=== PATIENT | male | born 1945 | race Caucasian/White ===

== ENCOUNTER 2022-07-14 11:17 | Outpatient (CLI) | payer MEDICARE, SELFPAY ==
--- NOTE | ~2022-07-14 | XR_ITS ---
Right elbow Technique: AP, oblique, and lateral views were obtained. Clinical History: Pain Findings: No acute fracture or dislocation is seen. Osseous alignment is anatomic. Joint spaces are p reserved. There is prominent soft tissue swelling over the olecranon. Questionable elbow joint effusi on with superior displacement of the anterior fat pad.. Impression: Olecranon bursitis. Possible elbow joint effusion. This may be reactive given presence of bursitis. Correlate for any pos sibility of radiographically occult fracture. Reviewed, dictated and finalized at location M. Impression: Olecranon bursitis. Possible elbow joint effusion. This may be reactive given presence of bursitis. Correlate for any possibility of radiographically occult fracture.
== END 2022-07-14 11:18 | disposition home or self-care (01) ==
PROVIDERS: PCP Internal Medicine; Visit Provider Internal Medicine
DX: M25.521 Pain in right elbow (principal); M25.421 Effusion, right elbow
CPT/HCPCS: 73080

== ENCOUNTER 2023-06-01 13:23 | Outpatient (CLI) | payer MEDICARE, SELFPAY ==
--- NOTE | ~2023-06-01 | CT_ITS ---
EXAMINATION: CT abdomen pelvis wo con DATE: 06/01/2023 13:43 INDICATION: Difficulty with micturition TECHNIQUE: Computed tomography (CT) of the abdomen and pelvis was performed without intravenous contr ast. Automated exposure control and iterative reconstruction technique were employed. The dose-length product was 352.88 mGy-cm. COMPARISON: None FINDINGS: Elevation of the left hemidiaphragm. Peripheral irregular septal line thickening and honeycombing at the bilateral lung bases consistent with usual interstitial pneumonia (UIP) pattern chronic interstit ial lung disease. Associated mild cylindrical bronchiectasis in the bilateral lower lung zones. Heart size is normal. Atherosclerotic coronary artery calcification is. No pericardial or pleural effusion . Liver, gallbladder, spleen, pancreas, right kidney and bilateral adrenal glands are normal. 1.8 cm left renal cyst. No urolithiasis or hydronephrosis. Mild diffuse bladder wall thickening which may re late to chronic outlet obstruction from the enlarged prostate which measures 5.3 x 4.0 cm in maximal diameter. Bowels are unremarkable with no wall thickening or obstruction. No free intraperitoneal gas or fluid. No pathologically enlarged abdominal or pelvic lymphadenopathy. There is calcified atheros clerosis of the aorta and many of the other arteries. Moderate lower thoracic and severe lumbar spond ylosis with anterior fusion at L4-L5. IMPRESSION: 1. Mild bladder wall thickening which could be related to chronic outlet obstruction from the enlarge d prostate. Differential would include cystitis either acute or chronic and would correlate with urin alysis. 2. Bronchiectasis and UIP pattern chronic interstitial lung disease at the bilateral lower lungs. Reviewed, dictated and finalized at location L. IMPRESSION: 1. Mild bladder wall thickening which could be related to chronic outlet obstru ction from the enlarged prostate. Differential would include cystitis either ac verna or chronic and would correlate with urinalysis. 2. Bronchiectasis and UIP pattern chronic interstitial lung disease at the bila teral lower lungs.
== END 2023-06-01 13:24 | disposition home or self-care (01) ==
PROVIDERS: PCP Physician Assistant; Visit Provider Physician Assistant
DX: R39.198 Other difficulties with micturition (principal)
CPT/HCPCS: 74176

== ENCOUNTER 2023-09-13 09:20 | Day surgery (SDC) | payer MEDICARE, SELFPAY ==
[2023-07-27 08:17] VITALS: BMI 21.4
--- NOTE | 2023-09-13 07:31 | WPDANESEPPF ---
Anes - Initial Pre Proc Eval Procedure: Operation Date: 09/13/23 11:30 Proposed Procedures p Esophagogastroduodenoscopy - Jaylan Mariano MD s Diagnostic Colonoscopy - Jaylan Mariano MD Date/Time: 09/13/23 07:31 Surgeon: Jayaln Mariano MD Pre Op Diagnosis: Abnormal weight loss,unlcerative colitis, Patient Data Age: 77 Gender: M Height: 1.85 m Weight: 70.4 kg Allergies Allergy/AdvReac Type Severity Reaction Status Date / Time lidocaine Allergy Severe shuts Verified 09/13/23 10:23 lungs down Home Medications Medication Instructions Recorded Confirmed Type acetaminophen 325 mg tablet 325 mg PO Q6H PRN Pain 08/08/19 09/13/23 History (Tylenol) naproxen sodium 220 mg tablet 220 mg PO BID PRN Pain 08/08/19 09/13/23 History (Aleve) tamsulosin 0.4 mg capsule (Flomax) 0.4 mg PO DAILY #90 caps 04/17/23 09/13/23 Rx folic acid 1 mg tablet 1 mg PO DAILY #100 tabs 04/24/23 09/13/23 Rx sulfasalazine 500 mg 1.5 g PO BID #540 tabs 04/24/23 09/13/23 Rx tablet,delayed release Synogut 1 tab-cap PO DIRECTED 05/23/23 09/13/23 History azathioprine 50 mg tablet 100 mg PO DAILY 05/23/23 09/13/23 History cholecalciferol (vitamin D3) 50 50 mcg PO DAILY 05/23/23 09/13/23 History mcg (2,000 unit) capsule finasteride 5 mg tablet 5 mg PO DAILY #100 tabs 05/23/23 09/13/23 Rx glucosamine sulfate 500 mg tablet 500 mg PO BID 05/23/23 09/13/23 History (Glucosamine) mecobalamin (vitamin B12) 500 mcg 500 mcg PO DIRECTED 05/23/23 09/13/23 History chewable tablet super beta prostrate 1 tab-cap PO DIRECTED 05/23/23 09/13/23 History linaclotide 145 mcg capsule 145 mcg PO DAILY #30 caps 07/25/23 09/13/23 Rx (Linzess) Patient hx anesthesia problems: none Family hx anesthesia problems: none Results Review: All pre-operative results and documents have been reviewed as part of the pre-operative evaluation. [facility] Past Medical History Medical History (Updated 09/13/23 @ 07:31 by Ulysses Schroeder DO) Crohn's disease Gastro-esophageal reflux disease without esophagitis Hyperlipidemia Ulcerative colitis Social History Social History Smoking packs per day: 1.5 Smoking cigarettes per day: 30.0 Years smoked: 15 Smoking pack-years: 22.50 Smoking status: Former smoker Second hand tobacco smoke exposure: No Smoking end date: 03/20/73 Additional smoking assessment comments: quit in 1980 Alcohol intake: current Alcohol use details: 3 per day Substance use: never Substance use type: does not use Lack of Transportation: No Lack of Food: Never True Current Housing: I Have Housing Concerned About Future Housing: No Difficulty Paying Gas/Electric Bills: No Difficulty Paying for Meds: No Currently Unemployed: No Education: Decline to Answer Difficulty w/ Childcare or Family Care: YES Living arrangements: with family Spiritual care concerns: No Anes - Eval Final PreProcedure Day of Procedure 09/13/23 07:31 Patient weight: normal Heart: regular rate and rhythm Lungs: clear to auscultation and normal air movement Airway: Mallampati scale class II Neurological: alert and oriented Last oral intake: >/= 8 hours ASA classification: III Emergent: no Anesthetic plan: proceed Anesthesia type and monitoring: general GIVS and standard monitoring Results Review: All pre-operative results and documents have been reviewed as part of the pre-operative evaluation. Informed Consent: The patient's anesthetic plan and its attendant risks and benefits were discussed with the patient/family/POA. Questions were solicited and answers provided to the satisfaction of the patient/family/POA.
[2023-09-13 10:56] VITALS: BMI 20.6
[2023-09-13 10:57] VITALS: BP 124/81; PULSE 102; RESP 20; TEMP 36.6; O2SAT 98
[2023-09-13] MEDS: LACTATED RINGERS 1,000 ML 150 ML IV CONT (11:00)
--- NOTE | 2023-09-13 11:25 | WPDHPUPDATE1 ---
History and Physical Update Update Date/Time: 09/13/23 11:25 History and Physical has been reviewed, including an updated exam of the patient. There are NO changes in the patient's condition. Risks, benefits, and alternatives have been discussed and questions answered. Patient agrees to proceed with procedure.
[2023-09-13 12:20] VITALS: BP 117/79; PULSE 79; RESP 16; O2SAT 99
[2023-09-13 12:30] VITALS: BP 116/84; PULSE 79; RESP 20; O2SAT 99
[2023-09-13 12:40] VITALS: BP 135/84; PULSE 78; RESP 22; O2SAT 100
--- NOTE | 2023-09-13 14:14 | WPDANESPN ---
Anes - Prog Note Post-Op Date/Time: 09/13/23 14:14 Cardiovascular status: normal Respiratory status: normal Airway patency: baseline Mental status: baseline Post-Op hydration status: normal Vital Signs: Last Vital Signs Temp 36.6 C 09/13/23 10:57 Pulse 78 09/13/23 12:40 Resp 22 H 09/13/23 12:40 BP 135/84 09/13/23 12:40 Pulse Ox 100 09/13/23 12:40 O2 Del Method Room Air 09/13/23 12:40 Pain Score (VAS): 0 I/O: Intake & Output 09/12/23 09/13/23 09/13/23 23:59 07:59 15:59 Intake Total 650 Balance 650 Post-procedural complaints: none Patient Feedback: Patient satisfied with anesthetic care. Other Findings: Patient vital signs back to baseline. Patient denies nausea and vomiting. Patient's pain under control. Patient OK for discharge.
== END 2023-09-13 13:00 | disposition home or self-care (01) ==
PROVIDERS: PCP Physician Assistant; Visit Provider Internal Medicine Gastroenterology
PROC: 0DJ08ZZ Inspection of Upper Intestinal Tract, Via Natural or Artificial Opening Endoscopic (ICD-10-PCS; CPT 43235; principal; 2023-09-13 11:30)
PROC: 0DJD8ZZ Inspection of Lower Intestinal Tract, Via Natural or Artificial Opening Endoscopic (ICD-10-PCS; CPT 45378; 2023-09-13 11:30)
DX: K51.50 Left sided colitis without complications (principal); R63.4 Abnormal weight loss; K26.9 Duodenal ulcer, unspecified as acute or chronic, without hemorrhage or perforation; K29.60 Other gastritis without bleeding
CPT/HCPCS: 45380; 43239

== ENCOUNTER 2023-09-13 09:52 | Outpatient (NON) | payer MEDICARE, SELFPAY | END 2023-09-13 09:53 | disposition home or self-care (01) | LOC: ANHLAB 09-14 09:54 | PROVIDERS: PCP Physician Assistant; Visit Provider Internal Medicine Gastroenterology | DX: K51.90 Ulcerative colitis, unspecified, without complications (principal) | CPT/HCPCS: 88305 ==

== ENCOUNTER 2023-10-06 20:07 | Emergency (ER) | payer MEDICARE, SELFPAY ==
[2023-10-06] VITALS (14 sets, daily range): BP systolic 140–186; BP diastolic 86–120; PULSE 71–106; RESP 12–31; TEMP 36.6–37.3; O2SAT 91–100
--- NOTE | ~2023-10-06 | CT_ITS ---
EXAMINATION: CTA chest PE protocol DATE: 10/07/2023 07:13 CDT INDICATION: Pneumothorax. Elevated d-dimer. Recent trauma. TECHNIQUE: Computed tomographic angiography (CTA) of the chest was performed with 100 mL Omnipaque-35 0 intravenous contrast. The dose-length product was 595.96 mGy-cm. Maximum intensity projection 3D-re constructions of the aorta and other arteries were constructed by the technologist on a separate work station. Automated exposure control and iterative reconstruction technique were employed. COMPARISON: None. FINDINGS: Study is technically adequate without evidence for pulmonary embolism. There is extensive s ubcutaneous emphysema of the left chest. Small left pneumothorax. There is coarse chronic interstitia l lung disease peripherally with honeycombing, consistent with pulmonary fibrosis. No endobronchial l esions. Large bleb in the left lower lobe. There is a left-sided chest tube. There are acute left sherif th, 10th and 11th rib fractures which are displaced. IMPRESSION: 1. Acute left ninth, 10th and 11th rib fractures with small left pneumothorax and subcutaneous emphys jaqueline of the left chest wall. Left chest tube in place. 2: No evidence for pulmonary embolism. 3: Chronic interstitial fibrosis. Reviewed, dictated and finalized at location B. IMPRESSION: 1. Acute left ninth, 10th and 11th rib fractures with small left pneumothorax a nd subcutaneous emphysema of the left chest wall. Left chest tube in place. 2: No evidence for pulmonary embolism. 3: Chronic interstitial fibrosis.
--- NOTE | ~2023-10-06 | XR_ITS ---
XR chest 1V portable Ordering provider: Emile Posada MD History: 77 years Male with . chest tube insertion . Comparison: October 06, 2023 FINDINGS: MEDIASTINUM: The cardiac silhouette is not enlarged. LUNGS: The previous left pneumothorax is markedly decreased with residual portion seen in the left a pical area of about 10%. Left chest tube is seen with the tip in the left apical area. Bilateral inte rstitial changes are seen in the lungs suggestive of pneumonia. Edema is less likely. No effusion. OTHER: No free air under the diaphragm. Degenerative changes of the spine. IMPRESSION: Decreased left pneumothorax with residual about 10%. Status after placement left chest tube. Bilateral pneumonia. Reviewed, dictated and finalized at location A. IMPRESSION: Decreased left pneumothorax with residual about 10%. Status after placement lef t chest tube. Bilateral pneumonia.
--- NOTE | ~2023-10-06 | CT_ITS ---
EXAMINATION: CT brain wo con DATE: 10/07/2023 00:19 INDICATION: Status post fall. Head injury. TECHNIQUE: Computed tomography (CT) of the abdomen and pelvis was performed without intravenous contr ast. The dose-length product was 756.67 mGy-cm. Automated exposure control and iterative reconstructi on technique were employed. COMPARISON: None. FINDINGS: Generalized atrophy. There are scattered mild periventricular and subcortical white matter changes, most likely related to small vessel ischemic disease (microangiopathy). No acute intracrania l hemorrhage, infarction, mass or mass effect. There is intracranial atherosclerosis. Paranasal sinus es demonstrate mucosal thickening of the ethmoid sinuses. Mastoids are pneumatized. No depressed skul l fractures. IMPRESSION: 1. No acute intracranial abnormality. 2: Mild ethmoid sinus disease. 3: Chronic age-related findings. Reviewed, dictated and finalized at location B.
--- NOTE | ~2023-10-06 | XR_ITS ---
XR chest 2V Ordering provider: Emile Posada MD History: 77 years Male with . new onset chest pain . Comparison: July 23, 2012 FINDINGS: MEDIASTINUM: The cardiac silhouette is not enlarged. LUNGS: Tension Pneumothorax seen in the left hemithorax with atelectasis of the left lung. Shift of t he heart to the right side is noted. Opacification the right lung suggestive of atelectasis. Pneumoni tis is not excluded. OTHER: No free air under the diaphragm. Fracture of the left seventh, eighth and probably ninth ribs is noted. IMPRESSION: Left tension pneumothorax with atelectasis of the left lung and shift of the heart to the right side. Opacification in the right lung suggestive of atelectasis. Underlying fibrotic changes or pneumonia c annot be excluded. Multiple rib fractures in the left lower thorax. Luiza Forde PA-C was notified with the result of the patient at 9:43 PM on October 06, 2023 Reviewed, dictated and finalized at location A. IMPRESSION: Left tension pneumothorax with atelectasis of the left lung and shift of the he art to the right side. Opacification in the right lung suggestive of atelectasis. Underlying fibrotic changes or pneumonia cannot be excluded. Multiple rib fractures in the left lower thorax. Luiza Forde PA-C was notified with the result of the patient at 9:43 PM on October 06, 2023
--- NOTE | 2023-10-06 20:34 | ECG_ITS ---
Test Date: 2023-10-06 20:46:50 Measurements Intervals [place] Rate: 81 P: 42 NE: 208 QRS: 268 QRSD: 144 T: 50 QT: 416 QTc: 484 Interpretive Statements SINUS RHYTHM WITH FIRST DEGREE AV BLOCK RIGHT AXIS DEVIATION RIGHT BUNDLE BRANCH BLOCK INFERIOR INFARCT, AGE INDETERMINATE ABNORMAL ECG No previous ECG available for comparison Electronically Signed On 10-07-2023 08:35:08 CDT by Alexsander Sen D.O.
--- NOTE | 2023-10-06 20:51 | ED.CHESTPAIN ---
HPI - Chest Pain General Chief Complaint: Chest Pain <Luiza Forde PA-C - Last Filed: 10/07/23 02:18> Stated Complaint: CP/SOB <Luiza Forde PA-C - Last Filed: 10/07/23 02:18> Time Seen by Provider: 10/06/23 20:39 <Luiza Forde PA-C - Last Filed: 10/07/23 02:18> Source: patient <NANCY Alvarado Last Filed: 10/07/23 02:18> Mode of arrival: EMS <NANCY Alvarado Last Filed: 10/07/23 02:18> Limitations: no limitations <NANCY Alvarado Last Filed: 10/07/23 02:18> History of Present Illness HPI narrative: This is a 77-year-old male that presents to the emergency department for chest pain. Reports he woke up this morning with crushing chest pain. Reports this lasted throughout the day. It was finally relieved prior to arrival after administration of Aspirin. He also reports he has been having difficulty breathing. No previous cardiac history. Denies fever, cough, or lower extremity edema. <Luiza Forde PA-C - Last Filed: 10/07/23 02:18> Related Data Home Medications: Home Medications Medication Instructions Recorded Confirmed acetaminophen 325 mg tablet 325 mg PO Q6H PRN Pain 08/08/19 09/13/23 (Tylenol) naproxen sodium 220 mg tablet 220 mg PO BID PRN Pain 08/08/19 09/13/23 (Aleve) Synogut 1 tab-cap PO DIRECTED 05/23/23 09/13/23 azathioprine 50 mg tablet 100 mg PO DAILY 05/23/23 09/13/23 cholecalciferol (vitamin D3) 50 50 mcg PO DAILY 05/23/23 09/13/23 mcg (2,000 unit) capsule glucosamine sulfate 500 mg tablet 500 mg PO BID 05/23/23 09/13/23 (Glucosamine) mecobalamin (vitamin B12) 500 mcg 500 mcg PO DIRECTED 05/23/23 09/13/23 chewable tablet super beta prostrate 1 tab-cap PO DIRECTED 05/23/23 09/13/23 <Luiza Forde PA-C - Last Filed: 10/07/23 02:18> Allergies/Adverse Reactions: Allergies Allergy/AdvReac Type Severity Reaction Status Date / Time lidocaine Allergy Severe shuts Verified 10/06/23 20:21 lungs down <Luiza Forde PA-C - Last Filed: 10/07/23 02:18> Review of Systems Review of Systems: CONSTITUTIONAL: Denies fever CARDIOVASCULAR: Reports chest pain. Denies edema. RESPIRATORY: Reports dyspnea. Denies cough GASTROINTESTINAL: Denies nausea, vomiting <Luiza Forde PA-C - Last Filed: 10/07/23 02:18> All systems reviewed & are unremarkable except as noted in HPI and below <Luiza Forde PA-C - Last Filed: 10/07/23 02:18> PMFSH Past Medical History Medical History: Medical History (Updated 10/07/23 @ 02:07 by Luiza Forde PA-C) Crohn's disease Gastro-esophageal reflux disease without esophagitis Hyperlipidemia Ulcerative colitis <Luiza Forde PA-C - Last Filed: 10/07/23 02:18> Social History Social History: Social History Smoking packs per day: 1.5 Smoking cigarettes per day: 30.0 Years smoked: 15 Smoking pack-years: 22.50 Smoking status: Former smoker Second hand tobacco smoke exposure: No Smoking end date: 03/20/73 Additional smoking assessment comments: quit in 1980 Alcohol intake: current Alcohol use details: 3 per day Substance use: never Substance use type: does not use Lack of Transportation: No Lack of Food: Never True Current Housing: I Have Housing Concerned About Future Housing: No Difficulty Paying Gas/Electric Bills: No Difficulty Paying for Meds: No Currently Unemployed: No Education: Decline to Answer Difficulty w/ Childcare or Family Care: YES Living arrangements: with family Spiritual care concerns: No <Luiza Forde PA-C - Last Filed: 10/07/23 02:18> Exam Narrative: GENERAL: Well-appearing, well-nourished, and in no acute distress. HEAD: Normocephalic, atraumatic. EYES: PERRLA and EOMI. ENT: Nares clear, no rhinorrhea or epistaxis. Mucous membranes moist. Oropharynx without tonsillar hypertrophy exudate or ot
[2023-10-06] MEDS: PANTOPRAZOLE SODIUM IV 40 MG VIAL IV PUSH (21:11)
[2023-10-06] MEDS: ONDANSETRON INJ 4 MG/2 ML VIAL IV PUSH (21:11)
--- NOTE | 2023-10-06 21:17 | PC.NURSE ---
Pt taken to xray via stretcher while on monitor.
[2023-10-06 21:21] LABS: Basophils Percent Auto 0.2 % (0.2-1.2); Eosinophils Absolute Auto 0.1 K/mm3 (0-0.3); Eosinophils Percent Auto 1.2 % (0-4.4); Hematocrit 33.9 % (42.0-52.0); Hemoglobin 11.7 g/dL (14.0-18.0); Immature Granulocyte Absolute 0.01 K/mm3 (0.00-0.031); Immature Granulocyte Percent A 0.2 % (0-0.5); Lymphocytes Absolute Auto 0.73 K/mm3 (0.9-3.2); Mean Corpuscular HGB Conc 34.5 g/dl (32-36); Mean Corpuscular Hemoglobin 36.2 pg (26-34); Mean Platelet Volume 9.3 fl (7.4-10.4); Monocytes Absolute Auto 0.5 K/mm3 (0.1-0.6); Monocytes Percent Auto 9.2 % (2.6-8.5); Neutrophils Absolute Auto 3.9 K/mm3 (1.3-6.7); Neutrophils Percent Auto 75.2 % (45.5-73.1); Platelet Count Result 205 k/mm3 (150-375); Red Blood Count 3.23 M/mm3 (4.6-6.20); Red Cell Distribution Width 13.9 % (11.5-14.5); White Blood Count 5.2 K/mm3 (4.5-10.0)
[2023-10-06 21:31] LABS: Alanine Aminotransferase 13 U/L (6-50); Albumin Level 4.1 g/dL (3.5-5.1); Alkaline Phosphatase 58 U/L (38-126); Anion Gap 10 mmol/L (4-12); Aspartate Amino Transferase 28 U/L (17-59); Bilirubin,Total 0.6 mg/dL (0.2-1.3); Blood Urea Nitrogen 15 mg/dL (9-20); Calcium 8.6 mg/dL (8.4-10.2); Carbon Dioxide 27 mmol/L (22-30); Chloride 92 mmol/L (98-107); Estimated CRCL calculation 109 ml/min; Estimated Glomerular Filt Rate > 60; Glucose 114 mg/dL (65-110); Lipase 101 U/L (23-300); Potassium 4.1 mmol/L (3.4-5.0); Sodium 129 mmol/L (137-145)
[2023-10-06 21:43] LABS: Troponin I < 0.012 ng/mL (0.000-0.034)
[2023-10-06 21:43] LABS: Prothrombin Time 13.4 Seconds (11.1-14.7)
[2023-10-06 21:44] LABS: Partial Thromboplastin Time 32.3 Seconds (22.3-36.8)
[2023-10-06 21:49] LABS: D Dimer 1.38 ug/mL (<0.48)
--- NOTE | 2023-10-06 21:51 | PC.NURSE ---
Patient placed on 15L via NRB per [facility] . Patient also moved from room 11 to room 3 for sedation and placement of chest tube. Patient a/ox4, signed consent form in presence of this RN and NANCY Bailonkedar Forde as well as his son. Patient report given to Belen RN.
[2023-10-06] MEDS: SODIUM CHLORIDE 0.9% IV 1,000 ML 999 ML IV CONT (21:59)
--- NOTE | 2023-10-06 22:20 | PC.NURSE ---
[address] given by Dr. Swetha TAI
--- NOTE | 2023-10-06 22:26 | PC.NURSE ---
2225 additional [address] Posada
[2023-10-06 23:27] LABS: Ethanol < 10 mg/dL (<10)
[2023-10-07] MEDS: MORPHINE SULFATE (*CRX) 4 MG/ML INJ IV PUSH ×2 (00:24→02:38)
[2023-10-07 00:43] LABS: Troponin I 0.023 ng/mL (0.000-0.034)
[2023-10-07] MEDS: AZITHROMYCIN 500 MG/NS 250 ML 500 MG/250 ML BAG 250 MG IVPB (00:44)
[2023-10-07 02:00] VITALS: BP 133/85; PULSE 73; RESP 14; O2SAT 100
[2023-10-07 02:16] VITALS: BP 139/96; PULSE 91; RESP 25; O2SAT 98
--- NOTE | 2023-10-08 00:14 | ED.GENADULT ---
HPI - General Adult General Chief complaint: Chest Pain Stated complaint: CP/SOB Time Seen by Provider: 10/06/23 20:39 Source: patient Mode of arrival: EMS Limitations: no limitations Related Data Home Medications Medication Instructions Recorded Confirmed acetaminophen 325 mg tablet 325 mg PO Q6H PRN Pain 08/08/19 09/13/23 (Tylenol) naproxen sodium 220 mg tablet 220 mg PO BID PRN Pain 08/08/19 09/13/23 (Aleve) Synogut 1 tab-cap PO DIRECTED 05/23/23 09/13/23 azathioprine 50 mg tablet 100 mg PO DAILY 05/23/23 09/13/23 cholecalciferol (vitamin D3) 50 50 mcg PO DAILY 05/23/23 09/13/23 mcg (2,000 unit) capsule glucosamine sulfate 500 mg tablet 500 mg PO BID 05/23/23 09/13/23 (Glucosamine) mecobalamin (vitamin B12) 500 mcg 500 mcg PO DIRECTED 05/23/23 09/13/23 chewable tablet super beta prostrate 1 tab-cap PO DIRECTED 05/23/23 09/13/23 Allergies Allergy/AdvReac Type Severity Reaction Status Date / Time lidocaine Allergy Severe shuts Verified 10/06/23 20:21 lungs down PMFSH Past Medical History Medical History (Updated 10/08/23 @ 00:00 by Camacho Blandon) Crohn's disease Gastro-esophageal reflux disease without esophagitis Hyperlipidemia Ulcerative colitis Social History Social History Smoking packs per day: 1.5 Smoking cigarettes per day: 30.0 Years smoked: 15 Smoking pack-years: 22.50 Smoking status: Former smoker Second hand tobacco smoke exposure: No Smoking end date: 03/20/73 Additional smoking assessment comments: quit in 1980 Alcohol intake: current Alcohol use details: 3 per day Substance use: never Substance use type: does not use Lack of Transportation: No Lack of Food: Never True Current Housing: I Have Housing Concerned About Future Housing: No Difficulty Paying Gas/Electric Bills: No Difficulty Paying for Meds: No Currently Unemployed: No Education: Decline to Answer Difficulty w/ Childcare or Family Care: YES Living arrangements: with family Spiritual care concerns: No Course Vital Signs Vital signs: Vital Signs Temperature 97.8 F 10/06/23 20:16 Pulse Rate 79 10/06/23 20:16 Respiratory Rate 26 H 10/06/23 20:16 Blood Pressure 140/94 H 10/06/23 20:16 Pulse Oximetry 94 10/06/23 20:16 Oxygen Delivery Room Air 10/06/23 20:16 Temperature 98.2 F 10/06/23 23:43 Pulse Rate 91 10/07/23 02:16 Respiratory Rate 25 H 10/07/23 02:16 Blood Pressure 139/96 H 10/07/23 02:16 Pulse Oximetry 98 10/07/23 02:16 Oxygen Delivery Room Air 10/06/23 23:43 Oxygen Flow Rate 2 10/06/23 23:13 Procedures Procedural Sedation Procedural Sedation #1: Procedural Sedation Date: 10/07/23 Presedation Evaluation: Tachypnic, not hypoxic. C/O l sided chest pain. Procedure: L chest tube Provider Performed: sedation and procedure Time Out: performed Informed Consent Obtained: yes Equipment in Room: bag and mask, capnography, monitoring analyst, crash cart, oxygen, pulse oximeter and suction Plan for Sedation: moderate sedation ASA Class: III Mallampati Classification: class II NPO Status: last solid food (hours ago) Explanation to Patient/Family: Risk/Benefits/Alternatives Pt. Educated on Procedural Sedation: Yes Re-evaluated immediately prior: Yes Preparation: monitoring analyst applied, pulse oximeter, capnometry used, supplemental O2 applied, reversal agents at bedside, suction/airway equipment at bedside and IV secured Ketamine: IV Ketamine dose (mg): 150 Patient Tolerated Procedure: well and no complications Complications: hypoventilation Interventions: assist by BVM Medical Decision Making Vital Signs Vital Signs: Vital Signs Temperature 97.8 F 10/06/23 20:16 Pulse Rate 79 10/06/23 20:16 Respiratory Rate 2
== END 2023-10-07 02:56 | disposition short-term general hospital (02) ==
PROVIDERS: Emergency Medicine; Emergency Provider Physician Assistant; PCP Physician Assistant
DX: S27.0XXA Traumatic pneumothorax, initial encounter (principal); S22.42XA Multiple fractures of ribs, left side, initial encounter for closed fracture; J18.9 Pneumonia, unspecified organism; E78.5 Hyperlipidemia, unspecified; K21.9 Gastro-esophageal reflux disease without esophagitis; K51.90 Ulcerative colitis, unspecified, without complications; Z87.891 Personal history of nicotine dependence; W19.XXXA Unspecified fall, initial encounter; J84.10 Pulmonary fibrosis, unspecified; J32.2 Chronic ethmoidal sinusitis; I44.0 Atrioventricular block, first degree; I45.10 Unspecified right bundle-branch block
CPT/HCPCS: 32551; 36415; 70450; 71045; 71046; 71275; 80053; 80307; 83690; 84484; 85025; 85380; 85610; 85730; 87040; 93005; 96365; 96367; 96375; 96376; 99291; C1729; J0456; J0696; J1200; J2270; J2405; J2470; J7030; Q9967

== ENCOUNTER 2023-10-26 17:49 | Observation (INO) | payer MEDICARE, SELFPAY ==
--- NOTE | ~2023-10-26 | XR_ITS ---
XR chest 1V portable Ordering provider: Naren Carrasco MD History: 77 years Male with . dyspnea . Comparison: October 06, 2023 FINDINGS: MEDIASTINUM: The cardiac silhouette is not enlarged. Elevation of the left hemidiaphragm. LUNGS: No effusions or pneumothorax. Opacification in the left lung base laterally with opacification the right upper and lower lobe suggestive of pneumonia. Underlying fibrotic changes. OTHER: No free air under the diaphragm. Degenerative spine. IMPRESSION: Bilateral pneumonia. Underlying fibrotic changes. Reviewed, dictated and finalized at location A.
--- NOTE | ~2023-10-26 | US_ITS ---
EXAMINATION: US carotid duplex BI DATE: 10/27/2023 14:05 INDICATION: Syncope. TECHNIQUE: Grayscale, color Doppler, and pulsed Doppler images of the cervical carotid arteries were obtained. The degree of vessel stenosis is placed in one of the following categories: normal, <50%, 5 0-69%, >=70% but less than near-occlusion, near-occlusion, or total occlusion. Note that percent sten osis relative to normal distal artery lumen diameter is indirectly measured from velocity measurement s as described by Alejandro, et al. Radiology 2003; 229:340-346. COMPARISON: None. FINDINGS: RIGHT: The right common carotid artery (CCA) peak systolic velocity (PSV) is 108 cm/s. The right internal ca rotid artery (ICA) PSV is 99 cm/s. The right ICA end-diastolic velocity (EDV) is 19 cm/s. The right I CA/CCA PSV ratio is 0.9. Grayscale and color Doppler images yield an estimate of <50% diameter reduct ion from plaque in the ICA. There is antegrade flow in the right vertebral artery. LEFT: The left CCA PSV is 120 cm/s. The left ICA PSV is 106 cm/s. The left ICA EDV is 29 cm/s. The left ICA /CCA PSV ratio is 0.9. Grayscale and color Doppler images yield an estimate of <50% diameter reductio n from plaque in the ICA. There is antegrade flow in the left vertebral artery. IMPRESSION: 1. <50% stenosis in the right internal carotid artery. 2. <50% stenosis in the left internal carotid artery. Reviewed, dictated and finalized at location A.
--- NOTE | ~2023-10-26 | CT_ITS ---
EXAMINATION: CT brain wo con DATE: 10/27/2023 15:53 INDICATION: Dizziness. Generalized weakness. TECHNIQUE: Computed tomography (CT) of the head was performed without intravenous contrast. The mA wa s adjusted according to patient size. Iterative reconstruction technique was employed. The dose-lengt h product was 681.00 mGy-cm. COMPARISON: Head CT 10/06/2023 FINDINGS: There is no intracranial hemorrhage, acute infarction, or abnormal intracranial mass lesion . The ventricles are normal in size. There is mucosal thickening in the paranasal sinuses. There is a nteroposterior elongation of the ocular globes. The mastoid air cells are normal. IMPRESSION: 1. Normal brain. Reviewed, dictated and finalized at location A. IMPRESSION: 1. Normal brain.
[2023-10-26 17:48] VITALS: BP 98/72; PULSE 89; RESP 16; TEMP 36.4; O2SAT 99
[2023-10-26 18:12] LABS: Basophils Absolute Auto 0.1 K/mm3 (0.0-0.1); Basophils Percent Auto 1.2 % (0.2-1.2); Eosinophils Absolute Auto 0.1 K/mm3 (0-0.3); Eosinophils Percent Auto 1.8 % (0-4.4); Hematocrit 33.6 % (42.0-52.0); Hemoglobin 11.2 g/dL (14.0-18.0); Immature Granulocyte Absolute 0.02 K/mm3 (0.00-0.031); Immature Granulocyte Percent A 0.4 % (0-0.5); Lymphocytes Percent Auto 20.4 % (18.3-44.2); Mean Corpuscular HGB Conc 33.3 g/dl (32-36); Mean Corpuscular Hemoglobin 35.7 pg (26-34); Mean Platelet Volume 8.4 fl (7.4-10.4); Monocytes Absolute Auto 0.5 K/mm3 (0.1-0.6); Neutrophils Absolute Auto 3.2 K/mm3 (1.3-6.7); Neutrophils Percent Auto 66.2 % (45.5-73.1); Platelet Count Result 583 k/mm3 (150-375); Red Blood Count 3.14 M/mm3 (4.6-6.20); Red Cell Distribution Width 13.8 % (11.5-14.5); White Blood Count 4.9 K/mm3 (4.5-10.0)
[2023-10-26 18:23] LABS: Alanine Aminotransferase 12 U/L (6-50); Albumin Level 3.8 g/dL (3.5-5.1); Alkaline Phosphatase 58 U/L (38-126); Anion Gap 13 mmol/L (4-12); Aspartate Amino Transferase 22 U/L (17-59); Bilirubin,Total 0.5 mg/dL (0.2-1.3); Blood Urea Nitrogen 12 mg/dL (9-20); Calcium 8.7 mg/dL (8.4-10.2); Carbon Dioxide 28 mmol/L (22-30); Chloride 94 mmol/L (98-107); Estimated CRCL calculation 87 ml/min; Estimated Glomerular Filt Rate > 60; Glucose 158 mg/dL (65-110); Potassium 3.8 mmol/L (3.4-5.0); Sodium 135 mmol/L (137-145)
[2023-10-26 18:25] LABS: Prothrombin Time 13.9 Seconds (11.1-14.7)
[2023-10-26 18:26] LABS: Partial Thromboplastin Time 30.3 Seconds (22.3-36.8)
--- NOTE | 2023-10-26 18:26 | ED.SOB ---
HPI - SOB/Dyspnea General Chief Complaint: Shortness of Breath/Dyspnea Stated Complaint: sudden onset SOB Time Seen by Provider: 10/26/23 17:57 History of Present Illness HPI Narrative: This is a 77-year-old male presenting to the emergency department for evaluation of dyspnea. He was recently seen at this emergency center for a large left-sided pneumothorax in the end of September that was associated with rib fractures. At that time patient received a chest tube and was transferred to [facility] for continued treatment. Was admitted to the hospital for last several weeks and has had 2 chest tubes placed and since intervally removed. He was discharged last . Patient states that he has been feeling dyspneic at home and today was feeling short of breath, diaphoretic, concerned that he was having a heart attack prompting EMS evaluation. He states he has not had any fevers, chills at home and he was not recently on any kind of antibiotics. He was not treated for any kind of pneumonia while at [facility] according to himself. Presently he is endorsing dyspnea without any chest pain, nausea, vomiting, abdominal pain, back pain. He has had no erythema or drainage from his previous chest tube sites but they are tender at the incision site. No new traumas. Related Data Home Medications Medication Instructions Recorded Confirmed acetaminophen 325 mg tablet 325 mg PO Q6H PRN Pain 08/08/19 09/13/23 (Tylenol) naproxen sodium 220 mg tablet 220 mg PO BID PRN Pain 08/08/19 09/13/23 (Aleve) Synogut 1 tab-cap PO DIRECTED 05/23/23 09/13/23 azathioprine 50 mg tablet 100 mg PO DAILY 05/23/23 09/13/23 cholecalciferol (vitamin D3) 50 50 mcg PO DAILY 05/23/23 09/13/23 mcg (2,000 unit) capsule glucosamine sulfate 500 mg tablet 500 mg PO BID 05/23/23 09/13/23 (Glucosamine) mecobalamin (vitamin B12) 500 mcg 500 mcg PO DIRECTED 05/23/23 09/13/23 chewable tablet super beta prostrate 1 tab-cap PO DIRECTED 05/23/23 09/13/23 Allergies Allergy/AdvReac Type Severity Reaction Status Date / Time lidocaine Allergy Severe shuts Verified 10/26/23 19:45 lungs down Review of Systems Review of Systems: As reviewed above in the [facility] [place] Past Medical History Medical History Crohn's disease Gastro-esophageal reflux disease without esophagitis Hyperlipidemia Ulcerative colitis Social History Social History Smoking packs per day: 1.5 Smoking cigarettes per day: 30.0 Years smoked: 15 Smoking pack-years: 22.50 Smoking status: Former smoker Second hand tobacco smoke exposure: No Smoking end date: 03/20/73 Additional smoking assessment comments: quit in 1980 Alcohol intake: current Alcohol use details: 3 per day Substance use: never Substance use type: does not use Lack of Transportation: No Lack of Food: Never True Current Housing: I Have Housing Concerned About Future Housing: No Difficulty Paying Gas/Electric Bills: No Difficulty Paying for Meds: No Currently Unemployed: No Education: Decline to Answer Difficulty w/ Childcare or Family Care: YES Living arrangements: with family Spiritual care concerns: No Exam Narrative: GENERAL: Slightly diaphoretic in appearance but awake alert oriented answers all questions appropriately. Not in any respiratory distress. HEAD: [Normocephalic, atraumatic.] EYES: [PERRLA and EOMI.] ENT: Nares clear, no rhinorrhea or epistaxis. Mucous membranes moist. NECK: Supple. CHEST: [Clear to auscultation. No respiratory distress.] His previous chest tube incision sites x2 on the left side appeared clean, dry, intact without any signs of erythema or exudate or infection. Tenderness to palpation without any crepitus. Clear breath sounds in all lung kaur. HEART: [Regular rate and rhythm]. No murmur heard. [Normal peripheral pulse
--- NOTE | 2023-10-26 18:27 | ECG_ITS ---
Test Date: 2023-10-26 18:03:21 Measurements Intervals [place] Rate: 85 P: 0 VA: 0 QRS: 251 QRSD: 137 T: 62 QT: 377 QTc: 449 Interpretive Statements SINUS RHYTHM WITH FIRST-DEGREE AV BLOCK RIGHT BUNDLE BRANCH BLOCK EVIDENCE OF PREVIOUS INFERIOR INFARCTION ABNORMAL ECG Compared to ECG 10/06/2023 20:46:50 NO DIFFERENCE Electronically Signed On 10-27-2023 14:51:14 CDT by Jun Latham M.D.
[2023-10-26 18:28] LABS: Lactic Acid Reflex 1.8 mmol/L (0.7-2.0)
[2023-10-26] MEDS: ASPIRIN 325 MG TABLET PO (18:55)
[2023-10-26 19:08] LABS: SARS-CoV-2 RNA PCR Negative (Negative)
[2023-10-26 19:09] LABS: Troponin I < 0.012 ng/mL (0.000-0.034)
--- NOTE | 2023-10-26 19:26 | ECG_ITS ---
Test Date: 2023-10-26 20:57:23 Measurements Intervals [place] Rate: 68 P: 24 TX: 209 QRS: 270 QRSD: 148 T: -13 QT: 414 QTc: 442 Interpretive Statements SINUS RHYTHM WITH FIRST-DEGREE AV BLOCK MARKED RIGHT AXIS DEVIATION [QRS AXIS > 100] RIGHT BUNDLE BRANCH BLOCK [120+ ms QRS DURATION, UPRIGHT V1, 40+ ms S IN I/aVL/V4/V5/V6] INFERIOR MYOCARDIAL INFARCTION , OF INDETERMINATE AGE [40+ ms Q WAVE AND/OR ST/T ABNORMALITY IN II/aVF] ABNORMAL ECG Compared to ECG 10/26/2023 18:03:21 NO DIFFERENCE Electronically Signed On 10-27-2023 14:53:21 CDT by Jun Latham M.D.
[2023-10-26 19:43] VITALS: BP 121/72; PULSE 71; PULSE 78; RESP 20; O2SAT 97
[2023-10-26] MEDS: LACTATED RINGERS 1,000 ML 999 ML IV CONT (19:45)
[2023-10-26] MEDS: CEFEPIME 2 GM/NS 50 ML 2 GM/50 ML BAG IVPB (19:46)
[2023-10-26] MEDS: VANCOMYCIN 1,750 MG/NS 500 ML 1,750 MG/500 ML BAG 250 MG IVPB (20:01)
[2023-10-26 20:54] LABS: MRSA (PCR) NOT DETECTED (NOT DETECTE)
[2023-10-26] MEDS: MORPHINE SULFATE (*CRX) 4 MG/ML INJ IV PUSH (21:10)
[2023-10-26 21:21] LABS: Troponin I < 0.012 ng/mL (0.000-0.034)
--- NOTE | 2023-10-26 21:32 | PM.IMHP ---
H&P: HPI History of Present Illness Date/Time: 10/26/23 21:32 Chief Complaint: weakness Narrative: this is a 77-year-old male with past medical history significant for Crohn's disease, gastroesophageal reflux disease, dyslipidemia, recurrent falls status post chest trauma, status post rib fracture status post tension pneumothorax and chest tube placement patient discharged home a week ago comes today to the emergency room due to generalized weakness poor per orally intake, body aches and pains. Patient found to have bibasal bilateral pneumonia. XR chest 1V portable Ordering provider: Naren Carrasco MD History: 77 years Male with . dyspnea . Comparison: October 06, 2023 FINDINGS: MEDIASTINUM: The cardiac silhouette is not enlarged. Elevation of the left hemidiaphragm. LUNGS: No effusions or pneumothorax. Opacification in the left lung base laterally with opacification the right upper and lower lobe suggestive of pneumonia. Underlying fibrotic changes. OTHER: No free air under the diaphragm. Degenerative spine. IMPRESSION: Bilateral pneumonia. Underlying fibrotic changes. Review of Systems Review of Systems: generalized weakness PMFSH Past Medical History Medical History Crohn's disease Gastro-esophageal reflux disease without esophagitis Hyperlipidemia Ulcerative colitis Social History Social History Smoking packs per day: 2 Smoking cigarettes per day: 40.0 Years smoked: 15 Smoking pack-years: 30.00 Smoking status: Former smoker Tobacco type: cigarettes Second hand tobacco smoke exposure: No Smoking end date: 03/20/73 Additional smoking assessment comments: quit in 1980 Alcohol intake: current Drinks per week: 2 Alcohol use details: 3 per day Substance use: never Substance use type: does not use Do You Feel Safe in your Home?: Yes Lack of Transportation: No Lack of Food: Never True Current Housing: I Have Housing Concerned About Future Housing: No Difficulty Paying Gas/Electric Bills: No Difficulty Paying for Meds: No Currently Unemployed: No Education: Decline to Answer Difficulty w/ Childcare or Family Care: YES Living arrangements: with family Spiritual care concerns: No Meds Home Medications and Allergies Home Medications Medication Instructions Recorded Confirmed Type acetaminophen 325 mg tablet 325 mg PO Q6H PRN Pain 08/08/19 10/27/23 History (Tylenol) naproxen sodium 220 mg tablet 220 mg PO BID PRN Pain 08/08/19 10/27/23 History (Aleve) tamsulosin 0.4 mg capsule (Flomax) 0.4 mg PO DAILY #90 caps 04/17/23 10/27/23 Rx folic acid 1 mg tablet 1 mg PO DAILY #100 tabs 04/24/23 10/27/23 Rx azathioprine 50 mg tablet 100 mg PO DAILY 05/23/23 10/27/23 History cholecalciferol (vitamin D3) 50 50 mcg PO DAILY 05/23/23 10/27/23 History mcg (2,000 unit) capsule finasteride 5 mg tablet 5 mg PO DAILY #100 tabs 05/23/23 10/27/23 Rx glucosamine sulfate 500 mg tablet 500 mg PO BID 05/23/23 10/27/23 History (Glucosamine) mecobalamin (vitamin B12) 500 mcg 500 mcg PO DIRECTED 05/23/23 10/27/23 History chewable tablet linaclotide 145 mcg capsule 145 mcg PO DAILY #30 caps 07/25/23 10/27/23 Rx (Linzess) pantoprazole 40 mg tablet,delayed 40 mg PO QAM #30 tabs 09/13/23 10/27/23 Rx release sulfasalazine 500 mg 1.5 g PO BID #540 tabs 10/03/23 10/27/23 Rx tablet,delayed release amoxicillin 875 mg-potassium 1 tablet PO Q12H #10 tabs 10/28/23 Rx clavulanate 125 mg tablet azithromycin 250 mg tablet 500 mg PO DAILY #3 tabs 10/28/23 Rx (Zithromax) Allergies Allergy/AdvReac Type Severity Reaction Status Date / Time lidocaine Allergy Severe shuts Verified 10/26/23 19:45 lungs down Vital Signs Vital Signs - 24 hr 10/26/23 17:48 10/26/23 18:17 10/26/23 19:43 Temperature 9
[2023-10-26 21:35] VITALS: BP 129/76; PULSE 76; RESP 17; O2SAT 96
[2023-10-27] VITALS (11 sets, daily range): BP systolic 111–129; BP diastolic 64–80; PULSE 61–116; RESP 12–20; TEMP 36.1–36.8; O2SAT 92–100; BMI 19.3
--- NOTE | 2023-10-27 | ECHO_ITS ---
Patient Info Name: Og Noland Age: 77 years : 1945 Gender: Male Ht: 74 in Wt: 160 lbs BSA: 1.94 m2 HR: 97 bpm BP: 128 / 78 mmHg Heart Rhythm: Sinus Rhythm Technical Quality: Good Exam Date: 10/27/2023 12:39 PM Exam Location: Echo Lab Patient Status: Inpatient Admit Date: 10/27/2023 Staff Ordering Physician: Funmilayo Hutchinson APRN [employer]: Kehinde Watt RDCS Attending Provider: True Graham MD Referring Physician: Evangelina ANDERSON; Exam Type: CA echo doppler color flow Study Info Indications - syncope Complete two-dimensional, color flow and Doppler transthoracic echocardiogram is performed. Summary 1. Complete two-dimensional, color flow and Doppler transthoracic echocardiogram is performed. 2. Left ventricular chamber dimension is normal. 3. Left ventricular systolic function is normal, estimated at 55-60%. 4. The left ventricular diastolic function is normal. 5. E/e' 5 is not elevated. 6. There is mild aortic valve sclerosis. 7. There is mild to moderate mitral valve regurgitation. 8. There is mild tricuspid valve regurgitation. 9. No pulmonary hypertension, estimated pulmonary arterial systolic pressure is 26 mmHg. Left Ventricle E/e' 5 is not elevated. Left ventricular chamber dimension is normal. Left ventricular systolic function is normal, estimated at 55-60%. The left ventricular diastolic function is normal. Right Ventricle Right ventricular systolic function is normal and with normal TAPSE 2.6 cm. Right ventricular chamber dimension is normal. Left Atria Left atrial chamber dimension is normal. Right Atria Right atrial chamber dimension is normal. Aortic Valve The aortic valve is not well visualized. There is mild aortic valve sclerosis. There is no aortic valve stenosis. There is no aortic valve regurgitation. Pulmonic Valve There is no pulmonic regurgitation. Mitral Valve There is no mitral valve stenosis. There is mild to moderate mitral valve regurgitation. Tricuspid Valve There is mild tricuspid valve regurgitation. No pulmonary hypertension, estimated pulmonary arterial systolic pressure is 26 mmHg. Pericardium/Pleural There is no pericardial effusion. Inferior Vena Cava Normal inferior vena cava with >50% collapse upon inspiration consistent with normal right atrial pressure, 5 mmHg. Aorta The aortic root size at the sinus of Valsalva is normal. Left Ventricular Outflow Tract Name Value Normal LVOT 2D LVOT Diameter 1.9 cm LVOT Doppler LVOT Peak Gradient 3 mmHg LVOT Mean Gradient 1 mmHg LVOT VTI 20 cm LVOT VTI/AV VTI Ratio 0.9 LVOT Stroke Volume 54 ml LVOT CO 3.4 l/min LVOT CI 1.8 l/min/m2 Pulmonic Valve Name Value Normal PV Doppler PV Peak Gradient
--- NOTE | 2023-10-27 00:19 | ADMGEN ---
This patient, Og Noland, was admitted to [facility] Room 327-01. Patient/family oriented to hospital policies and general routines including ID bracelet, bed and alarms, visiting hours, pain management, procedures, bathroom and other care routines, personal items, smoking policy, room service/diet, and visiting hours. Information on how to activate the Rapid Response Team has been discussed. Patient/Family are encouraged to report perceived risks to care and to ask questions if they do not understand what they are told or what they should do.
[2023-10-27] MEDS: HYDROmorphone HCL INJ (*CRX) 1 MG/ML SYR IV PUSH ×5 (01:05→21:52)
[2023-10-27] MEDS: CEFEPIME 2 GM/NS 50 ML 2 GM/50 ML BAG IVPB ×3 (04:46→21:52)
[2023-10-27 06:36] LABS: Estimated CRCL calculation 100 ml/min; Estimated Glomerular Filt Rate > 60
[2023-10-27] MEDS: LINACLOTIDE 145 MCG CAPSULE PO (08:13)
[2023-10-27] MEDS: PANTOPRAZOLE 40 MG TABLET PO (08:14)
[2023-10-27] MEDS: AZITHROMYCIN 250 MG TABLET 500 MG PO (08:14)
[2023-10-27] MEDS: VANCOMYCIN 1,500 MG/NS 500 ML 1,500 MG/500 ML BAG 250 MG IVPB (08:14)
[2023-10-27] MEDS: azaTHIOprine 50 MG TABLET 100 MG PO (08:14)
[2023-10-27] MEDS: FOLIC ACID 1 MG TABLET PO (08:14)
[2023-10-27] MEDS: TAMSULOSIN HCL 0.4 MG CAPSULE PO (08:14)
[2023-10-27] MEDS: FINASTERIDE 5 MG TABLET PO (08:14)
[2023-10-27] MEDS: sulfaSALAzine 500 MG TABLET 1000 MG PO ×3 (08:15→18:37)
[2023-10-27 08:33] LABS: Basophils Percent Auto 0.9 % (0.2-1.2); Eosinophils Absolute Auto 0.1 K/mm3 (0-0.3); Eosinophils Percent Auto 2.8 % (0-4.4); Hematocrit 29.4 % (42.0-52.0); Hemoglobin 9.8 g/dL (14.0-18.0); Immature Granulocyte Absolute 0.02 K/mm3 (0.00-0.031); Immature Granulocyte Percent A 0.4 % (0-0.5); Lymphocytes Absolute Auto 1.16 K/mm3 (0.9-3.2); Lymphocytes Percent Auto 25.1 % (18.3-44.2); Mean Corpuscular HGB Conc 33.3 g/dl (32-36); Mean Corpuscular Hemoglobin 36.6 pg (26-34); Mean Corpuscular Volume 109.7 fl (80-100); Mean Platelet Volume 8.8 fl (7.4-10.4); Monocytes Absolute Auto 0.6 K/mm3 (0.1-0.6); Monocytes Percent Auto 12.3 % (2.6-8.5); Neutrophils Absolute Auto 2.7 K/mm3 (1.3-6.7); Neutrophils Percent Auto 58.5 % (45.5-73.1); Platelet Count Result 487 k/mm3 (150-375); Red Blood Count 2.68 M/mm3 (4.6-6.20); White Blood Count 4.6 K/mm3 (4.5-10.0)
[2023-10-27 08:50] LABS: Hypochromasia 1+; Platelet Estimate Increased (Adequate); Poikilocytosis 1+
[2023-10-27 08:51] LABS: Anisocytosis 1+; Macrocytosis 1+ (NORMAL); Schistocytes None Seen; Target Cells 1+
[2023-10-27 09:46] LABS: Alanine Aminotransferase 9 U/L (6-50); Alkaline Phosphatase 53 U/L (38-126); Anion Gap 10 mmol/L (4-12); Aspartate Amino Transferase 22 U/L (17-59); Bilirubin,Total 0.3 mg/dL (0.2-1.3); Blood Urea Nitrogen 12 mg/dL (9-20); Calcium 8.6 mg/dL (8.4-10.2); Carbon Dioxide 27 mmol/L (22-30); Chloride 100 mmol/L (98-107); Estimated CRCL calculation 100 ml/min; Estimated Glomerular Filt Rate > 60; Glucose 78 mg/dL (65-110); Potassium 3.7 mmol/L (3.4-5.0); Sodium 137 mmol/L (137-145)
[2023-10-27] MEDS: ACETAMINOPHEN 325 MG TABLET PO ×2 (10:35→21:59)
--- NOTE | 2023-10-27 15:07 | PM.IMPN ---
Progress Note: A&P Assessment and Plan (1) Pneumonia: Code(s): J18.9 - Pneumonia, unspecified organism Status: Acute Assessment and Plan: 10/27/23: Chest x-ray showing bilateral pneumonia with underlying fibrotic changes Recently hospitalized at [place] for pneumothorax, chest tube placement x2, and was discharged on of last week Continue azithromycin and cefepime for hospital-acquired pneumonia MRSA negative Respiratory panel negative (2) Recurrent syncope: Code(s): R55 - Syncope and collapse Status: Acute Assessment and Plan: 10/27/23: Has had 4 episodes of falls with black out Most recent fall was the end of September where he sustained rib fractures a cause to pneumothorax and required chest tube placement x2 Echo showing normal LV systolic function with an estimated EF of 55-60%, normal diastolic function, [id number] mitral valve regurgitation Carotid Doppler showing less than 50% stenosis in bilateral internal carotid artery Orthostatic blood pressures did not show significant drop in heart rate or blood pressure with position changes Will get CT of the brain today We will also get an EEG Consider Neuro consult Patient has history of alcohol abuse, ? Alcoholic seizures ? Vertigo versus vasovagal response PT and OT ordered Case coordination following for discharge needs (3) History of pneumothorax: Code(s): Z87.09 - Personal history of other diseases of the respiratory system Status: Acute Assessment and Plan: See above Time Spent With Patient Time with patient: Greater than 35 minutes Subjective Date/time seen: 10/27/23 15:07 Interval history: Interval history: A 70 year male presented to the hospital on 10/26/2023 with sudden onset of shortness of breath dyspnea. Workup in the hospital included a chest x-ray which shows bilateral pneumonia with underlying fibrotic changes. Initial labs showed a normal white blood cell count of 4.9, hemoglobin 11.2, sodium 135, chloride 94, anion gap 13, troponin negative x2. MRSA was obtained and was negative. COVID was also obtained and was negative. Blood cultures were obtained and are currently showing no growth to date on preliminary read. Patient was given 1 L LR, cefepime, vancomycin, and pain medication while in the ED. patient had echocardiogram 10/27/23 which shown normal LV systolic function with estimated EF of 55-60%, normal diastolic function, mild to moderate mitral valve regurgitation. Carotid Doppler study was showing less than 50% stenosis in bilateral internal carotid arteries. Orthostatic blood pressures were not showing a significant drop in heart rate or blood pressure with position changes. 10/27/23: Patient reports dizziness, lightheadedness, shortness of breath, weakness, weight loss. He states that he has had a few recent falls. His most recent fall was at the end of September with associated rib fractures that caused a large left-sided pneumothorax. He had chest tubes placed x2 and was at [place] for the treatment. He was discharged last . He states when he fell he blacked out and had no control over his fall. He states this has happened a few times prior to his last fall. He states whenever the spells come on he does feel little lightheaded and dizzy. 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 States over the past year he has lost 50 lb or more due to decreased appetite. States he does not feel like eating or never feels hungry. He denies any fever, chills, nausea, vomiting, diarrhea, abdominal pain, chest pain. Review of Systems Review of Systems: All systems reviewed & are unremarkable except as noted in HPI and below Constitutional: Constitutional: Reports as per HPI and Reports no additional constitutional complaints Eyes: Eyes: Reports as per HPI and Reports no additional eye complaints ENT: Reports syste
[2023-10-28] MEDS: CEFEPIME 2 GM/NS 50 ML 2 GM/50 ML BAG IVPB (03:43)
[2023-10-28 05:38] VITALS: BP 134/81; PULSE 70; RESP 13; TEMP 36.5; O2SAT 98
[2023-10-28 06:17] LABS: Basophils Percent Auto 0.8 % (0.2-1.2); Eosinophils Absolute Auto 0.1 K/mm3 (0-0.3); Eosinophils Percent Auto 2.7 % (0-4.4); Hematocrit 33.6 % (42.0-52.0); Hemoglobin 10.8 g/dL (14.0-18.0); Immature Granulocyte Absolute 0.02 K/mm3 (0.00-0.031); Immature Granulocyte Percent A 0.4 % (0-0.5); Lymphocytes Absolute Auto 1.01 K/mm3 (0.9-3.2); Mean Corpuscular HGB Conc 32.1 g/dl (32-36); Mean Corpuscular Volume 108.7 fl (80-100); Mean Platelet Volume 8.6 fl (7.4-10.4); Monocytes Absolute Auto 0.5 K/mm3 (0.1-0.6); Monocytes Percent Auto 10.6 % (2.6-8.5); Neutrophils Absolute Auto 3.1 K/mm3 (1.3-6.7); Neutrophils Percent Auto 64.5 % (45.5-73.1); Platelet Count Result 494 k/mm3 (150-375); Red Blood Count 3.09 M/mm3 (4.6-6.20); Red Cell Distribution Width 13.7 % (11.5-14.5); White Blood Count 4.8 K/mm3 (4.5-10.0)
[2023-10-28 06:27] LABS: Alanine Aminotransferase 9 U/L (6-50); Albumin Level 3.4 g/dL (3.5-5.1); Alkaline Phosphatase 57 U/L (38-126); Anion Gap 5 mmol/L (4-12); Aspartate Amino Transferase 23 U/L (17-59); Bilirubin,Total 0.4 mg/dL (0.2-1.3); Blood Urea Nitrogen 8 mg/dL (9-20); Calcium 8.9 mg/dL (8.4-10.2); Carbon Dioxide 33 mmol/L (22-30); Chloride 98 mmol/L (98-107); Estimated CRCL calculation 85 ml/min; Estimated Glomerular Filt Rate > 60; Glucose 97 mg/dL (65-110); Potassium 4.1 mmol/L (3.4-5.0); Sodium 136 mmol/L (137-145)
[2023-10-28 07:03] LABS: Platelet Estimate Increased (Adequate)
[2023-10-28 07:04] LABS: Anisocytosis 1+; Macrocytosis 1+ (NORMAL); Schistocytes None Seen
[2023-10-28 08:13] VITALS: O2SAT 97
[2023-10-28] MEDS: FINASTERIDE 5 MG TABLET PO (08:56)
[2023-10-28] MEDS: CHOLECALCIFEROL 1,000 UNITS TABLET 2000 UNITS PO (08:56)
[2023-10-28] MEDS: PANTOPRAZOLE 40 MG TABLET PO (08:57)
[2023-10-28] MEDS: sulfaSALAzine 500 MG TABLET 1000 MG PO (08:57)
[2023-10-28] MEDS: AZITHROMYCIN 250 MG TABLET 500 MG PO (08:57)
[2023-10-28] MEDS: azaTHIOprine 50 MG TABLET 100 MG PO (08:57)
[2023-10-28] MEDS: FOLIC ACID 1 MG TABLET PO (08:57)
[2023-10-28] MEDS: TAMSULOSIN HCL 0.4 MG CAPSULE PO (08:57)
[2023-10-28] MEDS: ENOXAPARIN 40 MG/0.4 ML SYRINGE SUB-Q (08:58)
[2023-10-28] MEDS: LINACLOTIDE 145 MCG CAPSULE PO (08:58)
[2023-10-28] MEDS: HYDROmorphone HCL INJ (*CRX) 1 MG/ML SYR IV PUSH (10:39)
[2023-10-28] MEDS: ACETAMINOPHEN 325 MG TABLET PO (10:40)
--- NOTE | 2023-10-28 11:54 | PM.DS ---
DS: Admitting Diagnosis Discharge Date 10/28/23 Admitting Diagnosis Pneumonia GERD Recurrent syncope History of pneumothorax Crohn's disease DS: Discharge Diagnosis Discharge Diagnosis (1) Pneumonia: Code(s): J18.9 - Pneumonia, unspecified organism Status: Acute (2) Gastro-esophageal reflux disease without esophagitis: Code(s): K21.9 - Gastro-esophageal reflux disease without esophagitis Status: Acute (3) Recurrent syncope: Code(s): R55 - Syncope and collapse Status: Acute (4) History of pneumothorax: Code(s): Z87.09 - Personal history of other diseases of the respiratory system Status: Acute (5) Crohn's disease, unspecified, without complications: Code(s): K50.90 - Crohn's disease, unspecified, without complications Status: Acute DS: Summary Hospital Course Reason for hospitalization: Pneumonia GERD Recurrent syncope History of pneumothorax Crohn's disease Hospital Course: A 70 year male presented to the hospital on 10/26/2023 with sudden onset of shortness of breath dyspnea. Workup in the hospital included a chest x-ray which shows bilateral pneumonia with underlying fibrotic changes. Initial labs showed a normal white blood cell count of 4.9, hemoglobin 11.2, sodium 135, chloride 94, anion gap 13, troponin negative x2. MRSA was obtained and was negative. COVID was also obtained and was negative. Blood cultures were obtained and are currently showing no growth to date on preliminary read. Patient was given 1 L LR, cefepime, vancomycin, and pain medication while in the ED. patient had echocardiogram 10/27/23 which shown normal LV systolic function with estimated EF of 55-60%, normal diastolic function, mild to moderate mitral valve regurgitation. Carotid Doppler study was showing less than 50% stenosis in bilateral internal carotid arteries. Orthostatic blood pressures were not showing a significant drop in heart rate or blood pressure with position changes. Head CT was negative for any acute intracranial process. Discuss all these findings with the patient. When asked about alcohol intake he states that he is a daily drinker and has to [place] today. Considering his alcohol history we will go ahead and get an outpatient EEG when he will need to follow up with Neurology in a couple of weeks. Labs for review today and were essentially unremarkable. He is stable for discharge at this time. Final diagnosis: Hospital-acquired pneumonia, Ground level fall Status at Discharge Cognitive/behavioral status at discharge: alert and oriented x3 Functional status at discharge: uses cane/walker Overall status at discharge: patient is progressing back to baseline Time Spent with Patient Time attestation: Total time spent providing and/or coordinating discharge services: Time spent: Greater than 30 minutes Exam Narrative: General: In no acute distress,malnourished Cardiac: Normal S1 and S2 Respiratory: Lung sounds diminished, no adventitious lung sounds, currently on room air Neuro: Alert and oriented x4 DS: Data Data Completed and Pending Completed studies during hospitalization: Head CT Carotid Doppler study Chest x-ray Echocardiogram Pending studies at discharge: Blood cultures Labs on day of discharge: Labs from last 24 hours 10/28/23 05:56 WBC 4.8 RBC 3.09 L Hgb 10.8 L Hct 33.6 L MCV 108.7 H MCH 35.0 H MCHC 32.1 RDW 13.7 Plt Count 494 H MPV 8.6 Immature Gran % (Auto) 0.4 Neut % (Auto) 64.5 Lymph % (Auto) 21.0 Sharp % (Auto) 10.6 H Eos % (Auto) 2.7 Baso % (Auto) 0.8 Lymph # (Auto) 1.01 Sharp # (Auto) 0.5 Eos # (Auto) 0.1 Baso # (Auto) 0.0 Abs Immat Gran (auto) 0.02 Absolute Neuts (auto) 3.1 Absolute Nucleated RBC 0.000 Nucleated RBC % 0.0 Platelet Estimate Increased Anisocytosis 1+ Macrocytosis 1+ Schistocytes None seen Sodium 136 L Potassium 4.1 Chloride 98 Carbon Dioxide 33 H Anion
== END 2023-10-28 12:55 | disposition home or self-care (01) ==
LOC: ANHED 22:09 → ANH3MEDSUR 10-27 00:03
PROVIDERS: Emergency Medicine; Nurse Practitioner Acute Care; Admitting Provider Internal Medicine; Emergency Provider Student in an Organized Health Care Education/Training Program; PCP Physician Assistant; Visit Provider Internal Medicine
DX: J18.9 Pneumonia, unspecified organism (principal); R55 Syncope and collapse; E78.5 Hyperlipidemia, unspecified; K21.9 Gastro-esophageal reflux disease without esophagitis; K50.90 Crohn's disease, unspecified, without complications; I65.23 Occlusion and stenosis of bilateral carotid arteries; Z87.891 Personal history of nicotine dependence; Z87.09 Personal history of other diseases of the respiratory system; Z20.822 Contact with and (suspected) exposure to COVID-19
CPT/HCPCS: 36415; 70450; 71045; 80053; 82565; 83605; 84484; 85025; 85610; 85730; 87040; 87077; 87181; 87635; 87641; 93005; 93306; 93880; 96361; 96365; 96366; 96372; 96375; 96376; 97161; 97165; 97535; 99285; A9270; G0378; J0692; J1170; J1650; J2270; J3370; J7120

== ENCOUNTER 2023-11-23 14:50 | Outpatient (CLI) | payer MEDICARE, SELFPAY ==
--- NOTE | ~2023-11-23 | XR_ITS ---
XR chest 2V 11/23/2023 15:11 Indication: Shortness of breath Procedure: PA and lateral views of the chest Comparison: Comparison to multiple prior studies sequentially, with oldest reviewed study dated 08/2012. Findings: Coarse mixed interstitial and airspace disease unchanged from 10/26/2023. Elevated left walker phragm with volume loss. Stable cardiomediastinal silhouette. No pneumothorax. Nonspecific bowel gas pattern in the upper abdomen. Impression: 1: Coarse mixed interstitial and airspace disease bilaterally, consistent with chronic interstitial f ibrosis. Cannot exclude superimposed pneumonia. Reviewed, dictated and finalized at location B. Impression: 1: Coarse mixed interstitial and airspace disease bilaterally, consistent with chronic interstitial fibrosis. Cannot exclude superimposed pneumonia.
== END 2023-11-23 14:51 | disposition home or self-care (01) ==
PROVIDERS: PCP Nurse Practitioner; Visit Provider Nurse Practitioner
DX: R91.8 Other nonspecific abnormal finding of lung field (principal)
CPT/HCPCS: 71046

== ENCOUNTER 2024-01-18 14:16 | Outpatient (CLI) | payer MEDICARE, SELFPAY ==
--- NOTE | ~2024-01-18 | XR_ITS ---
XR chest 2V Ordering provider: Matt Baker DO History: 78 years Male with . R07.9 - Chest pain, unspecified SOB, COLLAPSED LUNG X SEPTEMBER . Comparison: November 23, 2023 FINDINGS: MEDIASTINUM: The cardiac silhouette is not enlarged. Elevation of the left hemidiaphragm. LUNGS: No infiltrates, effusions or pneumothorax. Bilateral interstitial changes suggestive of fibrotic changes. Superimposed pneumonitis cannot be exc luded. Opacification the right lower lobe area is also noted which may be partly due to fibrotic corcoran ges. OTHER: No free air under the diaphragm. Postoperative changes in the cervical spine. IMPRESSION: Bilateral interstitial changes suggestive of fibrotic changes with possible superimposed pneumonitis. Changes are more prominent in the right lower lobe area. Clinical correlation advised. Reviewed, dictated and finalized at location A. IMPRESSION: Bilateral interstitial changes suggestive of fibrotic changes with possible sup erimposed pneumonitis. Changes are more prominent in the right lower lobe area. Clinical correlation advised.
== END 2024-01-18 14:17 | disposition home or self-care (01) ==
LOC: ANHIMG 14:21
PROVIDERS: PCP Nurse Practitioner; Visit Provider Internal Medicine
DX: R07.9 Chest pain, unspecified (principal); R91.8 Other nonspecific abnormal finding of lung field
CPT/HCPCS: 71046

== ENCOUNTER 2024-02-26 10:20 | Observation (INO) | payer MEDICARE, SELFPAY ==
[2024-02-26] VITALS (14 sets, daily range): BP systolic 133–165; BP diastolic 65–118; PULSE 70–106; RESP 13–20; TEMP 36.4–36.8; O2SAT 93–97; BMI 19.8
--- NOTE | ~2024-02-26 | XR_ITS ---
XR chest 2V 02/26/2024 10:54 Indication: Chest pain and shortness of breath Procedure: 2 view chest Comparison: 10/06/2023 Findings: There is coarse chronic interstitial fibrosis. There is elevation of the left diaphragm. No acute focal pneumonia, edema or effusion. No pneumothorax. No acute osseous abnormality. Impression: 1: Chronic interstitial lung disease unchanged. No acute cardiopulmonary disease. Reviewed, dictated and finalized at location B. ER PROBATE Impression: 1: Chronic interstitial lung disease unchanged. No acute cardiopulmonary diseas e.
--- NOTE | 2024-02-26 10:27 | ECG_ITS ---
Test Date: 2024-02-26 10:32:19 Measurements Intervals [place] Rate: 77 P: 37 AK: 211 QRS: -90 QRSD: 150 T: -12 QT: 431 QTc: 490 Interpretive Statements SINUS RHYTHM WITH FIRST DEGREE AV BLOCK RIGHT BUNDLE BRANCH BLOCK [120+ ms QRS DURATION, UPRIGHT V1, 40+ ms S IN I/aVL/V4/V5/V6] INFERIOR MYOCARDIAL INFARCTION , OF INDETERMINATE AGE [40+ ms Q WAVE AND/OR ST/T ABNORMALITY IN II/aVF] Compared to ECG 10/26/2023 20:57:23 First degree AV block now present Right-axis deviation no longer present Myocardial infarct finding still present Electronically Signed On 02-26-2024 12:56:39 PACKING CHECKER by Ayo Patel M.D.
[2024-02-26 10:37] LABS: Glucose Point of Care 84 mg/dl (65-105)
[2024-02-26 10:49] LABS: Basophils Percent Auto 0.7 % (0.2-1.2); Eosinophils Absolute Auto 0.1 K/mm3 (0-0.3); Eosinophils Percent Auto 0.8 % (0-4.4); Hematocrit 38.8 % (42.0-52.0); Immature Granulocyte Absolute 0.03 K/mm3 (0.00-0.031); Immature Granulocyte Percent A 0.5 % (0-0.5); Lymphocytes Absolute Auto 1.16 K/mm3 (0.9-3.2); Lymphocytes Percent Auto 19.2 % (18.3-44.2); Mean Corpuscular HGB Conc 33.5 g/dl (32-36); Mean Corpuscular Hemoglobin 35.6 pg (26-34); Mean Corpuscular Volume 106.3 fl (80-100); Mean Platelet Volume 9.3 fl (7.4-10.4); Monocytes Absolute Auto 0.9 K/mm3 (0.1-0.6); Monocytes Percent Auto 15.2 % (2.6-8.5); Neutrophils Absolute Auto 3.9 K/mm3 (1.3-6.7); Neutrophils Percent Auto 63.6 % (45.5-73.1); Platelet Count Result 292 k/mm3 (150-375); Red Blood Count 3.65 M/mm3 (4.6-6.20); Red Cell Distribution Width 13.8 % (11.5-14.5); White Blood Count 6.1 K/mm3 (4.5-10.0)
[2024-02-26] MEDS: MORPHINE SULFATE (*CRX) 2 MG/ML INJ IV PUSH (11:00)
[2024-02-26 11:02] LABS: Alanine Aminotransferase 13 U/L (6-50); Albumin Level 4.2 g/dL (3.5-5.1); Alkaline Phosphatase 71 U/L (38-126); Anion Gap 14 mmol/L (4-12); Aspartate Amino Transferase 31 U/L (17-59); Bilirubin,Total 1.1 mg/dL (0.2-1.3); Blood Urea Nitrogen 16 mg/dL (9-20); Calcium 9.3 mg/dL (8.4-10.2); Carbon Dioxide 23 mmol/L (22-30); Chloride 101 mmol/L (98-107); Estimated CRCL calculation 86 ml/min; Estimated Glomerular Filt Rate > 60; Glucose 75 mg/dL (65-110); Lipase 37 U/L (23-300); Potassium 4.1 mmol/L (3.4-5.0); Sodium 138 mmol/L (137-145)
[2024-02-26 11:04] LABS: Prothrombin Time 13.7 Seconds (11.1-14.7)
[2024-02-26 11:05] LABS: Partial Thromboplastin Time 29.4 Seconds (22.3-36.8)
[2024-02-26 11:14] LABS: Troponin I 0.025 ng/mL (0.000-0.034)
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
[2024-02-26] MEDS: NITROGLYCERIN SL 0.4 MG TABLET SUBLINGUAL (12:47)
--- NOTE | 2024-02-26 13:20 | ECG_ITS ---
Test Date: 2024-02-26 13:25:05 Measurements Intervals [place] Rate: 66 P: 22 CT: 217 QRS: -86 QRSD: 140 T: -40 QT: 428 QTc: 451 Interpretive Statements SINUS RHYTHM WITH FIRST DEGREE AV BLOCK RIGHT BUNDLE BRANCH BLOCK [120+ ms QRS DURATION, UPRIGHT V1, 40+ ms S IN I/aVL/V4/V5/V6] INFERIOR MYOCARDIAL INFARCTION , OF INDETERMINATE AGE [40+ ms Q WAVE AND/OR ST/T ABNORMALITY IN II/aVF] Compared to ECG 02/26/2024 10:32:19 No significant changes Electronically Signed On 02-26-2024 15:17:03 HAND EDGER by Ayo Patel M.D.
[2024-02-26 13:51] LABS: Troponin I 0.018 ng/mL (0.000-0.034)
--- NOTE | 2024-02-26 14:06 | PC.NURSE ---
Meal tray ordered for pt to be sent to room 210
--- NOTE | 2024-02-26 14:18 | ADMGEN ---
This patient, Og Noland, was admitted to IMU Room 210-01 at 1410. Patient/family oriented to hospital policies and general routines including ID bracelet, bed and alarms, visiting hours, pain management, procedures, bathroom and other care routines, personal items, smoking policy, room service/diet, and visiting hours. Information on how to activate the Rapid Response Team has been discussed. Patient/Family are encouraged to report perceived risks to care and to ask questions if they do not understand what they are told or what they should do.
[2024-02-26] MEDS: HYDROcodone/acetaminophen (*CRX) 5-325 MG TABLET 1 TAB PO ×2 (14:47→20:05)
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
[2024-02-26 17:11] LABS: Troponin I 0.019 ng/mL (0.000-0.034)
[2024-02-26] MEDS: MORPHINE SULFATE (*CRX) 4 MG/ML INJ IV PUSH ×2 (18:08→22:47)
[2024-02-26 22:29] LABS: Iron 69 ug/dL (49-181)
[2024-02-26 22:38] LABS: Percent Iron Saturation 37 % (20-50)
[2024-02-26] MEDS: MELATONIN 5 MG TABLET PO (22:48)
--- NOTE | 2024-02-26 22:54 | PC.NURSE ---
Sleeping pill ordered per pt request. Pt has been asking for Korbel every 2-3 hours. Staff explained that RAFAELA Martin changed the dose times to every 8 hours. Pt became angry with staff, stating he will take his own pain medication that is located in his truck. Staff attempted to explain that pt cannot leave IMU for telemetry reasons and that pt is a fall risk, and that pt can still take Morphine as prescribed. Pt agreed to medications.
[2024-02-26 23:01] LABS: Thyroid Stimulating Hormone Reflex 0.933 uIU/mL (0.465-4.68)
[2024-02-27] VITALS (8 sets, daily range): BP systolic 135–143; BP diastolic 78–84; PULSE 74–85; RESP 20; TEMP 36.5; O2SAT 94
[2024-02-27 07:26] LABS: Hematocrit 36.6 % (42.0-52.0); Hemoglobin 12.3 g/dL (14.0-18.0); Mean Corpuscular HGB Conc 33.6 g/dl (32-36); Mean Corpuscular Hemoglobin 35.5 pg (26-34); Mean Corpuscular Volume 105.8 fl (80-100); Mean Platelet Volume 10.2 fl (7.4-10.4); Platelet Count Result 217 k/mm3 (150-375); Red Blood Count 3.46 M/mm3 (4.6-6.20); Red Cell Distribution Width 13.6 % (11.5-14.5); White Blood Count 4.4 K/mm3 (4.5-10.0)
[2024-02-27 07:45] LABS: Anion Gap 4 mmol/L (4-12); Blood Urea Nitrogen 12 mg/dL (9-20); Calcium 8.7 mg/dL (8.4-10.2); Carbon Dioxide 30 mmol/L (22-30); Chloride 101 mmol/L (98-107); Cholesterol 134 mg/dL (0-200); Estimated CRCL calculation 101 ml/min; Estimated Glomerular Filt Rate > 60; Glucose 79 mg/dL (65-110); HDL Direct 58 mg/dL; Magnesium 1.6 mg/dL (1.6-2.3); Potassium 3.6 mmol/L (3.4-5.0); Sodium 135 mmol/L (137-145); Triglycerides 84 mg/dL (<150)
[2024-02-27 07:55] LABS: LDL Cholesterol Direct 47 mg/dL
[2024-02-27] MEDS: CHOLECALCIFEROL 1,000 UNITS TABLET 2000 UNITS PO (08:29)
[2024-02-27] MEDS: PANTOPRAZOLE 40 MG TABLET PO (08:29)
[2024-02-27] MEDS: FOLIC ACID 1 MG TABLET PO (08:29)
[2024-02-27] MEDS: FINASTERIDE 5 MG TABLET PO (08:29)
[2024-02-27] MEDS: TAMSULOSIN HCL 0.4 MG CAPSULE PO (08:29)
[2024-02-27] MEDS: CYANOCOBALAMIN 500 MCG TABLET PO (08:30)
[2024-02-27] MEDS: sulfaSALAzine 500 MG TABLET 1500 MG PO (08:30)
[2024-02-27] MEDS: HYDROcodone/acetaminophen (*CRX) 7.5-325 MG TABLET 1 TAB PO (14:10)
--- NOTE | 2024-02-27 14:23 | P.CONCA_ITS ---
Assessment and Plan Assessment and plan (1) Chest pain: Code(s): R07.9 - Chest pain, unspecified Status: Acute Assessment and Plan: He has atypical chest pain, musculoskeletal chest pain related to previous rib fractures. He has been ruled out for [place] with negative serial troponin levels. He does not have any acute ischemic changes on EKG, however, there is evidence of possible previous infarct. Given his lack of ischemic symptoms, no further inpatient evaluation is necessary at this time. Echocardiogram was performed and showed normal LV function with no RWMA. From a cardiac standpoint he can be discharged with outpatient follow up. History of Present Illness History of Present Illness Consult date/time: 02/27/24 14:23 Requesting physician: Suzie Whitley MD Consult reason: chest pain Reason For Visit: chest pain Narrative: Og Noland is a 78 year old male admitted to the hospital because of chest pain. This is a patient who had multiple rib fractures and hemopneumothorax and October of this year treated over at [facility] with VATS and chest tube placement. Since that time, he has had chronic left-sided chest pain. However, he experience more significant pain in his chest yesterday while caring for his who has significant dementia. 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 Because of this, he was concerned about his chest pain and thought that he might of been having a heart attack related to stress. He does not have any cardiac history. He denies any risk factors for coronary artery disease aside from a 20 year smoking history, but he does not have any hyperlipidemia, hypertension, family history of coronary artery disease or sudden . At this time, he is comfortable and does not have any complaints aside from his baseline left-sided chest pain related to his rib fractures. Review of Systems 2 Review of Systems: All systems reviewed & are unremarkable except as noted in HPI and below PMFSH Past Medical History Medical History Benign prostatic hyperplasia Left rib fracture Pneumothorax Crohn's disease Ulcerative colitis Hyperlipidemia Gastro-esophageal reflux disease without esophagitis Surgical History Surgical History History of spinal surgery History of arthroplasty of right knee History of chest tube placement Family History Family History Other Family history non-contributory Social History Social History Social History: Surrogate medical decision maker: eleno Bradshaw. Code status: Full code. Smoking packs per day: 2 Smoking cigarettes per day: 40.0 Years smoked: 15 Smoking pack-years: 30.00 Smoking status: Former smoker Tobacco type: cigarettes Second hand tobacco smoke exposure: No Smoking end date: 03/20/73 Additional smoking assessment comments: quit in 1980 Alcohol intake: current Drinks per week: 14 Alcohol use details: 3 per day Substance use: never Substance use type: does not use Do You Feel Safe in your Home?: Yes Lack of Transportation: YES Lack of Food: Never True Current Housing: I Have Housing Concerned About Future Housing: No Difficulty Paying Gas/Electric Bills: No Difficulty Paying for Meds: No Currently Unemployed: No Education: High School Diploma/GED Difficulty w/ Childcare or Family Care: No Living arrangements: with family Spiritual care concerns: No Meds Home Medications and Allergies Home Medications ?Medication ?Instructions ?Recorded ?Confirmed ?Type acetaminophen 325 mg tablet 325 mg PO Q6H PRN Pain 08/08/19 02/26/24 History (Tylenol) naproxen sodium 220 mg tablet 220 mg PO BID PRN Pain 08/08/19 02/26/24 History (Aleve) cholecalciferol (vitamin D3) 50 50 mcg PO DAILY 05/23/23 02/26/24 History mcg (2,000 unit) capsule glucosamine sulfate 500 mg tablet 500 mg PO BID 05/23/23 02/26/24 History (Glucosamine) mecobalamin (vitamin B12) 500 mcg 500 mcg PO DIRECTED 05/23/23 02/26/24 History chewable tablet pantoprazole 40 mg tablet,delayed 40 mg PO QAM #30 tabs 09/13/23 02/26/24 Rx release sulfasalazine 500 mg 1.5 g (3 x 500 mg) PO BID #540 tabs 10/03/23 02/26/24 Rx tablet,delayed release finasteride 5 mg tablet 5 mg PO DAILY #100 tabs 11/10/23 02/26/24 Rx tamsulosin 0.4 mg capsule (Flomax) 0.4 mg PO DAILY #90 caps 11/10/23 02/26/24 Rx albuterol sulfate 90 mcg/actuation See Rx Instructions .Route 12/14/23 02/26/24 Rx aerosol inhaler .COMPLEX #8.5 grams folic acid 1 mg tablet 1 mg PO DAILY #100 tabs 01/02/24 02/26/24 Rx linaclotide 145 mcg capsule 145 mcg PO DAILY #30 caps 01/15/24 02/26/24 Rx (Linzess) megestrol 20 mg tablet 20 mg PO TID PRN Appetite 02/09/24 02/26/24 Rx stimulant #60 tabs hydrocodone 7.5 mg-acetaminophen 1 tablet PO Q8H PRN pain #20 tabs 02/21/24 02/26/24 Rx 325 mg tablet Allergies Allergy/AdvReac Type Severity Reaction Status Date / Time lidocaine Allergy Severe shuts Verified 02/26/24 10:43 lungs down Vital Signs Vital Signs - 24 hr 02/26/24 14:27 02/26/24 14:37 02/26/24 16:00 Temperature 36.6 C Pulse Rate 85 106 H Respiratory Rate 18 Blood Pressure 155/77 H Pulse Oximetry 96 Oxygen Delivery Room Air 02/26/24 16:00 02/26/24 18:00 02/26/24 20:00 Temperature Pulse Rate 76 88 Respiratory Rate Blood Pressure Pulse Oximetry Oxygen Delivery Room Air 02/26/24 20:00 02/26/24 20:58 02/26/24 22:00 Temperature 36.5 C Pulse Rate 81 83 72 Respiratory Rate 18 Blood Pressure 133/65 Pulse Oximetry 93 Oxygen Delivery 02/26/24 23:39 02/27/24 00:00 02/27/24 00:00 Temperature 36.6 C Pulse Rate 82 83 Respiratory Rate 18 Blood Pressure 143/82 H Pulse Oximetry 96 Oxygen Delivery Room Air 02/27/24 02:00 02/27/24 08:00 02/27/24 08:00 Temperature Pulse Rate 74 77 85 Respiratory Rate 20 Blood Pressure Pulse Oximetry 94 Oxygen Delivery Room Air 02/27/24 08:04 02/27/24 10:00 02/27/24 11:53 Temperature 36.5 C 36.5 C Pulse Rate 77 81 82 Respiratory Rate 20 Blood Pressure 143/78 H 135/84 Pulse Oximetry 94 94 Oxygen Delivery 02/27/24 12:00 02/27/24 12:00 02/27/24 14:00 Temperature Pulse Rate 82 82 79 Respiratory Rate 20 Blood Pressure Pulse Oximetry 94 Oxygen Delivery Room Air Exam 2 Const: General: comfortable, no acute distress, alert and awake O rientation/consciousness: patient oriented x3 HENMT: Head: normal to inspection Eyes: General: appearance normal, both eyes and all related structures P upils: Equal, round and reactive pupils present Neck: Neck: normal visual inspection, supple and no JVD Carotids: normal carotid upstroke Chest: Other: He has reproducible chest wall pain to palpation on the left Resp: Effort & Inspection: normal respiratory effort Auscultation: clear to auscultation bilaterally and crackles (anteriorly) on the left Other: no crepitus when chest palpated Cardio: Rate: regular rate Rhythm: regular rhythm Heart sounds: S1 normal heart sound present, S2 normal heart sound present and no murmurs GI: Auscultation: normal bowel sounds Skin: General skin exam: normal color Neuro: General: patient oriented x3 Cranial nerves: Yes Equal, round and reactive pupils present Extrem: General: normal to inspection Psych: Appearance: grossly normal Mental Status: mental status grossly normal Results Labs and Meds 02/27/24 05:06 02/27/24 05:06 Lab results: Cardiac Enzymes 02/26/24 Range/Units 16:24 Troponin I 0.019 (0.000-0.034) ng/mL Lipids 02/27/24 Range/Units 05:06 Triglycerides 84 (<150) mg/dL Cholesterol 134 (0-200) mg/dL CBC 02/27/24 Range/Units 05:06 WBC 4.4 L (4.5-10.0) K/mm3 RBC 3.46 L (4.6-6.20) M/mm3 Hgb 12.3 L (14.0-18.0) g/dL Hct 36.6 L (42.0-52.0) % Plt Count 217 (150-375) k/mm3 Comprehensive Metabolic Panel 02/27/24 Range/Units 05:06 Sodium 135 L (137-145) mmol/L Potassium 3.6 (3.4-5.0) mmol/L Chloride 101 (98-107) mmol/L Carbon Dioxide 30 (22-30) mmol/L BUN 12 (9-20) mg/dL Creatinine 0.50 L (0.7-1.3) mg/dL Glucose 79 (65-110) mg/dL Calcium 8.7 (8.4-10.2) mg/dL Intake and Output 02/26/24 02/27/24 02/27/24 23:59 07:59 15:59 Intake Total 740 480 Output Total 125 Balance 740 -125 480 Intake: Oral 740 480 Output: Urine 125 Other: # Unmeasured Voids 1
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
--- NOTE | 2024-02-27 21:49 | ECHO_ITS ---
Patient Info Name: Og Noland Age: 78 years : 1945 Gender: Male Ht: 74 in Wt: 154 lbs BSA: 1.90 m2 HR: 74 bpm BP: 143 / 82 mmHg Technical Quality: Good Exam Date: 02/27/2024 10:05 AM Exam Location: Echo Lab Exam Room: [facility] Patient Status: Inpatient Admit Date: 02/26/2024 Staff Ordering Physician: Veronica Gutiérrez PA-C Pilot [employer]mersible: Melanie Lawrence RDCS Attending Provider: Ian Betts MD Referring Physician: Brock BUTT; Exam Type: CA echo doppler color flow Study Info Complete two-dimensional, color flow and Doppler transthoracic echocardiogram is performed. Summary 1. Complete two-dimensional, color flow and Doppler transthoracic echocardiogram is performed. 2. Left ventricular chamber dimension is mildly enlarged. 3. Left ventricular systolic function is preserved, estimated at 50-55%. 4. The left ventricular diastolic function is grade I diastolic dysfunction. 5. E/e' 7 is not elevated. 6. Left atrial chamber dimension is mildly enlarged. 7. There is mild aortic valve sclerosis. 8. There is mild mitral valve regurgitation. 9. There is mild tricuspid valve regurgitation. 10. No pulmonary hypertension, estimated pulmonary arterial systolic pressure is 11 mmHg. Left Ventricle E/e' 7 is not elevated. Left ventricular systolic function is preserved, estimated at 50-55%. Left ventricular chamber dimension is mildly enlarged. The left ventricular diastolic function is grade I diastolic dysfunction. Right Ventricle Right ventricular systolic function is normal and with normal TAPSE 2.1 cm. Right ventricular chamber dimension is normal. Left Atria Left atrial chamber dimension is mildly enlarged. Right Atria Right atrial chamber dimension is normal. Aortic Valve The aortic valve is trileaflet. There is mild aortic valve sclerosis. There is no aortic valve stenosis. There is no aortic valve regurgitation. Pulmonic Valve There is no pulmonic regurgitation. Mitral Valve There is no mitral valve stenosis. There is mild mitral valve regurgitation. Tricuspid Valve There is mild tricuspid valve regurgitation. No pulmonary hypertension, estimated pulmonary arterial systolic pressure is 11 mmHg. Pericardium/Pleural There is no pericardial effusion. Inferior Vena Cava Normal inferior vena cava with >50% collapse upon inspiration consistent with normal right atrial pressure, 5 mmHg. Aorta The aortic root size at the sinus of Valsalva is normal. Left Ventricular Outflow Tract Name Value Normal LVOT 2D LVOT Diameter 2.5 cm LVOT Doppler LVOT Peak Gradient 2 mmHg LVOT Mean Gradient 1 mmHg LVOT VTI 14 cm LVOT VTI/AV VTI Ratio 0.9 LVOT Stroke Volume 68 ml LVOT CO 14.3 l/min LVOT CI 7.6 l/min/m2 Pulmonic Valve Name Value Normal PV Doppler PV Peak Gradient 2 mmHg Mitral Valve Name Value Normal MV Doppler MV Decel [place] 343 cm/s2 MV PHT 27 ms MV Area (PHT) 8.0 cm2 4.0-5.0 MV Regurgitation Doppler MR Peak Gradient 35 mmHg MV Diastolic Function MV E Peak Velocity 32 cm/s MV A Peak Velocity 66 cm/s MV E/A 0.5 MV Decel Time 94 ms MV Annular TDI MV E/e' (Septal) 9.3 <=8.0 MV E/e' (Lateral) 6.7 <=8.0 MV E/e' (Average) 8.0 Tricuspid Valve Name Value Normal TV Regurgitation Doppler TR Peak Velocity 118 cm/s TR Peak Gradient 6 mmHg Estimated PAP/RSVP RA Pressure 5 mmHg <=5 PA Systolic Pressure 11 mmHg <36 RV Systolic Pressure 11 mmHg <36 Aorta Name Value Normal Ascending Aorta Ao Root Diameter (2D) 3.6 cm Ao Root Diam Index (2D) 1.9 cm/m2 Aortic Valve Name Value Normal AV Doppler AV Peak Velocity 90 cm/s AV Peak Gradient 3 mmHg AV Mean Gradient 2 mmHg AV VTI 16 cm AV Area (Cont Eq VTI) 4.2 cm2 >=3.0 AV Area (Cont Eq Jorge) 3.9 cm2 AV Regurgitation 2D LVOT Area 4.8 cm2 Ventricles Name Value Normal LV Dimensions 2D/MM IVS Diastolic Thickness (2D) 0.7 cm 0.6-1.0 LVID Diastole (2D) 5.4 cm 4.2-5.8 LVIW Diastolic Thickness (2D) 0.7 cm 0.6-1.0 LVID Systole (2D) 4.5 cm 2.5-4.0 LVOT Diameter 2.5 cm LV Mass (2D Cubed) 140.57 g 88.00-224.00 LV Mass Index (2D Cubed) 74 g/m2 49-115 Relative Wall Thickness (2D) 0.27 LV Fractional Shortening/Ejection Fraction 2D/MM LV Fractional Shortening (2D) 16 % 25-43 LV EF (2D Teicholz) 34 % 52-72 LV Diastolic Volume (4C MOD) 140 ml LV EF (4C MOD) 45 % LV Diastolic Length (4C) 8.6 cm LV Systolic Length (4C) 7.5 cm LV Stroke Volume (4C MOD) 64 ml Atria Name Value Normal LA Dimensions LA Dimension (2D) 3.7 cm 3.0-4.1 LA Dimen Index (2D) 1.9 cm/m2 LA Volume (4C A-L) 72 ml RA Dimensions RA Area (4C) 18.4 cm2 <=18.0 Report Signatures
== END 2024-02-27 16:45 | disposition home or self-care (01) ==
LOC: ANHED 10:44 → ANHIMU 20:12
PROVIDERS: Physician Assistant; Admitting Provider General Practice; Emergency Provider Emergency Medicine; PCP Nurse Practitioner; Visit Provider Internal Medicine
DX: R07.9 Chest pain, unspecified (principal); R06.02 Shortness of breath; K50.90 Crohn's disease, unspecified, without complications; D53.9 Nutritional anemia, unspecified; K21.9 Gastro-esophageal reflux disease without esophagitis; E78.5 Hyperlipidemia, unspecified; N40.0 Benign prostatic hyperplasia without lower urinary tract symptoms; Z87.891 Personal history of nicotine dependence; Z79.51 Long term (current) use of inhaled steroids; Z87.81 Personal history of (healed) traumatic fracture; Z79.891 Long term (current) use of opiate analgesic
CPT/HCPCS: 36415; 71046; 80048; 80053; 80061; 82607; 82728; 82746; 82948; 83540; 83550; 83690; 83735; 84443; 84484; 85025; 85027; 85610; 85730; 93005; 93306; 96372; 96374; 96375; 96376; 99285; A9270; G0378; J2270

== ENCOUNTER 2024-04-19 09:27 | Inpatient (IN) | payer MEDICARE, SELFPAY ==
[2024-04-19] VITALS (7 sets, daily range): BP systolic 101–132; BP diastolic 66–90; PULSE 83–107; RESP 16–24; TEMP 36.2–36.9; O2SAT 90–100; BMI 17.8
--- NOTE | ~2024-04-19 | XR_ITS ---
MODIFIED ESOPHAGRAM HISTORY: Choking episode TECHNIQUE: Modified barium esophagram was performed on 04/25/1952. I administered fluoroscopy and perfo rmed the exam with speech pathologist. Patient was seated for lateral fluoroscopic imaging for inges tion of thin liquids, pudding, solids and quantified amounts, followed by thin liquids in uncontrolle d amounts. This was recorded on tape. A single fluoroscopic spot image was also recorded. The DAP for this procedure was 1.37 Gycm2. The amount of fluoroscopy time used during this procedure was 2.8 min utes. FINDINGS: Oral stage: Adequate function. Pharyngeal stage: There is reduced laryngeal elevation and adduction. Reduced tongue base retraction. There is vallecular and piriform sinus residue. There is laryngeal penetration with aspiration with thin liquids. Cervical/esophageal stage: Adequate function. IMPRESSION: Pharyngeal dysphagia with laryngeal penetration and aspiration with thin liquids. Please correlate with speech pathologist findings and specific feeding recommendations. Reviewed, dictated and finalized at location [facility]. [facility]
--- NOTE | ~2024-04-19 | CT_ITS ---
EXAMINATION: 1. CT facial & cervical spine wo DATE: 04/19/2024 10:29 INDICATION: Head injury TECHNIQUE: 1. Computed tomography (CT) of the maxillofacial region and of the cervical spine were performed with out intravenous contrast. Sagittal and coronal reconstructions of both regions were obtained. Automat ed exposure control and iterative reconstruction technique were employed. The dose-length product was 420.09 mGy-cm. COMPARISON: Head CT dated 10/27/2023 FINDINGS: Maxillofacial CT: There is a fracture of the right maxillary second bicuspid. There is also increased periapical lucenc y in both this tooth as well as associate with contralateral first and second left maxillary bicuspid s. There are no maxillofacial fractures. Specifically the nasal bones, zygomatic arches, mandible and charles of the orbits and paranasal sinuses are all intact. The orbits are normal. There is mild mucos al thickening in the bilateral ethmoid and left maxillary sinuses and at the left frontoethmoidal rec ess. Cervical spine CT: There is a likely acute mildly comminuted, minimally displaced fracture of the anterior ring of C1 wh ich is new since 11/06/2023. There is instrumented anterior spinal fusion extending from C2 C7 span by an anterior plate and screw fixation from C2-C5 and from C5-C7. There are also postoperative change of prior C5-C7 laminectomies and C5-C7 instrumented posterior spinal fusion with bilateral vertical r ods and lateral mass screw fixation. There is additional fusion without fixation at the bilateral C7- T1 facet joints and at the left C2-C5 facet joints. Mild to moderate osteoarthritis at the right C2-C 3 through C4-C5 facet joints and multilevel severe bilateral facet osteoarthritis in the visualized u pper thoracic spine. Chronic mild anterior wedging at T1. No other acute fractures identified. Mild d isc height loss with fusion across portions of the endplate margins at C7-T1. Moderate disc height vi sualized upper thoracic spine. Posterior endplate osteophytes at C4-C5 contributes to mild central ca nal stenosis. There is also bilateral multilevel mild to moderate cervical and upper thoracic neural foraminal stenosis. Peripheral irregular septal line thickening and honeycombing in the visualized up per lungs consistent with usual interstitial pneumonia (UIP) pattern chronic interstitial lung diseas e. IMPRESSION: 1. Minimally displaced mildly comminuted fracture at the anterior ring of C1. 2. Fracture of the right maxillary second bicuspid and dental disease with periapical lucencies at 1999 at the contralateral left first and second maxillary bicuspid. 3. No maxillofacial fractures. 4. Instrumented C2-C7 anterior spinal fusion and C5-C7 laminectomies and instrumented posterior spina l fusion. 5. Moderate upper thoracic spondylosis. 6. UIP pattern chronic interstitial lung disease in the visualized upper lungs. Reviewed, dictated and finalized at location B. [facility] [employer] IMPRESSION: 1. Minimally displaced mildly comminuted fracture at the anterior ring of C1. 2. Fracture of the right maxillary second bicuspid and dental disease with shefali apical lucencies at October 1999 at the contralateral left first and second maxi llary bicuspid. 3. No maxillofacial fractures. 4. Instrumented C2-C7 anterior spinal fusion and C5-C7 laminectomies and instru mented posterior spinal fusion. 5. Moderate upper thoracic spondylosis. 6. UIP pattern chronic interstitial lung disease in the visualized upper lungs.
--- NOTE | ~2024-04-19 | XR_ITS ---
XR chest 1V 04/19/2024 10:40 Indication: Status post fall. Procedure: AP view of the chest Comparison: 02/26/2024 Findings: Bilateral mixed interstitial and airspace disease with progression on the right. Cardiomega ly. No pneumothorax. No significant effusion. Elevated left diaphragm. Impression: 1: Bilateral infiltrates, 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 Reviewed, dictated and finalized at location A. [employer] Impression: 1: Bilateral infiltrates, suspicious for acute pneumonia superimposed on chroni c fibrosis.
--- NOTE | ~2024-04-19 | XR_ITS ---
XR pelvis 1-2V 04/19/2024 10:40 Indication: Status post fall. Pelvic pain. Procedure: AP view of the pelvis Comparison: No prior studies for comparison. Findings: Pelvic rings are intact. Mild osteoarthritis of the hips. No fracture or traumatic malalign ment. There is diffuse idiopathic skeletal hyperostosis (DISH) of the lumbar spine. Impression: 1: No acute fracture. Reviewed, dictated and finalized at location A. TENDER Impression: 1: No acute fracture.
--- NOTE | ~2024-04-19 | CT_ITS ---
EXAMINATION: CT lumbar spine wo con DATE: 04/19/2024 10:34 INDICATION: Low back pain post fall TECHNIQUE: Computed tomography (CT) of the lumbar spine was performed without intravenous contrast. A utomated exposure control and iterative reconstruction technique were employed. The dose-length produ ct was 840.59 mGy-cm. COMPARISON: CT abdomen and pelvis dated 06/01/2023 FINDINGS: 10 degrees lumbar levoscoliosis. 2 mm retrolisthesis L3 on L4. C4-C5 anterior fusion. Chronic minimal likely physiologic anterior wedging at T11-L1. No acute fracture. Severe disc height loss at L2-L3 a nd L3-L4. Moderate disc height loss at T11-T12 and L1-L2. Mild disc height loss at T12-L1 and L5-S1. UIP pattern chronic interstitial lung disease at the visualized posterior sulcus of the right lower l obe. There are few tiny calcified pulmonary nodules consistent with old granulomatous disease. 1.7 cm left renal cyst. 1 mm nonobstructing stone versus arthroscopic calcific location at the right renal hilum. Paravertebral soft tissues are unremarkable. Moderate bilateral sacroiliac osteoarthritis. The following disc levels are specifically discussed: T11-T12: There is mild left and severe right facet joint osteoarthritis. There is mild right neural foraminal stenosis. There is no central canal stenosis. T12-L1: There is moderate right and moderate left facet joint osteoarthritis. There is mild left neur al foraminal stenosis. There is no central canal stenosis. L1-L2: Prominent left foraminal zone disc protrusion. There is severe bilateral facet joint osteoarth ritis. There is moderate bilateral neural foraminal stenosis. There is mild central canal stenosis. L2-L3: Posterior disc osteophyte complex. There is severe bilateral facet joint osteoarthritis. There is moderate bilateral neural foraminal stenosis. There is mild central canal stenosis. L3-L4: The disc does not extend beyond the more posterior L3 endplate margin. There is moderate left and severe right facet joint osteoarthritis. There is moderate bilateral neural foraminal stenosis. T here is mild central canal stenosis. L4-L5: Disc space is fused with mild posterior hypertrophic changes. There is severe bilateral facet joint osteoarthritis with likely early fusion. There is moderate bilateral neural foraminal stenosis. There is mild central canal stenosis. L5-S1: Disc is bulging. There is severe bilateral facet joint osteoarthritis. There is moderate bilat eral neural foraminal stenosis. There is mild central canal stenosis. IMPRESSION: 1. 10 degrees lumbar levoscoliosis with severe spondylosis. No acute osseous abnormality. Reviewed, dictated and finalized at location B. AL RECEPTIONIST IMPRESSION: 1. 10 degrees lumbar levoscoliosis with severe spondylosis. No acute osseous ab normality.
--- NOTE | ~2024-04-19 | XR_ITS ---
MODIFIED ESOPHAGRAM HISTORY: Dysphagia. TECHNIQUE: Modified barium esophagram was performed on 04/25/2024. I administered fluoroscopy and perfo rmed the exam with speech pathologist. Patient was seated for lateral fluoroscopic imaging for inges tion of thin liquids, pudding, solids and quantified amounts, followed by thin liquids in uncontrolle d amounts. This was recorded on tape. A single fluoroscopic spot image was also recorded. The DAP for this procedure was 2.004 Gycm2. The amount of fluoroscopy time used during this procedure was 4.0 mi nutes. FINDINGS: Oral stage: Adequate function. Pharyngeal stage: Reduced laryngeal elevation. Reduced lingual pressure. There is residue in the vall ecula and piriform sinuses. There is laryngeal penetration which cleared without aspiration. Cervical/esophageal stage: Adequate function. IMPRESSION: Pharyngeal dysphagia with laryngeal penetration without aspiration. Please correlate wit h speech pathologist findings and specific feeding recommendations. Reviewed, dictated and finalized at location A. PAINTER IMPRESSION: Pharyngeal dysphagia with laryngeal penetration without aspiration. Please correlate with speech pathologist findings and specific feeding recomm endations.
--- NOTE | ~2024-04-19 | CT_ITS ---
EXAMINATION: CT brain wo con DATE: 04/19/2024 10:26 INDICATION: Head injury TECHNIQUE: Computed tomography (CT) of the head was performed without intravenous contrast. Sagittal and coronal reconstructions were performed. The mA was adjusted according to patient size. Iterative reconstruction technique was employed. The dose-length product was 681.00 mGy-cm. COMPARISON: head CT dated 10/27/2023 FINDINGS: No fracture. No acute intracranial hemorrhage, acute infarction or abnormal extra axial fluid collect ion. Symmetric prominence of the sulci and ventricles consistent with moderate age-appropriate diffus e cerebral volume loss. No mass/mass effect. Intracranial calcified cerebral atherosclerosis is noted at the bilateral carotid siphons. The orbits, paranasal sinuses and mastoid air cells are normal. IMPRESSION: 1. Normal aging brain. No fracture or acute intracranial process. Reviewed, dictated and finalized at location A. RVOIR CARETAKER
--- OUTSIDE RECORDS SUMMARY | 2024-04-19 10:14 | XMS_ITS | Patient Health Summary ---
Author Organization [facility] Address [address] [place] [address] Care Team Providers Care Driver Courier Name Role Phone EleazarSlade DO Primary Care Provider [phone] Note from [facility],non-owned Affiliates and Associated Physician Practices is amultiple site organization consisting of ambulatory clinics and hospital sitesin [place] and [place]. This disclosure is being madepursuant to the Care Everywhere program and may not contain all information available regarding this patient. Last updated 17.[facility] Allergies * Lidocaine(Anaphylaxis,Shortness of Breath) -High Criticality Medications * Be aware that medications may not be up to date on this document. Alwaysverify current medications with the patient. * Acetaminophen (TYLENOL ARTHRITIS PAIN PO) Take 1 Tab by mouth as needed * hydrocodone-acetaminophen (NORCO) 5-325 MG tablet(Started 12/25/2014) Take 1 Tab by mouth every 4 hours as needed for Pain * baclofen (LIORESAL) 10 MG tablet(Started 12/25/2014) Take 1 Tab by mouth 2 times daily as needed for Muscle Spasms May cause drowsiness. 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 Social History Tobacco Use Types Packs/Day Years Used Date Smoking Tobacco: Former Cigarettes Q uit: 1980 Smokeless Tobacco: Never Alcohol Use Standard Drinks/Week Comments Yes 0 (1 standard drink = 0.6 oz pur e alcohol) social Sex and Gender Information Value Date Recorded Sex Assigned at Not on file Gender Identity Not on file Sexual Orientation Not on file Last Filed Vital Signs Vital Sign Reading Time Taken Comments Blood Pressure 128/73 03/23/2015 9:30 AM YOGA TEACHER Pulse 74 03/23/2015 9:10 AM YOGA TEACHER Temperature 36.7 ??C (98 ??F) 03/23/2015 9:30 AM YOGA TEACHER Respiratory Rate 18 03/23/2015 9:30 AM YOGA TEACHER Oxygen Saturation 97% 03/23/2015 9:30 AM YOGA TEACHER Inhaled Oxygen Concentration - - Weight 88.5 kg (195 lb) 03/23/2015 6:38 AM YOGA TEACHER Height 188 cm (6' 2 ) 03/23/2015 6:38 AM YOGA TEACHER Body Mass Index 25.04 03/23/2015 6:38 AM YOGA TEACHER Medical Devices Implanted Type Area Employment Trainer Device Identifier Shelf Expiration Date Model / Serial / Lot Putty Bone Sunshine [facility] Jar 2.0cc - [id number] Implanted:Qty: 1 on 12/25/2014 by Anthony Recinos MD at [facility] [employer] 01/07/2017 [id number] / [id number] / Space Peek 8 X 16 X 14mm - [id number] Implanted:Qty: 1 on 12/25/2014 by Anthony Recinos MD at [facility] [employer] 01/20/2022 [id number] / [id number] / Space Peek 7 X 16 X 14mm - [id number] Implanted:Qty: 1 on 12/25/2014 by Anthony Recinos MD at [facility] [employer] 07/17/2022 [id number] / [id number] / Space Peek 7 X 16 X 14mm - [id number] Implanted:Qty: 1 on 12/25/2014 by Anthony Recinos MD at [facility] [employer] 07/17/2022 [id number] / [id number] / Plate Ant Cerv Assem 70mm Implanted:Qty: 1 on 12/25/2014 by Anthony Recinos MD at [facility] [employer] [id number] / / Scrw Self Drill Jeronimo 4.0 X 15 Implanted:Qty: 8 on 12/25/2014 by Anthony Recinos MD at [facility] [employer] [id number] / / Procedures * CORNEAL TOPOGRAPHY UNI/BI(Performed 04/12/2023) Performed for Keratoconus of both eyes * FL ESOPHAGRAM(Performed 06/24/2015) Performed for Dysphagia, unspecified type * CARDIAC RHYTHM STRIP ORDER(Performed 12/26/2014) * XR SPINE 1 VIEW(Performed 12/25/2014) Performed for Pain * FUSION ANTERIOR INTERBODY CERVICAL INCLUDING DISCECTOMY, OSTEOPHYTECTOMY, AND DECOMPRESSION, EACH ADDITIONAL INTERSPACE(Performed 12/25/2014) Performed for Cervical spondylosis without myelopathy * LAB RESULTS ORDER(Performed 04/11/2014) * DERMATOPATHOLOGY(Performed 11/28/2013) * DERMATOPATHOLOGY(Performed 11/28/2013) Results * CORNEAL TOPOGRAPHY UNI/BI (04/12/2023 11:20 AM YOGA TEACHER) Anatomical Region Laterality Modality Head External-Camera Photography Narrative 04/12/2023 11:55 AM YOGA TEACHER Images from the original result were not included. Right eye kmax 57.7 Left eye steep K of 49.1 KCN, inf temp steep OD>OS Sylvia Ly OD OPHTHALMOLOGY SCHED ORD W PACS * FL ESOPHAGUS BARIUM SWALLOW (06/24/2015 10:10 AM CDT) Anatomical Region Laterality Modality Chest Radio Fluoroscop y 06/24/2015 10:4 0 AM CDT Impressions 06/24/2015 10:45 AM CDT 1. Normal esophagram. 2. Instrumented cervical spinal fusion. Narrative 06/24/2015 10:45 AM CDT Exam: FL ESOPHAGRAM Date: 06/24/2015 9:12 AM History: 69-year-old male with dysphasia. The patient's symptoms worsen following recent cervical spine surgery several months ago. Comparison: Cervical spine radiographs dated December 25, 2014 Comments: The patient was given oral barium radiographic contrast, and fluoroscopic images were obtained in the frontal, lateral, and oblique projections. The patient swallowed contrast without difficulty. On the initial images, the pharynx and upper esophagus were imaged. No aspiration was observed. Esophageal swallowing function appears normal. There is no persistent dilation or narrowing of the esophagus. The esophageal mucosa appears normal. No mass or ulcer is seen. 6 no esophageal reflux was observed during the examination, including following provocative maneuvers. Instrumented cervical spinal fusion is noted, including posterior rods and screws at C5-C7, and 2 anterior plates and screws, one extending from C2-C5 and a second extending from C5-C7. Intervertebral disc space devices are present at multiple levels. The prevertebral soft tissues are within normal limits in thickness. Procedure Note Ulysses Navarrete MD - 06/24/2015 Exam: FL ESOPHAGRAM Date: 06/24/2015 9:12 AM History: 69-year-old male with dysphasia. The patient's symptoms worsen following recent cervical spine surgery several months ago. Comparison: Cervical spine radiographs dated December 25, 2014 Comments: The patient was given oral barium radiographic contrast, and fluoroscopic images were obtained in the frontal, lateral, and oblique projections. The patient swallowed contrast without difficulty. On the initial images, the pharynx and upper esophagus were imaged. No aspiration was observed. Esophageal swallowing function appears normal. There is no persistent dilation or narrowing of the esophagus. The esophageal mucosa appears normal. No mass or ulcer is seen. 6 no esophageal reflux was observed during the examination, including following provocative maneuvers. Instrumented cervical spinal fusion is noted, including posterior rods and screws at C5-C7, and 2 anterior plates and screws, one extending from C2-C5 and a second extending from C5-C7. Intervertebral disc space devices are present at multiple levels. The prevertebral soft tissues are within normal limits in thickness. IMPRESSION 1. Normal esophagram. 2. Instrumented cervical spinal fusion. Aaliyah Nazario SURVEILLANCE OBSERVER-ASSURANCE ANALYST FLUOROSCOPY ORDER [place] * CARDIAC RHYTHM STRIP ORDER (12/26/2014 9:20 PM CDT) Narrative 12/26/2014 9:20 PM CDT Ordered by an unspecified provider. Scanned Document CARDIAC SERVICES ORD ERABLES * XR SPINE 1 VIEW (12/25/2014 2:46 PM CDT) Narrative [facility] - 12/26/2014 11:07 AM CDT No Dictation. Anthony Recinos MD DIAGNOSTIC IMAGING O RDERABLES [facility] [address] [place] [address] * LAB RESULTS ORDER (04/11/2014) Anthony Recinos MD LAB - THERAPEUTIC DR SIMS MONITORING ORDERABLES * PATHOLOGY TISSUE FOR DERMATOLOGY (11/28/2013 12:00 AM CDT) Only the most recent of2 resultswithin the time period is included. Result CASE: [id number] PATIENT: OG KAPLAN PATHOLOGIC DIAGNOSIS: Right post lateral leg: COLLOID BODIES (see microscopic description) (see fixed tissue results) ([id number]) ? IgA ??IgM ??IgG ??C3 ?? ColIV Fibrinogen Epidermis - ?- ?- ?- ?- ?- Basement Membrane ?? - ?1+Colloids ? - ?- ?2+ ?? - Vessels ?? - ?- ?- ?- ?2+ ?? - Interstitium ?? - ?- ?- ?- ?- ?- CLINICAL DATA: R/O eczema vs other disease. ??Check margins. GROSS DESCRIPTION: Received is one [place]'s media filled container labeled with the patient's name and designated right post lateral leg. The specimen consists of a punch biopsy measuring [id number]. The specimen is submitted in whole for direct immunofluorescence testing. MICROSCOPIC DESCRIPTION: Controls were run in parallel. ??There is IgM in the papillary dermis consistent with colloid bodies. ??Staining is negative with C3, IgG and IgA. ??Colloid bodies represent dyskeratotic keratinocytes usually seen in lichenoid / interface dermatitis. See fixed tissue results. Electronically signed out by Zari Piper M.D. 12/03/2013 8:44:11AM [facility] Comment: Performed at: Dermatopathology Laboratory [facility] - Department of Dermatology [address] [place] [address], 5th [place] [address] Phone number: [phone] FAX: [phone] 11/28/2013 11/29/2013 Karan Pascal MD LAB - PATHOLOGY/CYTO LOGY ORDERABLES [facility] [address] [place] [address]. 5th [place] [address], [facility] [phone] Care Teams Driver Courier Relationship Specialty Start Date End Date Slade Bush DO [address] [facility] [address] [place] [address] PCP - General Internal Medicine 07/08/14
--- OUTSIDE RECORDS SUMMARY | 2024-04-19 10:14 | XMS_ITS | Clinical Summary ---
Author Organization [facility] Address [address] [place] [address] Care Team Providers Care Supervisor Calibration Name Role Phone Slade Bush MD Primary Care Provider [phone] Allergies Active Allergy Reactions Criticality Noted Date Comments Lidocaine Anaphylaxis High 10/13/2023 Medications azaTHIOprine (IMURAN) 50 mg tablet Take 2 tablets (100 mg total) by mouth daily Active glucosamine sulfate 500 mg capsule Take 500 mg by mouth 2 (two) times a day Active cholecalciferol (VITAMIN D-3) 2000 unit tablet Take 1 tablet (2,000 Units total) by mouth daily Active finasteride (PROSCAR) 5 mg tablet Take 1 tablet (5 mg total) by mouth daily Active tamsulosin (FLOMAX) 0.4 mg extended release capsule Take 1 capsule (0.4 mg total) by mouth daily Active folic acid (FOLVITE) 1 mg tablet Take 1 tablet (1 mg total) by mouth daily Active sulfaSALAzine EN (AZULFIDINE EN) 500 mg EC tablet Take 3 tablets (1,500 mg total) by mouth 2 (two) times a day Active acetaminophen 500 mg capsuleIndicati ons:Pain Take 2 capsules (1,000 mg total) by mouth every 6 (six) hours as needed for pain 60 tablet 10/18/2023 Active lidocaine (ASPERCREME) 4 % adhesive patch,medicated Place 2 patches on the skin daily 30 patch 10/19/2023 Active methocarbamoL (ROBAXIN) 750 mg tablet Take 1 tablet (750 mg total) by mouth 3 (three) times a day as needed for muscle spasms 45 tablet 10/18/2023 Active senna-docusate (PERICOLACE) 8.6-50 mg Take 2 tablets by mouth nightly 40 tablet 10/18/2023 Active oxyCODONE (ROXICODONE) 15 mg immediate release tabletIndicatio ns:Pain Take 0.5 tablets (7.5 mg total) by mouth every 4 (four) hours as needed for pain 20 tablet 10/18/2023 Active Active Problems Problem Noted Date Diagnosed Date Urinary retention 10/18/2023 Assessment & Plan (10/18/2023 2:41 PM CDT): - Patient's aguilar catheter was removed on 10/13 - Patient was unable to void and aguilar was replace - Pt has past medical history of retention and is on flomax, continued in the hospital. - Aguilar was removed prior to discharge - He was instructed to follow up with his Urologist at his earliest convenience and to go to an ER or urgent care if he has any difficulty urinating. Diaphragm, eventration 10/14/2023 Assessment & Plan (10/18/2023 12:18 PM CDT): - 10/10 Bowel loops seen on CXRs, - 10/13 KUB obtained to r/o obstruction, neg - Patient tolerated diet and demonstrated bowel movements Fall 10/13/2023 Hyponatremia 10/12/2023 Assessment & Plan (10/16/2023 3:34 PM CDT): - Na (10/10): 133mmol/L - Na (10/11): 131mmol/L -- 134mmol/L - 10/11: free water restriction 1.5L/24h - Na (10/13): 134mmol/L - Na (10/15): 131mmol/L, +gatorade - continue to trend Na level Discharge planning issues 10/10/2023 Assessment & Plan (10/18/2023 2:35 PM CDT): - 10/08: L CT to suction, continue IS - 10/09: continue L CT to suction - 10/10: L CT to water seal, post water seal xr, po pain medication - 10/11: L CT returned to suction, continue IS - 10/15: chest tube B removed, chest tube C remains in place - 10/17: patient discharged home Patient is medically stable for discharge, SW/CM updated. Discharged home Severe malnutrition 10/09/2023 Acute traumatic pain 10/09/2023 Assessment & Plan (10/18/2023 12:17 PM CDT): - Tylenol 1g q6h - Lidocaine patch x1 - Robaxin 750mg TID - Oxycodone 5mg q4h PRN - dilaudid 0.2 mg q4h PRN (d/c'd) Hypomagnesemia 10/09/2023 Assessment & Plan (10/16/2023 3:34 PM CDT): - Magnesium (10/08): 1.6mg/dL - 10/08: replete Magnesium 2g IV - Magnesium (10/09): 1.8mg/dL - 10/09: replete Magnesium 2g IV - Magnesium (10/10): 1.9mg/dL - Magnesium (10/11): 1.9mg/dL - Magnesium (10/12): 1.8mg/dl - Magnesium (10/15): 1.6mg/dL, repleted IV - continue to trend Magnesium Syncope and collapse 10/08/2023 Assessment & Plan (10/12/2023 1:06 PM CDT): - Unwitnessed fall; patient does not remember falling or any events around the time of fall - Syncopal work up - TTE (10/08): Normal LV size and function. No LVH. EF 55-60%, normal RV size and function, normal LA and RA size. Inadequate TR for RVSP. No significant valvular abnormalities - Carotid doppler (10/08): Normal right internal carotid artery, no evidence of significant plaque, left internal carotid artery disease is consistent with a less than 50% stenosis, normal, antegrade flow is noted in bilateral vertebral arteries, no evidence of hemodynamically significant stenosis in the common carotid artery bilaterally, patent bilateral external carotid arteries with evidence of atherosclerotic plaque. - UA negative Alcohol use 10/08/2023 Assessment & Plan (10/18/2023 12:17 PM CDT): - daily use, 3 [place] nightly - monitor for withdrawal sx - thiamine, folate - CIWA Ulcerative (chronic) enterocolitis (CMS/HCC) Assessment & Plan (10/08/2023 5:09 PM CDT): Continue home azathioprine 100 and sulfasalazine 1500 BID Pneumothorax, left 10/07/2023 Assessment & Plan (10/18/2023 12:20 PM CDT): History of falls presenting with L rib fx and L ptx - CT placed at OSH, lung re-expanded on CXR - CT Chest at OSH with several blebs - Continue CT to -20 cm H2O until no air leak for 24h - Rib score 2 - Pulm toilet - 10/08: CT suction decreased to -10cm. Repeat chest xr demonstrated Interval slight size in lateral component of left pneumothorax, which remains small --> increase to - 20cm - chest xr (10/09): Unchanged size of small left pneumothorax with apical and lateral component. No right pneumothorax - 10/09: continue CT to -20cm suction. VATs possible Monday/ - 10/10: removed CT from suction and placed to water seal. - Post water seal xr (10/10): Unchanged overall volume of left fluid collection, the air component no longer definitely identified. No right pneumothorax - chest xr (10/11): Left hydropneumothorax has slightly increased in size from prior. No right pneumothorax. Similar appearance of elevation of left hemidiaphragm with associated left lower lung volume loss - 10/11: L CT to suction, repeat chest xr --> pneumothorax improved - 10/12: CXR was not improved this AM, will take patient to OR for VATS - 10/13 s/p VATS, peurodesis, cryoablation. - 10/15 CT to water seal, CXR stable, B removed, C remains to water seal. Post pull chest xray at 1630 pending. - 10/16 Chest tube C removed, no more CT remain. Post pull CXR at 1700 pending. - AM chest xray without pneumothorax - Prior to discharge, the patient maintained adequate oxygenation on room air without the use of accessory muscles. Pneumothorax, traumatic 10/07/2023 Encounters Date Type Department Care Team Description 03/11/2024 Orders Only [facility] Cardiology [address] [place] [address] Nova Yoo NP from Last 3 Months Social History Tobacco Use Types Packs/Day Years Used Date Smoking Tobacco: Former Cigarettes Smokeless Tobacco: Never [facility] Utilities Answer Date Recorded In the past 12 months has e electric, gas, oil, or water [email or web address] threatened to shut off services in your home? No 10/07/2023 Humiliation, Afraid, Rape, and Kick questionnair e Answer Date Recorded Within the last year, have y ou been afraid of your partner or ex-partner? Patient declined 10/07/2023 Within the last year, have y ou been humiliated or emotionally abused in other ways by your partner or ex-partner? Patient declined 10/07/2023 Within the last year, have y ou been kicked, hit, slapped, or otherwise physically hurt by your partner or ex-partner? Patient declined 10/07/2023 Within the last year, have y ou been raped or forced to have any kind of sexual activity by your partner or ex-partner? Patient declined 10/07/2023 Social Connection and Isolation Panel [NHANES] A nswer Date Recorded In a typical week, how many times do you talk on the phone with family, friends, or neighbors? Patient declined 10/07/2023 How often do you get togethe r with friends or relatives? Patient declined 10/07/2023 How often do you attend advent or oriental orthodox serv ices? Patient declined 10/07/2023 Do you belong to any clubs o r organizations such as advent groups, unions, fraternal or athletic groups, or school groups? Patient declined 10/07/2023 How often do you attend meet ings of the clubs or organizations you belong to? Patient declined 10/07/2023 Are you , , di vorced, , never , or living with a partner? Patient declined 10/07/2023 AUDIT-C Answer Date Recorded Q1: How often do you have a drink containing alcohol? 4 or more times a week 10/13/2023 Q2: How many drinks containi ng alcohol do you have on a typical day when you are drinking? 3 or 4 Q3: How often do you have si x or more drinks on one occasion? Less than monthly 10/13/2023 Overall Financial Resource Strain (CARDIA) Answe r Date Recorded How hard is it for you to pa y for the very basics like food, housing, medical care, and heating? Not hard at all 10/07/2023 [facility] - Occupational Stress Questionnaire Answer Date Recorded Do you feel stress - tense, restless, nervous, or anxious, or unable to sleep at night because your mind is troubled all the time - these days? Very much 10/07/2023 Exercise Vital Sign Answer Date Recorde d On average, how many days pe r week do you engage in moderate to strenuous exercise (like a brisk walk)? Patient declined On average, how many minutes do you engage in exercise at this level? Patient declined 10/07/2023 Hunger Vital Sign Answer Date Recorded Within the past 12 months, y ou worried that your food would run out before you got the money to buy more. Never true 10/07/19 24 Within the past 12 months, t he food you bought just didn't last and you didn't have money to get more. Never true 10/07/2023 PRAPARE - Transportation Answer Date Re corded In the past 12 months, has l ack of transportation kept you from medical appointments or from getting medications? No 09/18 In the past 12 months, has l ack of transportation kept you from meetings, work, or from getting things needed for daily living? No 10/07/2023 Housing Stability Vital Sign Answer Luis e Recorded In the last 12 months, was t here a time when you were not able to pay the mortgage or rent on time? No 10/07/2023 Number of Times Moved in the Last Year Not on fi le 10/07/2023 At any time in the past 12 m [facility], were you homeless or living in a group home (including now)? No 10/07/2023 Personal Safety Answer Date Recorded Have you ever been in or are you currently in a harmful physical or emotional relationship or is someone making you feel afraid or unsafe? Denies 10/13/2023 Sex and Gender Information Value Date Recorded Sex Assigned at Not on file Legal Sex Male 2:53 AM DIRECTOR NICU Gender Identity Not on file Sexual Orientation Not on file Obstetrics History Last Filed Vital Signs Vital Sign Reading Time Taken Comments Blood Pressure 132/79 10/18/2023 3:10 PM CDT Pulse 79 10/18/2023 3:10 PM CDT Temperature 36.5 ??C (97.7 ??F) 10/18/2023 3:10 PM CD T Respiratory Rate 18 10/18/2023 3:10 PM CDT Oxygen Saturation 93% 10/18/2023 3:10 PM CDT Inhaled Oxygen Concentration - - Weight 112.7 kg (248 lb 8 oz) 10/18/2023 11:15 A M CDT Height 188 cm (6' 2 ) 10/09/2023 7:00 AM CDT Body Mass Index 31.91 10/09/2023 7:00 AM CDT Plan of Treatment Health Maintenance Due Date Last Done Comments Depression Screening 1945 Hepatitis C Screening 1945 Pneumococcal vaccine 65+ (1 of 2 - PCV) 12/02/1951 DTaP/Tdap/Td Vaccine (1 - Tdap) 1956 Hepatitis B Screening 12/02/1963 Zoster Vaccine (1 of 2) 1964 Well Visit 65+ 2010 Influenza Vaccine (#1) 2023 Fall Risk Assessment 10/17/2024 10/18/2023 Procedures Procedure Name Priority Date/Time Associated Diagnosis Comments CARDIOLOGY DOCUMENT SCAN Routine 02/27/2024 3:11 PM DIRECTOR NICU from Last 3 Months Results * Cardiology Document Scan (02/27/2024 3:11 PM DIRECTOR NICU) Anatomical Region Laterality Modality Other Nova Yoo NP CV CARDIAC SERVICES PROCEDUR ES Final Result from Last 3 Months Insurance [facility]IC[facility] MEDIC[facility] Address: [place] [id number] [facility] MEDICARE Address: [place] [id number] Advance Directives For more information, please contact: [phone] * Full Code (Latest Code Status on File) Date Activated Date Inactivated Comments 10/07/2023 9:43 AM 10/18/2023 8:35 PM Care Teams Supervisor Calibration Relationship Specialty Start Date End Date Slade Bush MD [address] [place] [address] PCP - General 07/27/12
--- OUTSIDE RECORDS SUMMARY | 2024-04-19 10:14 | XMS_ITS | Clinical Summary ---
Author Organization [facility] Address [address] [place] [address] Care Team Providers Care Compensation Supervisor Name Role Phone Slade Bush DO Primary Care Provider [phone] Source Comments [facility],non-owned Affiliates and Associated Physician Practices is amultiple site organization consisting of ambulatory clinics and hospital sitesin [place], [place], [place] and [place]. This disclosure is being madepursuant to the Care Everywhere program and may not contain all information available regarding this patient. Last updated 17.[facility] Mindie Allergies Active Allergy Reactions Criticality Noted Date Comments Lidocaine Anaphylaxis,Shortnes s of Breath High 11/03/2011 Other reaction(s): Other (See Comments) Reports that it shut down his breathing 20 years ago Medications * Be aware that medications may not be up to date on this document. Alwaysverify current medications with the patient. Medication Sig Dispensed Refills Start Date End Date Status Acetaminophen (TYLENOL ARTHRITIS PAIN PO) Take 1 Tab by mouth as needed Active hydrocodone-acetaminop hen (NORCO) 5-325 MG tablet Take 1 Tab by mouth every 4 hours as needed for Pain 50 Tab 0 12/25/2014 Active baclofen (LIORESAL) 10 MG tablet Take 1 Tab by mouth 2 times daily as needed for Muscle Spasms May cause drowsiness. 30 Tab 1 12/25/2014 Active halobetasol (ULTRAVATE) 0.05 % ointment 11/18/2015 Active balsalazide (COLAZAL) 750 MG capsule TK 4 CS PO BID 11/21/2015 Active Active Problems Problem Noted Date Diagnosed [...] Comments Blood Pressure 128/73 03/23/2015 9:30 AM ELECTRIC METER TESTER HELPER Pulse 74 03/23/2015 9:10 AM ELECTRIC METER TESTER HELPER Temperature 36.7 ??C (98 ??F) 03/23/2015 9:30 AM ELECTRIC METER TESTER HELPER Respiratory Rate 18 03/23/2015 9:30 AM ELECTRIC METER TESTER HELPER Oxygen Saturation 97% 03/23/2015 9:30 AM ELECTRIC METER TESTER HELPER Inhaled Oxygen Concentration - - Weight 88.5 kg (195 lb) 03/23/2015 6:38 AM ELECTRIC METER TESTER HELPER Height 188 cm (6' 2 ) 03/23/2015 6:38 AM ELECTRIC METER TESTER HELPER Body Mass Index 25.04 03/23/2015 6:38 AM ELECTRIC METER TESTER HELPER Plan of Treatment Health Maintenance Due Date Last Done Comments HEPATITIS C SCREENING 11/27/1963 DTAP/TDAP/TD VACCINES (1 - Tdap) 1964 PNEUMOCOCCAL VACCINE 50+ (1 of 1 - PCV) 12/02/1995 ZOSTER VACCINE (1 of 2) 12/02/1995 Respiratory Syncytial Virus (RSV) Vaccine Pt: or over 60 yrs (1 - 1-dose 75+ series) 2020 COVID-19 VACCINE ( - 2023-2 5 season) 2023 INFLUENZA VACCINE (#1) 2023 DEPRESSION SCREENING 03/20/2024 MEDICARE AWV ? CALENDAR YEAR 2024 HEPATITIS B VACCINE Aged Out No longe r eligible based on patient's age to complete this topic HIB VACCINE Aged Out No longer eligi ble based on patient's age to complete this topic HPV VACCINE Aged Out No longer eligi ble based on patient's age to complete this topic MENINGOCOCCAL (Group B) VACCINE Aged Out No longer eligible based on patient's age to complete this topic MENINGOCOCCAL VACCINE Aged Out No shalom sha eligible based on patient's age to complete this topic Medical Devices Implanted Type Area Residential Interior Designer Device Identifier Shelf Expiration Date Model / Serial / Lot Raudel Gonsalez [facility] Jar 2.0cc - [id number] Implanted:Qty: 1 on 12/25/2014 by Anthony Recinos MD at [facility] [employer] 01/07/2017 [id number] / [id number] / Space Peek 8 X 16 X 14mm - [id number] Implanted:Qty: 1 on 12/25/2014 by Anthony Recinos MD at [facility] [employer] 01/20/2022 [id number] / [id number] / Space Peek 7 X 16 X 14mm - [id number] Implanted:Qty: 1 on 12/25/2014 by Anthony Recinos MD at [facility] [employer] 07/17/2022 [id number] / [id number] / Space Peek 7 X 16 X 14mm - [id number] Implanted:Qty: 1 on 12/25/2014 by Anthony Recinos MD at [facility] [employer] 07/17/2022 [id number] / [id number] / Plate Ant Cerv Assem 70mm Implanted:Qty: 1 on 12/25/2014 by Anthony Recinos MD at [facility] [employer] [id number] / / Scrw Self Drill Jeronimo 4.0 X 15 Implanted:Qty: 8 on 12/25/2014 by Anthony Recinos MD at [facility] [employer] [id number] / / Advance Directives * Full Code (Latest Code Status on File) Date Activated Date Inactivated Comments 12/25/2014 5:23 PM 12/25/2014 7:56 PM Care Teams Compensation Supervisor Relationship Specialty Start Date End Date Slade Bush, [address] [place], [place] [id number] PCP - General Internal Medicine 07/08/14
--- OUTSIDE RECORDS SUMMARY | 2024-04-19 10:14 | XMS_ITS | Referral Summary ---
Author Organization [facility] Address [address] [address] Care Team Providers Care Ekg Technician Name Role Phone Slade Bush DO Primary Care Provider [phone] [facility],non-owned Affiliates and Associated Physician Practices is amultiple site organization consisting of ambulatory clinics and hospital sitesin [place], [place], [place] and [place]. This disclosure is being madepursuant to the Care Everywhere program and may not contain all information available regarding this patient. Last updated 17.[facility] Allergies Active Allergy Reactions Criticality Noted Date [...] Comments Blood Pressure 128/73 03/23/2015 9:30 AM SCREW DOWN Pulse 74 03/23/2015 9:10 AM SCREW DOWN Temperature 36.7 ??C (98 ??F) 03/23/2015 9:30 AM SCREW DOWN Respiratory Rate 18 03/23/2015 9:30 AM SCREW DOWN Oxygen Saturation 97% 03/23/2015 9:30 AM SCREW DOWN Inhaled Oxygen Concentration - - Weight 88.5 kg (195 lb) 03/23/2015 6:38 AM SCREW DOWN Height 188 cm (6' 2 ) 03/23/2015 6:38 AM SCREW DOWN Body Mass Index 25.04 03/23/2015 6:38 AM SCREW DOWN Functional Status Functional Status Response Date of Assess ment Is person deaf or have serious hearing difficult y? No 12/25/2014 Is person blind or have serious difficulty seein g? No 12/25/2014 Does person have serious dif ficulty walking/climbing stairs? No 12/25/2014 Does person have difficulty dressing/bathing? No 12/25/2014 Does person have difficulty doing errands alone? No 12/25/2014 Cognitive Status Response Date of Assessm ent Does person have difficulty concentrating/remembering/making decisions? No 12/25/2014 Plan of Treatment Not on file Medical Devices Implanted Type Area Police Captain Device Identifier Shelf Expiration Date Model / Serial / Lot Raudel Gonsalez [facility] Jar 2.0cc - [id number] Implanted:Qty: 1 on 12/25/2014 by Anthony Recinos MD at [facility] [employer] 01/07/2017 [id number] / [id number] / Space Peek 8 X 16 X 14mm - [id number] Implanted:Qty: 1 on 12/25/2014 by Anthony Recinos MD at [facility] [employer] 01/20/2022 [id number] / [id number] / Space Peek 7 X 16 X 14mm - [id number] Implanted:Qty: 1 on 12/25/2014 by Anthony Recinos MD at [facility] [employer] 07/17/2022 [id number] / [id number] / Space Peek 7 X 16 X 14mm - [id number] Implanted:Qty: 1 on 12/25/2014 by Anthony Recinos MD at [facility] [employer] 07/17/2022 [id number] / [id number] / Plate Ant Cerv Assem 70mm Implanted:Qty: 1 on 12/25/2014 by Anthony Recinos MD at [facility] [employer] [id number] / / Scrw Self Drill Jeronimo 4.0 X 15 Implanted:Qty: 8 on 12/25/2014 by Anthony Recinos MD at [facility] [employer] [id number] / / Advance Directives * Full Code (Latest Code Status on File) Date Activated Date Inactivated Comments 12/25/2014 5:23 PM 12/25/2014 7:56 PM Care Teams Ekg Technician Relationship Specialty Start Date End Date Slade Bush DO [address] [facility] [address] [place], [place] [phone] PCP - General Internal Medicine 07/08/14
--- OUTSIDE RECORDS SUMMARY | 2024-04-19 10:14 | XMS_ITS | Referral Summary ---
Author Organization [facility] Address [address] [place] [address] Care Team Providers Care Wheel Of Fortune Dealer Name Role Phone Slade Bush MD Primary Care Provider [phone] Encounters Date Type Department Care Team Description 03/11/2024 Orders Only [facility] Cardiology [address] [place] [address] Nova Yoo NP from Last 3 Months Allergies Active Allergy Reactions Criticality Noted Date [...] use of accessory muscles. Pneumothorax, traumatic 10/07/2023 Social History Tobacco Use Types Packs/Day Years Used Date Smoking Tobacco: Former Cigarettes Smokeless Tobacco: Never [facility] Video[employer]atars Answer Date Recorded In the past 12 months has PlatformQ, gas, oil, or water SRE [place] - 2 threatened to shut off services in your [...] declined 10/07/2023 How often do you attend mormonism or yazdanism serv ices? Patient declined 10/07/2023 Do you belong to any clubs o r organizations such as mormonism groups, unions, fraternal or athletic groups, or [...] and heating? Not hard at all 10/07/2023 [facility] Aristes of Occupat ional Health - Occupational Stress [...] any time in the past 12 m [facility], were you homeless or living in a intermediate (including now)? No 10/07/2023 Personal Safety Answer Date Recorded Have you ever been in or are you currently in a harmful physical or emotional relationship or is someone making you feel afraid or unsafe? 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 Gender Identity Not on file Sexual Orientation [...] 10/09/2023 7:00 AM CDT Plan of Treatment Not on file Procedures Procedure Name Priority Date/Time Associated Diagnosis Comments CARDIOLOGY DOCUMENT SCAN Routine 02/27/2024 3:11 PM MILK HOUSE WORKER from Last 3 Months Results * Cardiology Document Scan (02/27/2024 3:11 PM MILK HOUSE WORKER) Anatomical Region Laterality Modality Other Nova Yoo NP CV CARDIAC SERVICES PROCEDUR ES Final Result from Last 3 Months Insurance MEDICARE SOLUTIONS MEDICARE SOLUTIONS Advance Directives For more information, please contact: [phone] * Full Code (Latest Code Status on File) Date Activated Date Inactivated Comments 10/07/2023 9:43 AM 10/18/2023 8:35 PM Care Teams Wheel Of Fortune Dealer Relationship Specialty Start Date End Date Slade Bush MD [address] [facility] [address] [place], [place] [id number] PCP - General 07/27/12
--- OUTSIDE RECORDS SUMMARY | 2024-04-19 10:14 | XMS_ITS | Clinical Summary ---
Author Organization [facility] Address [address] [place] [address]. [place], [place] [id number] [place] [id number] Care Team Providers Care Boiler Fitter Name Role Phone Unavailable Primary Care Provider Unavailabl e Social History Tobacco Use Types Packs/Day Years Used Date Smoking Tobacco: Never Assessed Sex and Gender Information Value Date Recorded Sex Assigned at Not on file Legal Sex Male 6:56 PM CDT Gender Identity Not on file Sexual Orientation Not on file Plan of Treatment Health Maintenance Due Date Last Done Comments Hepatitis C 12[birth year]02/1963 DTaP, Tdap and Td Vaccines ( 1 - Tdap) 1964 Zoster Vaccines (1 of 2) 12/02/1995 Pneumococcal Vaccine: 65+ Ye ars (1 of 1 - PCV) 2010 RSV Immunization or 60+ Years (1 - 1-dose 75+ series) 2020 COVID-19 Vaccine ( - 2023-2 5 season) 2023 Influenza Adult (#1) 2023 Meningococcal B Vaccine Aged Out No l onger eligible based on patient's age to complete this topic Meningococcal Vaccine Aged Out No shalom sha eligible based on patient's age to complete this topic RSV Immunizations Under 20 Months Aged Out No longer eligible based on patient's age to complete this topic
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
--- NOTE | 2024-04-19 10:15 | ECG_ITS ---
Test Date: 2024-04-19 10:54:38 Measurements Intervals [place] Rate: 77 P: 22 CT: 211 QRS: 252 QRSD: 142 T: 26 QT: 397 QTc: 451 Interpretive Statements SINUS RHYTHM PVC RIGHT BUNDLE BRANCH BLOCK [120+ ms QRS DURATION, UPRIGHT V1, 40+ ms S IN I/aVL/V4/V5/V6] INFERIOR MYOCARDIAL INFARCTION , PROBABLY OLD [40+ ms Q WAVE AND/OR ST/T ABNORMALITY IN II/aVF] Compared to ECG 02/26/2024 13:25:05 NO SIGNIFICANT CHANGES Electronically Signed On 04-19-2024 14:39:22 ENTERPRISE RESOURCE PLANNER by Emir Apple M.D.
[2024-04-19] MEDS: ACETAMINOPHEN 500 MG TABLET 1000 MG PO (10:49)
[2024-04-19] MEDS: TETANUS,DIPHTHERIA,AC PERTUSSIS ADULT (0.5 ML) BOOSTRIX IM (10:50)
[2024-04-19 11:21] LABS: Basophils Percent Auto 0.2 % (0.2-1.2); Eosinophils Percent Auto 0.2 % (0-4.4); Hematocrit 38.1 % (42.0-52.0); Hemoglobin 12.9 g/dL (14.0-18.0); Immature Granulocyte Absolute 0.08 K/mm3 (0.00-0.031); Immature Granulocyte Percent A 0.9 % (0-0.5); Lymphocytes Absolute Auto 0.87 K/mm3 (0.9-3.2); Lymphocytes Percent Auto 9.3 % (18.3-44.2); Mean Corpuscular HGB Conc 33.9 g/dl (32-36); Mean Corpuscular Hemoglobin 35.1 pg (26-34); Mean Corpuscular Volume 103.5 fl (80-100); Mean Platelet Volume 9.1 fl (7.4-10.4); Monocytes Absolute Auto 0.8 K/mm3 (0.1-0.6); Monocytes Percent Auto 8.2 % (2.6-8.5); Neutrophils Absolute Auto 7.6 K/mm3 (1.3-6.7); Neutrophils Percent Auto 81.2 % (45.5-73.1); Platelet Count Result 346 k/mm3 (150-375); Red Blood Count 3.68 M/mm3 (4.6-6.20); Red Cell Distribution Width 12.3 % (11.5-14.5); White Blood Count 9.4 K/mm3 (4.5-10.0)
[2024-04-19 11:24] LABS: Alanine Aminotransferase 17 U/L (6-50); Albumin Level 3.5 g/dL (3.5-5.1); Alkaline Phosphatase 93 U/L (38-126); Anion Gap 9 mmol/L (4-12); Aspartate Amino Transferase 33 U/L (17-59); Bilirubin,Total 0.7 mg/dL (0.2-1.3); Blood Urea Nitrogen 8 mg/dL (9-20); Carbon Dioxide 29 mmol/L (22-30); Chloride 94 mmol/L (98-107); Estimated CRCL calculation 96 ml/min; Estimated Glomerular Filt Rate > 60; Glucose 100 mg/dL (65-110); Potassium 3.7 mmol/L (3.4-5.0); Sodium 132 mmol/L (137-145)
[2024-04-19 12:01] LABS: Influenza A QL RT-PCR Negative (Negative); Influenza B QL RT-PCR Negative (Negative); RSV RNA, RT-PCR Negative (Negative); SARS-CoV-2 RNA PCR Negative (Negative)
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
[2024-04-19] MEDS: AZITHROMYCIN 500 MG/NS 250 ML 500 MG/250 ML BAG 250 MG IVPB (12:42)
[2024-04-19] MEDS: oxyCODONE HCL (*CRX) 5 MG TAB IR PO (12:54)
--- NOTE | 2024-04-19 15:07 | ADMGEN ---
This patient, Og Noland, was admitted to Medical Room 257-01. Patient/family oriented to hospital policies and general routines including ID bracelet, bed and alarms, visiting hours, pain management, procedures, bathroom and other care routines, personal items, smoking policy, room service/diet, and visiting hours. Information on how to activate the Rapid Response Team has been discussed. Patient/Family are encouraged to report perceived risks to care and to ask questions if they do not understand what they are told or what they should do.
[2024-04-19] MEDS: MORPHINE SULFATE (*CRX) 2 MG/ML INJ IV PUSH ×2 (18:50→22:52)
[2024-04-19] MEDS: HYDROcodone/acetaminophen (*CRX) 5-325 MG TABLET 1 TAB PO (19:30)
[2024-04-20] VITALS (7 sets, daily range): BP systolic 102–130; BP diastolic 56–82; PULSE 73–109; RESP 14–20; TEMP 36.6–37.3; O2SAT 93–99
[2024-04-20] MEDS: HYDROcodone/acetaminophen (*CRX) 5-325 MG TABLET 1 TAB PO ×4 (01:45→20:26)
--- NOTE | 2024-04-20 01:58 | PC.NURSE ---
Found pt around 2029 with hard collar removed, pt stated he could no longer wear it because it was irritating his skin. offered pillow case to put in-between collar and pt. Found pt at 014 with hard collar removed. pt stated i cannot wear this anymore, it is irritating me pt educated on importance of wearing the hard collar per doctors orders. pt refusing at this time.
[2024-04-20] MEDS: MORPHINE SULFATE (*CRX) 2 MG/ML INJ IV PUSH ×2 (04:20→06:29)
[2024-04-20 05:23] LABS: Hematocrit 35.9 % (42.0-52.0); Hemoglobin 12.2 g/dL (14.0-18.0); Mean Corpuscular Hemoglobin 34.6 pg (26-34); Mean Corpuscular Volume 101.7 fl (80-100); Mean Platelet Volume 8.6 fl (7.4-10.4); Platelet Count Result 341 k/mm3 (150-375); Red Blood Count 3.53 M/mm3 (4.6-6.20); Red Cell Distribution Width 12.3 % (11.5-14.5); White Blood Count 7.6 K/mm3 (4.5-10.0)
[2024-04-20 05:51] LABS: Anion Gap 10 mmol/L (4-12); Blood Urea Nitrogen 9 mg/dL (9-20); Calcium 8.5 mg/dL (8.4-10.2); Carbon Dioxide 27 mmol/L (22-30); Chloride 98 mmol/L (98-107); Estimated CRCL calculation 102 ml/min; Estimated Glomerular Filt Rate > 60; Glucose 96 mg/dL (65-110); Magnesium 1.8 mg/dL (1.6-2.3); Potassium 3.3 mmol/L (3.4-5.0); Sodium 135 mmol/L (137-145)
[2024-04-20] MEDS: LINACLOTIDE 145 MCG CAPSULE 290 MCG PO (06:29)
[2024-04-20] MEDS: UMECLIDINIUM/VILANTEROL 62.5-25 MCG ELLIPTA 1 PUFF INHALATION (07:22)
[2024-04-20] MEDS: POTASSIUM CHLORIDE 20 MEQ ER TABLET 40 MEQ PO (07:58)
[2024-04-20] MEDS: CEFDINIR 300 MG CAPSULE PO ×2 (07:58→20:27)
[2024-04-20] MEDS: VENLAFAXINE HCL XR 75 MG CAP.ER.24H PO (07:59)
[2024-04-20] MEDS: FINASTERIDE 5 MG TABLET PO (07:59)
[2024-04-20] MEDS: VENLAFAXINE HCL XR 37.5 MG CAP PO (07:59)
[2024-04-20] MEDS: CHOLECALCIFEROL 1,000 UNITS TABLET 2000 UNITS PO (07:59)
[2024-04-20] MEDS: TAMSULOSIN HCL 0.4 MG CAPSULE PO (07:59)
[2024-04-20] MEDS: AZITHROMYCIN 250 MG TABLET PO (08:00)
[2024-04-20] MEDS: PANTOPRAZOLE 40 MG TABLET PO (08:00)
[2024-04-20] MEDS: FOLIC ACID 1 MG TABLET PO (08:00)
[2024-04-20 10:51] LABS: Folic Acid 7.1 ng/mL (2.76->20); Vitamin B12 > 1000.0 pg/mL (239-931)
[2024-04-20] MEDS: ACETAMINOPHEN 325 MG TABLET 650 MG PO ×2 (11:54→21:29)
--- NOTE | 2024-04-20 12:59 | PM.IMPN ---
Progress Note: A&P Assessment and Plan (1) C1 cervical fracture: Code(s): S12.000A - Unspecified displaced fracture of first cervical vertebra, initial encounter for closed fracture Status: Acute (2) Pulmonary infiltrates: Code(s): R91.8 - Other nonspecific abnormal finding of lung field Status: Acute (3) Inflammatory bowel disease: Code(s): K52.9 - Noninfective gastroenteritis and colitis, unspecified Status: Acute (4) Macrocytic anemia: Code(s): D53.9 - Nutritional anemia, unspecified Status: Acute Plan The patient presented to the emergency department for evaluation of neck and back pain following a fall and found to have a fracture of the anterior ring of C1. Neurosurgery consulted and recommended hard collar with follow-up in 1 month. Analgesics are available as needed. Fall precautions. PT/OT consulted. He was started on antibiotics for pulmonary infiltrates in addition to chronic interstitial lung disease noted on chest x-ray. No change in his chrnic SOB. Change abx to oral route. No recent issues with his inflammatory bowel disease. Follow Macrocytic anemia stable on review of previous labs; anemia studies from last month have been reviewed. Probably home tomorrow if he does well with therapy. DVT Prophylaxis - SCDs Code status - full Subjective Date/time seen: 04/20/24 12:59 Interval history: 78yo male with hx of left anterior rib fractures and PTX and resultant chronic intermittent left chest pain, BPH, HLD, GERD and IBD who presented to the emergency department via EMS for evaluation after a fall today. Still having neck pain. No numbness or tingling in hands/feet. he has chronic SOB. Chronic diffuse weakness. Exam Narrative: AF 98.8 118/56 73 17 97% ra Gen - NARD Chest - lungs clear anteriorly CV - RRR S1/S2 with occasional extra beat Abd - Soft, scaphoid. Ext - No pedal edema Neuro - Alert and oriented. Nonfocal exam. Normal strength Psych - Nml mood and affect Skin - Warm and dry. Mild left dry facial abrasions noted Objective Data Vital Signs Vital Signs: Vital Signs - 24 hr 04/19/24 13:15 04/19/24 13:45 04/19/24 14:15 Temperature Pulse Rate 103 H 107 H 93 Respiratory Rate 24 H 20 16 Blood Pressure 113/84 114/85 105/79 Pulse Oximetry 100 99 98 Oxygen Delivery 04/19/24 16:00 04/19/24 18:19 04/19/24 20:00 Temperature 97.1 F L 98.4 F Pulse Rate 88 85 Respiratory Rate 18 20 Blood Pressure 102/67 101/66 Pulse Oximetry 98 97 Oxygen Delivery Room Air 04/19/24 20:00 04/20/24 00:00 04/20/24 04:00 Temperature 99.1 F 99.0 F Pulse Rate 80 104 H Respiratory Rate 20 20 Blood Pressure 102/69 130/82 Pulse Oximetry 99 96 Oxygen Delivery Room Air 04/20/24 07:22 04/20/24 07:22 04/20/24 08:00 Temperature 98.8 F Pulse Rate 94 94 109 H Respiratory Rate 18 18 15 Blood Pressure 103/80 Pulse Oximetry 93 97 Oxygen Delivery Room Air 04/20/24 12:00 Temperature 98.8 F Pulse Rate 73 Respiratory Rate 17 Blood Pressure 118/56 L Pulse Oximetry 97 Oxygen Delivery Intake/Output Intake/Output: Intake & Output 04/17/24 04/18/24 04/19/24 04/20/24 23:59 23:59 23:59 23:59 Intake Total 300 486 Balance 300 486 Meds/Results Medications: Active Medications Generic Name Dose Route Start Last Admin Trade Name Freq PRN Reason Stop Dose Admin Acetaminophen 650 mg 04/19/24 18:39 04/20/24 11:54 Acetaminophen 325 Mg Tablet PO 650 mg Q6H PRN Administration Mild Pain (1-3) or Fever Hydrocodone Bitart/Acetaminophen 1 tab 04/19/24 18:39 04/20/24 07:59 Hydrocodone/Acetaminophen (*Crx) 5-325 Mg Tablet PO 1 tab Q6H PRN Administration Pain Rated 4-6 Albuterol 2 puff 04/19/24 20:25 Albuterol Sulfate (*Sp) Aerosol 1 Puff INHALATION Q4HRT PRN SOB OR WHEEZING Azithromycin 250 mg 04/20/24 09:00 04/20/24 08:00 Azithromycin 250 Mg Tablet PO 04/23/24 09:01 250 mg DAILY LUCA Administration Cefdinir 300 mg 04/20/24 09:00 04/20/24 07:58 Cefdinir 300 Mg Capsule PO 04/25/24 21:01 300 mg Q12HR LUCA Administration Finasteride 5 mg 04/20/24 09:00 04/20/24 07:59 Finasteride 5 Mg Tablet PO 5 mg DAILY LUCA Administration Folic Acid 1 mg 04/20/24 09:00 04/20/24 08:00 Folic Acid 1 Mg Tablet PO 1 mg DAILY LUCA Administration Linaclotide 290 mcg 04/20/24 06:30 04/20/24 06:29 Linaclotide 145 Mcg Capsule PO 290 mcg DAILY@0630 LUCA Administration Miscellaneous Information 1 each 04/19/24 00:01 Nonformulary Drug (Sulfasalazine 500 Mg Tablet,Delayed Release (Dr/Ec)) We Stock Regular N XX 05/19/24 00:00 CLARIFY LUCA Morphine Sulfate 2 mg 04/20/24 05:06 04/20/24 06:29 Morphine Sulfate (*Crx) 2 Mg/Ml Inj IV PUSH 2 mg Q2H PRN Administration Pain Rated 7-10 Non-Formulary Medication 1.5 gm 04/20/24 09:00 Sulfasalazine PO 05/20/24 08:59 BID LUCA Non-Formulary Medication 1 each 04/19/24 21:37 Nonformulary Nutritional Supplement XX 04/20/24 21:36 PRN PRN PROTOCOL Pantoprazole Sodium 40 mg 04/20/24 09:00 04/20/24 08:00 Pantoprazole 40 Mg Tablet PO 40 mg QAM LUCA Administration Tamsulosin HCl 0.4 mg 04/20/24 09:00 04/20/24 07:59 Tamsulosin Hcl 0.4 Mg Capsule PO 0.4 mg DAILY LUCA Administration Umeclidinium/Vilanterol 1 puff 04/20/24 09:00 04/20/24 07:22 Umeclidinium/Vilanterol 62.5-25 Mcg Ellipta INHALATION 1 puff DAILY LUCA Administration Venlafaxine HCl 37.5 mg 04/20/24 09:00 04/20/24 07:59 Venlafaxine Hcl Xr 37.5 Mg Cap PO 37.5 mg DAILY LUCA Administration Venlafaxine HCl 75 mg 04/20/24 09:00 04/20/24 07:59 Venlafaxine Hcl Xr 75 Mg Cap.Er.24h PO 75 mg DAILY LUCA Administration Vitamin D 2,000 units 04/20/24 09:00 04/20/24 07:59 Cholecalciferol 1,000 Units Tablet PO 2,000 units DAILY LUCA Administration Radiology Results: ITS Impressions Chest X-Ray 04/19/24 10:41 Impression: 1: Bilateral infiltrates, 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 Head CT 04/19/24 10:41 IMPRESSION: 1. Normal aging brain. No fracture or acute intracranial process. Pelvis X-Ray 04/19/24 10:49 Impression: 1: No acute fracture. Head/Cervical Spine/Facial Bones CT 04/19/24 11:08 IMPRESSION: 1. Minimally displaced mildly comminuted fracture at the anterior ring of C1. 2. Fracture of the right maxillary second bicuspid and dental disease with periapical lucencies at October 1999 at the contralateral left first and second maxillary bicuspid. 3. No maxillofacial fractures. 4. Instrumented C2-C7 anterior spinal fusion and C5-C7 laminectomies and instrumented posterior spinal fusion. 5. Moderate upper thoracic spondylosis. 6. UIP pattern chronic interstitial lung disease in the visualized upper lungs. Lumbar Spine CT 04/19/24 11:24 IMPRESSION: 1. 10 degrees lumbar levoscoliosis with severe spondylosis. No acute osseous abnormality. Labs Labs: Laboratory Results - last 24 hr 04/20/24 05:18 WBC 7.6 RBC 3.53 L Hgb 12.2 L Hct 35.9 L MCV 101.7 H MCH 34.6 H MCHC 34.0 RDW 12.3 Plt Count 341 MPV 8.6 Sodium 135 L Potassium 3.3 L Chloride 98 Carbon Dioxide 27 Anion Gap 10 BUN 9 Creatinine 0.43 L Estim Creat Clear Calc 102 Estimated GFR > 60 Glucose 96 Calcium 8.5 Magnesium 1.8 Vitamin B12 > 1000.0 H Folate 7.1
[2024-04-20] MEDS: guaiFENesin 12 HR 600 MG TABCR PO ×2 (15:30→20:27)
[2024-04-21] VITALS (8 sets, daily range): BP systolic 106–131; BP diastolic 63–85; PULSE 79–93; RESP 14–20; TEMP 36.3–36.8; O2SAT 93–98
[2024-04-21] MEDS: LINACLOTIDE 145 MCG CAPSULE 290 MCG PO (05:52)
[2024-04-21] MEDS: HYDROcodone/acetaminophen (*CRX) 5-325 MG TABLET 1 TAB PO ×3 (05:52→20:01)
[2024-04-21 06:34] LABS: Anion Gap 8 mmol/L (4-12); Blood Urea Nitrogen 14 mg/dL (9-20); Calcium 8.4 mg/dL (8.4-10.2); Carbon Dioxide 28 mmol/L (22-30); Chloride 97 mmol/L (98-107); Estimated CRCL calculation 118 ml/min; Estimated Glomerular Filt Rate > 60; Glucose 99 mg/dL (65-110); Magnesium 1.7 mg/dL (1.6-2.3); Sodium 133 mmol/L (137-145)
[2024-04-21] MEDS: UMECLIDINIUM/VILANTEROL 62.5-25 MCG ELLIPTA 1 PUFF INHALATION (07:10)
[2024-04-21] MEDS: ACETAMINOPHEN 325 MG TABLET 650 MG PO (08:58)
[2024-04-21] MEDS: FINASTERIDE 5 MG TABLET PO (08:59)
[2024-04-21] MEDS: TAMSULOSIN HCL 0.4 MG CAPSULE PO (08:59)
[2024-04-21] MEDS: CEFDINIR 300 MG CAPSULE PO ×2 (08:59→20:01)
[2024-04-21] MEDS: FOLIC ACID 1 MG TABLET PO (08:59)
[2024-04-21] MEDS: guaiFENesin 12 HR 600 MG TABCR PO ×2 (08:59→20:01)
[2024-04-21] MEDS: CHOLECALCIFEROL 1,000 UNITS TABLET 2000 UNITS PO (08:59)
[2024-04-21] MEDS: VENLAFAXINE HCL XR 37.5 MG CAP PO (08:59)
[2024-04-21] MEDS: VENLAFAXINE HCL XR 75 MG CAP.ER.24H PO (08:59)
[2024-04-21] MEDS: AZITHROMYCIN 250 MG TABLET PO (08:59)
[2024-04-21] MEDS: PANTOPRAZOLE 40 MG TABLET PO (08:59)
--- NOTE | 2024-04-21 10:02 | PCOTNOTE ---
Attempted to see pt 2x for OT treatment. At 1st attempt, pt was eating breakfast and wanting to finish it first. At 2nd attempt, pt declined to complete any self care tasks and/or therapeutic tasks stating I'm leaving today...I rather shower at home. Pt was offered to complete other self care tasks, however, pt continued to declined stating I just need to rest. Pt reports no other questions or concerns at this time.
--- NOTE | 2024-04-21 12:33 | PM.IMPN ---
Progress Note: A&P Assessment and Plan (1) C1 cervical fracture: Code(s): S12.000A - Unspecified displaced fracture of first cervical vertebra, initial encounter for closed fracture Status: Acute (2) Pulmonary infiltrates: Code(s): R91.8 - Other nonspecific abnormal finding of lung field Status: Acute (3) Inflammatory bowel disease: Code(s): K52.9 - Noninfective gastroenteritis and colitis, unspecified Status: Acute (4) Macrocytic anemia: Code(s): D53.9 - Nutritional anemia, unspecified Status: Acute Plan The patient presented to the emergency department for evaluation of neck and back pain following a fall and found to have a fracture of the anterior ring of C1. Neurosurgery consulted and recommended hard collar with follow-up in 1 month. Analgesics are available as needed. Fall precautions. PT/OT consulted. PT recommends SNF placement. Care coordination to make arrangements. He was started on antibiotics for pulmonary infiltrates in addition to chronic interstitial lung disease noted on chest x-ray. No change in his chronic SOB. Continue abx to complete a course No recent issues with his inflammatory bowel disease. Follow Macrocytic anemia stable on review of previous labs; anemia studies from last month have been reviewed. Okay for discharge when placement arranged. DVT Prophylaxis - SCDs Code status - full Subjective Date/time seen: 04/21/24 12:33 Interval history: 78yo male with hx of left anterior rib fractures and PTX and resultant chronic intermittent left chest pain, BPH, HLD, GERD and IBD who presented to the emergency department via EMS for evaluation after a fall today. neck pain better. Slept okay. He is wearing the collar with out of bed. He can put the collar on by himself. Exam Narrative: AF 97.4 113/79 87 20 98% ra Gen - NARD Chest - clear anteriorly and in flanks CV - RRR S1/S2 with +murmur LSB Abd - Soft, scaphoid. Ext - No pedal edema Psych - Nml mood and affect Skin - Warm and dry. Mild left dry facial abrasions noted Objective Data Vital Signs Vital Signs: Vital Signs - 24 hr 04/20/24 14:55 04/20/24 16:00 04/20/24 20:00 Temperature 97.9 F Pulse Rate 76 Respiratory Rate 14 Blood Pressure 105/76 Pulse Oximetry 97 Oxygen Delivery Room Air Room Air 04/20/24 20:00 04/21/24 00:00 04/21/24 04:00 Temperature 98.1 F 97.6 F 97.6 F Pulse Rate 77 83 82 Respiratory Rate 20 16 20 Blood Pressure 126/76 123/80 131/85 Pulse Oximetry 97 94 97 Oxygen Delivery 04/21/24 07:10 04/21/24 07:10 04/21/24 08:00 Temperature 97.4 F L Pulse Rate 82 82 87 Respiratory Rate 18 18 20 Blood Pressure 113/79 Pulse Oximetry 95 98 Oxygen Delivery Room Air 04/21/24 11:14 Temperature Pulse Rate Respiratory Rate Blood Pressure Pulse Oximetry Oxygen Delivery Room Air Intake/Output Intake/Output: Intake & Output 04/18/24 04/19/24 04/20/24 04/21/24 23:59 23:59 23:59 23:59 Intake Total 300 823 260 Balance 300 823 260 Meds/Results Medications: Active Medications Generic Name Dose Route Start Last Admin Trade Name Freq PRN Reason Stop Dose Admin Acetaminophen 650 mg 04/19/24 18:39 04/21/24 08:58 Acetaminophen 325 Mg Tablet PO 650 mg Q6H PRN Administration Mild Pain (1-3) or Fever Hydrocodone Bitart/Acetaminophen 1 tab 04/19/24 18:39 04/21/24 05:52 Hydrocodone/Acetaminophen (*Crx) 5-325 Mg Tablet PO 1 tab Q6H PRN Administration Pain Rated 4-6 Albuterol 2 puff 04/19/24 20:25 Albuterol Sulfate (*Sp) Aerosol 1 Puff INHALATION Q4HRT PRN SOB OR WHEEZING Azithromycin 250 mg 04/20/24 09:00 04/21/24 08:59 Azithromycin 250 Mg Tablet PO 04/23/24 09:01 250 mg DAILY LUCA Administration Cefdinir 300 mg 04/20/24 09:00 04/21/24 08:59 Cefdinir 300 Mg Capsule PO 04/25/24 21:01 300 mg Q12HR LUCA Administration Finasteride 5 mg 04/20/24 09:00 04/21/24 08:59 Finasteride 5 Mg Tablet PO 5 mg DAILY LUCA Administration Folic Acid 1 mg 04/20/24 09:00 04/21/24 08:59 Folic Acid 1 Mg Tablet PO 1 mg DAILY LUCA Administration Guaifenesin 600 mg 04/20/24 13:00 04/21/24 08:59 Guaifenesin 12 Hr 600 Mg Tabcr PO 600 mg Q12HR LUCA Administration Linaclotide 290 mcg 04/20/24 06:30 04/21/24 05:52 Linaclotide 145 Mcg Capsule PO 290 mcg DAILY@0630 LUCA Administration Miscellaneous Information 1 each 04/19/24 00:01 Nonformulary Drug (Sulfasalazine 500 Mg Tablet,Delayed Release (Dr/Ec)) We Stock Regular N XX 05/19/24 00:00 CLARIFY LUCA Morphine Sulfate 2 mg 04/20/24 05:06 04/20/24 06:29 Morphine Sulfate (*Crx) 2 Mg/Ml Inj IV PUSH 2 mg Q2H PRN Administration Pain Rated 7-10 Non-Formulary Medication 1.5 gm 04/20/24 09:00 Sulfasalazine PO 05/20/24 08:59 BID LUCA Pantoprazole Sodium 40 mg 04/20/24 09:00 04/21/24 08:59 Pantoprazole 40 Mg Tablet PO 40 mg QAM LUCA Administration Tamsulosin HCl 0.4 mg 04/20/24 09:00 04/21/24 08:59 Tamsulosin Hcl 0.4 Mg Capsule PO 0.4 mg DAILY LUCA Administration Umeclidinium/Vilanterol 1 puff 04/20/24 09:00 04/21/24 07:10 Umeclidinium/Vilanterol 62.5-25 Mcg Ellipta INHALATION 1 puff DAILY LUCA Administration Venlafaxine HCl 37.5 mg 04/20/24 09:00 04/21/24 08:59 Venlafaxine Hcl Xr 37.5 Mg Cap PO 37.5 mg DAILY LUCA Administration Venlafaxine HCl 75 mg 04/20/24 09:00 04/21/24 08:59 Venlafaxine Hcl Xr 75 Mg Cap.Er.24h PO 75 mg DAILY LUCA Administration Vitamin D 2,000 units 04/20/24 09:00 04/21/24 08:59 Cholecalciferol 1,000 Units Tablet PO 2,000 units DAILY LUCA Administration Radiology Results: ITS Impressions Chest X-Ray 04/19/24 10:41 Impression: 1: Bilateral infiltrates, 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 Head CT 04/19/24 10:41 IMPRESSION: 1. Normal aging brain. No fracture or acute intracranial process. Pelvis X-Ray 04/19/24 10:49 Impression: 1: No acute fracture. Head/Cervical Spine/Facial Bones CT 04/19/24 11:08 IMPRESSION: 1. Minimally displaced mildly comminuted fracture at the anterior ring of C1. 2. Fracture of the right maxillary second bicuspid and dental disease with periapical lucencies at October 1999 at the contralateral left first and second maxillary bicuspid. 3. No maxillofacial fractures. 4. Instrumented C2-C7 anterior spinal fusion and C5-C7 laminectomies and instrumented posterior spinal fusion. 5. Moderate upper thoracic spondylosis. 6. UIP pattern chronic interstitial lung disease in the visualized upper lungs. Lumbar Spine CT 04/19/24 11:24 IMPRESSION: 1. 10 degrees lumbar levoscoliosis with severe spondylosis. No acute osseous abnormality. Labs Labs: Laboratory Results - last 24 hr 04/21/24 05:34 Sodium 133 L Potassium 4.0 Chloride 97 L Carbon Dioxide 28 Anion Gap 8 BUN 14 D Creatinine 0.37 L Estim Creat Clear Calc 118 Estimated GFR > 60 Glucose 99 Calcium 8.4 Magnesium 1.7
[2024-04-21 17:24] LABS: Glucose Point of Care 131 mg/dl (65-105)
--- NOTE | 2024-04-21 19:21 | PC.NURSE ---
Bladder scanned pt, showed over 600 mLs in bladder. Called provider Dr. Brody, to inform him how much was in pt's bladder. Provider gave orders to straight cath pt. Went in pt's room to try and straight cath, pt refused and said tell the . I will talk to him in the morning.
[2024-04-22] VITALS (7 sets, daily range): BP systolic 105–145; BP diastolic 73–85; PULSE 65–79; RESP 15–20; TEMP 36.3–37.1; O2SAT 91–98
[2024-04-22] MEDS: LINACLOTIDE 145 MCG CAPSULE 290 MCG PO (06:34)
[2024-04-22] MEDS: HYDROcodone/acetaminophen (*CRX) 5-325 MG TABLET 1 TAB PO ×3 (06:41→19:41)
--- NOTE | 2024-04-22 07:34 | P.CDI_ITS ---
CDI Query Clarification Request : [id number] Nutritional Diagnostic Statement: Please refer to the comprehensive nutrition assessment for further information. If you agree with diagnosis of Severe protein calorie malnutrition related to chronic loss of appetite as evidenced by weight loss 10%/2 months; intakes <75% needs >1 month; severe muscle wasting and fat loss. Please specify severity if known: * Mild * Moderate * Severe * Other/Unknown
[2024-04-22] MEDS: TAMSULOSIN HCL 0.4 MG CAPSULE PO (08:35)
[2024-04-22] MEDS: PANTOPRAZOLE 40 MG TABLET PO (08:36)
[2024-04-22] MEDS: FINASTERIDE 5 MG TABLET PO (08:36)
[2024-04-22] MEDS: VENLAFAXINE HCL XR 75 MG CAP.ER.24H PO (08:36)
[2024-04-22] MEDS: AZITHROMYCIN 250 MG TABLET PO (08:36)
[2024-04-22] MEDS: VENLAFAXINE HCL XR 37.5 MG CAP PO (08:36)
[2024-04-22] MEDS: guaiFENesin 12 HR 600 MG TABCR PO ×2 (08:36→20:55)
[2024-04-22] MEDS: CHOLECALCIFEROL 1,000 UNITS TABLET 2000 UNITS PO (08:36)
[2024-04-22] MEDS: CEFDINIR 300 MG CAPSULE PO ×2 (08:37→20:55)
[2024-04-22] MEDS: FOLIC ACID 1 MG TABLET PO (08:37)
[2024-04-22] MEDS: UMECLIDINIUM/VILANTEROL 62.5-25 MCG ELLIPTA 1 PUFF INHALATION (08:55)
--- NOTE | 2024-04-22 10:44 | PM.IMPN ---
Progress Note: A&P Assessment and Plan (1) C1 cervical fracture: Code(s): S12.000A - Unspecified displaced fracture of first cervical vertebra, initial encounter for closed fracture Status: Acute (2) Pulmonary infiltrates: Code(s): R91.8 - Other nonspecific abnormal finding of lung field Status: Acute (3) Inflammatory bowel disease: Code(s): K52.9 - Noninfective gastroenteritis and colitis, unspecified Status: Acute (4) Macrocytic anemia: Code(s): D53.9 - Nutritional anemia, unspecified Status: Acute (5) Severe protein-calorie malnutrition: Code(s): E43 - Unspecified severe protein-calorie malnutrition Status: Acute Plan The patient presented to the emergency department for evaluation of neck and back pain following a fall and found to have a fracture of the anterior ring of C1. Neurosurgery consulted and recommended hard collar with follow-up in 1 month. Analgesics are available as needed. Fall precautions. PT/OT consulted. PT recommends SNF placement. Care coordination to make arrangements. Patient needs to participate in therapy to qualift for SNF. He was started on antibiotics for pulmonary infiltrates in addition to chronic interstitial lung disease noted on chest x-ray. No change in his chronic SOB. Continue abx to complete a course No recent issues with his inflammatory bowel disease. Follow Macrocytic anemia stable on review of previous labs; anemia studies from last month have been reviewed. Okay for discharge when placement arranged. DVT Prophylaxis - SCDs Code status - full Subjective Date/time seen: 04/22/24 10:44 Interval history: 78yo male with hx of left anterior rib fractures and PTX and resultant chronic intermittent left chest pain, BPH, HLD, GERD and IBD who presented to the emergency department via EMS for evaluation after a fall He has SOB but chronic. No cough. Slept well. Neck pain better. Feels weak. Chronic left chest pain related to past PTX Exam Narrative: AF 97.7 134/82 79 16 97% ra Gen - NARD Chest - R>L bibasilar crackles. nml RR CV - RRR S1/S2 with +murmur LSB Abd - Soft, scaphoid. Ext - No pedal edema Psych - Nml mood and affect Skin - Warm and dry. Mild left dry facial abrasions noted Objective Data Vital Signs Vital Signs: Vital Signs - 24 hr 04/21/24 11:14 04/21/24 12:30 04/21/24 16:00 Temperature 98.1 F 97.3 F L Pulse Rate 85 79 Respiratory Rate 16 14 Blood Pressure 106/63 107/77 Pulse Oximetry 95 97 Oxygen Delivery Room Air 04/21/24 20:00 04/21/24 20:00 04/21/24 23:25 Temperature 98.2 F 97.8 F Pulse Rate 93 91 Respiratory Rate 20 16 Blood Pressure 115/66 109/65 Pulse Oximetry 93 95 Oxygen Delivery Room Air 04/22/24 04:00 04/22/24 08:00 04/22/24 08:37 Temperature 97.7 F 97.7 F Pulse Rate 65 79 Respiratory Rate 20 15 16 Blood Pressure 134/85 134/82 Pulse Oximetry 91 97 97 Oxygen Delivery Room Air Intake/Output Intake/Output: Intake & Output 04/19/24 04/20/24 04/21/24 04/22/24 23:59 23:59 23:59 23:59 Intake Total 300 823 630 397 Output Total 600 Balance 300 823 630 -203 Meds/Results Medications: Active Medications Generic Name Dose Route Start Last Admin Trade Name Freq PRN Reason Stop Dose Admin Acetaminophen 650 mg 04/19/24 18:39 04/21/24 08:58 Acetaminophen 325 Mg Tablet PO 650 mg Q6H PRN Administration Mild Pain (1-3) or Fever Hydrocodone Bitart/Acetaminophen 1 tab 04/19/24 18:39 04/22/24 06:41 Hydrocodone/Acetaminophen (*Crx) 5-325 Mg Tablet PO 1 tab Q6H PRN Administration Pain Rated 4-6 Albuterol 2 puff 04/19/24 20:25 Albuterol Sulfate (*Sp) Aerosol 1 Puff INHALATION Q4HRT PRN SOB OR WHEEZING Azithromycin 250 mg 04/20/24 09:00 04/22/24 08:36 Azithromycin 250 Mg Tablet PO 04/23/24 09:01 250 mg DAILY [facility] Administration Cefdinir 300 mg 04/20/24 09:00 04/22/24 08:37 Cefdinir 300 Mg Capsule PO 04/25/24 21:01 300 mg Q12HR [facility] Administration Finasteride 5 mg 04/20/24 09:00 04/22/24 08:36 Finasteride 5 Mg Tablet PO 5 mg DAILY [facility] Administration Folic Acid 1 mg 04/20/24 09:00 04/22/24 08:37 Folic Acid 1 Mg Tablet PO 1 mg DAILY [facility] Administration Guaifenesin 600 mg 04/20/24 13:00 04/22/24 08:36 Guaifenesin 12 Hr 600 Mg Tabcr PO 600 mg Q12HR [facility] Administration Linaclotide 290 mcg 04/20/24 06:30 04/22/24 06:34 Linaclotide 145 Mcg Capsule PO 290 mcg DAILY@0630 [facility] Administration Miscellaneous Information 1 each 04/19/24 00:01 Nonformulary Drug (Sulfasalazine 500 Mg Tablet,Delayed Release (Dr/Ec)) We Stock Regular N XX 05/19/24 00:00 CLARIFY [facility] Morphine Sulfate 2 mg 04/20/24 05:06 04/20/24 06:29 Morphine Sulfate (*Crx) 2 Mg/Ml Inj IV PUSH 2 mg Q2H PRN Administration Pain Rated 7-10 Non-Formulary Medication 1.5 gm 04/20/24 09:00 Sulfasalazine PO 05/20/24 08:59 BID [facility] Pantoprazole Sodium 40 mg 04/20/24 09:00 04/22/24 08:36 Pantoprazole 40 Mg Tablet PO 40 mg QAM [facility] Administration Tamsulosin HCl 0.4 mg 04/20/24 09:00 04/22/24 08:35 Tamsulosin Hcl 0.4 Mg Capsule PO 0.4 mg DAILY [facility] Administration Umeclidinium/Vilanterol 1 puff 04/20/24 09:00 04/22/24 08:55 Umeclidinium/Vilanterol 62.5-25 Mcg Ellipta INHALATION 1 puff DAILY [facility] Administration Venlafaxine HCl 37.5 mg 04/20/24 09:00 04/22/24 08:36 Venlafaxine Hcl Xr 37.5 Mg Cap PO 37.5 mg DAILY [facility] Administration Venlafaxine HCl 75 mg 04/20/24 09:00 04/22/24 08:36 Venlafaxine Hcl Xr 75 Mg Cap.Er.24h PO 75 mg DAILY [facility] Administration Vitamin D 2,000 units 04/20/24 09:00 04/22/24 08:36 Cholecalciferol 1,000 Units Tablet PO 2,000 units DAILY [facility] Administration Radiology Results: ITS Impressions Chest X-Ray 04/19/24 10:41 Impression: 1: Bilateral infiltrates, 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 Head CT 04/19/24 10:41 IMPRESSION: 1. Normal aging brain. No fracture or acute intracranial process. Pelvis X-Ray 04/19/24 10:49 Impression: 1: No acute fracture. Head/Cervical Spine/Facial Bones CT 04/19/24 11:08 IMPRESSION: 1. Minimally displaced mildly comminuted fracture at the anterior ring of C1. 2. Fracture of the right maxillary second bicuspid and dental disease with periapical lucencies at October 1999 at the contralateral left first and second maxillary bicuspid. 3. No maxillofacial fractures. 4. Instrumented C2-C7 anterior spinal fusion and C5-C7 laminectomies and instrumented posterior spinal fusion. 5. Moderate upper thoracic spondylosis. 6. UIP pattern chronic interstitial lung disease in the visualized upper lungs. Lumbar Spine CT 04/19/24 11:24 IMPRESSION: 1. 10 degrees lumbar levoscoliosis with severe spondylosis. No acute osseous abnormality. Labs Labs: Laboratory Results - last 24 hr 04/21/24 17:15 POC Capillary Glucose 131 H
--- NOTE | 2024-04-22 14:57 | PCOTNOTE ---
Patient refused to participate with OT at this time. Patient stated he already did therapy earlier, I'm not getting back up otr putting that awful neck collar back on today. Patient verbalized he can try tomorrow.
[2024-04-23] VITALS (8 sets, daily range): BP systolic 100–132; BP diastolic 50–85; PULSE 73–94; RESP 16–18; TEMP 36.2–37.1; O2SAT 90–99
[2024-04-23] MEDS: LINACLOTIDE 145 MCG CAPSULE 290 MCG PO (06:10)
[2024-04-23] MEDS: UMECLIDINIUM/VILANTEROL 62.5-25 MCG ELLIPTA 1 PUFF INHALATION (07:10)
[2024-04-23] MEDS: VENLAFAXINE HCL XR 37.5 MG CAP PO (08:26)
[2024-04-23] MEDS: VENLAFAXINE HCL XR 75 MG CAP.ER.24H PO (08:26)
[2024-04-23] MEDS: CEFDINIR 300 MG CAPSULE PO ×2 (08:26→20:28)
[2024-04-23] MEDS: HYDROcodone/acetaminophen (*CRX) 5-325 MG TABLET 1 TAB PO ×2 (08:27→20:27)
[2024-04-23] MEDS: guaiFENesin 12 HR 600 MG TABCR PO ×2 (08:27→20:28)
[2024-04-23] MEDS: FOLIC ACID 1 MG TABLET PO (08:27)
[2024-04-23] MEDS: TAMSULOSIN HCL 0.4 MG CAPSULE PO (08:27)
[2024-04-23] MEDS: AZITHROMYCIN 250 MG TABLET PO (08:27)
[2024-04-23] MEDS: FINASTERIDE 5 MG TABLET PO (08:27)
[2024-04-23] MEDS: CHOLECALCIFEROL 1,000 UNITS TABLET 2000 UNITS PO (08:27)
[2024-04-23] MEDS: PANTOPRAZOLE 40 MG TABLET PO (08:27)
--- NOTE | 2024-04-23 13:46 | PM.IMPN ---
Progress Note: A&P Assessment and Plan (1) C1 cervical fracture: Code(s): S12.000A - Unspecified displaced fracture of first cervical vertebra, initial encounter for closed fracture Status: Acute (2) Pulmonary infiltrates: Code(s): R91.8 - Other nonspecific abnormal finding of lung field Status: Acute (3) Inflammatory bowel disease: Code(s): K52.9 - Noninfective gastroenteritis and colitis, unspecified Status: Acute (4) Macrocytic anemia: Code(s): D53.9 - Nutritional anemia, unspecified Status: Acute (5) Severe protein-calorie malnutrition: Code(s): E43 - Unspecified severe protein-calorie malnutrition Status: Acute Plan The patient presented to the emergency department for evaluation of neck and back pain following a fall and found to have a fracture of the anterior ring of C1. Neurosurgery consulted and recommended hard collar with follow-up in 1 month. Analgesics are available as needed. Fall precautions. PT/OT consulted. PT recommended SNF placement. Care coordination to make arrangements. Patient needs to participate in therapy to qualify for SNF. He was started on antibiotics for pulmonary infiltrates in addition to chronic interstitial lung disease noted on chest x-ray. No change in his chronic SOB. Continue abx to complete a course No recent issues with his inflammatory bowel disease. Follow Macrocytic anemia stable on review of previous labs; anemia studies from last month have been reviewed. Okay for discharge when placement arranged. DVT Prophylaxis - SCDs Code status - full Subjective Date/time seen: 04/23/24 13:46 Interval history: 78yo male with hx of left anterior rib fractures and PTX and resultant chronic intermittent left chest pain, BPH, HLD, GERD and IBD who presented to the emergency department via EMS for evaluation after a fall Slept okay. Walking in halls. Complains of increased neck pain. Exam Narrative: AF 98.8 100/60 90 18 90% ra Gen - NARD Chest -few basilar crackles. nml RR CV - RRR S1/S2 with +murmur LSB Abd - Soft, scaphoid. Ext - No pedal edema Psych - Nml mood and affect Skin - Warm and dry. Mild left dry facial abrasions noted Objective Data Vital Signs Vital Signs: Vital Signs - 24 hr 04/22/24 16:00 04/22/24 19:37 04/22/24 20:00 Temperature 97.6 F 97.4 F L Pulse Rate 78 74 Respiratory Rate 18 18 Blood Pressure 105/73 145/76 H Pulse Oximetry 95 98 Oxygen Delivery Room Air 04/22/24 23:32 04/23/24 03:43 04/23/24 07:10 Temperature 97.5 F L 97.9 F Pulse Rate 75 74 73 Respiratory Rate 17 18 18 Blood Pressure 130/82 108/68 Pulse Oximetry 97 92 95 Oxygen Delivery Room Air 04/23/24 07:10 04/23/24 08:00 04/23/24 08:29 Temperature 97.2 F L Pulse Rate 73 85 Respiratory Rate 18 18 18 Blood Pressure 118/85 Pulse Oximetry 98 95 Oxygen Delivery Room Air 04/23/24 12:00 Temperature 98.8 F Pulse Rate 90 Respiratory Rate 18 Blood Pressure 100/60 Pulse Oximetry 90 Oxygen Delivery Intake/Output Intake/Output: Intake & Output 04/20/24 04/21/24 04/22/24 04/23/24 23:59 23:59 23:59 23:59 Intake Total 251 543 9636 240 Output Total 600 Balance 823 630 787 240 Meds/Results Medications: Active Medications Generic Name Dose Route Start Last Admin Trade Name Freq PRN Reason Stop Dose Admin Acetaminophen 650 mg 04/19/24 18:39 04/21/24 08:58 Acetaminophen 325 Mg Tablet PO 650 mg Q6H PRN Administration Mild Pain (1-3) or Fever Hydrocodone Bitart/Acetaminophen 1 tab 04/19/24 18:39 04/23/24 08:27 Hydrocodone/Acetaminophen (*Crx) 5-325 Mg Tablet PO 1 tab Q6H PRN Administration Pain Rated 4-6 Albuterol 2 puff 04/19/24 20:25 Albuterol Sulfate (*Sp) Aerosol 1 Puff INHALATION Q4HRT PRN SOB OR WHEEZING Cefdinir 300 mg 04/20/24 09:00 04/23/24 08:26 Cefdinir 300 Mg Capsule PO 04/25/24 21:01 300 mg Q12HR [facility] Administration Finasteride 5 mg 04/20/24 09:00 04/23/24 08:27 Finasteride 5 Mg Tablet PO 5 mg DAILY [facility] Administration Folic Acid 1 mg 04/20/24 09:00 04/23/24 08:27 Folic Acid 1 Mg Tablet PO 1 mg DAILY [facility] Administration Guaifenesin 600 mg 04/20/24 13:00 04/23/24 08:27 Guaifenesin 12 Hr 600 Mg Tabcr PO 600 mg Q12HR [facility] Administration Linaclotide 290 mcg 04/20/24 06:30 04/23/24 06:10 Linaclotide 145 Mcg Capsule PO 290 mcg DAILY@0630 [facility] Administration Miscellaneous Information 1 each 04/19/24 00:01 Nonformulary Drug (Sulfasalazine 500 Mg Tablet,Delayed Release (Dr/Ec)) We Stock Regular N XX 05/19/24 00:00 CLARIFY [facility] Morphine Sulfate 2 mg 04/20/24 05:06 04/20/24 06:29 Morphine Sulfate (*Crx) 2 Mg/Ml Inj IV PUSH 2 mg Q2H PRN Administration Pain Rated 7-10 Non-Formulary Medication 1.5 gm 04/20/24 09:00 Sulfasalazine PO 05/20/24 08:59 BID [facility] Pantoprazole Sodium 40 mg 04/20/24 09:00 04/23/24 08:27 Pantoprazole 40 Mg Tablet PO 40 mg QAM [facility] Administration Tamsulosin HCl 0.4 mg 04/20/24 09:00 04/23/24 08:27 Tamsulosin Hcl 0.4 Mg Capsule PO 0.4 mg DAILY [facility] Administration Umeclidinium/Vilanterol 1 puff 04/20/24 09:00 04/23/24 07:10 Umeclidinium/Vilanterol 62.5-25 Mcg Ellipta INHALATION 1 puff DAILY [facility] Administration Venlafaxine HCl 37.5 mg 04/20/24 09:00 04/23/24 08:26 Venlafaxine Hcl Xr 37.5 Mg Cap PO 37.5 mg DAILY [facility] Administration Venlafaxine HCl 75 mg 04/20/24 09:00 04/23/24 08:26 Venlafaxine Hcl Xr 75 Mg Cap.Er.24h PO 75 mg DAILY [facility] Administration Vitamin D 2,000 units 04/20/24 09:00 04/23/24 08:27 Cholecalciferol 1,000 Units Tablet PO 2,000 units DAILY [facility] Administration Radiology Results: ITS Impressions Chest X-Ray 04/19/24 10:41 Impression: 1: Bilateral infiltrates, 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 Head CT 04/19/24 10:41 IMPRESSION: 1. Normal aging brain. No fracture or acute intracranial process. Pelvis X-Ray 04/19/24 10:49 Impression: 1: No acute fracture. Head/Cervical Spine/Facial Bones CT 04/19/24 11:08 IMPRESSION: 1. Minimally displaced mildly comminuted fracture at the anterior ring of C1. 2. Fracture of the right maxillary second bicuspid and dental disease with periapical lucencies at October 1999 at the contralateral left first and second maxillary bicuspid. 3. No maxillofacial fractures. 4. Instrumented C2-C7 anterior spinal fusion and C5-C7 laminectomies and instrumented posterior spinal fusion. 5. Moderate upper thoracic spondylosis. 6. UIP pattern chronic interstitial lung disease in the visualized upper lungs. Lumbar Spine CT 04/19/24 11:24 IMPRESSION: 1. 10 degrees lumbar levoscoliosis with severe spondylosis. No acute osseous abnormality.
--- NOTE | 2024-04-23 15:53 | PCPTNOTE ---
Attempted to see patient for PT, however patient refused due to 7/10 neck pain. Nursing aware.
[2024-04-24 03:14] VITALS: BP 138/79; PULSE 80; RESP 17; TEMP 36.6; O2SAT 98
[2024-04-24] MEDS: LINACLOTIDE 145 MCG CAPSULE 290 MCG PO (05:58)
[2024-04-24 08:00] VITALS: BP 129/81; PULSE 68; RESP 18; TEMP 36.4; O2SAT 95
[2024-04-24 08:13] VITALS: O2SAT 97
--- NOTE | 2024-04-24 08:32 | PM.IMPN ---
Progress Note: A&P Assessment and Plan (1) C1 cervical fracture: Code(s): S12.000A - Unspecified displaced fracture of first cervical vertebra, initial encounter for closed fracture Status: Acute (2) Pulmonary infiltrates: Code(s): R91.8 - Other nonspecific abnormal finding of lung field Status: Acute (3) Inflammatory bowel disease: Code(s): K52.9 - Noninfective gastroenteritis and colitis, unspecified Status: Acute (4) Macrocytic anemia: Code(s): D53.9 - Nutritional anemia, unspecified Status: Acute (5) Severe protein-calorie malnutrition: Code(s): E43 - Unspecified severe protein-calorie malnutrition Status: Acute Plan Fracture of the anterior ring of C1 The patient presented to the emergency department for evaluation of neck and back pain following a fall and found to have a fracture of the anterior ring of C1. Neurosurgery consulted and recommended hard collar with follow-up in 1 month. Analgesics are available as needed. Fall precautions. PT/OT consulted. PT recommended SNF placement. Care coordination to make arrangements. Patient needs to participate in therapy to qualify for SNF. Community-acquired pneumonia X-ray showed pulmonary infiltrates in addition to chronic interstitial lung disease noted on chest x-ray. Continue abx to complete a course No recent issues with his inflammatory bowel disease. Follow Macrocytic anemia stable on review of previous labs anemia studies from last month have been reviewed. discharge when placement arranged. DVT Prophylaxis - SCDs Code status - full Subjective Date/time seen: 04/24/24 08:32 Interval history: I saw and examined patient, patient denies headache, neck pain, focal weakness or abnormal sensation urinary fecal incontinence. Patient afebrile, blood pressure stable Exam Narrative: GENERAL: Pleasant, in no acute distress. Well-nourished. - EYES: EOMI. Anicteric. - HENT: Moist mucous membranes. The neck is fixed in hard collar - LUNGS: Clear to auscultation bilaterally, no wheezing, rhonchi, or rales. - CARDIOVASCULAR: Regular rate and rhythm. No murmur. No JVD. - ABDOMEN: Soft, non-tender and non-distended. No palpable masses. - EXTREMITIES: No edema. Peripheral pulses 2+. Non-tender. - NEUROLOGIC: No focal neurological deficits. CN II-XII grossly intact. - PSYCHIATRIC: Awake, Alert and oriented x 3. Appropriate mood and affect. - SKIN: No rashes or lesions. Warm. - LYMPH: No cervical lymphadenopathy. Objective Data Vital Signs Vital Signs: Vital Signs - 24 hr 04/23/24 12:00 04/23/24 16:00 04/23/24 19:40 Temperature 98.8 F 97.7 F 98.8 F Pulse Rate 90 79 94 Respiratory Rate 18 18 18 Blood Pressure 100/60 123/79 132/82 Pulse Oximetry 90 97 99 Oxygen Delivery 04/23/24 20:00 04/23/24 23:26 04/24/24 03:14 Temperature 98.3 F 97.8 F Pulse Rate 87 80 Respiratory Rate 16 17 Blood Pressure 103/50 L 138/79 Pulse Oximetry 94 98 Oxygen Delivery Room Air 04/24/24 08:13 Temperature Pulse Rate Respiratory Rate Blood Pressure Pulse Oximetry 97 Oxygen Delivery Room Air Intake/Output Intake/Output: Intake & Output 04/21/24 04/22/24 04/23/24 04/24/24 23:59 23:59 23:59 23:59 Intake Total 630 1387 1610 120 Output Total 600 300 400 Balance 319 231 3395 -280 Meds/Results Medications: Active Medications Generic Name Dose Route Start Last Admin Trade Name Freq PRN Reason Stop Dose Admin Acetaminophen 650 mg 04/19/24 18:39 04/21/24 08:58 Acetaminophen 325 Mg Tablet PO 650 mg Q6H PRN Administration Mild Pain (1-3) or Fever Hydrocodone Bitart/Acetaminophen 1 tab 04/19/24 18:39 04/23/24 20:27 Hydrocodone/Acetaminophen (*Crx) 5-325 Mg Tablet PO 1 tab Q6H PRN Administration Pain Rated 4-6 Albuterol 2 puff 04/19/24 20:25 Albuterol Sulfate (*Sp) Aerosol 1 Puff INHALATION Q4HRT PRN SOB OR WHEEZING Cefdinir 300 mg 04/20/24 09:00 04/23/24 20:28 Cefdinir 300 Mg Capsule PO 04/25/24 21:01 300 mg Q12HR [facility] Administration Finasteride 5 mg 04/20/24 09:00 04/23/24 08:27 Finasteride 5 Mg Tablet PO 5 mg DAILY [facility] Administration Folic Acid 1 mg 04/20/24 09:00 04/23/24 08:27 Folic Acid 1 Mg Tablet PO 1 mg DAILY [facility] Administration Guaifenesin 600 mg 04/20/24 13:00 04/23/24 20:28 Guaifenesin 12 Hr 600 Mg Tabcr PO 600 mg Q12HR [facility] Administration Linaclotide 290 mcg 04/20/24 06:30 04/24/24 05:58 Linaclotide 145 Mcg Capsule PO 290 mcg DAILY@0630 [facility] Administration Miscellaneous Information 1 each 04/19/24 00:01 Nonformulary Drug (Sulfasalazine 500 Mg Tablet,Delayed Release (Dr/Ec)) We Stock Regular N XX 05/19/24 00:00 CLARIFY [facility] Morphine Sulfate 2 mg 04/20/24 05:06 04/20/24 06:29 Morphine Sulfate (*Crx) 2 Mg/Ml Inj IV PUSH 2 mg Q2H PRN Administration Pain Rated 7-10 Non-Formulary Medication 1.5 gm 04/20/24 09:00 Sulfasalazine PO 05/20/24 08:59 BID [facility] Pantoprazole Sodium 40 mg 04/20/24 09:00 04/23/24 08:27 Pantoprazole 40 Mg Tablet PO 40 mg QAM [facility] Administration Tamsulosin HCl 0.4 mg 04/20/24 09:00 04/23/24 08:27 Tamsulosin Hcl 0.4 Mg Capsule PO 0.4 mg DAILY [facility] Administration Umeclidinium/Vilanterol 1 puff 04/20/24 09:00 04/24/24 08:11 Umeclidinium/Vilanterol 62.5-25 Mcg Ellipta INHALATION Not Given DAILY [facility] Venlafaxine HCl 37.5 mg 04/20/24 09:00 04/23/24 08:26 Venlafaxine Hcl Xr 37.5 Mg Cap PO 37.5 mg DAILY [facility] Administration Venlafaxine HCl 75 mg 04/20/24 09:00 04/23/24 08:26 Venlafaxine Hcl Xr 75 Mg Cap.Er.24h PO 75 mg DAILY [facility] Administration Vitamin D 2,000 units 04/20/24 09:00 04/23/24 08:27 Cholecalciferol 1,000 Units Tablet PO 2,000 units DAILY [facility] Administration Radiology Results: ITS Impressions Chest X-Ray 04/19/24 10:41 Impression: 1: Bilateral infiltrates, 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 Head CT 04/19/24 10:41 IMPRESSION: 1. Normal aging brain. No fracture or acute intracranial process. Pelvis X-Ray 04/19/24 10:49 Impression: 1: No acute fracture. Head/Cervical Spine/Facial Bones CT 04/19/24 11:08 IMPRESSION: 1. Minimally displaced mildly comminuted fracture at the anterior ring of C1. 2. Fracture of the right maxillary second bicuspid and dental disease with periapical lucencies at October 1999 at the contralateral left first and second maxillary bicuspid. 3. No maxillofacial fractures. 4. Instrumented C2-C7 anterior spinal fusion and C5-C7 laminectomies and instrumented posterior spinal fusion. 5. Moderate upper thoracic spondylosis. 6. UIP pattern chronic interstitial lung disease in the visualized upper lungs. Lumbar Spine CT 04/19/24 11:24 IMPRESSION: 1. 10 degrees lumbar levoscoliosis with severe spondylosis. No acute osseous abnormality.
[2024-04-24] MEDS: CEFDINIR 300 MG CAPSULE PO ×2 (09:04→20:17)
[2024-04-24] MEDS: VENLAFAXINE HCL XR 37.5 MG CAP PO (09:04)
[2024-04-24] MEDS: FINASTERIDE 5 MG TABLET PO (09:04)
[2024-04-24] MEDS: PANTOPRAZOLE 40 MG TABLET PO (09:04)
[2024-04-24] MEDS: FOLIC ACID 1 MG TABLET PO (09:04)
[2024-04-24] MEDS: VENLAFAXINE HCL XR 75 MG CAP.ER.24H PO (09:04)
[2024-04-24] MEDS: guaiFENesin 12 HR 600 MG TABCR PO ×2 (09:04→20:17)
[2024-04-24] MEDS: CHOLECALCIFEROL 1,000 UNITS TABLET 2000 UNITS PO (09:04)
[2024-04-24] MEDS: TAMSULOSIN HCL 0.4 MG CAPSULE PO (09:04)
--- NOTE | 2024-04-24 09:32 | PCNFU ---
Nutrition Follow-Up Complete: Severe protein calorie malnutrition related to chronic loss of appetite as evidenced by weight loss 10%/2 months; intakes <75% needs >1 month; severe muscle wasting and fat loss Adequate PO intake at least 75% meals and supplements - Not progressing. Intakes are poor. 0-10% last 48 h Goal: Pt current nutrition is Heart healthy diet, Ensure Enlive TID (350 kcal, 20 g protein). Nutrition recommendation: No new nutrition recommendations. Continue current nutrition care plan and orders. Agree with orders Last recorded weight is 65 kg. Bowel Motility: +2 BMs 04/24/24 Labs Reviewed: No new labs since 04/21/24 Meds Noted: Linzess, protonix Skin: No issues Additional Notes: Poor appetite continues. Severe malnutrition. Appetite is usually poor. Complained about the food. Awaiting placement. Continue current orders. Monitoring intakes, weights, labs, supplement tolerance, plan of care Follow up in 5 days
[2024-04-24] MEDS: HYDROcodone/acetaminophen (*CRX) 5-325 MG TABLET 1 TAB PO ×2 (10:31→18:00)
[2024-04-24] MEDS: ONDANSETRON INJ 4 MG/2 ML VIAL IV PUSH (11:25)
[2024-04-24 12:00] VITALS: BP 107/71; PULSE 84; RESP 18; TEMP 36.9; O2SAT 96
[2024-04-24 16:00] VITALS: BP 102/67; PULSE 81; RESP 16; TEMP 36.5; O2SAT 97
[2024-04-24 20:00] VITALS: BP 109/71; PULSE 87; RESP 16; TEMP 36.8; O2SAT 97
[2024-04-24] MEDS: MORPHINE SULFATE (*CRX) 2 MG/ML INJ IV PUSH (20:17)
--- NOTE | 2024-04-24 21:49 | PC.NURSE ---
2016 PTS SON CALLED. STATES PT HAVING INCREASED PAIN AND NEEDS TO HAVE ANOTHER CT SCAN TO MAKE SURE EVERYTHING IS STABLE. CALL OUT TO YOSELYN RAJPUT MANAGER IN HOME
[2024-04-25] VITALS (8 sets, daily range): BP systolic 105–125; BP diastolic 66–80; PULSE 65–97; RESP 12–20; TEMP 36.3–36.8; O2SAT 92–100
--- NOTE | 2024-04-25 04:16 | PC.NURSE ---
PT AWAKE, REPOSITIONED PT, PT STATES HE FEELS LIKE HES GETTING BETTER. VOICES NO C/O PAIN AT PRESENT
[2024-04-25] MEDS: LINACLOTIDE 145 MCG CAPSULE 290 MCG PO (06:48)
[2024-04-25] MEDS: HYDROcodone/acetaminophen (*CRX) 5-325 MG TABLET 1 TAB PO (07:10)
[2024-04-25] MEDS: UMECLIDINIUM/VILANTEROL 62.5-25 MCG ELLIPTA 1 PUFF INHALATION (08:24)
[2024-04-25] MEDS: TAMSULOSIN HCL 0.4 MG CAPSULE PO (09:12)
[2024-04-25] MEDS: sulfaSALAzine 500 MG TABLET 1500 MG PO (09:12)
[2024-04-25] MEDS: CEFDINIR 300 MG CAPSULE PO (09:12)
[2024-04-25] MEDS: FOLIC ACID 1 MG TABLET PO (09:12)
[2024-04-25] MEDS: VENLAFAXINE HCL XR 37.5 MG CAP PO (09:12)
[2024-04-25] MEDS: VENLAFAXINE HCL XR 75 MG CAP.ER.24H PO (09:12)
[2024-04-25] MEDS: FINASTERIDE 5 MG TABLET PO (09:13)
[2024-04-25] MEDS: guaiFENesin 12 HR 600 MG TABCR PO (09:13)
[2024-04-25] MEDS: PANTOPRAZOLE 40 MG TABLET PO (09:13)
[2024-04-25] MEDS: CHOLECALCIFEROL 1,000 UNITS TABLET 2000 UNITS PO (09:13)
--- NOTE | 2024-04-25 09:35 | P.PNIM_ITS ---
Progress Note: A&P Assessment and Plan (1) C1 cervical fracture: Code(s): S12.000A - Unspecified displaced fracture of first cervical vertebra, initial encounter for closed fracture Status: Acute (2) Pulmonary infiltrates: Code(s): R91.8 - Other nonspecific abnormal finding of lung field Status: Acute (3) Inflammatory bowel disease: Code(s): K52.9 - Noninfective gastroenteritis and colitis, unspecified Status: Acute (4) Macrocytic anemia: Code(s): D53.9 - Nutritional anemia, unspecified Status: Acute (5) Severe protein-calorie malnutrition: Code(s): E43 - Unspecified severe protein-calorie malnutrition Status: Acute Plan Fracture of the anterior ring of C1 The patient presented to the emergency department for evaluation of neck and back pain following a fall and found to have a fracture of the anterior ring of C1. Neurosurgery consulted and recommended hard collar with follow-up in 1 month. Analgesics are available as needed. Fall precautions. PT/OT consulted. PT recommended SNF placement. Care coordination to make arrangements. Patient needs to participate in therapy to qualify for SNF. Community-acquired pneumonia X-ray showed pulmonary infiltrates in addition to chronic interstitial lung disease noted on chest x-ray. Continue abx to complete a course Dysphagia Patient failed barium swallowing test Keep patient p.o. Start D5 lactated Ringer IV Speech therapist will evaluate patient 2 days Hold oral medication during p.o. Macrocytic anemia stable on review of previous labs anemia studies from last month have been reviewed. discharge when placement arranged. DVT Prophylaxis - SCDs Code status - full Subjective Date/time seen: 04/25/24 09:35 Interval history: I saw and examined patient. Patient was found choking when patient was eating drinking the morning patient denies headache, neck pain, focal weakness or abnormal sensation urinary fecal incontinence. Patient afebrile, blood pressure stable. Patient underwent barium swallowing test, patient failed the test Exam Narrative: GENERAL: Pleasant, in no acute distress. Well-nourished. - EYES: EOMI. Anicteric. - HENT: Moist mucous membranes. The nec k is fixed in hard collar - LUNGS: Clear to auscultation bilateral ly, no wheezing, rhonchi, or rales. - CARDIOVASCULAR: Regular rate and rhyth m. No murmur. No JVD. - ABDOMEN: Soft, non-tender and non-dist ended. No palpable masses. - EXTREMITIES: No edema. Peripheral puls es 2+. Non-tender. - NEUROLOGIC: No focal neurological defi cits. CN II-XII grossly intact. - PSYCHIATRIC: Awake, Alert and oriented x 3. Appropriate mood and affect. - SKIN: No rashes or lesions. Warm. - LYMPH: No cervical lymphadenopathy. Objective Data Vital Signs Vital Signs: Vital Signs - 24 hr 04/24/24 12:00 04/24/24 16:00 04/24/24 20:00 Temperature 98.4 F 97.7 F 98.3 F Pulse Rate 84 81 87 Respiratory Rate 18 16 16 Blood Pressure 107/71 102/67 109/71 Pulse Oximetry 96 97 97 Oxygen Delivery 04/25/24 00:00 04/25/24 04:00 04/25/24 08:24 Temperature 98.1 F 97.7 F Pulse Rate 75 97 79 Respiratory Rate 18 18 20 Blood Pressure 108/68 123/69 Pulse Oximetry 96 100 92 Oxygen Delivery Room Air 04/25/24 08:24 Temperature Pulse Rate 79 Respiratory Rate 20 Blood Pressure Pulse Oximetry Oxygen Delivery Intake/Output Intake/Output: Intake & Output 04/22/24 04/23/24 04/24/24 04/25/24 23:59 23:59 23:59 23:59 Intake Total 1387 1610 560 300 Output Total 600 160 964 0645 Balance 787 1310 160 -750 Meds/Results Medications: Active Medications Generic Name Dose Route Start Last Admin Trade Name Freq PRN Reason Stop Dose Admin Acetaminophen 650 mg 04/19/24 18:39 04/21/24 08:58 Acetaminophen 325 Mg Tablet PO 650 mg Q6H PRN Administration Mild Pain (1-3) or Fever Hydrocodone Bitart/Acetaminophen 1 tab 04/19/24 18:39 04/25/24 07:10 Hydrocodone/Acetaminophen (*Crx) 5-325 Mg Tablet PO 1 tab Q6H PRN Administration Pain Rated 4-6 Albuterol 2 puff 04/19/24 20:25 Albuterol Sulfate (*Sp) Aerosol 1 Puff INHALATION Q4HRT PRN SOB OR WHEEZING Cefdinir 300 mg 04/20/24 09:00 04/25/24 09:12 Cefdinir 300 Mg Capsule PO 04/25/24 21:01 300 mg Q12HR LUCA Administration Finasteride 5 mg 04/20/24 09:00 04/25/24 09:13 Finasteride 5 Mg Tablet PO 5 mg DAILY LUCA Administration Folic Acid 1 mg 04/20/24 09:00 04/25/24 09:12 Folic Acid 1 Mg Tablet PO 1 mg DAILY LUCA Administration Guaifenesin 600 mg 04/20/24 13:00 04/25/24 09:13 Guaifenesin 12 Hr 600 Mg Tabcr PO 600 mg Q12HR LUCA Administration Linaclotide 290 mcg 04/20/24 06:30 04/25/24 06:48 Linaclotide 145 Mcg Capsule PO 290 mcg DAILY@0630 LUCA Administration Morphine Sulfate 2 mg 04/20/24 05:06 04/24/24 20:17 Morphine Sulfate (*Crx) 2 Mg/Ml Inj IV PUSH 2 mg Q2H PRN Administration Pain Rated 7-10 Ondansetron HCl 4 mg 04/24/24 11:15 04/24/24 11:25 Ondansetron Inj 4 Mg/2 Ml Vial IV PUSH 4 mg Q6H PRN Administration Nausea And Vomiting Pantoprazole Sodium 40 mg 04/20/24 09:00 04/25/24 09:13 Pantoprazole 40 Mg Tablet PO 40 mg QAM LUCA Administration Sulfasalazine 1,500 mg 04/25/24 09:00 04/25/24 09:12 Sulfasalazine 500 Mg Tablet PO 1,500 mg BIDPC LUCA Administration Tamsulosin HCl 0.4 mg 04/20/24 09:00 04/25/24 09:12 Tamsulosin Hcl 0.4 Mg Capsule PO 0.4 mg DAILY LUCA Administration Umeclidinium/Vilanterol 1 puff 04/20/24 09:00 04/25/24 08:24 Umeclidinium/Vilanterol 62.5-25 Mcg Ellipta INHALATION 1 puff DAILY LUCA Administration Venlafaxine HCl 37.5 mg 04/20/24 09:00 04/25/24 09:12 Venlafaxine Hcl Xr 37.5 Mg Cap PO 37.5 mg DAILY LUCA Administration Venlafaxine HCl 75 mg 04/20/24 09:00 04/25/24 09:12 Venlafaxine Hcl Xr 75 Mg Cap.Er.24h PO 75 mg DAILY LUCA Administration Vitamin D 2,000 units 04/20/24 09:00 04/25/24 09:13 Cholecalciferol 1,000 Units Tablet PO 2,000 units DAILY LUCA Administration Radiology Results: ITS Impressions Chest X-Ray 04/19/24 10:41 Impression: 1: Bilateral infiltrates, 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 Head CT 04/19/24 10:41 IMPRESSION: 1. Normal aging brain. No fracture or acute intracranial process. Pelvis X-Ray 04/19/24 10:49 Impression: 1: No acute fracture. Head/Cervical Spine/Facial Bones CT 04/19/24 11:08 IMPRESSION: 1. Minimally displaced mildly comminuted fracture at the anterior ring of C1. 2. Fracture of the right maxillary second bicuspid and dental disease with periapical lucencies at October 1999 at the contralateral left first and second maxillary bicuspid. 3. No maxillofacial fractures. 4. Instrumented C2-C7 anterior spinal fusion and C5-C7 laminectomies and instrumented posterior spinal fusion. 5. Moderate upper thoracic spondylosis. 6. UIP pattern chronic interstitial lung disease in the visualized upper lungs. Lumbar Spine CT 04/19/24 11:24 IMPRESSION: 1. 10 degrees lumbar levoscoliosis with severe spondylosis. No acute osseous abnormality.
--- NOTE | 2024-04-25 14:38 | PCPTNOTE ---
Patient refused treatment this session. Patient reported he was too worn out from walking back from restroom and needed to rest at this time.
--- NOTE | 2024-04-25 14:59 | PCSTNOTE ---
Please refer to the Bedside Swallow Evaluation in the EMR. Please note, silent aspiration cannot be ruled out at bedside. The above pt was seen for a modified barium swallow after a bedside swallow evaluation revealed overt s/s of aspiration with liquids and solids. He stated its a long story when asked why he was in the hospital. He stated that he can't cough it up when asked about any swallow difficulty. RN also witnessed choking and coughing spells during meals. Pt was seated for a lateral view and was presented with 5 ml thin liquids, tsp pudding consistency barium, and a small piece of cracker coated with barium pudding via a spoon; he was also tested with small cup sips of thin liquid and mildly thick liquid. The oral stages were within functional limits; during the pharyngeal stage reduced tongue base retraction was exhibited as evidenced by vallecular residue (ranged from min to a severe amount across all trials); reduced laryngeal elevation as evidenced by pyriform sinus residue (ranged from min to max across all trials) and laryngeal penetration (trace) during the swallow of all trials. Pt exhibited no laryngeal sensation and required verbal cues to cough/throat clear to clear penetration and dry swallow to clear pharyngeal residual. Cough/throat clearing did clear contents from the laryngeal vestibule but pt did not independently cough/throat clear. Chin tuck was attempted but minimal neck ROM was achieved due to extensive cervical hardware present; he was also coached to perform a modified version of the supraglottic swallow but it was not consistently successful. Effortful swallow was only slightly effective in assisting in the clearance of residuals. Overall, without constant verbal cues to dry swallow and/or cough and outside of the controlled videofluoroscopy test environment, pt is at significant risk for aspiration. Impression: severe dysphagia Recommendation: Non oral feeding; begin dysphagia therapy and reassess with MBS.
[2024-04-25] MEDS: MORPHINE SULFATE (*CRX) 2 MG/ML INJ IV PUSH (15:18)
[2024-04-25] MEDS: DEXTROSE 5%/LACTATED RINGERS 1,000 ML 75 ML IV CONT (15:19)
[2024-04-26] VITALS (7 sets, daily range): BP systolic 114–128; BP diastolic 61–84; PULSE 65–85; RESP 16–18; TEMP 36.5–36.8; O2SAT 95–99
[2024-04-26] MEDS: MORPHINE SULFATE (*CRX) 2 MG/ML INJ IV PUSH ×4 (04:46→23:25)
[2024-04-26] MEDS: DEXTROSE 5%/LACTATED RINGERS 1,000 ML 75 ML IV CONT ×2 (04:50→18:44)
[2024-04-26] MEDS: UMECLIDINIUM/VILANTEROL 62.5-25 MCG ELLIPTA 1 PUFF INHALATION (07:53)
--- NOTE | 2024-04-26 09:21 | P.PNIM_ITS ---
Progress Note: A&P Assessment and Plan (1) C1 cervical fracture: Code(s): S12.000A - Unspecified displaced fracture of first cervical vertebra, initial encounter for closed fracture Status: Acute (2) Pulmonary infiltrates: Code(s): R91.8 - Other nonspecific abnormal finding of lung field Status: Acute (3) Inflammatory bowel disease: Code(s): K52.9 - Noninfective gastroenteritis and colitis, unspecified Status: Acute (4) Macrocytic anemia: Code(s): D53.9 - Nutritional anemia, unspecified Status: Acute (5) Severe protein-calorie malnutrition: Code(s): E43 - Unspecified severe protein-calorie malnutrition Status: Acute Plan Fracture of the anterior ring of C1 The patient presented to the emergency department for evaluation of neck and back pain following a fall and found to have a fracture of the anterior ring of C1. Neurosurgery consulted and recommended hard collar with follow-up in 1 month. Analgesics are available as needed. Fall precautions. PT/OT consulted. PT recommended SNF placement. Care coordination to make arrangements. Patient needs to participate in therapy to qualify for SNF. Community-acquired pneumonia X-ray showed pulmonary infiltrates in addition to chronic interstitial lung disease noted on chest x-ray. Continue abx to complete a course Dysphagia with episode of choking Modified barium swallow performed 04/25/2024 Keep patient p.o. Start D5 lactated Ringer IV Speech therapist will evaluate patient 2 days with repeat MBS after dysphagia therapy Hold oral medication during n.p.o. Macrocytic anemia stable on review of previous labs anemia studies from last month have been reviewed. discharge when placement arranged. However limited with newly noted severe dysphagia DVT Prophylaxis - SCDs Code status - full Subjective Date/time seen: 04/26/24 09:21 Interval history: Chart reviewed. No overnight events. MBS with pharyngeal dysphagia with laryngeal penetration without aspiration. Review of Systems Review of Systems: All systems reviewed & are unremarkable except as noted in HPI and below Exam Narrative: GENERAL: Pleasant, in no acute distress. Well-nourished. - EYES: EOMI. Anicteric. - HENT: Moist mucous membranes. The nec k is fixed in hard collar - LUNGS: Clear to auscultation bilateral ly, no wheezing, rhonchi, or rales. - CARDIOVASCULAR: Regular rate and rhyth m. No murmur. No JVD. - ABDOMEN: Soft, non-tender and non-dist ended. No palpable masses. - EXTREMITIES: No edema. Peripheral puls es 2+. Non-tender. - NEUROLOGIC: No focal neurological defi cits. CN II-XII grossly intact. - PSYCHIATRIC: Awake, Alert and oriented x 3. Appropriate mood and affect. - SKIN: No rashes or lesions. Warm. - LYMPH: No cervical lymphadenopathy. Objective Data Vital Signs Vital Signs: Vital Signs - 24 hr 04/25/24 12:00 04/25/24 16:00 04/25/24 20:00 Temperature 97.4 F L 98.1 F 98.0 F Pulse Rate 78 65 75 Respiratory Rate 12 18 12 Blood Pressure 109/66 125/77 116/71 Pulse Oximetry 96 98 98 Oxygen Delivery 04/25/24 23:59 04/26/24 04:00 04/26/24 07:56 Temperature 98.2 F 97.9 F Pulse Rate 77 65 Respiratory Rate 20 16 Blood Pressure 119/78 126/79 Pulse Oximetry 98 99 95 Oxygen Delivery Room Air Intake/Output Intake/Output: Intake & Output 04/23/24 04/24/24 04/25/24 04/26/24 23:59 23:59 23:59 23:59 Intake Total 1610 756 131 9244 Output Total 697 923 6175 575 Balance 1310 160 -1280 425 Meds/Results Medications: Active Medications Generic Name Dose Route Start Last Admin Trade Name Freq PRN Reason Stop Dose Admin Acetaminophen 650 mg 04/19/24 18:39 04/21/24 08:58 Acetaminophen 325 Mg Tablet PO 650 mg Q6H PRN Administration Mild Pain (1-3) or Fever Hydrocodone Bitart/Acetaminophen 1 tab 04/19/24 18:39 04/25/24 07:10 Hydrocodone/Acetaminophen (*Crx) 5-325 Mg Tablet PO 1 tab Q6H PRN Administration Pain Rated 4-6 Albuterol 2 puff 04/19/24 20:25 Albuterol Sulfate (*Sp) Aerosol 1 Puff INHALATION Q4HRT PRN SOB OR WHEEZING Finasteride 5 mg 04/20/24 09:00 04/25/24 09:13 Finasteride 5 Mg Tablet PO 5 mg DAILY LUCA Administration Folic Acid 1 mg 04/20/24 09:00 04/25/24 09:12 Folic Acid 1 Mg Tablet PO 1 mg DAILY LUCA Administration Guaifenesin 600 mg 04/20/24 13:00 04/25/24 20:30 Guaifenesin 12 Hr 600 Mg Tabcr PO Not Given Q12HR REPLACED BY [facility] Dextrose/Lactated Ringer's 1,000 mls @ 75 mls/hr 04/25/24 15:10 04/26/24 04:50 Dextrose 5%/Lactated Ringers IV CONT 75 mls/hr .[id number] LUCA Administration Linaclotide 290 mcg 04/20/24 06:30 04/26/24 06:51 Linaclotide 145 Mcg Capsule PO Not Given DAILY@0630 REPLACED BY [facility] Morphine Sulfate 2 mg 04/20/24 05:06 04/26/24 04:46 Morphine Sulfate (*Crx) 2 Mg/Ml Inj IV PUSH 2 mg Q2H PRN Administration Pain Rated 7-10 Ondansetron HCl 4 mg 04/24/24 11:15 04/24/24 11:25 Ondansetron Inj 4 Mg/2 Ml Vial IV PUSH 4 mg Q6H PRN Administration Nausea And Vomiting Pantoprazole Sodium 40 mg 04/20/24 09:00 04/25/24 09:13 Pantoprazole 40 Mg Tablet PO 40 mg QAM REPLACED BY [facility] Administration Sulfasalazine 1,500 mg 04/25/24 09:00 04/25/24 17:24 Sulfasalazine 500 Mg Tablet PO Not Given BIDPC REPLACED BY [facility] Tamsulosin HCl 0.4 mg 04/20/24 09:00 04/25/24 09:12 Tamsulosin Hcl 0.4 Mg Capsule PO 0.4 mg DAILY LUCA Administration Umeclidinium/Vilanterol 1 puff 04/20/24 09:00 04/26/24 07:53 Umeclidinium/Vilanterol 62.5-25 Mcg Ellipta INHALATION 1 puff DAILY LUCA Administration Venlafaxine HCl 37.5 mg 04/20/24 09:00 04/25/24 09:12 Venlafaxine Hcl Xr 37.5 Mg Cap PO 37.5 mg DAILY LUCA Administration Venlafaxine HCl 75 mg 04/20/24 09:00 04/25/24 09:12 Venlafaxine Hcl Xr 75 Mg Cap.Er.24h PO 75 mg DAILY LUCA Administration Vitamin D 2,000 units 04/20/24 09:00 04/25/24 09:13 Cholecalciferol 1,000 Units Tablet PO 2,000 units DAILY LUCA Administration Radiology Results: ITS Impressions Chest X-Ray 04/19/24 10:41 Impression: 1: Bilateral infiltrates, 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 Head CT 04/19/24 10:41 IMPRESSION: 1. Normal aging brain. No fracture or acute intracranial process. Pelvis X-Ray 04/19/24 10:49 Impression: 1: No acute fracture. Head/Cervical Spine/Facial Bones CT 04/19/24 11:08 IMPRESSION: 1. Minimally displaced mildly comminuted fracture at the anterior ring of C1. 2. Fracture of the right maxillary second bicuspid and dental disease with periapical lucencies at October 1999 at the contralateral left first and second maxillary bicuspid. 3. No maxillofacial fractures. 4. Instrumented C2-C7 anterior spinal fusion and C5-C7 laminectomies and instrumented posterior spinal fusion. 5. Moderate upper thoracic spondylosis. 6. UIP pattern chronic interstitial lung disease in the visualized upper lungs. Lumbar Spine CT 04/19/24 11:24 IMPRESSION: 1. 10 degrees lumbar levoscoliosis with severe spondylosis. No acute osseous abnormality. Modified Barium Swallow 04/25/24 15:08 IMPRESSION: Pharyngeal dysphagia with laryngeal penetration without aspiration. Please correlate with speech pathologist findings and specific feeding recommendations.
--- NOTE | 2024-04-26 12:00 | PC.NURSE ---
called speech therapy to ensure patient would be worked with today per Dr. Miller. speech to come see patient later this afternoon
--- NOTE | 2024-04-26 13:39 | PCNFU ---
Nutrition Follow-Up Complete: Severe protein calorie malnutrition related to chronic loss of appetite as evidenced by weight loss 10%/2 months; intakes <75% needs >1 month; severe muscle wasting and fat loss Goal: Adequate PO intake at least 75% meals and supplements Patient has limited progress towards goal. We will continue current goal. Pt current nutrition is NPO. Nutrition recommendation: Jevity 1.5 at 20 ml/hr advance by 10 ml q 4 hours to goal rate of 70 ml/hr Last recorded weight is 62.1 kg Bowel Motility: +BM reported 04/25 Labs Reviewed:No new labs to report. Meds Noted: LR Skin: WNL Additional Notes: Patient is currently NPO. Failed MBS-04/25. Spoke with hospitalist today regarding nutrition. Tube feeding recommendations if patient and family decide to feed, Jevity 1.5 at 20 ml/hr advance by 10 ml q 4 hours to goal rate of 70 ml/hr. Tube feedings at goal rate providing 1848 kcal/98 gm protein/1170 ml water. Flush 30 ml q 4 hours. Speech therapy will continue dysphagia treatment. Monitoring intakes, weights, labs, supplement tolerance, plan of care every 3 days.
[2024-04-27 04:00] VITALS: BP 115/72; PULSE 83; RESP 18; TEMP 36.6; O2SAT 98
[2024-04-27 05:35] LABS: Basophils Percent Auto 0.2 % (0.2-1.2); Eosinophils Percent Auto 0.6 % (0-4.4); Hematocrit 36.8 % (42.0-52.0); Hemoglobin 12.5 g/dL (14.0-18.0); Immature Granulocyte Absolute 0.01 K/mm3 (0.00-0.031); Immature Granulocyte Percent A 0.2 % (0-0.5); Lymphocytes Absolute Auto 1.18 K/mm3 (0.9-3.2); Lymphocytes Percent Auto 23.5 % (18.3-44.2); Mean Corpuscular Hemoglobin 34.5 pg (26-34); Mean Corpuscular Volume 101.7 fl (80-100); Mean Platelet Volume 9.8 fl (7.4-10.4); Monocytes Absolute Auto 0.8 K/mm3 (0.1-0.6); Monocytes Percent Auto 15.9 % (2.6-8.5); Neutrophils Percent Auto 59.6 % (45.5-73.1); Platelet Count Result 341 k/mm3 (150-375); Red Blood Count 3.62 M/mm3 (4.6-6.20); Red Cell Distribution Width 11.8 % (11.5-14.5)
[2024-04-27 06:00] LABS: Alanine Aminotransferase 49 U/L (6-50); Albumin Level 3.8 g/dL (3.5-5.1); Alkaline Phosphatase 76 U/L (38-126); Anion Gap 9 mmol/L (4-12); Aspartate Amino Transferase 29 U/L (17-59); Bilirubin,Total 0.6 mg/dL (0.2-1.3); Blood Urea Nitrogen 5 mg/dL (9-20); Calcium 9.1 mg/dL (8.4-10.2); Carbon Dioxide 26 mmol/L (22-30); Chloride 92 mmol/L (98-107); Estimated CRCL calculation 125 ml/min; Estimated Glomerular Filt Rate > 60; Glucose 120 mg/dL (65-110); Magnesium 1.8 mg/dL (1.6-2.3); Potassium 3.7 mmol/L (3.4-5.0); Sodium 127 mmol/L (137-145)
[2024-04-27] MEDS: UMECLIDINIUM/VILANTEROL 62.5-25 MCG ELLIPTA 1 PUFF INHALATION (07:47)
[2024-04-27 07:48] VITALS: O2SAT 93
[2024-04-27 08:00] VITALS: BP 123/79; PULSE 84; RESP 16; TEMP 36.6; O2SAT 96
[2024-04-27] MEDS: DEXTROSE 5%/LACTATED RINGERS 1,000 ML 75 ML IV CONT ×2 (09:08→22:34)
[2024-04-27] MEDS: MORPHINE SULFATE (*CRX) 2 MG/ML INJ IV PUSH ×3 (11:41→20:58)
[2024-04-27 12:00] VITALS: BP 121/73; PULSE 87; RESP 16; TEMP 36.4; O2SAT 97
--- NOTE | 2024-04-27 13:14 | P.PNIM_ITS ---
Progress Note: A&P Assessment and Plan (1) C1 cervical fracture: Code(s): S12.000A - Unspecified displaced fracture of first cervical vertebra, initial encounter for closed fracture Status: Acute (2) Pulmonary infiltrates: Code(s): R91.8 - Other nonspecific abnormal finding of lung field Status: Acute (3) Inflammatory bowel disease: Code(s): K52.9 - Noninfective gastroenteritis and colitis, unspecified Status: Acute (4) Macrocytic anemia: Code(s): D53.9 - Nutritional anemia, unspecified Status: Acute (5) Severe protein-calorie malnutrition: Code(s): E43 - Unspecified severe protein-calorie malnutrition Status: Acute Plan Fracture of the anterior ring of C1 The patient presented to the emergency department for evaluation of neck and back pain following a fall and found to have a fracture of the anterior ring of C1. Neurosurgery consulted and recommended hard collar with follow-up in 1 month. Analgesics are available as needed. Fall precautions. PT/OT consulted. PT recommended SNF placement. Care coordination to make arrangements. Patient needs to participate in therapy to qualify for SNF. Community-acquired pneumonia X-ray showed pulmonary infiltrates in addition to chronic interstitial lung disease noted on chest x-ray. Continue abx to complete a course Dysphagia with episode of choking Modified barium swallow performed 04/25/2024 Keep patient p.o. Start D5 lactated Ringer IV Speech therapist will evaluate patient 2 days with repeat MBS after dysphagia therapy Placement of NGT for nutrition might be risky due to cervical fracture. Hold oral medication during n.p.o. Macrocytic anemia stable on review of previous labs anemia studies from last month have been reviewed. discharge when placement arranged. However limited with newly noted severe dysphagia DVT Prophylaxis - SCDs Code status - full Subjective Date/time seen: 04/27/24 13:14 Interval history: No overnight events. Patient did swallowing exercises with speech therapy yesterday. Remains NPO. Denies any abdominal pain nausea vomiting. Review of Systems Review of Systems: All systems reviewed & are unremarkable except as noted in HPI and below Exam Narrative: GENERAL: Pleasant, in no acute distress. Well-nourished. - EYES: EOMI. Anicteric. - HENT: Moist mucous membranes. - LUNGS: Clear to auscultation bilateral ly, no wheezing, rhonchi, or rales. - CARDIOVASCULAR: Regular rate and rhyth m. No murmur. No JVD. - ABDOMEN: Soft, non-tender and non-dist ended. No palpable masses. - EXTREMITIES: No edema. Peripheral puls es 2+. Non-tender. - NEUROLOGIC: No focal neurological defi cits. CN II-XII grossly intact. - PSYCHIATRIC: Awake, Alert and oriented x 3. Appropriate mood and affect. - SKIN: No rashes or lesions. Warm. - LYMPH: No cervical lymphadenopathy. Objective Data Vital Signs Vital Signs: Vital Signs - 24 hr 04/26/24 16:00 04/26/24 20:00 04/26/24 23:59 Temperature 98.1 F 97.9 F 97.7 F Pulse Rate 79 85 77 Respiratory Rate 16 18 18 Blood Pressure 114/61 126/79 121/84 Pulse Oximetry 97 95 99 Oxygen Delivery 04/27/24 04:00 04/27/24 07:48 04/27/24 08:00 Temperature 97.8 F 97.8 F Pulse Rate 83 84 Respiratory Rate 18 16 Blood Pressure 115/72 123/79 Pulse Oximetry 98 93 96 Oxygen Delivery Room Air 04/27/24 09:15 Temperature Pulse Rate Respiratory Rate Blood Pressure Pulse Oximetry Oxygen Delivery Room Air Intake/Output Intake/Output: Intake & Output 04/24/24 04/25/24 04/26/24 04/27/24 23:59 23:59 23:59 23:59 Intake Total 612 238 4017 1000 Output Total 400 1700 1225 250 Balance 160 -1280 775 750 Meds/Results Medications: Active Medications Generic Name Dose Route Start Last Admin Trade Name Freq PRN Reason Stop Dose Admin Acetaminophen 650 mg 04/19/24 18:39 04/21/24 08:58 Acetaminophen 325 Mg Tablet PO 650 mg Q6H PRN Administration Mild Pain (1-3) or Fever Hydrocodone Bitart/Acetaminophen 1 tab 04/19/24 18:39 04/25/24 07:10 Hydrocodone/Acetaminophen (*Crx) 5-325 Mg Tablet PO 1 tab Q6H PRN Administration Pain Rated 4-6 Albuterol 2 puff 04/19/24 20:25 Albuterol Sulfate (*Sp) Aerosol 1 Puff INHALATION Q4HRT PRN SOB OR WHEEZING Finasteride 5 mg 04/20/24 09:00 04/27/24 11:34 Finasteride 5 Mg Tablet PO Not Given DAILY [facility] Folic Acid 1 mg 04/20/24 09:00 04/27/24 11:34 Folic Acid 1 Mg Tablet PO Not Given DAILY [facility] Guaifenesin 600 mg 04/20/24 13:00 04/27/24 11:34 Guaifenesin 12 Hr 600 Mg Tabcr PO Not Given Q12HR [facility] Dextrose/Lactated Ringer's 1,000 mls @ 75 mls/hr 04/25/24 15:10 04/27/24 09:08 Dextrose 5%/Lactated Ringers IV CONT 75 mls/hr .[id number] [facility] Administration Linaclotide 290 mcg 04/20/24 06:30 04/27/24 04:06 Linaclotide 145 Mcg Capsule PO Not Given DAILY@0630 [facility] Morphine Sulfate 2 mg 04/20/24 05:06 04/27/24 11:41 Morphine Sulfate (*Crx) 2 Mg/Ml Inj IV PUSH 2 mg Q2H PRN Administration Pain Rated 7-10 Ondansetron HCl 4 mg 04/24/24 11:15 04/24/24 11:25 Ondansetron Inj 4 Mg/2 Ml Vial IV PUSH 4 mg Q6H PRN Administration Nausea And Vomiting Pantoprazole Sodium 40 mg 04/20/24 09:00 04/27/24 11:34 Pantoprazole 40 Mg Tablet PO Not Given QAM [facility] Sulfasalazine 1,500 mg 04/25/24 09:00 04/27/24 11:34 Sulfasalazine 500 Mg Tablet PO Not Given BIDPC [facility] Tamsulosin HCl 0.4 mg 04/20/24 09:00 04/27/24 11:34 Tamsulosin Hcl 0.4 Mg Capsule PO Not Given DAILY [facility] Umeclidinium/Vilanterol 1 puff 04/20/24 09:00 04/27/24 07:47 Umeclidinium/Vilanterol 62.5-25 Mcg Ellipta INHALATION 1 puff DAILY [facility] Administration Venlafaxine HCl 37.5 mg 04/20/24 09:00 04/27/24 11:34 Venlafaxine Hcl Xr 37.5 Mg Cap PO Not Given DAILY [facility] Venlafaxine HCl 75 mg 04/20/24 09:00 04/27/24 11:34 Venlafaxine Hcl Xr 75 Mg Cap.Er.24h PO Not Given DAILY [facility] Vitamin D 2,000 units 04/20/24 09:00 04/27/24 11:34 Cholecalciferol 1,000 Units Tablet PO Not Given DAILY [facility] Radiology Results: ITS Impressions Chest X-Ray 04/19/24 10:41 Impression: 1: Bilateral infiltrates, 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 Head CT 04/19/24 10:41 IMPRESSION: 1. Normal aging brain. No fracture or acute intracranial process. Pelvis X-Ray 04/19/24 10:49 Impression: 1: No acute fracture. Head/Cervical Spine/Facial Bones CT 04/19/24 11:08 IMPRESSION: 1. Minimally displaced mildly comminuted fracture at the anterior ring of C1. 2. Fracture of the right maxillary second bicuspid and dental disease with periapical lucencies at October 1999 at the contralateral left first and second maxillary bicuspid. 3. No maxillofacial fractures. 4. Instrumented C2-C7 anterior spinal fusion and C5-C7 laminectomies and instrumented posterior spinal fusion. 5. Moderate upper thoracic spondylosis. 6. UIP pattern chronic interstitial lung disease in the visualized upper lungs. Lumbar Spine CT 04/19/24 11:24 IMPRESSION: 1. 10 degrees lumbar levoscoliosis with severe spondylosis. No acute osseous abnormality. Modified Barium Swallow 04/25/24 15:08 IMPRESSION: Pharyngeal dysphagia with laryngeal penetration without aspiration. Please correlate with speech pathologist findings and specific feeding recommendations. Labs Labs: Laboratory Results - last 24 hr 04/27/24 05:06 WBC 5.0 RBC 3.62 L Hgb 12.5 L Hct 36.8 L MCV 101.7 H MCH 34.5 H MCHC 34.0 RDW 11.8 Plt Count 341 MPV 9.8 Immature Gran % (Auto) 0.2 Neut % (Auto) 59.6 Lymph % (Auto) 23.5 [place] % (Auto) 15.9 H Eos % (Auto) 0.6 Baso % (Auto) 0.2 Lymph # (Auto) 1.18 [place] # (Auto) 0.8 H Eos # (Auto) 0.0 Baso # (Auto) 0.0 Abs Immat Gran (auto) 0.01 Absolute Neuts (auto) 3.0 Absolute Nucleated RBC 0.000 Nucleated RBC % 0.0 Sodium 127 L Potassium 3.7 Chloride 92 L Carbon Dioxide 26 Anion Gap 9 BUN 5 L D Creatinine 0.33 L Estim Creat Clear Calc 125 Estimated GFR > 60 Glucose 120 H Calcium 9.1 Magnesium 1.8 Total Bilirubin 0.6 AST 29 ALT 49 Alkaline Phosphatase 76 Total Protein 7.0 Albumin 3.8
[2024-04-27 16:00] VITALS: BP 130/69; PULSE 77; RESP 16; TEMP 36.5; O2SAT 94
[2024-04-27 20:00] VITALS: BP 112/76; PULSE 85; RESP 20; TEMP 36.8; O2SAT 97
[2024-04-28] VITALS: BP 116/81; PULSE 83; RESP 20; TEMP 36.7; O2SAT 96
[2024-04-28 04:00] VITALS: BP 130/82; PULSE 83; RESP 16; TEMP 36.7; O2SAT 96
[2024-04-28] MEDS: DEXTROSE 5%/LACTATED RINGERS 1,000 ML 75 ML IV CONT (11:45)
[2024-04-28 12:00] VITALS: BP 125/77; PULSE 81; RESP 14; TEMP 36.4; O2SAT 98
[2024-04-28] MEDS: MORPHINE SULFATE (*CRX) 2 MG/ML INJ IV PUSH ×4 (13:34→22:13)
--- NOTE | 2024-04-28 14:39 | P.PNIM_ITS ---
Progress Note: A&P Assessment and Plan (1) C1 cervical fracture: Code(s): S12.000A - Unspecified displaced fracture of first cervical vertebra, initial encounter for closed fracture Status: Acute (2) Pulmonary infiltrates: Code(s): R91.8 - Other nonspecific abnormal finding of lung field Status: Acute (3) Inflammatory bowel disease: Code(s): K52.9 - Noninfective gastroenteritis and colitis, unspecified Status: Acute (4) Macrocytic anemia: Code(s): D53.9 - Nutritional anemia, unspecified Status: Acute (5) Severe protein-calorie malnutrition: Code(s): E43 - Unspecified severe protein-calorie malnutrition Status: Acute Plan Fracture of the anterior ring of C1 The patient presented to the emergency department for evaluation of neck and back pain following a fall and found to have a fracture of the anterior ring of C1. Neurosurgery consulted and recommended hard collar with follow-up in 1 month. Analgesics are available as needed. Fall precautions. PT/OT consulted. PT recommended SNF placement. Care coordination to make arrangements. Patient needs to participate in therapy to qualify for SNF. Community-acquired pneumonia X-ray showed pulmonary infiltrates in addition to chronic interstitial lung disease noted on chest x-ray. Continue abx to complete a course Dysphagia with episode of choking Modified barium swallow performed 04/25/2024 Keep patient p.o. Start D5 lactated Ringer IV Speech therapist will evaluate patient 2 days with repeat MBS after dysphagia therapy Placement of NGT for nutrition might be risky due to cervical fracture. Hold oral medication during n.p.o. Likely will require a G-tube placement if fails repeat MBS which will planned tomorrow. Macrocytic anemia stable on review of previous labs anemia studies from last month have been reviewed. discharge when placement arranged. However limited with newly noted severe dysphagia DVT Prophylaxis - SCDs Code status - full Subjective Date/time seen: 04/28/24 14:39 Interval history: No Overnight events. Discussed with family over the phone. Denies any new complaints. Review of Systems Review of Systems: All systems reviewed & are unremarkable except as noted in HPI and below Exam Narrative: GENERAL: Pleasant, in no acute distress. emaciated - EYES: EOMI. Anicteric. - HENT: Moist mucous membranes. - LUNGS: Clear to auscultation bilateral ly, no wheezing, rhonchi, or rales. - CARDIOVASCULAR: Regular rate and rhyth m. No murmur. No JVD. - ABDOMEN: Soft, non-tender and non-dist ended. No palpable masses. - EXTREMITIES: No edema. Peripheral puls es 2+. Non-tender. - NEUROLOGIC: No focal neurological defi cits. CN II-XII grossly intact. - PSYCHIATRIC: Awake, Alert and oriented x 3. Appropriate mood and affect. - SKIN: No rashes or lesions. Warm. - LYMPH: No cervical lymphadenopathy. Objective Data Vital Signs Vital Signs: Vital Signs - 24 hr 04/27/24 16:00 04/27/24 20:00 04/27/24 20:58 Temperature 97.7 F 98.3 F Pulse Rate 77 85 Respiratory Rate 16 20 Blood Pressure 130/69 112/76 Pulse Oximetry 94 97 Oxygen Delivery Room Air 04/28/24 00:00 04/28/24 04:00 04/28/24 10:00 Temperature 98.1 F 98.0 F Pulse Rate 83 83 Respiratory Rate 20 16 Blood Pressure 116/81 130/82 Pulse Oximetry 96 96 Oxygen Delivery Room Air 04/28/24 12:00 Temperature 97.5 F L Pulse Rate 81 Respiratory Rate 14 Blood Pressure 125/77 Pulse Oximetry 98 Oxygen Delivery Intake/Output Intake/Output: Intake & Output 04/25/24 04/26/24 04/27/24 04/28/24 23:59 23:59 23:59 23:59 Intake Total 420 2000 2000 988.7 Output Total 1700 1225 900 200 Balance -4269 069 5444 788.7 Meds/Results Medications: Active Medications Generic Name Dose Route Start Last Admin Trade Name Freq PRN Reason Stop Dose Admin Acetaminophen 650 mg 04/19/24 18:39 04/21/24 08:58 Acetaminophen 325 Mg Tablet PO 650 mg Q6H PRN Administration Mild Pain (1-3) or Fever Hydrocodone Bitart/Acetaminophen 1 tab 04/19/24 18:39 04/25/24 07:10 Hydrocodone/Acetaminophen (*Crx) 5-325 Mg Tablet PO 1 tab Q6H PRN Administration Pain Rated 4-6 Albuterol 2 puff 04/19/24 20:25 Albuterol Sulfate (*Sp) Aerosol 1 Puff INHALATION Q4HRT PRN SOB OR WHEEZING Finasteride 5 mg 04/20/24 09:00 04/28/24 11:09 Finasteride 5 Mg Tablet PO Not Given DAILY [facility] Folic Acid 1 mg 04/20/24 09:00 04/28/24 11:09 Folic Acid 1 Mg Tablet PO Not Given DAILY [facility] Guaifenesin 600 mg 04/20/24 13:00 04/28/24 11:09 Guaifenesin 12 Hr 600 Mg Tabcr PO Not Given Q12HR [facility] Dextrose/Lactated Ringer's 1,000 mls @ 75 mls/hr 04/25/24 15:10 04/28/24 11:45 Dextrose 5%/Lactated Ringers IV CONT 75 mls/hr .[id number] [facility] Administration Linaclotide 290 mcg 04/20/24 06:30 04/28/24 05:53 Linaclotide 145 Mcg Capsule PO Not Given DAILY@0630 [facility] Morphine Sulfate 2 mg 04/20/24 05:06 04/28/24 13:34 Morphine Sulfate (*Crx) 2 Mg/Ml Inj IV PUSH 2 mg Q2H PRN Administration Pain Rated 7-10 Ondansetron HCl 4 mg 04/24/24 11:15 04/24/24 11:25 Ondansetron Inj 4 Mg/2 Ml Vial IV PUSH 4 mg Q6H PRN Administration Nausea And Vomiting Pantoprazole Sodium 40 mg 04/20/24 09:00 04/28/24 11:09 Pantoprazole 40 Mg Tablet PO Not Given QAM [facility] Sulfasalazine 1,500 mg 04/25/24 09:00 04/28/24 11:09 Sulfasalazine 500 Mg Tablet PO Not Given BIDPC [facility] Tamsulosin HCl 0.4 mg 04/20/24 09:00 04/28/24 11:09 Tamsulosin Hcl 0.4 Mg Capsule PO Not Given DAILY [facility] Umeclidinium/Vilanterol 1 puff 04/20/24 09:00 04/27/24 07:47 Umeclidinium/Vilanterol 62.5-25 Mcg Ellipta INHALATION 1 puff DAILY [facility] Administration Venlafaxine HCl 37.5 mg 04/20/24 09:00 04/28/24 11:09 Venlafaxine Hcl Xr 37.5 Mg Cap PO Not Given DAILY [facility] Venlafaxine HCl 75 mg 04/20/24 09:00 04/28/24 11:09 Venlafaxine Hcl Xr 75 Mg Cap.Er.24h PO Not Given DAILY [facility] Vitamin D 2,000 units 04/20/24 09:00 04/28/24 11:09 Cholecalciferol 1,000 Units Tablet PO Not Given DAILY [facility] Radiology Results: ITS Impressions Chest X-Ray 04/19/24 10:41 Impression: 1: Bilateral infiltrates, 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 Head CT 04/19/24 10:41 IMPRESSION: 1. Normal aging brain. No fracture or acute intracranial process. Pelvis X-Ray 04/19/24 10:49 Impression: 1: No acute fracture. Head/Cervical Spine/Facial Bones CT 04/19/24 11:08 IMPRESSION: 1. Minimally displaced mildly comminuted fracture at the anterior ring of C1. 2. Fracture of the right maxillary second bicuspid and dental disease with periapical lucencies at October 1999 at the contralateral left first and second maxillary bicuspid. 3. No maxillofacial fractures. 4. Instrumented C2-C7 anterior spinal fusion and C5-C7 laminectomies and instrumented posterior spinal fusion. 5. Moderate upper thoracic spondylosis. 6. UIP pattern chronic interstitial lung disease in the visualized upper lungs. Lumbar Spine CT 04/19/24 11:24 IMPRESSION: 1. 10 degrees lumbar levoscoliosis with severe spondylosis. No acute osseous abnormality. Modified Barium Swallow 04/25/24 15:08 IMPRESSION: Pharyngeal dysphagia with laryngeal penetration without aspiration. Please correlate with speech pathologist findings and specific feeding recommendations.
[2024-04-28 16:00] VITALS: BP 122/81; PULSE 91; RESP 18; TEMP 36.7; O2SAT 92
[2024-04-28 20:00] VITALS: BP 121/71; PULSE 73; RESP 20; TEMP 36.8; O2SAT 96
[2024-04-29] VITALS (7 sets, daily range): BP systolic 101–115; BP diastolic 63–74; PULSE 73–98; RESP 12–20; TEMP 36.7–36.9; O2SAT 95–98; BMI 17.9
[2024-04-29] MEDS: DEXTROSE 5%/LACTATED RINGERS 1,000 ML 75 ML IV CONT ×2 (01:06→19:00)
[2024-04-29] MEDS: MORPHINE SULFATE (*CRX) 2 MG/ML INJ IV PUSH ×5 (04:19→23:57)
[2024-04-29 05:57] LABS: Basophils Percent Auto 0.1 % (0.2-1.2); Eosinophils Percent Auto 0.4 % (0-4.4); Hematocrit 36.8 % (42.0-52.0); Hemoglobin 12.6 g/dL (14.0-18.0); Immature Granulocyte Absolute 0.04 K/mm3 (0.00-0.031); Immature Granulocyte Percent A 0.4 % (0-0.5); Lymphocytes Absolute Auto 0.78 K/mm3 (0.9-3.2); Lymphocytes Percent Auto 8.3 % (18.3-44.2); Mean Corpuscular HGB Conc 34.2 g/dl (32-36); Mean Corpuscular Hemoglobin 34.2 pg (26-34); Mean Platelet Volume 9.2 fl (7.4-10.4); Monocytes Absolute Auto 0.9 K/mm3 (0.1-0.6); Monocytes Percent Auto 9.5 % (2.6-8.5); Neutrophils Absolute Auto 7.7 K/mm3 (1.3-6.7); Neutrophils Percent Auto 81.3 % (45.5-73.1); Platelet Count Result 374 k/mm3 (150-375); Red Blood Count 3.68 M/mm3 (4.6-6.20); Red Cell Distribution Width 11.6 % (11.5-14.5); White Blood Count 9.4 K/mm3 (4.5-10.0)
[2024-04-29 06:07] LABS: Alanine Aminotransferase 33 U/L (6-50); Albumin Level 3.7 g/dL (3.5-5.1); Alkaline Phosphatase 79 U/L (38-126); Anion Gap 11 mmol/L (4-12); Aspartate Amino Transferase 19 U/L (17-59); Bilirubin,Total 0.7 mg/dL (0.2-1.3); Blood Urea Nitrogen 6 mg/dL (9-20); Calcium 9.3 mg/dL (8.4-10.2); Carbon Dioxide 28 mmol/L (22-30); Chloride 95 mmol/L (98-107); Estimated CRCL calculation 124 ml/min; Estimated Glomerular Filt Rate > 60; Glucose 128 mg/dL (65-110); Magnesium 1.6 mg/dL (1.6-2.3); Potassium 3.6 mmol/L (3.4-5.0); Sodium 134 mmol/L (137-145)
--- NOTE | 2024-04-29 12:26 | P.PNIM_ITS ---
Progress Note: A&P Assessment and Plan (1) C1 cervical fracture: Code(s): S12.000A - Unspecified displaced fracture of first cervical vertebra, initial encounter for closed fracture Status: Acute (2) Pulmonary infiltrates: Code(s): R91.8 - Other nonspecific abnormal finding of lung field Status: Acute (3) Inflammatory bowel disease: Code(s): K52.9 - Noninfective gastroenteritis and colitis, unspecified Status: Acute (4) Macrocytic anemia: Code(s): D53.9 - Nutritional anemia, unspecified Status: Acute (5) Severe protein-calorie malnutrition: Code(s): E43 - Unspecified severe protein-calorie malnutrition Status: Acute Plan Fracture of the anterior ring of C1 The patient presented to the emergency department for evaluation of neck and back pain following a fall and found to have a fracture of the anterior ring of C1. Neurosurgery consulted and recommended hard collar with follow-up in 1 month. Analgesics are available as needed. Fall precautions. PT/OT consulted. PT recommended SNF placement. Care coordination to make arrangements. Patient needs to participate in therapy to qualify for SNF. Community-acquired pneumonia X-ray showed pulmonary infiltrates in addition to chronic interstitial lung disease noted on chest x-ray. Continue abx to complete a course Dysphagia with episode of choking Modified barium swallow performed 04/25/2024 Keep patient p.o. Start D5 lactated Ringer IV Speech therapist will evaluate patient 2 days with repeat MBS after dysphagia therapy Placement of NGT for nutrition might be risky due to cervical fracture. Hold oral medication during n.p.o. Likely will require a G-tube placement if fails repeat MBS which will be scheduled today Macrocytic anemia stable on review of previous labs anemia studies from last month have been reviewed. discharge when placement arranged. However limited with newly noted severe dysphagia DVT Prophylaxis - SCDs Code status - full Subjective Date/time seen: 04/29/24 12:26 Interval history: No overnight events. No new complaints. Discussed with speech therapy. Review of Systems Review of Systems: All systems reviewed & are unremarkable except as noted in HPI and below Exam Narrative: GENERAL: Pleasant, in no acute distress. emaciated - EYES: EOMI. Anicteric. - HENT: Moist mucous membranes. - LUNGS: Clear to auscultation bilateral ly, no wheezing, rhonchi, or rales. - CARDIOVASCULAR: Regular rate and rhyth m. No murmur. No JVD. - ABDOMEN: Soft, non-tender and non-dist ended. No palpable masses. - EXTREMITIES: No edema. Peripheral puls es 2+. Non-tender. - NEUROLOGIC: No focal neurological defi cits. CN II-XII grossly intact. - PSYCHIATRIC: Awake, Alert and oriented x 3. Appropriate mood and affect. - SKIN: No rashes or lesions. Warm. - LYMPH: No cervical lymphadenopathy. Objective Data Vital Signs Vital Signs: Vital Signs - 24 hr 04/28/24 16:00 04/28/24 20:00 04/28/24 20:29 Temperature 98.1 F 98.2 F Pulse Rate 91 73 Respiratory Rate 18 20 Blood Pressure 122/81 121/71 Pulse Oximetry 92 96 Oxygen Delivery Room Air 04/29/24 00:00 04/29/24 04:00 04/29/24 08:44 Temperature 98.5 F 98.1 F 98.3 F Pulse Rate 81 98 86 Respiratory Rate 20 16 16 Blood Pressure 103/63 105/73 115/68 Pulse Oximetry 98 96 98 Oxygen Delivery 04/29/24 09:10 04/29/24 12:07 Temperature 98.1 F Pulse Rate 86 Respiratory Rate 16 Blood Pressure 101/74 Pulse Oximetry 95 Oxygen Delivery Room Air Intake/Output Intake/Output: Intake & Output 04/26/24 04/27/24 04/28/24 04/29/24 23:59 23:59 23:59 23:59 Intake Total 1999 1999 988.7 1000 Output Total 1225 900 700 250 Balance 775 1100 288.7 750 Meds/Results Medications: Active Medications Generic Name Dose Route Start Last Admin Trade Name Freq PRN Reason Stop Dose Admin Acetaminophen 650 mg 04/19/24 18:39 04/21/24 08:58 Acetaminophen 325 Mg Tablet PO 650 mg Q6H PRN Administration Mild Pain (1-3) or Fever Hydrocodone Bitart/Acetaminophen 1 tab 04/19/24 18:39 04/25/24 07:10 Hydrocodone/Acetaminophen (*Crx) 5-325 Mg Tablet PO 1 tab Q6H PRN Administration Pain Rated 4-6 Albuterol 2 puff 04/19/24 20:25 Albuterol Sulfate (*Sp) Aerosol 1 Puff INHALATION Q4HRT PRN SOB OR WHEEZING Finasteride 5 mg 04/20/24 09:00 04/29/24 08:41 Finasteride 5 Mg Tablet PO Not Given DAILY [facility] Folic Acid 1 mg 04/20/24 09:00 04/29/24 08:41 Folic Acid 1 Mg Tablet PO Not Given DAILY [facility] Guaifenesin 600 mg 04/20/24 13:00 04/29/24 08:41 Guaifenesin 12 Hr 600 Mg Tabcr PO Not Given Q12HR [facility] Dextrose/Lactated Ringer's 1,000 mls @ 75 mls/hr 04/25/24 15:10 04/29/24 01:06 Dextrose 5%/Lactated Ringers IV CONT 75 mls/hr .[id number] [facility] Administration Linaclotide 290 mcg 04/20/24 06:30 04/29/24 05:51 Linaclotide 145 Mcg Capsule PO Not Given DAILY@0630 [facility] Miscellaneous Information 1 each 04/29/24 00:01 [place] Needs To Be Renewed Or It Will Automatically Discontinue. XX 05/29/24 00:00 CLARIFY [facility] Miscellaneous Information 1 each 04/29/24 05:25 Morphine Needs To Be Renewed Or It Will Automatically Discontinue. XX 05/29/24 05:24 [facility] Morphine Sulfate 2 mg 04/20/24 05:06 04/29/24 11:10 Morphine Sulfate (*Crx) 2 Mg/Ml Inj IV PUSH 2 mg Q2H PRN Administration Pain Rated 7-10 Ondansetron HCl 4 mg 04/24/24 11:15 04/24/24 11:25 Ondansetron Inj 4 Mg/2 Ml Vial IV PUSH 4 mg Q6H PRN Administration Nausea And Vomiting Pantoprazole Sodium 40 mg 04/20/24 09:00 04/29/24 08:41 Pantoprazole 40 Mg Tablet PO Not Given QAM [facility] Sulfasalazine 1,500 mg 04/25/24 09:00 04/29/24 08:41 Sulfasalazine 500 Mg Tablet PO Not Given BIDPC [facility] Tamsulosin HCl 0.4 mg 04/20/24 09:00 04/29/24 08:41 Tamsulosin Hcl 0.4 Mg Capsule PO Not Given DAILY [facility] Umeclidinium/Vilanterol 1 puff 04/20/24 09:00 04/29/24 08:00 Umeclidinium/Vilanterol 62.5-25 Mcg Ellipta INHALATION Not Given DAILY [facility] Venlafaxine HCl 37.5 mg 04/20/24 09:00 04/29/24 08:41 Venlafaxine Hcl Xr 37.5 Mg Cap PO Not Given DAILY [facility] Venlafaxine HCl 75 mg 04/20/24 09:00 04/29/24 08:41 Venlafaxine Hcl Xr 75 Mg Cap.Er.24h PO Not Given DAILY [facility] Vitamin D 2,000 units 04/20/24 09:00 04/29/24 08:41 Cholecalciferol 1,000 Units Tablet PO Not Given DAILY [facility] Radiology Results: ITS Impressions Chest X-Ray 04/19/24 10:41 Impression: 1: Bilateral infiltrates, 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 Head CT 04/19/24 10:41 IMPRESSION: 1. Normal aging brain. No fracture or acute intracranial process. Pelvis X-Ray 04/19/24 10:49 Impression: 1: No acute fracture. Head/Cervical Spine/Facial Bones CT 04/19/24 11:08 IMPRESSION: 1. Minimally displaced mildly comminuted fracture at the anterior ring of C1. 2. Fracture of the right maxillary second bicuspid and dental disease with periapical lucencies at October 1999 at the contralateral left first and second maxillary bicuspid. 3. No maxillofacial fractures. 4. Instrumented C2-C7 anterior spinal fusion and C5-C7 laminectomies and instrumented posterior spinal fusion. 5. Moderate upper thoracic spondylosis. 6. UIP pattern chronic interstitial lung disease in the visualized upper lungs. Lumbar Spine CT 04/19/24 11:24 IMPRESSION: 1. 10 degrees lumbar levoscoliosis with severe spondylosis. No acute osseous abnormality. Modified Barium Swallow 04/25/24 15:08 IMPRESSION: Pharyngeal dysphagia with laryngeal penetration without aspiration. Please correlate with speech pathologist findings and specific feeding recommendations. Labs Labs: Laboratory Results - last 24 hr 04/29/24 05:28 WBC 9.4 RBC 3.68 L Hgb 12.6 L Hct 36.8 L MCV 100.0 MCH 34.2 H MCHC 34.2 RDW 11.6 Plt Count 374 MPV 9.2 Immature Gran % (Auto) 0.4 Neut % (Auto) 81.3 H Lymph % (Auto) 8.3 L [place] % (Auto) 9.5 H Eos % (Auto) 0.4 Baso % (Auto) 0.1 L Lymph # (Auto) 0.78 L [place] # (Auto) 0.9 H Eos # (Auto) 0.0 Baso # (Auto) 0.0 Abs Immat Gran (auto) 0.04 H Absolute Neuts (auto) 7.7 H Absolute Nucleated RBC 0.000 Nucleated RBC % 0.0 Sodium 134 L Potassium 3.6 Chloride 95 L Carbon Dioxide 28 Anion Gap 11 BUN 6 L Creatinine 0.34 L Estim Creat Clear Calc 124 Estimated GFR > 60 Glucose 128 H Calcium 9.3 Magnesium 1.6 Total Bilirubin 0.7 AST 19 ALT 33 Alkaline Phosphatase 79 Total Protein 7.0 Albumin 3.7
--- NOTE | 2024-04-29 13:41 | PCOTNOTE ---
Patient out of the room at this time. Patient down having a MBS test.
--- NOTE | 2024-04-29 13:51 | PCPTNOTE ---
Attempted to see patient for PT, however patient was out of the room for testing.
--- NOTE | 2024-04-29 15:29 | PCSTNOTE ---
Please refer to the Modified Barium Swallow Evaluation in the EMR. Pt was seen for repeat MBS; pt entered x-ray suite stating you better pass me . Prior to test trials, pt was instructed to perform strong/effortful swallows as during the previous MBS significant pharyngeal residual and subsequent aspiration occurred. Pt was seated for a lateral view. He was presented with two 5ml trials of thin liquid and then another 5ml as a liquid wash, pudding, small pieces of cracker, 5ml of mildly thick liquid, and a very small cup sip of mildly thick liquid. The oral stages were WFL; no leakage or pocketing was exhibited. During the pharyngeal stage, reduced epiglottic inversion and reduced tongue base retraction was exhibited as evidenced by severe/max amounts vallecular residue (mod to severe across all consistencies). 5 ml of thin liquid was used as a liquid wash to clear the vallecular residue of pudding but that resulted in silent aspiration of the thin liquid trial during the swallow indicative of reduced laryngeal closure. Reduced laryngeal elevation was also exhibited as evidenced by intermittent laryngeal penetration during the swallow of pudding, cracker and pyriform sinus residue (ranging mild to moderate) across all trials. Pt was given verbal cues to dry swallow which did clear a portion of the residual, but not all contents were cleared. Impression: Overall, it is felt that this pt presents with severe dysphagia -- due to the severity of pharyngeal residual, instances of laryngeal penetration & the max verbal cueing and coaching that was required to clear it as well as to prevent instances of aspiration. Recommendation: Non oral feeding. dysphagia therapy, SNF
[2024-04-30 04:00] VITALS: BP 116/69; PULSE 80; RESP 16; TEMP 36.7; O2SAT 97
[2024-04-30 08:00] VITALS: BP 115/67; PULSE 78; RESP 16; TEMP 36.8; O2SAT 96
[2024-04-30] MEDS: MORPHINE SULFATE (*CRX) 2 MG/ML INJ IV PUSH ×4 (08:15→21:01)
[2024-04-30] MEDS: DEXTROSE 5%/LACTATED RINGERS 1,000 ML 75 ML IV CONT ×2 (08:16→21:36)
[2024-04-30] MEDS: UMECLIDINIUM/VILANTEROL 62.5-25 MCG ELLIPTA 1 PUFF INHALATION (08:37)
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
--- NOTE | 2024-04-30 09:54 | PCOTNOTE ---
The patient treatment was not able to be completed. Patient was in and out of sleep during conversation. Unable to tolerate at this time. Will plan to continue treatment per plan of care.
[2024-04-30 11:29] VITALS: BP 117/75; PULSE 84; RESP 14; TEMP 36.4; O2SAT 97
--- NOTE | 2024-04-30 11:56 | PCNFU ---
Nutrition Follow-Up Complete: Inability to meet nutrition needs PO related to dysphagia/aspiration as evidenced by MBS Goal: Meet estimated nutrition needs Patient has limited progress towards goal. We will continue current goal. Pt current nutrition is NPO x 5 days. Nutrition recommendation: Jevity 1.5 at 20 ml/hr advance by 10 ml q 4 hours to goal rate of 70 ml/hr. Flush 100 ml q 4 hours. Last recorded weight is 63.7 kg. Bowel Motility: Last reported BM 04/25 Labs Reviewed: No new labs to report. Meds Noted: Dextrose/LR Skin: WNL Additional Notes: Patient remains NPO. GI consult. After failed MBS, plans to get PEG placement 04/30 or 05/01. Tube feedings recommendations made. Monitoring plan of care, weights, labs, diet orders Follow up Monday/Monday
--- NOTE | 2024-04-30 12:26 | P.PNIM_ITS ---
Progress Note: A&P Assessment and Plan (1) C1 cervical fracture: Qualifiers: Encounter type: initial encounter Fracture type: closed Fracture morphology: unspecified fracture morphology Fracture alignment: displaced Qualified Code(s): S12.000A - Unspecified displaced fracture of first cervical vertebra, initial encounter for closed fracture Code(s): S12.000A - Unspecified displaced fracture of first cervical vertebra, initial encounter for closed fracture Status: Acute (2) Pulmonary infiltrates: Code(s): R91.8 - Other nonspecific abnormal finding of lung field Status: Acute (3) Inflammatory bowel disease: Code(s): K52.9 - Noninfective gastroenteritis and colitis, unspecified Status: Acute (4) Macrocytic anemia: Code(s): D53.9 - Nutritional anemia, unspecified Status: Acute (5) Severe protein-calorie malnutrition: Code(s): E43 - Unspecified severe protein-calorie malnutrition Status: Acute Plan Fracture of the anterior ring of C1 The patient presented to the emergency department for evaluation of neck and back pain following a fall and found to have a fracture of the anterior ring of C1. Neurosurgery consulted and recommended hard collar with follow-up in 1 month. Analgesics are available as needed. Fall precautions. PT/OT consulted. PT recommended SNF placement. Care coordination to make arrangements. Patient needs to participate in therapy to qualify for SNF. Community-acquired pneumonia X-ray showed pulmonary infiltrates in addition to chronic interstitial lung disease noted on chest x-ray. Continue abx to complete a course Dysphagia with episode of choking Modified barium swallow performed 04/25/2024 Keep patient p.o. Start D5 lactated Ringer IV Speech therapist will evaluate patient 2 days with repeat MBS after dysphagia therapy Placement of NGT for nutrition might be risky due to cervical fracture. Hold oral medication during n.p.o. Recommended G-tube placement since failed MBS x2 Patient and family agreeable GI consulted Plan for G-tube placement tomorrow Macrocytic anemia stable on review of previous labs anemia studies from last month have been reviewed. discharge when placement arranged. However limited with newly noted severe dysphagia DVT Prophylaxis - SCDs Code status - full Subjective Date/time seen: 04/30/24 12:26 Interval history: No overnight events. No new complaints. GI saw the patient and is planned for PEG tube placement tomorrow. Review of Systems Review of Systems: All systems reviewed & are unremarkable except as noted in HPI and below Exam Narrative: GENERAL: Pleasant, in no acute distress. emaciated - EYES: EOMI. Anicteric. - HENT: Moist mucous membranes. - LUNGS: Clear to auscultation bilateral ly, no wheezing, rhonchi, or rales. - CARDIOVASCULAR: Regular rate and rhyth m. No murmur. No JVD. - ABDOMEN: Soft, non-tender and non-dist ended. No palpable masses. - EXTREMITIES: No edema. Peripheral puls es 2+. Non-tender. - NEUROLOGIC: No focal neurological defi cits. CN II-XII grossly intact. - PSYCHIATRIC: Awake, Alert and oriented x 3. Appropriate mood and affect. - SKIN: No rashes or lesions. Warm. - LYMPH: No cervical lymphadenopathy. Objective Data Vital Signs Vital Signs: Vital Signs - 24 hr 04/29/24 17:23 04/29/24 20:00 04/29/24 20:05 Temperature 98.4 F 98.1 F Pulse Rate 96 73 Respiratory Rate 16 20 Blood Pressure 110/63 105/69 Pulse Oximetry 95 95 Oxygen Delivery Room Air 04/29/24 23:38 04/30/24 04:00 04/30/24 08:00 Temperature 98.0 F 98.0 F 98.3 F Pulse Rate 75 80 78 Respiratory Rate 12 16 16 Blood Pressure 107/67 116/69 115/67 Pulse Oximetry 98 97 96 Oxygen Delivery 04/30/24 08:15 04/30/24 11:29 Temperature 97.5 F L Pulse Rate 84 Respiratory Rate 14 Blood Pressure 117/75 Pulse Oximetry 97 Oxygen Delivery Room Air Intake/Output Intake/Output: Intake & Output 04/27/24 04/28/24 04/29/24 04/30/24 23:59 23:59 23:59 23:59 Intake Total 1999 988.7 1999 1000 Output Total 900 700 250 300 Balance 1100 288.7 1750 700 Meds/Results Medications: Active Medications Generic Name Dose Route Start Last Admin Trade Name Freq PRN Reason Stop Dose Admin Acetaminophen 650 mg 04/19/24 18:39 04/21/24 08:58 Acetaminophen 325 Mg Tablet PO 650 mg Q6H PRN Administration Mild Pain (1-3) or Fever Hydrocodone Bitart/Acetaminophen 1 tab 04/19/24 18:39 04/25/24 07:10 Hydrocodone/Acetaminophen (*Crx) 5-325 Mg Tablet PO 1 tab Q6H PRN Administration Pain Rated 4-6 Albuterol 2 puff 04/19/24 20:25 Albuterol Sulfate (*Sp) Aerosol 1 Puff INHALATION Q4HRT PRN SOB OR WHEEZING Finasteride 5 mg 04/20/24 09:00 04/30/24 08:12 Finasteride 5 Mg Tablet PO Not Given DAILY REPLACED BY [facility] Folic Acid 1 mg 04/20/24 09:00 04/30/24 08:12 Folic Acid 1 Mg Tablet PO Not Given DAILY [facility] Guaifenesin 600 mg 04/20/24 13:00 04/30/24 08:12 Guaifenesin 12 Hr 600 Mg Tabcr PO Not Given Q12HR [facility] Dextrose/Lactated Ringer's 1,000 mls @ 75 mls/hr 04/25/24 15:10 04/30/24 08:16 Dextrose 5%/Lactated Ringers IV CONT 75 mls/hr .[id number] [facility] Administration Linaclotide 290 mcg 04/20/24 06:30 04/30/24 05:30 Linaclotide 145 Mcg Capsule PO Not Given DAILY@0630 REPLACED BY [facility] Morphine Sulfate 2 mg 04/20/24 05:06 04/30/24 08:15 Morphine Sulfate (*Crx) 2 Mg/Ml Inj IV PUSH 2 mg Q2H PRN Administration Pain Rated 7-10 Ondansetron HCl 4 mg 04/24/24 11:15 04/24/24 11:25 Ondansetron Inj 4 Mg/2 Ml Vial IV PUSH 4 mg Q6H PRN Administration Nausea And Vomiting Pantoprazole Sodium 40 mg 04/20/24 09:00 04/30/24 08:12 Pantoprazole 40 Mg Tablet PO Not Given QAM REPLACED BY [facility] Sulfasalazine 1,500 mg 04/25/24 09:00 04/30/24 08:13 Sulfasalazine 500 Mg Tablet PO Not Given BIDPC REPLACED BY [facility] Tamsulosin HCl 0.4 mg 04/20/24 09:00 04/30/24 08:13 Tamsulosin Hcl 0.4 Mg Capsule PO Not Given DAILY REPLACED BY [facility] Umeclidinium/Vilanterol 1 puff 04/20/24 09:00 04/30/24 08:37 Umeclidinium/Vilanterol 62.5-25 Mcg Ellipta INHALATION 1 puff DAILY [facility] Administration Venlafaxine HCl 37.5 mg 04/20/24 09:00 04/30/24 08:13 Venlafaxine Hcl Xr 37.5 Mg Cap PO Not Given DAILY [facility] Venlafaxine HCl 75 mg 04/20/24 09:00 04/30/24 08:13 Venlafaxine Hcl Xr 75 Mg Cap.Er.24h PO Not Given DAILY [facility] Vitamin D 2,000 units 04/20/24 09:00 04/30/24 08:12 Cholecalciferol 1,000 Units Tablet PO Not Given DAILY [facility] Radiology Results: ITS Impressions Chest X-Ray 04/19/24 10:41 Impression: 1: Bilateral infiltrates, 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 Head CT 04/19/24 10:41 IMPRESSION: 1. Normal aging brain. No fracture or acute intracranial process. Pelvis X-Ray 04/19/24 10:49 Impression: 1: No acute fracture. Head/Cervical Spine/Facial Bones CT 04/19/24 11:08 IMPRESSION: 1. Minimally displaced mildly comminuted fracture at the anterior ring of C1. 2. Fracture of the right maxillary second bicuspid and dental disease with periapical lucencies at October 1999 at the contralateral left first and second maxillary bicuspid. 3. No maxillofacial fractures. 4. Instrumented C2-C7 anterior spinal fusion and C5-C7 laminectomies and instrumented posterior spinal fusion. 5. Moderate upper thoracic spondylosis. 6. UIP pattern chronic interstitial lung disease in the visualized upper lungs. Lumbar Spine CT 04/19/24 11:24 IMPRESSION: 1. 10 degrees lumbar levoscoliosis with severe spondylosis. No acute osseous abnormality. Modified Barium Swallow 04/29/24 14:38 IMPRESSION: Pharyngeal dysphagia with laryngeal penetration and aspiration with thin liquids. Please correlate with speech pathologist findings and specific feeding recommendations.
[2024-04-30 16:00] VITALS: BP 124/81; PULSE 85; RESP 16; TEMP 36.9; O2SAT 97
[2024-04-30 20:00] VITALS: BP 116/81; PULSE 77; RESP 20; TEMP 36.9; O2SAT 97
[2024-04-30 23:56] VITALS: BP 135/69; PULSE 85; RESP 20; TEMP 36.8; O2SAT 93
[2024-05-01] VITALS (11 sets, daily range): BP systolic 101–132; BP diastolic 71–80; PULSE 61–102; RESP 14–24; TEMP 36.3–37.1; O2SAT 95–100
[2024-05-01] MEDS: MORPHINE SULFATE (*CRX) 2 MG/ML INJ IV PUSH ×3 (02:50→13:28)
[2024-05-01] MEDS: UMECLIDINIUM/VILANTEROL 62.5-25 MCG ELLIPTA 1 PUFF INHALATION (07:45)
--- NOTE | 2024-05-01 09:30 | PCNFU ---
Nutrition Follow-Up Complete: Inability to meet nutrition needs PO related to dysphagia/aspiration as evidenced by MBSS Meet estimated nutrition needs - Not progressing yet. PEG placement today Goal: Pt current nutrition is NPO. Nutrition recommendation: When PEG is cleared for use, recommend Jevity 1.5 @ goal rate 60 ml/h (22 hours). Start at 30 ml/h and advance 10 ml q 4 hours. Flush 150 ml q 4 hours. Last recorded weight is 61.8 kg. Bowel Motility: Last BM 04/25/24. Pt has chronic ulcerative colitis. Will need bowel regimen when TF is started Labs Reviewed: No labs since 04/29/24 Meds Noted: Protonix Skin: No skin issues Additional Notes: PEG placement today s/t dysphagia. TUBE FEEDING RECOMMENDATIONS: Jevity 1.5 @ goal rate 60 ml/h (22 hours). Start at 30 ml/h and advance 10 ml q 4 hours. Flush 150 ml q 4 hours. Provides 1980 kcal (32 kcal/kg), 84 g protein (1.35 g/kg), 1018 ml free water. Flush 150 ml q 4 hours for total water 1928 ml/day. Bolus recommendations if needed: Jevity 1.5 bolus 330 ml QID with water flushes 225 ml QID. Discussed with RN Monitoring plan of care, weights, labs, diet orders Follow up Monday/Monday
[2024-05-01 09:43] LABS: Hematocrit 34.9 % (42.0-52.0); Hemoglobin 11.7 g/dL (14.0-18.0); Mean Corpuscular HGB Conc 33.5 g/dl (32-36); Mean Corpuscular Hemoglobin 34.9 pg (26-34); Mean Corpuscular Volume 104.2 fl (80-100); Mean Platelet Volume 9.7 fl (7.4-10.4); Platelet Count Result 340 k/mm3 (150-375); Red Blood Count 3.35 M/mm3 (4.6-6.20); Red Cell Distribution Width 11.9 % (11.5-14.5); White Blood Count 6.5 K/mm3 (4.5-10.0)
[2024-05-01 10:01] LABS: Alanine Aminotransferase 26 U/L (6-50); Albumin Level 3.4 g/dL (3.5-5.1); Alkaline Phosphatase 75 U/L (38-126); Anion Gap 8 mmol/L (4-12); Aspartate Amino Transferase 21 U/L (17-59); Bilirubin,Total 0.9 mg/dL (0.2-1.3); Blood Urea Nitrogen 8 mg/dL (9-20); Calcium 8.9 mg/dL (8.4-10.2); Carbon Dioxide 31 mmol/L (22-30); Chloride 96 mmol/L (98-107); Estimated CRCL calculation 121 ml/min; Estimated Glomerular Filt Rate > 60; Glucose 122 mg/dL (65-110); Magnesium 1.5 mg/dL (1.6-2.3); Potassium 3.9 mmol/L (3.4-5.0); Sodium 135 mmol/L (137-145)
[2024-05-01] MEDS: DEXTROSE 5%/LACTATED RINGERS 1,000 ML 75 ML IV CONT (12:06)
--- NOTE | 2024-05-01 13:05 | PC.NURSE ---
To GI Lab via wheelchair. Report given to Angela THACKER.
[2024-05-01] MEDS: ceFAZolin 1 GM/NS 50 ML 1 GM/50 ML BAG IVPB (13:28)
[2024-05-01] MEDS: LACTATED RINGERS 1,000 ML 150 ML IV CONT (13:31)
--- NOTE | 2024-05-01 13:38 | PCOTNOTE ---
Patient out of the room at this time. Patient down having a PEG tube placed.
--- NOTE | 2024-05-01 13:55 | P.PNAN_ITS ---
Anes - Initial Pre Proc Eval Procedure: Operation Date: 05/01/24 15:00 Proposed Procedures p Percutaneous Endoscopic Gastrostomy - Sukumar Nixon MD Date/Time: 05/01/24 13:55 Surgeon: Angela Lieberman APRN Pre Op Diagnosis: Acute Resp Failure w Hypoxia/Pneumonia/Cervical Sp Patient Data Age: 78 Gender: M Height: 1.88 m Weight: 61.8 kg Last Vital Signs Temp 97.3 F L 05/01/24 13:38 Pulse 61 05/01/24 13:38 Resp 20 05/01/24 13:38 BP 125/71 05/01/24 13:38 Pulse Ox 98 05/01/24 13:38 O2 Del Method Room Air 05/01/24 13:38 O2 Flow Rate 2 04/19/24 11:16 Allergies Allergy/AdvReac Type Severity Reaction Status Date / Time lidocaine Allergy Severe shuts Verified 05/01/24 13:20 lungs down Home Medications ?Medication ?Instructions ?Recorded ?Confirmed ?Type acetaminophen 325 mg tablet 325 mg PO Q6H PRN Pain 08/08/19 04/19/24 History (Tylenol) naproxen sodium 220 mg tablet 220 mg PO BID PRN Pain 08/08/19 04/19/24 History (Aleve) cholecalciferol (vitamin D3) 50 50 mcg PO DAILY 05/23/23 04/19/24 History mcg (2,000 unit) capsule glucosamine sulfate 500 mg tablet 500 mg PO BID 05/23/23 04/19/24 History (Glucosamine) pantoprazole 40 mg tablet,delayed 40 mg PO QAM #30 tabs 09/13/23 04/19/24 Rx release finasteride 5 mg tablet 5 mg PO DAILY #100 tabs 11/10/23 04/19/24 Rx tamsulosin 0.4 mg capsule (Flomax) 0.4 mg PO DAILY #90 caps 11/10/23 04/19/24 Rx albuterol sulfate 90 mcg/actuation See Rx Instructions .Route 12/14/23 04/19/24 Rx aerosol inhaler .COMPLEX #8.5 grams folic acid 1 mg tablet 1 mg PO DAILY #100 tabs 01/02/24 04/19/24 Rx megestrol 20 mg tablet 20 mg PO TID PRN Appetite 02/29/24 04/19/24 Rx stimulant #60 tabs venlafaxine 37.5 mg 37.5 mg PO DAILY #14 caps 02/29/24 04/19/24 Rx capsule,extended release 24 hr (Effexor XR) venlafaxine 75 mg capsule,extended 75 mg PO DAILY #30 caps 02/29/24 04/19/24 Rx release 24 hr (Effexor XR) mecobalamin (vitamin B12) 500 mcg 500 mcg PO DIRECTED #90 tabs 03/01/24 04/19/24 Rx chewable tablet sulfasalazine 500 mg 1.5 g (3 x 500 mg) PO BID #540 tabs 03/12/24 04/19/24 Rx tablet,delayed release tiotropium 2.5 mcg-olodaterol 2.5 2 puff inhalation DAILY #4 grams 03/14/24 04/19/24 Rx mcg/actuation mist for inhalation hydrocodone 5 mg-acetaminophen 325 1 tablet PO Q8H PRN pain #15 tabs 04/15/24 04/19/24 Rx mg tablet linaclotide 290 mcg capsule 290 mcg PO DAILY 04/19/24 04/19/24 History (Linzess) Laboratory Tests 05/01/24 08:54 WBC 6.5 K/mm3 (4.5-10.0) RBC 3.35 L M/mm3 (4.6-6.20) Hgb 11.7 L g/dL (14.0-18.0) Hct 34.9 L % (42.0-52.0) MCV 104.2 H fl (80-100) MCH 34.9 H pg (26-34) MCHC 33.5 g/dl (32-36) RDW 11.9 % (11.5-14.5) Plt Count 340 k/mm3 (150-375) MPV 9.7 fl (7.4-10.4) Sodium 135 L mmol/L (137-145) Potassium 3.9 mmol/L (3.4-5.0) Chloride 96 L mmol/L (98-107) Carbon Dioxide 31 H mmol/L (22-30) Anion Gap 8 mmol/L (4-12) BUN 8 L mg/dL (9-20) Creatinine 0.35 L mg/dL (0.7-1.3) Estim Creat Clear Calc 121 ml/min Estimated GFR > 60 (59 - ) Glucose 122 H mg/dL (65-110) Calcium 8.9 mg/dL (8.4-10.2) Magnesium 1.5 L mg/dL (1.6-2.3) Total Bilirubin 0.9 mg/dL (0.2-1.3) AST 21 U/L (17-59) ALT 26 U/L (6-50) Alkaline Phosphatase 75 U/L (38-126) Total Protein 6.0 L g/dL (6.3-8.2) Albumin 3.4 L g/dL (3.5-5.1) Patient hx anesthesia problems: none Family hx anesthesia problems: none Results Review: All pre-operative results and documents have been reviewed as part of the pre- operative evaluation. [facility] Past Medical History Medical History Pure hypercholesterolemia Depression Peripheral neuropathy Ataxia Benign prostatic hyperplasia Left rib fracture Pneumothorax Crohn's disease Ulcerative colitis Hyperlipidemia Gastro-esophageal reflux disease without esophagitis Surgical History Surgical History History of spinal surgery History of arthroplasty of right knee History of chest tube placement Family History Family History Father No problems noted. Mother No problems noted. Sibling No problems noted. Other Family history non-contributory Social History Social History Social History: Surrogate medical decision maker: eleno Chambers. Code status: Full code. Smoking packs per day: 2 Smoking cigarettes per day: 40.0 Years smoked: 15 Smoking pack-years: 30.00 Smoking status: Former smoker Second hand tobacco smoke exposure: No Additional smoking assessment comments: quit in 1980 Alcohol intake: current Drinks per week: 14 Alcohol use details: 3 per day Substance use: never Substance use type: does not use Do You Feel Safe in your Home?: Yes Lack of Transportation: YES Lack of Food: Never True Current Housing: I Have Housing Concerned About Future Housing: No Difficulty Paying Gas/Electric Bills: No Difficulty Paying for Meds: No Currently Unemployed: No Education: High School Diploma/GED Difficulty w/ Childcare or Family Care: No Living arrangements: with family Occupation/Education: retired 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 Spiritual care concerns: No Anes - Eval Final PreProcedure Day of Procedure 05/01/24 13:55 Patient weight: normal and cachectic Lungs: normal air movement Airway: Mallampati scale class II Neurological: alert and oriented Last oral intake: >/= 8 hours ASA classification: IV Emergent: no Anesthetic plan: proceed Anesthesia type and monitoring: general GIVS and standard monitoring Results Review: All pre-operative results and documents have been reviewed as part of the pre- operative evaluation. Complicated case of pt w C1 fx after injury, now for PEG. Pt refuses to wear C collar and has been cleared by neurosurgery for no surgical intervention. Hx of UC/crohns. Informed Consent: The patient's anesthetic plan and its attendant risks and benefits were discussed with the patient/family/POA. Questions were solicited and answers provided to the satisfaction of the patient/family/POA.
--- NOTE | 2024-05-01 15:35 | PC.NURSE ---
Returned from GI Lab. Report received from Ned THACKER.
--- NOTE | 2024-05-01 16:04 | P.PNIM_ITS ---
Progress Note: A&P Assessment and Plan (1) Dysphagia: Qualifiers: Dysphagia type: pharyngeal phase Qualified Code(s): R13.13 - Dysphagia, pharyngeal phase Code(s): R13.10 - Dysphagia, unspecified Status: Acute Assessment and Plan: Dysphagia with episode of choking * Modified barium swallow performed 04/25/2024 * Keep patient p.o. * Start D5 lactated Ringer IV * Speech therapist will evaluate patient 2 days with repeat MBS after dysphagia therapy * Placement of NGT for nutrition might be risky due to cervical fracture. * Hold oral medication during n.p.o. * Recommended G-tube placement since failed MBS x2 * Patient and family agreeable * GI consulted * Plan for G-tube placement tomorrow 05/01: * G-tube placed * start tube feeds at 20 increase as tolerated * monitor electrolytes * transitioned all PO medication to tube feed * General Warehouse Worker consulted * Jevity (2) C1 cervical fracture: Qualifiers: Encounter type: initial encounter Fracture type: closed Fracture morphology: unspecified fracture morphology Fracture alignment: displaced Qualified Code(s): S12.000A - Unspecified displaced fracture of first cervical vertebra, initial encounter for closed fracture Code(s): S12.000A - Unspecified displaced fracture of first cervical vertebra, initial encounter for closed fracture Status: Acute Assessment and Plan: Fracture of the anterior ring of C1 The patient presented to the emergency department for evaluation of neck and back pain following a fall and found to have a fracture of the anterior ring of C1. * Neurosurgery consulted and recommended hard collar with follow-up in 1 month. * Analgesics are available as needed. * Fall precautions. * PT/OT consulted. (3) Macrocytic anemia: Code(s): D53.9 - Nutritional anemia, unspecified Status: Acute Assessment and Plan: * Stable at base line * Daily CBC * No active bleeding (4) Severe protein-calorie malnutrition: Code(s): E43 - Unspecified severe protein-calorie malnutrition Status: Acute Assessment and Plan: * General Warehouse Worker consulted * Peg tube placed for aspiration (5) Pneumonia: Code(s): J18.9 - Pneumonia, unspecified organism Status: Resolved Assessment and Plan: * X-ray showed pulmonary infiltrates in addition to chronic interstitial lung disease noted on chest x-ray. * Continue abx to complete a course * secondary to aspiration Plan Code status: Full code per patient DVT prophylaxis: SCD's Stress ulcer prophylaxis: Protonix 40 daily PT/OT notes: SNF Disposition: patient continues admission due to aspiration pneumonia and C1 fracture patient had PEG tube placed today 05/01 and plan is for placement to care home facility will discharge when tolerating tube feedings an SNF acceptance Time Spent With Patient Time with patient: 15 - 25 minutes Subjective Date/time seen: 05/01/24 16:04 Interval history: Patient is a 78-year-old male who was admitted for further evaluation and treatment of C1 fracture after a fall as well as aspiration underwent PEG tube placement today after failing to MBS. 05/01: patient lying in bed no complaints other than moderate to severe back pain patient currently waiting for PEG tube placement due to aspiration will knee she ate tube feedings postop in transition oral medications to to feed. Patient denied any chest pain, shortness a breath, nausea, vomiting. Review of Systems Review of Systems: All systems reviewed & are unremarkable except as noted in HPI and below Exam Narrative: GENERAL: Pleasant, in no acute distress. emaciated - EYES: EOMI. Anicteric. - HENT: Moist mucous membranes. - LUNGS: Clear to auscultation bilateral ly, no wheezing, rhonchi, or rales. - CARDIOVASCULAR: Regular rate and rhyth m. No murmur. No JVD. - ABDOMEN: Soft, non-tender and non-dist ended. No palpable masses. - EXTREMITIES: No edema. Peripheral puls es 2+. Non-tender. - NEUROLOGIC: No focal neurological defi cits. CN II-XII grossly intact. - PSYCHIATRIC: Awake, Alert and oriented x 3. Appropriate mood and affect. - SKIN: No rashes or lesions. Warm. Objective Data Vital Signs Vital Signs: Vital Signs - 24 hr 04/30/24 20:00 04/30/24 23:56 05/01/24 04:00 Temperature 98.4 F 98.2 F 98.2 F Pulse Rate 77 85 85 Respiratory Rate 20 20 16 Blood Pressure 116/81 135/69 131/80 Pulse Oximetry 97 93 99 Oxygen Delivery 05/01/24 07:47 05/01/24 07:47 05/01/24 08:00 Temperature 98.7 F Pulse Rate 82 89 Respiratory Rate 20 14 Blood Pressure 118/75 Pulse Oximetry 96 95 Oxygen Delivery Room Air 05/01/24 08:10 05/01/24 12:00 05/01/24 13:38 Temperature 97.9 F 97.3 F L Pulse Rate 72 61 Respiratory Rate 19 20 Blood Pressure 125/72 125/71 Pulse Oximetry 97 98 Oxygen Delivery Room Air Room Air 05/01/24 15:00 05/01/24 15:10 05/01/24 15:20 Temperature Pulse Rate 102 H 90 88 Respiratory Rate 24 H 20 20 Blood Pressure 112/80 101/78 132/76 Pulse Oximetry 97 97 96 Oxygen Delivery Room Air Room Air Room Air Intake/Output Intake/Output: Intake & Output 04/28/24 04/29/24 04/30/24 05/01/24 23:59 23:59 23:59 23:59 Intake Total 988.7 1999 1999 113 Output Total 700 250 300 Balance 288.7 1750 1700 1130 Meds/Results Medications: Active Medications Generic Name Dose Route Start Last Admin Trade Name Freq PRN Reason Stop Dose Admin Acetaminophen 650 mg 04/19/24 18:39 04/21/24 08:58 Acetaminophen 325 Mg Tablet PO 650 mg Q6H PRN Administration Mild Pain (1-3) or Fever Hydrocodone Bitart/Acetaminophen 1 tab 05/01/24 16:04 Hydrocodone/Acetaminophen (*Crx) 5-325 Mg Tablet FEED TUBE Q6H PRN Pain Rated 4-6 Albuterol 2 puff 04/19/24 20:25 Albuterol Sulfate (*Sp) Aerosol 1 Puff INHALATION Q4HRT PRN SOB OR WHEEZING Famotidine 20 mg 05/01/24 21:00 Famotidine 20 Mg Tablet FEED TUBE Q12HR [facility] Finasteride 5 mg 05/02/24 09:00 Finasteride 5 Mg Tablet FEED TUBE DAILY [facility] Folic Acid 1 mg 05/02/24 09:00 Folic Acid 1 Mg Tablet FEED TUBE DAILY [facility] Guaifenesin 200 mg 05/01/24 16:02 Guaifenesin 200 Mg/10 Ml Udc PO Q4H PRN Cough Linaclotide 290 mcg 05/02/24 06:30 Linaclotide 145 Mcg Capsule FEED TUBE DAILY@0630 [facility] Morphine Sulfate 2 mg 04/20/24 05:06 05/01/24 13:28 Morphine Sulfate (*Crx) 2 Mg/Ml Inj IV PUSH 2 mg Q2H PRN Administration Pain Rated 7-10 Ondansetron HCl 4 mg 04/24/24 11:15 04/24/24 11:25 Ondansetron Inj 4 Mg/2 Ml Vial IV PUSH 4 mg Q6H PRN Administration Nausea And Vomiting Sulfasalazine 1,500 mg 05/01/24 18:00 Sulfasalazine 500 Mg Tablet FEED TUBE BIDPC [facility] Umeclidinium/Vilanterol 1 puff 04/20/24 09:00 05/01/24 07:45 Umeclidinium/Vilanterol 62.5-25 Mcg Ellipta INHALATION 1 puff DAILY [facility] Administration Venlafaxine HCl 37.5 mg 05/02/24 09:00 Venlafaxine Hcl Xr 37.5 Mg Cap FEED TUBE DAILY [facility] Venlafaxine HCl 75 mg 05/02/24 09:00 Venlafaxine Hcl Xr 75 Mg Cap.Er.24h FEED TUBE DAILY [facility] Vitamin D 2,000 units 05/02/24 09:00 Cholecalciferol 1,000 Units Tablet FEED TUBE DAILY [facility] Radiology Results: ITS Impressions Chest X-Ray 04/19/24 10:41 Impression: 1: Bilateral infiltrates, 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 Head CT 04/19/24 10:41 IMPRESSION: 1. Normal aging brain. No fracture or acute intracranial process. Pelvis X-Ray 04/19/24 10:49 Impression: 1: No acute fracture. Head/Cervical Spine/Facial Bones CT 04/19/24 11:08 IMPRESSION: 1. Minimally displaced mildly comminuted fracture at the anterior ring of C1. 2. Fracture of the right maxillary second bicuspid and dental disease with periapical lucencies at October 1999 at the contralateral left first and second maxillary bicuspid. 3. No maxillofacial fractures. 4. Instrumented C2-C7 anterior spinal fusion and C5-C7 laminectomies and instrumented posterior spinal fusion. 5. Moderate upper thoracic spondylosis. 6. UIP pattern chronic interstitial lung disease in the visualized upper lungs. Lumbar Spine CT 04/19/24 11:24 IMPRESSION: 1. 10 degrees lumbar levoscoliosis with severe spondylosis. No acute osseous abnormality. Modified Barium Swallow 04/29/24 14:38 IMPRESSION: Pharyngeal dysphagia with laryngeal penetration and aspiration with thin liquids. Please correlate with speech pathologist findings and specific feeding recommendations. Labs Labs: Laboratory Results - last 24 hr 05/01/24 08:54 WBC 6.5 RBC 3.35 L Hgb 11.7 L Hct 34.9 L MCV 104.2 H MCH 34.9 H MCHC 33.5 RDW 11.9 Plt Count 340 MPV 9.7 Sodium 135 L Potassium 3.9 Chloride 96 L Carbon Dioxide 31 H Anion Gap 8 BUN 8 L Creatinine 0.35 L Estim Creat Clear Calc 121 Estimated GFR > 60 Glucose 122 H Calcium 8.9 Magnesium 1.5 L Total Bilirubin 0.9 AST 21 ALT 26 Alkaline Phosphatase 75 Total Protein 6.0 L Albumin 3.4 L Quality VTE Prophylaxis VTE prophylaxis: mechanical ordered -Patient's previous records reviewed on admission -ER notes reviewed in detail on admission -discussed all findings and current treatment plan with patient/Family/POA -Consultations reviewed for recommendations -Patient's disposition for safe discharge discussed with pillowcase cutter Dictation performed by [email or web address] direct speech recognition software, therefore lubrication servicer variants and typographical errors may occur. Hospitalist MIPS Advance Care Plan I have confirmed that the patient's Advanced Care Plan is present, code status is documented, or surrogate decision maker is listed in patient medical record.: Yes Medication Reconciliation I have utilized all available resources to obtain, update and review the patient s current medications (includes all prescriptions, OTC, herbals, cannabis, and nutritional supplements).: Yes The patient is not eligible for med reconciliation; the patient is in a emergent medical situation where delaying treatment would jeopardize the patients health.: No
[2024-05-01] MEDS: sulfaSALAzine 500 MG TABLET 1500 MG FEED TUBE (17:32)
[2024-05-01] MEDS: HYDROcodone/acetaminophen (*CRX) 5-325 MG TABLET 1 TAB FEED TUBE ×2 (17:32→23:36)
[2024-05-01] MEDS: MAGNESIUM SULF 2 GM/WATER 50ML 2 GM/50 ML BAG IVPB (18:23)
[2024-05-01 18:29] LABS: Glucose Point of Care 116 mg/dl (65-105)
[2024-05-01] MEDS: VENLAFAXINE HCL 37.5 MG TABLET PO (23:36)
[2024-05-01] MEDS: FAMOTIDINE 20 MG TABLET FEED TUBE (23:36)
[2024-05-02 00:08] LABS: Glucose Point of Care 113 mg/dl (65-105)
[2024-05-02 04:00] VITALS: BP 107/60; PULSE 84; RESP 18; TEMP 36.5; O2SAT 93
[2024-05-02 05:02] LABS: Hematocrit 33.7 % (42.0-52.0); Hemoglobin 11.3 g/dL (14.0-18.0); Mean Corpuscular HGB Conc 33.5 g/dl (32-36); Mean Corpuscular Hemoglobin 34.2 pg (26-34); Mean Corpuscular Volume 102.1 fl (80-100); Mean Platelet Volume 9.2 fl (7.4-10.4); Platelet Count Result 311 k/mm3 (150-375); Red Cell Distribution Width 11.8 % (11.5-14.5); White Blood Count 6.2 K/mm3 (4.5-10.0)
[2024-05-02 05:16] LABS: Alanine Aminotransferase 41 U/L (6-50); Albumin Level 3.4 g/dL (3.5-5.1); Alkaline Phosphatase 74 U/L (38-126); Anion Gap 9 mmol/L (4-12); Aspartate Amino Transferase 46 U/L (17-59); Bilirubin,Total 0.7 mg/dL (0.2-1.3); Blood Urea Nitrogen 10 mg/dL (9-20); Calcium 8.6 mg/dL (8.4-10.2); Carbon Dioxide 29 mmol/L (22-30); Chloride 96 mmol/L (98-107); Estimated CRCL calculation 110 ml/min; Estimated Glomerular Filt Rate > 60; Glucose 127 mg/dL (65-110); Potassium 3.4 mmol/L (3.4-5.0); Sodium 134 mmol/L (137-145)
[2024-05-02] MEDS: VENLAFAXINE HCL 37.5 MG TABLET PO ×3 (06:26→20:41)
[2024-05-02 06:33] LABS: Glucose Point of Care 136 mg/dl (65-105)
[2024-05-02 08:00] VITALS: BP 108/68; PULSE 80; RESP 17; TEMP 36.6; O2SAT 100
--- NOTE | 2024-05-02 08:23 | PCOTNOTE ---
Patient refused treatment this session due to weakness patient reports they are getting food in me today and i will work with therapy tomorrow. RN aware of refusal and attempted to encourage as well.
[2024-05-02 09:49] VITALS: PULSE 85; RESP 20
[2024-05-02] MEDS: UMECLIDINIUM/VILANTEROL 62.5-25 MCG ELLIPTA 1 PUFF INHALATION (09:49)
--- NOTE | 2024-05-02 10:11 | WPDANESPN ---
Anes - Prog Note Post-Op Date/Time: 05/02/24 10:11 Cardiovascular status: normal Respiratory status: normal Airway patency: baseline Mental status: baseline Post-Op hydration status: normal Vital Signs: Last Vital Signs Temp 97.9 F 05/02/24 08:00 Pulse 85 05/02/24 09:49 Resp 20 05/02/24 09:49 BP 108/68 05/02/24 08:00 Pulse Ox 100 05/02/24 08:00 O2 Del Method Room Air 05/02/24 09:45 O2 Flow Rate 2 04/19/24 11:16 Pain Score (VAS): 0/10 I/O: Intake & Output 05/01/24 05/02/24 05/02/24 23:59 07:59 15:59 Intake Total 50 549 Output Total 300 450 Balance -250 99 Laboratory Tests 05/02/24 04:38 05/02/24 04:38 05/01/24 05/01/24 05/02/24 18:23 23:55 04:38 WBC 6.2 RBC 3.30 L Hgb 11.3 L Hct 33.7 L MCV 102.1 H MCH 34.2 H MCHC 33.5 RDW 11.8 Plt Count 311 MPV 9.2 Sodium 134 L Potassium 3.4 Chloride 96 L Carbon Dioxide 29 Anion Gap 9 BUN 10 Creatinine 0.39 L Estim Creat Clear Calc 110 Estimated GFR > 60 Glucose 127 H POC Capillary Glucose 116 H 113 H Calcium 8.6 Magnesium 2.0 Total Bilirubin 0.7 AST 46 ALT 41 Alkaline Phosphatase 74 Total Protein 6.0 L Albumin 3.4 L 05/02/24 05:25 WBC RBC Hgb Hct MCV MCH MCHC RDW Plt Count MPV Sodium Potassium Chloride Carbon Dioxide Anion Gap BUN Creatinine Estim Creat Clear Calc Estimated GFR Glucose POC Capillary Glucose 136 H Calcium Magnesium Total Bilirubin AST ALT Alkaline Phosphatase Total Protein Albumin Post-procedural complaints: none Patient Feedback: Patient satisfied with anesthetic care.
[2024-05-02] MEDS: sulfaSALAzine 500 MG TABLET 1500 MG FEED TUBE ×2 (10:18→17:00)
[2024-05-02] MEDS: HYDROcodone/acetaminophen (*CRX) 5-325 MG TABLET 1 TAB FEED TUBE ×2 (10:18→20:41)
[2024-05-02] MEDS: CHOLECALCIFEROL 1,000 UNITS TABLET 2000 UNITS FEED TUBE (10:18)
[2024-05-02] MEDS: FAMOTIDINE 20 MG TABLET FEED TUBE ×2 (10:18→20:41)
[2024-05-02] MEDS: FOLIC ACID 1 MG TABLET FEED TUBE (10:18)
[2024-05-02] MEDS: FINASTERIDE 5 MG TABLET FEED TUBE (10:18)
--- NOTE | 2024-05-02 11:32 | P.PNIM_ITS ---
Progress Note: A&P Assessment and Plan (1) Dysphagia: Qualifiers: Dysphagia type: pharyngeal phase Qualified Code(s): R13.13 - Dysphagia, pharyngeal phase Code(s): R13.10 - Dysphagia, unspecified Status: Acute Assessment and Plan: Dysphagia with episode of choking * Modified barium swallow performed 04/25/2024 * Keep patient p.o. * Start D5 lactated Ringer IV * Speech therapist will evaluate patient 2 days with repeat MBS after dysphagia therapy * Placement of NGT for nutrition might be risky due to cervical fracture. * Hold oral medication during n.p.o. * Recommended G-tube placement since failed MBS x2 * Patient and family agreeable * GI consulted * Plan for G-tube placement tomorrow 05/01: * G-tube placed * start tube feeds at 20 increase as tolerated * monitor electrolytes * transitioned all PO medication to tube feed * Presales Engineer consulted * Jevity 05/02: * Tolerating tube feeds * labs reviewed * At target feeds 60ML/HR (2) C1 cervical fracture: Qualifiers: Encounter type: initial encounter Fracture alignment: displaced Fracture morphology: unspecified fracture morphology Fracture type: closed Qualified Code(s): S12.000A - Unspecified displaced fracture of first cervical vertebra, initial encounter for closed fracture Code(s): S12.000A - Unspecified displaced fracture of first cervical vertebra, initial encounter for closed fracture Status: Acute Assessment and Plan: Fracture of the anterior ring of C1 The patient presented to the emergency department for evaluation of neck and yennifer k pain following a fall and found to have a fracture of the anterior ring of C1. * Neurosurgery consulted and recommended hard collar with follow-up in 1 month. * Analgesics are available as needed. * Fall precautions. * PT/OT consulted. (3) Macrocytic anemia: Code(s): D53.9 - Nutritional anemia, unspecified Status: Acute Assessment and Plan: * Stable at base line * Daily CBC * No active bleeding (4) Severe protein-calorie malnutrition: Code(s): E43 - Unspecified severe protein-calorie malnutrition Status: Acute Assessment and Plan: * Presales Engineer consulted * Peg tube placed for aspiration (5) Pneumonia: Code(s): J18.9 - Pneumonia, unspecified organism Status: Resolved Assessment and Plan: * X-ray showed pulmonary infiltrates in addition to chronic interstitial lung disease noted on chest x-ray. * Continue abx to complete a course * secondary to aspiration Plan Code status: Full code per patient DVT prophylaxis: SCD's Stress ulcer prophylaxis: Protonix 40 daily PT/OT notes: SNF Disposition: patient continues admission due to aspiration pneumonia and C1 fracture patient had PEG tube placed today 05/01 and plan is for placement to group home facility will discharge when tolerating tube feedings an SNF acceptance Time Spent With Patient Time with patient: 15 - 25 minutes Subjective Date/time seen: 05/02/24 11:32 Interval history: Patient is a 78-year-old male who was admitted for further evaluation and treatment of C1 fracture after a fall as well as aspiration underwent PEG tube placement today after failing to MBS. 05/02: Patient with no complaints tolerating tube feeds, denies CP, SOB, N/V, abd pain and is at trageted tube feed goal currently waiting on placement. Review of Systems Review of Systems: 12 systems were reviewed and are negativ e except for as per HPI. All systems reviewed & are unremarkable except as noted in HPI and below Exam Narrative: GENERAL: Pleasant, in no acute distress. emaciated - EYES: EOMI. Anicteric. - HENT: Moist mucous membranes. - LUNGS: Clear to auscultation bilateral ly, no wheezing, rhonchi, or rales. - CARDIOVASCULAR: Regular rate and rhyth m. No murmur. No JVD. - ABDOMEN: Soft, non-tender and non-dist ended. No palpable masses. - EXTREMITIES: No edema. Peripheral puls es 2+. Non-tender. - NEUROLOGIC: No focal neurological defi cits. CN II-XII grossly intact. - PSYCHIATRIC: Awake, Alert and oriented x 3. Appropriate mood and affect. - SKIN: No rashes or lesions. Warm. Objective Data Vital Signs Vital Signs: Vital Signs - 24 hr 05/01/24 12:00 05/01/24 13:38 05/01/24 15:00 Temperature 97.9 F 97.3 F L Pulse Rate 72 61 102 H Respiratory Rate 19 20 24 H Blood Pressure 125/72 125/71 112/80 Pulse Oximetry 97 98 97 Oxygen Delivery Room Air Room Air 05/01/24 15:10 05/01/24 15:20 05/01/24 15:30 Temperature 97.7 F Pulse Rate 90 88 85 Respiratory Rate 20 20 14 Blood Pressure 101/78 132/76 110/74 Pulse Oximetry 97 96 100 Oxygen Delivery Room Air Room Air 05/01/24 20:00 05/01/24 20:00 05/01/24 23:56 Temperature 97.9 F 98.3 F Pulse Rate 93 88 Respiratory Rate 18 20 Blood Pressure 110/79 120/76 Pulse Oximetry 96 96 Oxygen Delivery Room Air 05/02/24 04:00 05/02/24 08:00 05/02/24 09:45 Temperature 97.7 F 97.9 F Pulse Rate 84 80 Respiratory Rate 18 17 Blood Pressure 107/60 108/68 Pulse Oximetry 93 100 Oxygen Delivery Room Air 05/02/24 09:49 Temperature Pulse Rate 85 Respiratory Rate 20 Blood Pressure Pulse Oximetry Oxygen Delivery Intake/Output Intake/Output: Intake & Output 04/29/24 04/30/24 05/01/24 05/02/24 23:59 23:59 23:59 23:59 Intake Total 1999 1999 1180 549 Output Total 250 300 300 450 Balance 1750 1700 880 99 Meds/Results Medications: Active Medications Generic Name Dose Route Start Last Admin Trade Name Freq PRN Reason Stop Dose Admin Acetaminophen 650 mg 04/19/24 18:39 04/21/24 08:58 Acetaminophen 325 Mg Tablet PO 650 mg Q6H PRN Administration Mild Pain (1-3) or Fever Hydrocodone Bitart/Acetaminophen 1 tab 05/01/24 16:04 05/02/24 10:18 Hydrocodone/Acetaminophen (*Crx) 5-325 Mg Tablet FEED TUBE 1 tab Q6H PRN Administration Pain Rated 4-6 Albuterol 2 puff 04/19/24 20:25 Albuterol Sulfate (*Sp) Aerosol 1 Puff INHALATION Q4HRT PRN SOB OR WHEEZING Dextrose 12.5 gm 05/01/24 16:03 Dextrose 50% 25 Gm/50 Ml Syringe IV PUSH PRN PRN Hypoglycemia Protocol Famotidine 20 mg 05/01/24 21:00 05/02/24 10:18 Famotidine 20 Mg Tablet FEED TUBE 20 mg Q12HR [facility] Administration Finasteride 5 mg 05/02/24 09:00 05/02/24 10:18 Finasteride 5 Mg Tablet FEED TUBE 5 mg DAILY [facility] Administration Folic Acid 1 mg 05/02/24 09:00 05/02/24 10:18 Folic Acid 1 Mg Tablet FEED TUBE 1 mg DAILY [facility] Administration Glucagon 1 mg 05/01/24 16:03 Glucagon For Inj 1 Mg Vial IM PRN PRN Hypoglycemia Protocol Glucose 15 gm 05/01/24 16:03 Glucose Oral Gel 15 Gm Of Glucse In 37.5 Gm Tube PO PRN PRN Hypoglycemia Protocol Guaifenesin 200 mg 05/01/24 16:02 Guaifenesin 200 Mg/10 Ml Udc FEED TUBE Q4H PRN Cough Dextrose 1,000 mls @ 100 mls/hr 05/01/24 16:03 Dextrose 5% 1,000 Ml IVPB PRN PRN Hypoglycemia Protocol Insulin Aspart 2 - 5 units 05/01/24 18:00 05/02/24 05:40 Insulin Aspart (*Bkc) 100 Units/Ml SUB-Q Not Given Q6HR [facility] Protocol Morphine Sulfate 2 mg 04/20/24 05:06 05/01/24 13:28 Morphine Sulfate (*Crx) 2 Mg/Ml Inj IV PUSH 2 mg Q2H PRN Administration Pain Rated 7-10 Ondansetron HCl 4 mg 04/24/24 11:15 04/24/24 11:25 Ondansetron Inj 4 Mg/2 Ml Vial IV PUSH 4 mg Q6H PRN Administration Nausea And Vomiting Sulfasalazine 1,500 mg 05/01/24 18:00 05/02/24 10:18 Sulfasalazine 500 Mg Tablet FEED TUBE 1,500 mg BIDPC [facility] Administration Umeclidinium/Vilanterol 1 puff 04/20/24 09:00 05/02/24 09:49 Umeclidinium/Vilanterol 62.5-25 Mcg Ellipta INHALATION 1 puff DAILY [facility] Administration Venlafaxine HCl 37.5 mg 05/01/24 22:00 05/02/24 06:26 Venlafaxine Hcl 37.5 Mg Tablet PO 37.5 mg Q8HR [facility] Administration Vitamin D 2,000 units 05/02/24 09:00 05/02/24 10:18 Cholecalciferol 1,000 Units Tablet FEED TUBE 2,000 units DAILY [facility] Administration Radiology Results: ITS Impressions Chest X-Ray 04/19/24 10:41 Impression: 1: Bilateral infiltrates, 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 Head CT 04/19/24 10:41 IMPRESSION: 1. Normal aging brain. No fracture or acute intracranial process. Pelvis X-Ray 04/19/24 10:49 Impression: 1: No acute fracture. Head/Cervical Spine/Facial Bones CT 04/19/24 11:08 IMPRESSION: 1. Minimally displaced mildly comminuted fracture at the anterior ring of C1. 2. Fracture of the right maxillary second bicuspid and dental disease with periapical lucencies at October 1999 at the contralateral left first and second maxillary bicuspid. 3. No maxillofacial fractures. 4. Instrumented C2-C7 anterior spinal fusion and C5-C7 laminectomies and instrumented posterior spinal fusion. 5. Moderate upper thoracic spondylosis. 6. UIP pattern chronic interstitial lung disease in the visualized upper lungs. Lumbar Spine CT 04/19/24 11:24 IMPRESSION: 1. 10 degrees lumbar levoscoliosis with severe spondylosis. No acute osseous abnormality. Modified Barium Swallow 04/29/24 14:38 IMPRESSION: Pharyngeal dysphagia with laryngeal penetration and aspiration with thin liquids. Please correlate with speech pathologist findings and specific feeding recommendations. Labs Labs: Laboratory Results - last 24 hr 05/01/24 05/01/24 05/02/24 18:23 23:55 04:38 WBC 6.2 RBC 3.30 L Hgb 11.3 L Hct 33.7 L MCV 102.1 H MCH 34.2 H MCHC 33.5 RDW 11.8 Plt Count 311 MPV 9.2 Sodium 134 L Potassium 3.4 Chloride 96 L Carbon Dioxide 29 Anion Gap 9 BUN 10 Creatinine 0.39 L Estim Creat Clear Calc 110 Estimated GFR > 60 Glucose 127 H POC Capillary Glucose 116 H 113 H Calcium 8.6 Magnesium 2.0 Total Bilirubin 0.7 AST 46 ALT 41 Alkaline Phosphatase 74 Total Protein 6.0 L Albumin 3.4 L 05/02/24 05:25 WBC RBC Hgb Hct MCV MCH MCHC RDW Plt Count MPV Sodium Potassium Chloride Carbon Dioxide Anion Gap BUN Creatinine Estim Creat Clear Calc Estimated GFR Glucose POC Capillary Glucose 136 H Calcium Magnesium Total Bilirubin AST ALT Alkaline Phosphatase Total Protein Albumin Quality VTE Prophylaxis VTE prophylaxis: mechanical ordered -Patient's previous records reviewed on admission -ER notes reviewed in detail on admission -discussed all findings and current treatment plan with patient/Family/POA -Consultations reviewed for recommendations -Patient's disposition for safe discharge discussed with heel caser Dictation performed by [employer] direct speech recognition software, therefore quill worker variants and typographical errors may occur. Hospitalist MIPS Advance Care Plan I have confirmed that the patient's Advanced Care Plan is present, code status is documented, or surrogate decision maker is listed in patient medical record.: Yes Medication Reconciliation I have utilized all available resources to obtain, update and review the patients current medications (includes all prescriptions, OTC, herbals, cannabis, and nutritional supplements).: Yes The patient is not eligible for med reconciliation; the patient is in a emergent medical situation where delaying treatment would jeopardize the patients health.: No
[2024-05-02 12:00] VITALS: BP 115/73; PULSE 82; RESP 18; TEMP 36.4; O2SAT 96
[2024-05-02 12:15] LABS: Glucose Point of Care 142 mg/dl (65-105)
--- NOTE | 2024-05-02 15:41 | WPDGIPROGNO ---
Progress Note: A&P Assessment and Plan (1) Dysphagia: Qualifiers: Dysphagia type: pharyngeal phase Qualified Code(s): R13.13 - Dysphagia, pharyngeal phase Code(s): R13.10 - Dysphagia, unspecified Status: Acute Assessment and Plan: s/p g tube placement and he is tolerating feeding without issues will follow as needed (2) Severe protein-calorie malnutrition: Code(s): E43 - Unspecified severe protein-calorie malnutrition Status: Acute Assessment and Plan: now he is on tube feeding at goal per electrical equipment tester recommendation (3) C1 cervical fracture: Qualifiers: Encounter type: initial encounter Fracture type: closed Fracture morphology: unspecified fracture morphology Fracture alignment: displaced Qualified Code(s): S12.000A - Unspecified displaced fracture of first cervical vertebra, initial encounter for closed fracture Code(s): S12.000A - Unspecified displaced fracture of first cervical vertebra, initial encounter for closed fracture Status: Acute (4) Macrocytic anemia: Code(s): D53.9 - Nutritional anemia, unspecified Status: Acute Assessment and Plan: stable (5) Aspiration into airway: Code(s): T17.908A - Unspecified foreign body in respiratory tract, part unspecified causing other injury, initial encounter Status: Acute Subjective Date/time seen: 05/02/24 15:41 Interval history: tolerating tube feeding at 60 ml/h Review of Systems Review of Systems: All systems reviewed & are unremarkable except as noted in HPI and below Exam Const: General: comfortable and no acute distress Other: thin HENMT: Face/Nose/Sinus: Normal nares present Eyes: General: appearance normal, both eyes and all related structures Neck: Neck: supple Resp: Auscultation: clear to auscultation bilaterally Cardio: Rate: regular rate Rhythm: regular rhythm GI: Inspection: non-distended GI Palp: Yes Soft to palpation and No Tenderness to palpation present (GI) Other: G-tube in place Skin: General skin exam: normal color Neuro: Speech: normal speech Extrem: General: normal to inspection Psych: Mental Status: mental status grossly normal Objective Data Vital Signs Vital Signs: Vital Signs - 24 hr 05/01/24 20:00 05/01/24 20:00 05/01/24 23:56 Temperature 97.9 F 98.3 F Pulse Rate 93 88 Respiratory Rate 18 20 Blood Pressure 110/79 120/76 Pulse Oximetry 96 96 Oxygen Delivery Room Air 05/02/24 04:00 05/02/24 08:00 05/02/24 09:45 Temperature 97.7 F 97.9 F Pulse Rate 84 80 Respiratory Rate 18 17 Blood Pressure 107/60 108/68 Pulse Oximetry 93 100 Oxygen Delivery Room Air 05/02/24 09:49 05/02/24 12:00 Temperature 97.6 F Pulse Rate 85 82 Respiratory Rate 20 18 Blood Pressure 115/73 Pulse Oximetry 96 Oxygen Delivery Intake/Output Intake/Output: Intake & Output 04/29/24 04/30/24 05/01/24 05/02/24 23:59 23:59 23:59 23:59 Intake Total 1999 1999 1180 549 Output Total 250 300 300 450 Balance 1750 1700 880 99 Meds/Results Medications: Active Medications Generic Name Dose Route Start Last Admin Trade Name Freq PRN Reason Stop Dose Admin Acetaminophen 650 mg 04/19/24 18:39 04/21/24 08:58 Acetaminophen 325 Mg Tablet PO 650 mg Q6H PRN Administration Mild Pain (1-3) or Fever Hydrocodone Bitart/Acetaminophen 1 tab 05/01/24 16:04 05/02/24 10:18 Hydrocodone/Acetaminophen (*Crx) 5-325 Mg Tablet FEED TUBE 1 tab Q6H PRN Administration Pain Rated 4-6 Albuterol 2 puff 04/19/24 20:25 Albuterol Sulfate (*Sp) Aerosol 1 Puff INHALATION Q4HRT PRN SOB OR WHEEZING Dextrose 12.5 gm 05/01/24 16:03 Dextrose 50% 25 Gm/50 Ml Syringe IV PUSH PRN PRN Hypoglycemia Protocol Famotidine 20 mg 05/01/24 21:00 05/02/24 10:18 Famotidine 20 Mg Tablet FEED TUBE 20 mg Q12HR LUCA Administration Finasteride 5 mg 05/02/24 09:00 05/02/24 10:18 Finasteride 5 Mg Tablet FEED TUBE 5 mg DAILY LUCA Administration Folic Acid 1 mg 05/02/24 09:00 05/02/24 10:18 Folic Acid 1 Mg Tablet FEED TUBE 1 mg DAILY LUCA Administration Glucagon 1 mg 05/01/24 16:03 Glucagon For Inj 1 Mg Vial IM PRN PRN Hypoglycemia Protocol Glucose 15 gm 05/01/24 16:03 Glucose Oral Gel 15 Gm Of Glucse In 37.5 Gm Tube PO PRN PRN Hypoglycemia Protocol Guaifenesin 200 mg 05/01/24 16:02 Guaifenesin 200 Mg/10 Ml Udc FEED TUBE Q4H PRN Cough Dextrose 1,000 mls @ 100 mls/hr 05/01/24 16:03 Dextrose 5% 1,000 Ml IVPB PRN PRN Hypoglycemia Protocol Insulin Aspart 2 - 5 units 05/01/24 18:00 05/02/24 12:13 Insulin Aspart (*Bkc) 100 Units/Ml SUB-Q Not Given Q6HR LUCA Protocol Morphine Sulfate 2 mg 04/20/24 05:06 05/01/24 13:28 Morphine Sulfate (*Crx) 2 Mg/Ml Inj IV PUSH 2 mg Q2H PRN Administration Pain Rated 7-10 Ondansetron HCl 4 mg 04/24/24 11:15 04/24/24 11:25 Ondansetron Inj 4 Mg/2 Ml Vial IV PUSH 4 mg Q6H PRN Administration Nausea And Vomiting Sulfasalazine 1,500 mg 05/01/24 18:00 05/02/24 10:18 Sulfasalazine 500 Mg Tablet FEED TUBE 1,500 mg BIDPC LUCA Administration Umeclidinium/Vilanterol 1 puff 04/20/24 09:00 05/02/24 09:49 Umeclidinium/Vilanterol 62.5-25 Mcg Ellipta INHALATION 1 puff DAILY LUCA Administration Venlafaxine HCl 37.5 mg 05/01/24 22:00 05/02/24 13:38 Venlafaxine Hcl 37.5 Mg Tablet PO 37.5 mg Q8HR LUCA Administration Vitamin D 2,000 units 05/02/24 09:00 05/02/24 10:18 Cholecalciferol 1,000 Units Tablet FEED TUBE 2,000 units DAILY LUCA Administration Radiology Results: ITS Impressions Chest X-Ray 04/19/24 10:41 Impression: 1: Bilateral infiltrates, 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 Head CT 04/19/24 10:41 IMPRESSION: 1. Normal aging brain. No fracture or acute intracranial process. Pelvis X-Ray 04/19/24 10:49 Impression: 1: No acute fracture. Head/Cervical Spine/Facial Bones CT 04/19/24 11:08 IMPRESSION: 1. Minimally displaced mildly comminuted fracture at the anterior ring of C1. 2. Fracture of the right maxillary second bicuspid and dental disease with periapical lucencies at October 1999 at the contralateral left first and second maxillary bicuspid. 3. No maxillofacial fractures. 4. Instrumented C2-C7 anterior spinal fusion and C5-C7 laminectomies and instrumented posterior spinal fusion. 5. Moderate upper thoracic spondylosis. 6. UIP pattern chronic interstitial lung disease in the visualized upper lungs. Lumbar Spine CT 04/19/24 11:24 IMPRESSION: 1. 10 degrees lumbar levoscoliosis with severe spondylosis. No acute osseous abnormality. Modified Barium Swallow 04/29/24 14:38 IMPRESSION: Pharyngeal dysphagia with laryngeal penetration and aspiration with thin liquids. Please correlate with speech pathologist findings and specific feeding recommendations. Labs Labs: Laboratory Results - last 24 hr 05/01/24 05/01/24 05/02/24 18:23 23:55 04:38 WBC 6.2 RBC 3.30 L Hgb 11.3 L Hct 33.7 L MCV 102.1 H MCH 34.2 H MCHC 33.5 RDW 11.8 Plt Count 311 MPV 9.2 Sodium 134 L Potassium 3.4 Chloride 96 L Carbon Dioxide 29 Anion Gap 9 BUN 10 Creatinine 0.39 L Estim Creat Clear Calc 110 Estimated GFR > 60 Glucose 127 H POC Capillary Glucose 116 H 113 H Calcium 8.6 Magnesium 2.0 Total Bilirubin 0.7 AST 46 ALT 41 Alkaline Phosphatase 74 Total Protein 6.0 L Albumin 3.4 L 05/02/24 05/02/24 05:25 11:50 WBC RBC Hgb Hct MCV MCH MCHC RDW Plt Count MPV Sodium Potassium Chloride Carbon Dioxide Anion Gap BUN Creatinine Estim Creat Clear Calc Estimated GFR Glucose POC Capillary Glucose 136 H 142 H Calcium Magnesium Total Bilirubin AST ALT Alkaline Phosphatase Total Protein Albumin
[2024-05-02 16:00] VITALS: BP 98/69; PULSE 73; RESP 18; TEMP 36.6; O2SAT 95
[2024-05-02 17:15] LABS: Glucose Point of Care 130 mg/dl (65-105)
[2024-05-02 20:00] VITALS: BP 116/72; PULSE 83; RESP 18; TEMP 36.7; O2SAT 97
[2024-05-03] VITALS: BP 112/68; PULSE 81; RESP 18; TEMP 36.9; O2SAT 96
[2024-05-03 00:38] LABS: Glucose Point of Care 136 mg/dl (65-105)
[2024-05-03 04:00] VITALS: BP 112/68; PULSE 89; RESP 18; TEMP 36.5; O2SAT 97
[2024-05-03 05:05] LABS: Hemoglobin 11.9 g/dL (14.0-18.0); Mean Corpuscular HGB Conc 33.1 g/dl (32-36); Mean Corpuscular Hemoglobin 34.3 pg (26-34); Mean Corpuscular Volume 103.7 fl (80-100); Mean Platelet Volume 9.4 fl (7.4-10.4); Platelet Count Result 298 k/mm3 (150-375); Red Blood Count 3.47 M/mm3 (4.6-6.20); Red Cell Distribution Width 11.9 % (11.5-14.5); White Blood Count 7.9 K/mm3 (4.5-10.0)
[2024-05-03 05:17] LABS: Alanine Aminotransferase 35 U/L (6-50); Albumin Level 3.6 g/dL (3.5-5.1); Alkaline Phosphatase 76 U/L (38-126); Anion Gap 8 mmol/L (4-12); Aspartate Amino Transferase 32 U/L (17-59); Bilirubin,Total 0.5 mg/dL (0.2-1.3); Blood Urea Nitrogen 18 mg/dL (9-20); Calcium 8.7 mg/dL (8.4-10.2); Carbon Dioxide 35 mmol/L (22-30); Chloride 94 mmol/L (98-107); Estimated CRCL calculation 114 ml/min; Estimated Glomerular Filt Rate > 60; Glucose 133 mg/dL (65-110); Magnesium 1.9 mg/dL (1.6-2.3); Potassium 3.9 mmol/L (3.4-5.0); Sodium 137 mmol/L (137-145)
[2024-05-03] MEDS: HYDROcodone/acetaminophen (*CRX) 5-325 MG TABLET 1 TAB FEED TUBE ×3 (05:26→17:38)
[2024-05-03] MEDS: VENLAFAXINE HCL 37.5 MG TABLET PO ×2 (05:27→14:00)
[2024-05-03 06:07] LABS: Glucose Point of Care 133 mg/dl (65-105)
[2024-05-03 08:00] VITALS: BP 117/68; PULSE 85; RESP 16; TEMP 37.1; O2SAT 95
[2024-05-03] MEDS: UMECLIDINIUM/VILANTEROL 62.5-25 MCG ELLIPTA 1 PUFF INHALATION (08:03)
[2024-05-03] MEDS: FINASTERIDE 5 MG TABLET FEED TUBE (10:47)
[2024-05-03] MEDS: CHOLECALCIFEROL 1,000 UNITS TABLET 2000 UNITS FEED TUBE (10:47)
[2024-05-03] MEDS: FAMOTIDINE 20 MG TABLET FEED TUBE (10:47)
[2024-05-03] MEDS: sulfaSALAzine 500 MG TABLET 1500 MG FEED TUBE ×2 (10:48→17:37)
[2024-05-03] MEDS: FOLIC ACID 1 MG TABLET FEED TUBE (10:48)
--- NOTE | 2024-05-03 10:59 | PCNFU ---
Nutrition Follow-Up Complete: Inability to meet nutrition needs PO related to dysphagia/aspiration as evidenced by MBS Goal: Meet estimated nutrition needs Patient is meeting current goal. No new goal. Pt current nutrition is Jevity 1.5 at 60 ml/hr. Last recorded weight is 62.6 kg, up down from 63 kg on admit. Bowel Motility:+BM reported 04/29 Labs Reviewed: Glu 133, Cr 0.38, Hct 36.0, Hgb 11.9 Meds Noted: Vit D, Protonix, Folic Acid Skin: WNL Additional Notes: Patient is currently with PEG. Tube feedings are being tolerated of Jevity 1.5 at 60 ml/hr (22 hours). Total Nutrition: 1980 kcal/84 gm protein/1003 ml water. Flush 100 ml q 4 hours. Agree with diet orders. Monitoring plan of care, weights, labs, diet orders Follow up Monday/Monday
[2024-05-03 12:00] VITALS: BP 121/72; PULSE 87; RESP 16; TEMP 37.2; O2SAT 96
[2024-05-03 12:30] LABS: Glucose Point of Care 120 mg/dl (65-105)
[2024-05-03 16:00] VITALS: BP 124/65; PULSE 92; RESP 16; TEMP 36.8; O2SAT 96
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
[2024-05-03 17:12] LABS: SARS-CoV-2 RNA PCR Negative (Negative)
[2024-05-03 17:14] LABS: Glucose Point of Care 113 mg/dl (65-105)
[2024-05-03 19:26] VITALS: BP 120/72; PULSE 83; RESP 20; TEMP 37; O2SAT 95
== END 2024-05-03 19:55 | DRG 551 ==
LOC: ANHED 09:55 → ANH2MED 14:32
PROVIDERS: General Practice; Internal Medicine; Internal Medicine Gastroenterology; Physician Assistant; Admitting Provider Internal Medicine; Emergency Provider Physician Assistant; PCP Nurse Practitioner; Visit Provider Nurse Practitioner Family
PROC: 0DH63UZ Insertion of Feeding Device into Stomach, Percutaneous Approach (ICD-10-PCS; CPT 43246; principal; 2024-05-01 15:00)
DX: S12.090A Other displaced fracture of first cervical vertebra, initial encounter for closed fracture (principal); E43 Unspecified severe protein-calorie malnutrition; J18.9 Pneumonia, unspecified organism; J96.01 Acute respiratory failure with hypoxia; K50.90 Crohn's disease, unspecified, without complications; K51.90 Ulcerative colitis, unspecified, without complications; Z68.1 Body mass index [BMI] 19.9 or less, adult; Y04.2XXA Assault by strike against or bumped into by another person, initial encounter; S01.81XA Laceration without foreign body of other part of head, initial encounter; T17.908A Unspecified foreign body in respiratory tract, part unspecified causing other injury, initial encounter; E78.5 Hyperlipidemia, unspecified; D53.9 Nutritional anemia, unspecified; K52.9 Noninfective gastroenteritis and colitis, unspecified; R91.8 Other nonspecific abnormal finding of lung field; K21.9 Gastro-esophageal reflux disease without esophagitis; G62.9 Polyneuropathy, unspecified; N40.0 Benign prostatic hyperplasia without lower urinary tract symptoms; R13.10 Dysphagia, unspecified; W19.XXXA Unspecified fall, initial encounter; Z96.651 Presence of right artificial knee joint; Z98.1 Arthrodesis status; Z87.891 Personal history of nicotine dependence
CPT/HCPCS: 12011; 36415; 43246; 70450; 70486; 71045; 72125; 72131; 72170; 80048; 80053; 82607; 82746; 82948; 83735; 85025; 85027; 87635; 87637; 90471; 90715; 92526; 92610; 92611; 93005; 94640; 96365; 96368; 97110; 97161; 97165; 97530; 97535; 99285; A9270; G0378; J0456; J0690; J0696; J2270; J2405; J2704; J3475; J7120; J7121

== ENCOUNTER 2024-05-04 02:30 | Observation (INO) | payer MEDICARE, SELFPAY ==
[2024-05-04] VITALS (17 sets, daily range): BP systolic 98–131; BP diastolic 68–87; PULSE 82–101; RESP 12–20; TEMP 36.1–37.1; O2SAT 94–100; BMI 19.8
--- NOTE | ~2024-05-04 | CT_ITS ---
History: C1 fracture on CT examination performed more than 2 weeks earlier PROCEDURE: CT cervical spine without intravenous contrast. COMPARISON: 04/19/2024 TECHNIQUE: Multiple contiguous axial images of the cervical spine were performed without the administration of i ntravenous contrast. DLP: 299 mGy-cm FINDINGS: Redemonstration of the mildly comminuted minimally displaced fracture of the anterior ring of C1, now well-corticated and with trace callus formation. Anterior fixation at the levels of C2-C7. Laminectomy change from C5 through C7. Posterior fixation at the levels of C5-C7 Fusion without fixation within the bilateral C7-T1 facet joints and at the left C2-C5 on the right C2 /C3 through C4/C5 facet joints. Diffuse bony demineralization is also detected. No acute fractures are present. Peripheral honeycombing within the bilateral apices with bleb formation consistent with patient's kno wn interstitial lung disease. The airway is patent. Impression: Stable CT examination of the cervical spine, unchanged from study performed more than 2 weeks earlier with redemonstration of the mildly comminuted minimally displaced fracture of the anterior ring of C 1, now well corticated and with trace callus formation. Extensive fixation of the remainder of the ce rvical spine is also redemonstrated. Reviewed, dictated and finalized at location A. [facility] Impression: Stable CT examination of the cervical spine, unchanged from study performed mor e than 2 weeks earlier with redemonstration of the mildly comminuted minimally displaced fracture of the anterior ring of C1, now well corticated and with tra ce callus formation. Extensive fixation of the remainder of the cervical spine is also redemonstrated.
--- NOTE | 2024-05-04 02:40 | ED_ITS ---
HPI - General Adult General Chief complaint: Unspecified Stated complaint: G tube dislodged Time Seen by Provider: 05/04/24 02:35 History of Present Illness HPI narrative: Patient was admitted here recently and had a fresh G-tube placed 3 days ago presents here after the G-tube came out. Patient does not know how this happened. Related Data Allergies Allergy/AdvReac Type Severity Reaction Status Date / Time lidocaine Allergy Severe shuts Verified 05/01/24 13:20 lungs down Review of Systems 2 Review of Systems: All systems reviewed & are unremarkable except as noted in HPI and below PMFSH Past Medical History Medical History (Updated 05/04/24 @ 05:42 by Maame Harris MD) Aspiration into airway Pure hypercholesterolemia Depression Peripheral neuropathy Ataxia Benign prostatic hyperplasia Left rib fracture Pneumothorax Crohn's disease Ulcerative colitis Hyperlipidemia Gastro-esophageal reflux disease without esophagitis Surgical History Surgical History History of spinal surgery History of arthroplasty of right knee History of chest tube placement Family History Family History Father No problems noted. Mother No problems noted. Sibling No problems noted. Other Family history non-contributory Social History Social History Social History: Surrogate medical decision maker: Ofelia Noland, eleno. Code status: Full code. Smoking packs per day: 2 Smoking cigarettes per day: 40.0 Years smoked: 15 Smoking pack-years: 30.00 Smoking status: Former smoker Second hand tobacco smoke exposure: No Additional smoking assessment comments: quit in 1980 Alcohol intake: current Drinks per week: 14 Alcohol use details: 3 per day Substance use: never Substance use type: does not use Do You Feel Safe in your Home?: Yes Lack of Transportation: YES Lack of Food: Never True Current Housing: I Have Housing Concerned About Future Housing: No Difficulty Paying Gas/Electric Bills: No Difficulty Paying for Meds: No Currently Unemployed: No Education: High School Diploma/GED Difficulty w/ Childcare or Family Care: No Living arrangements: with family Occupation/Education: retired 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 Spiritual care concerns: No Exam 2 Narrative: EXAMINATION OF ORGAN SYSTEMS/BODY AREAS: Constitutional: Vital signs per nursing GENERAL:[No acute distress, non-toxic appearing.] HEAD: Normal with no signs of head trauma. Temporal wasting EYES: EOMI, conjunctiva normal ENT: Hearing grossly intact LUNGS: Nonlabored breathing. HEART: [Regular rate and rhythm] ABD: [Soft], [nontender to palpation], incision site where G-tube was appears clean, dry, intact EXT: Normal range of motion SKIN: [No rashes or lesions.] NEURO: [Alert. No gross focal sensory or strength deficits.] PSYCH: Normal affect Course Vital Signs Vital signs: Vital Signs Temperature 97.9 F 05/04/24 02:29 Pulse Rate 95 05/04/24 02:29 Respiratory Rate 20 05/04/24 02:29 Blood Pressure 105/74 05/04/24 02:29 Pulse Oximetry 94 05/04/24 02:29 Oxygen Delivery Room Air 05/04/24 02:29 Temperature 97.9 F 05/04/24 02:29 Pulse Rate 95 05/04/24 02:29 Respiratory Rate 20 05/04/24 02:29 Blood Pressure 105/74 05/04/24 02:29 Pulse Oximetry 94 05/04/24 02:29 Oxygen Delivery Room Air 05/04/24 02:29 Medical Decision Making MDM Narrative Medical decision making narrative: Patient was admitted here recently and had a fresh G-tube placed 3 days ago presents here after the G-tube came out. Patient does not know how this happened. I cannot replace it he since he does not have a developed tract; will have to be admitted for replacement of G-tube. Discussed with hospitalist and with GI who will arrange for replacement tmr. Vital Signs Vital Signs: Vital Signs Temperature 97.9 F 05/04/24 02:29 Pulse Rate 95 05/04/24 02:29 Respiratory Rate 20 05/04/24 02:29 Blood Pressure 105/74 05/04/24 02:29 Pulse Oximetry 94 05/04/24 02:29 Oxygen Delivery Room Air 05/04/24 02:29 Temperature 97.9 F 05/04/24 02:29 Pulse Rate 95 05/04/24 02:29 Respiratory Rate 20 05/04/24 02:29 Blood Pressure 105/74 05/04/24 02:29 Pulse Oximetry 94 05/04/24 02:29 Oxygen Delivery Room Air 05/04/24 02:29 Lab Data 05/04/24 03:00 05/04/24 03:00 Labs: Lab Results 05/04/24 Range/Units 03:00 WBC 13.4 H (4.5-10.0) K/mm3 RBC 3.85 L (4.6-6.20) M/mm3 Hgb 13.2 L (14.0-18.0) g/dL Hct 39.8 L (42.0-52.0) % MCV 103.4 H (80-100) fl MCH 34.3 H (26-34) pg MCHC 33.2 (32-36) g/dl RDW 12.1 (11.5-14.5) % Plt Count 314 (150-375) k/mm3 MPV 9.7 (7.4-10.4) fl Immature Gran % (Auto) 0.5 (0-0.5) % Neut % (Auto) 88.6 H (45.5-73.1) % Lymph % (Auto) 5.3 L (18.3-44.2) % Gillespie % (Auto) 5.4 (2.6-8.5) % Eos % (Auto) 0.1 (0-4.4) % Baso % (Auto) 0.1 L (0.2-1.2) % Lymph # (Auto) 0.71 L (0.9-3.2) K/mm3 Gillespie # (Auto) 0.7 H (0.1-0.6) K/mm3 Eos # (Auto) 0.0 (0-0.3) K/mm3 Baso # (Auto) 0.0 (0.0-0.1) K/mm3 Abs Immat Gran (auto) 0.07 H (0.00-0.031) K/mm3 Absolute Neuts (auto) 11.9 H (1.3-6.7) K/mm3 Absolute Nucleated RBC 0.000 (0.0-0.012) K/mm3 Nucleated RBC % 0.0 (0.0-0.2) % Sodium 137 (137-145) mmol/L Potassium 3.9 (3.4-5.0) mmol/L Chloride 94 L (98-107) mmol/L Carbon Dioxide 32 H (22-30) mmol/L Anion Gap 11 (4-12) mmol/L BUN 22 H (9-20) mg/dL Creatinine 0.35 L (0.7-1.3) mg/dL Estim Creat Clear Calc 127 ml/min Estimated GFR > 60 (59 - ) Glucose 161 H (65-110) mg/dL Calcium 9.1 (8.4-10.2) mg/dL Discharge Plan Discharge Clinical Impression: Dislodged gastrostomy tube Patient Disposition: Still a Patient Condition: Stable Patient Language: Filipino Prescriptions: No Action tiotropium-olodaterol 2.5-2.5 mcg/actuation mist 2 puff inhalation DAILY Qty: 4 3RF sulfasalazine 500 mg Tablet 1,500 mg feeding tube BIDPC Qty: 1 0RF hydrocodone-acetaminophen 5-325 mg Tablet 1 tablet feeding tube Q6H PRN (Reason: Pain Rated 4-6) Qty: 20 0RF guaifenesin 100 mg/5 mL Liquid 200 mg feeding tube Q4H PRN (Reason: Cough) Qty: 1 0RF famotidine 20 mg Tablet 20 mg feeding tube Q12HR Qty: 2 0RF venlafaxine 37.5 mg Tablet 37.5 mg PO Q8HR Qty: 1 0RF folic acid 1 mg Tablet 1 mg feeding tube DAILY Qty: 1 0RF finasteride [Proscar] 5 mg Tablet 5 mg feeding tube DAILY Qty: 1 0RF cholecalciferol (vitamin D3) [Vitamin D3] 25 mcg (1,000 unit) Tablet 50 mcg feeding tube DAILY Qty: 1 0RF albuterol sulfate 90 mcg/actuation HFA aerosol inhaler See Rx Instructions .ROUTE .COMPLEX Qty: 8.5 3RF Dose Instruction: INHALE 2 PUFFS BY MOUTH EVERY 4 HOURS NEEDED FOR SHORTNESS OF BREATH OR WHEEZING Rx Instructions: INHALE 2 PUFFS BY MOUTH EVERY 4 HOURS NEEDED FOR SHORTNESS OF BREATH OR WHEEZING Follow-up/Referrals: Krystian Taveras APRN [Primary Care Provider] -
--- OUTSIDE RECORDS SUMMARY | 2024-05-04 02:42 | XMS_ITS | Referral Summary ---
Author Organization [facility] Address [address] [place] [address] Care Team Providers Care Resident Care Manager Rn Name Role Phone Slade Bush MD Primary Care Provider [phone]- [phone] Encounters Date Type Department Care Team Description 03/11/2024 Orders Only [facility] Cardiology [address] [place] [address] Nova Yoo NP from Last [...] Smoking Tobacco: Former Cigarettes Smokeless Tobacco: Never [facility] [employer] Answer Date Recorded In the past 12 months has [employer], gas, oil, or water [employer] threatened to shut off services in your [...] declined 10/07/2023 How often do you attend evangelical or jew serv ices? Patient declined 10/07/2023 Do you belong to any clubs o r organizations such as evangelical groups, unions, fraternal or athletic groups, or [...] and heating? Not hard at all 10/07/2023 [facility] [place] of Occupat ional Health - Occupational Stress [...] any time in the past 12 m [facility], were you homeless or living in a correction (including now)? No 10/07/2023 Personal Safety Answer Date Recorded Have you ever been in or are you currently in a harmful physical or emotional relationship or is someone making you feel afraid or unsafe? Denies 10/13/2023 Sex and Gender Information Value Date Recorded Sex Assigned at Not on file Legal Sex Male 2:53 AM ORGAN INSTALLER Gender Identity Not on file Sexual Orientation Not on file Last Filed Vital Signs Vital Sign Reading Time Taken Comments Blood Pressure 132/79 10/18/2023 3:10 PM CDT Pulse 79 10/18/2023 3:10 PM CDT Temperature 36.5 C (97.7 F) 10/18/2023 3:10 PM CDT Respiratory Rate 18 10/18/2023 3:10 PM CDT [...] CARDIOLOGY DOCUMENT SCAN Routine 02/27/2024 3:11 PM ORGAN INSTALLER from Last 3 Months Results * Cardiology Document Scan (02/27/2024 3:11 PM ORGAN INSTALLER) Anatomical Region Laterality Modality Other Nova Yoo NP CV CARDIAC SERVICES PROCEDUR ES Final Result from Last 3 Months Insurance MEDICARE SOLUTIONS [place] [id number] MEDICARE SOLUTIONS Advance Directives For more information, please contact: [phone] * Full Code (Latest Code Status on File) Date Activated Date Inactivated Comments 10/07/2023 9:43 AM 10/18/2023 8:35 PM Care Teams Resident Care Manager Rn Relationship Specialty Start Date End Date Slade Bush MD [address] [place], [place] [id number] PCP - General 07/27/12
--- OUTSIDE RECORDS SUMMARY | 2024-05-04 02:42 | XMS_ITS | Clinical Summary ---
Author Organization [facility] Address [address] [facility] [place] [address] Care Team Providers Care Box Packer Name Role Phone Slade Bush DO Primary Care Provider +1 [phone] Source Comments [facility],non-owned Affiliates and Associated Physician Practices is amultiple site organization consisting of ambulatory clinics and hospital sitesin [place], [place], [place] and [place]. This disclosure is being madepursuant to the Care Everywhere program and may not contain all information available regarding this patient. Last updated 17.[facility] Allergies Active Allergy Reactions Criticality Noted Date [...] Comments Blood Pressure 128/73 03/23/2015 9:30 AM CORPORATE STRATEGY ANALYST Pulse 74 03/23/2015 9:10 AM CORPORATE STRATEGY ANALYST Temperature 36.7 C (98 F) 03/23/2015 9:30 AM CORPORATE STRATEGY ANALYST Respiratory Rate 18 03/23/2015 9:30 AM CORPORATE STRATEGY ANALYST Oxygen Saturation 97% 03/23/2015 9:30 AM CORPORATE STRATEGY ANALYST Inhaled Oxygen Concentration - - Weight 88.5 kg (195 lb) 03/23/2015 6:38 AM CORPORATE STRATEGY ANALYST Height 188 cm (6' 2 ) 03/23/2015 6:38 AM CORPORATE STRATEGY ANALYST Body Mass Index 25.04 03/23/2015 6:38 AM CORPORATE STRATEGY ANALYST Plan of Treatment Health Maintenance Due Date [...] (#1) 2023 DEPRESSION SCREENING 03/20/2024 MEDICARE AWV CALENDAR YEAR 2024 HEPATITIS B VACCINE Aged [...] this topic Medical Devices Implanted Type Area Wet Washer Machine Device Identifier Shelf Expiration Date Model / Serial / Lot Raudel Gonsalez Dbm Jar 2.0cc - [id number] Implanted:Qty: 1 on 12/25/2014 by Anthony Recinos MD at [facility] [employer] 01/07/2017 [id number] / [id number] / Space Peek 8 X 16 X 14mm - [id number] Implanted:Qty: 1 on 12/25/2014 by Anthony Recinos MD at [facility] [employer] 01/20/2022 [id number] / [id number] / Space Peek 7 X 16 X 14mm - [id number] Implanted:Qty: 1 on 12/25/2014 by Anthony Recinos MD at [facility] [employer] 07/17/2022 [id number] / [id number] / Space Peek 7 X 16 X 14mm - [id number] Implanted:Qty: 1 on 12/25/2014 by Anthony Recinos MD at [facility] [employer] 07/17/2022 [id number] / [id number] / Plate Ant Cerv Assem 70mm Implanted:Qty: 1 on 12/25/2014 by Anthony Recinos MD at [facility] [employer] [id number] / / Scrw Self Drill Jeronimo 4.0 X 15 Implanted:Qty: 8 on 12/25/2014 by Anthony Recinos MD at [facility] [employer] [id number] / / Advance Directives * Full Code (Latest Code Status on File) Date Activated Date Inactivated Comments 12/25/2014 5:23 PM 12/25/2014 7:56 PM Care Teams Box Packer Relationship Specialty Start Date End Date Slade Bush DO [address] [facility] [address] [address] [place] [address] PCP - General Internal Medicine 07/08/14
--- OUTSIDE RECORDS SUMMARY | 2024-05-04 02:42 | XMS_ITS | Referral Summary ---
Author Organization [facility] Address [address] [facility] [place] [address] Care Team Providers Care Electronics Warfare Technician Name Role Phone Slade Bush DO Primary Care Provider [phone] [phone] Source Comments [facility],non-owned Affiliates and Associated Physician Practices is amultiple site organization consisting of ambulatory clinics and hospital sitesin [place], [place], [place] and [place]. This disclosure is being madepursuant to the Care Everywhere program and may not contain all information available regarding this patient. Last updated 17.[facility] Allergies Active Allergy Reactions Criticality Noted [...] Comments Blood Pressure 128/73 03/23/2015 9:30 AM WET PLANT OPERATOR Pulse 74 03/23/2015 9:10 AM WET PLANT OPERATOR Temperature 36.7 C (98 F) 03/23/2015 9:30 AM WET PLANT OPERATOR Respiratory Rate 18 03/23/2015 9:30 AM WET PLANT OPERATOR Oxygen Saturation 97% 03/23/2015 9:30 AM WET PLANT OPERATOR Inhaled Oxygen Concentration - - Weight 88.5 kg (195 lb) 03/23/2015 6:38 AM WET PLANT OPERATOR Height 188 cm (6' 2 ) 03/23/2015 6:38 AM WET PLANT OPERATOR Body Mass Index 25.04 03/23/2015 6:38 AM WET PLANT OPERATOR Functional Status Functional Status Response Date of [...] on file Medical Devices Implanted Type Area Music Professor Device Identifier Shelf Expiration Date Model / Serial / Lot Putty Bone Sunshine [facility] Jar 2.0cc - [id number] Implanted:Qty: 1 on 12/25/2014 by Anthony Recinos MD at [facility] [employer] 01/07/2017 [id number] / [id number] / Space Peek 8 X 16 X 14mm - [id number] Implanted:Qty: 1 on 12/25/2014 by Anthony Recinos MD at [facility] [employer] 01/20/2022 [id number] / [id number] / Space Peek 7 X 16 X 14mm - [id number] Implanted:Qty: 1 on 12/25/2014 by Anthony Recinos MD at [facility] [employer] 07/17/2022 [id number] / [id number] / Space Peek 7 X 16 X 14mm - [id number] Implanted:Qty: 1 on 12/25/2014 by Anthony Recinos MD at [facility] [employer] 07/17/2022 [id number] / [id number] / Plate Ant Cerv Assem 70mm Implanted:Qty: 1 on 12/25/2014 by Anthony Recinos MD at [facility] [employer] [id number] / / Scrw Self Drill Jeronimo 4.0 X 15 Implanted:Qty: 8 on 12/25/2014 by Anthony Recinos MD at [facility] [employer] [id number] / / Advance Directives * Full Code (Latest Code Status on File) Date Activated Date Inactivated Comments 12/25/2014 5:23 PM 12/25/2014 7:56 PM Care Teams Electronics Warfare Technician Relationship Specialty Start Date End Date Slade Bush DO [address] [facility] [address] [facility] [address] [place], [place] [id number] PCP - General Internal Medicine 07/08/14
--- OUTSIDE RECORDS SUMMARY | 2024-05-04 02:42 | XMS_ITS | Clinical Summary ---
Author Organization [facility] Address [address] [place] [address] Care Team Providers Care Hotel Maid Name Role Phone Slade Bush MD Primary Care Provider +1- [phone] Allergies Active Allergy Reactions Criticality Noted Date [...] Department Care Team Description 03/11/2024 Orders Only [facility] Cardiology [address] [place] [address] Nova Yoo NP from Last 3 Months Social History Tobacco Use Types Packs/Day Years Used Date Smoking Tobacco: Former Cigarettes Smokeless Tobacco: Never [facility] Utilities Answer Date Recorded In the past 12 months has e electric, gas, oil, or water [employer] threatened to shut off services in your [...] declined 10/07/2023 How often do you attend latter day or yazidism serv ices? Patient declined 10/07/2023 Do you belong to any clubs o r organizations such as latter day groups, unions, fraternal or athletic groups, or [...] and heating? Not hard at all 10/07/2023 [facility] [place] of Occupat ional Health - Occupational Stress [...] time in the past 12 m [facility], were you homeless or living in a fci (including now)? No 10/07/2023 Personal Safety Answer Date Recorded Have you ever been in or are you currently in a harmful physical or emotional relationship or is someone making you feel afraid or unsafe? Denies 10/13/2023 Sex and Gender Information Value Date Recorded Sex Assigned at Not on file Legal Sex Male 2:53 AM HOT PLATE PLYWOOD PRESS FEEDER Gender Identity Not on file Sexual Orientation [...] CARDIOLOGY DOCUMENT SCAN Routine 02/27/2024 3:11 PM HOT PLATE PLYWOOD PRESS FEEDER from Last 3 Months Results * Cardiology Document Scan (02/27/2024 3:11 PM HOT PLATE PLYWOOD PRESS FEEDER) Anatomical Region Laterality Modality Other Nova Yoo NP CV CARDIAC SERVICES PROCEDUR ES Final Result from Last 3 Months Insurance MEDICARE SOLUTIONS MEDICARE [employer] Advance Directives For more information, please contact: [phone] * Full Code (Latest Code Status on File) Date Activated Date Inactivated Comments 10/07/2023 9:43 AM 10/18/2023 8:35 PM Care Teams Hotel Maid Relationship Specialty Start Date End Date Slade Bush MD [address] [facility] [address] [place] [address] PCP - General 07/27/12
--- OUTSIDE RECORDS SUMMARY | 2024-05-04 02:42 | XMS_ITS | Clinical Summary ---
Author Organization [facility] Address [address] [place] [address] Care Team Providers Care Cleaner Housekeeping Name Role Phone Unavailable Primary Care Provider [...]
--- OUTSIDE RECORDS SUMMARY | 2024-05-04 02:42 | XMS_ITS | Patient Health Summary ---
Author Organization [facility] Address [address] [place] [address] Care Team Providers Care Math Specialist Name Role Phone EleazarSlade DO Primary Care Provider [phone] [phone] Note from [facility],non-owned Affiliates and Associated Physician Practices is amultiple site organization consisting of ambulatory clinics and hospital sitesin [place], [place], [place] and [place]. This disclosure is being madepursuant to the Care Everywhere program and may not contain all information available regarding this patient. Last updated 17.[facility] Allergies * Lidocaine(Anaphylaxis,Shortness of Breath) -High Criticality [...] Comments Blood Pressure 128/73 03/23/2015 9:30 AM CURRICULUM CONSULTANT Pulse 74 03/23/2015 9:10 AM CURRICULUM CONSULTANT Temperature 36.7 C (98 F) 03/23/2015 9:30 AM CURRICULUM CONSULTANT Respiratory Rate 18 03/23/2015 9:30 AM CURRICULUM CONSULTANT Oxygen Saturation 97% 03/23/2015 9:30 AM CURRICULUM CONSULTANT Inhaled Oxygen Concentration - - Weight 88.5 kg (195 lb) 03/23/2015 6:38 AM CURRICULUM CONSULTANT Height 188 cm (6' 2 ) 03/23/2015 6:38 AM CURRICULUM CONSULTANT Body Mass Index 25.04 03/23/2015 6:38 AM CURRICULUM CONSULTANT Medical Devices Implanted Type Area Care Consultant Device Identifier Shelf Expiration Date Model / Serial / Lot Putty Bone Gutierrezfton Dbm Jar 2.0cc - [id number] Implanted:Qty: 1 on 12/25/2014 by Anthony Recinos MD at [facility] [employer] 01/07/2017 [id number] / [id number] / Space Peek 8 X 16 X 14mm - [id number] Implanted:Qty: 1 on 12/25/2014 by Anthony Recinos MD at [facility] [employer] 01/20/2022 [id number] / [id number] / Space Peek 7 X 16 X 14mm - [id number] Implanted:Qty: 1 on 12/25/2014 by Anthony Recinos MD at [facility] [employer] 07/17/2022 [id number] / [id number] / Space Peek 7 X 16 X 14mm - [id number] Implanted:Qty: 1 on 12/25/2014 by Anthony Recinos MD at [facility] [employer] 07/17/2022 [id number] / [id number] / Plate Ant Cerv Assem 70mm Implanted:Qty: 1 on 12/25/2014 by Anthony Recinos MD at [facility] [employer] [id number] / / Scrw Self Drill Jeronimo 4.0 X 15 Implanted:Qty: 8 on 12/25/2014 by Anthony Recinos MD at [facility] [employer] [id number] / / Procedures * CORNEAL TOPOGRAPHY UNI/BI(Performed [...] * CORNEAL TOPOGRAPHY UNI/BI (04/12/2023 11:20 AM CURRICULUM CONSULTANT) Anatomical Region Laterality Modality Head External-Camera Photography Narrative 04/12/2023 11:55 AM CURRICULUM CONSULTANT Images from the original result were not [...] 2. Instrumented cervical spinal fusion. Aaliyah Nazario CUFF KNITTER-SEARCH ENGINEER FLUOROSCOPY ORDER [place] * CARDIAC RHYTHM STRIP ORDER (12/26/2014 9:20 PM CDT) Narrative 12/26/2014 9:20 PM CDT Ordered by an unspecified provider. Scanned Document CARDIAC SERVICES ORD ERABLES * XR SPINE 1 VIEW (12/25/2014 2:46 PM CDT) Narrative [facility] RAD[facility]OLOG[facility] - 12/26/2014 11:07 AM CDT No Dictation. Anthony Recinos MD DIAGNOSTIC IMAGING O RDERABLES [facility] RAD[facility] [address] [place] [address] * LAB RESULTS ORDER (04/11/2014) Anthony Recinos MD LAB - THERAPEUTIC DR SIMS MONITORING ORDERABLES * PATHOLOGY TISSUE FOR DERMATOLOGY (11/28/2013 12:00 AM CDT) Only the most recent of2 resultswithin the time period is included. Result CASE: PATIENT: OG KAPLAN PATHOLOGIC DIAGNOSIS: Right post lateral leg: COLLOID BODIES (see microscopic description) (see fixed tissue results) () IgA IgM IgG C3 ColIV Fibrinogen Epidermis - - - - - - Basement Membrane - 1+Colloids - - 2+ - Vessels - - - - 2+ - Interstitium - - - - - - CLINICAL DATA: R/O eczema vs other disease. Check margins. GROSS DESCRIPTION: Received is one [place]'s media filled container labeled with the patient's name and designated right post lateral leg. The specimen consists of a punch biopsy measuring [id number]. The specimen is submitted in whole for direct immunofluorescence testing. MICROSCOPIC DESCRIPTION: Controls were run in parallel. There is IgM in the papillary dermis consistent with colloid bodies. Staining is negative with C3, IgG and IgA. Colloid bodies represent dyskeratotic keratinocytes usually seen in lichenoid / interface dermatitis. See fixed tissue results. Electronically signed out by Zari Piper M.D. 12/03/2013 8:44:11AM [facility] DERMATOLOGY LAB Comment: Performed at: Dermatopathology Laboratory [facility] - Department of Dermatology [address] [place] [address], 5th [place] [address] Phone number: [phone] FAX: [phone] 11/28/2013 11/29/2013 Karan Pascal MD LAB - PATHOLOGY/CYTO LOGY ORDERABLES [facility] DERMATOLOGY LAB [address] [facility]. 5th [place] [address], [facility] [phone] Care Teams Math Specialist Relationship Specialty Start Date End Date Slade Bush DO [address] [facility] [address] [place] [address] PCP - General Internal Medicine 07/08/14
[2024-05-04 03:08] LABS: Basophils Percent Auto 0.1 % (0.2-1.2); Eosinophils Percent Auto 0.1 % (0-4.4); Hematocrit 39.8 % (42.0-52.0); Hemoglobin 13.2 g/dL (14.0-18.0); Immature Granulocyte Absolute 0.07 K/mm3 (0.00-0.031); Immature Granulocyte Percent A 0.5 % (0-0.5); Lymphocytes Absolute Auto 0.71 K/mm3 (0.9-3.2); Lymphocytes Percent Auto 5.3 % (18.3-44.2); Mean Corpuscular HGB Conc 33.2 g/dl (32-36); Mean Corpuscular Hemoglobin 34.3 pg (26-34); Mean Corpuscular Volume 103.4 fl (80-100); Mean Platelet Volume 9.7 fl (7.4-10.4); Monocytes Absolute Auto 0.7 K/mm3 (0.1-0.6); Monocytes Percent Auto 5.4 % (2.6-8.5); Neutrophils Absolute Auto 11.9 K/mm3 (1.3-6.7); Neutrophils Percent Auto 88.6 % (45.5-73.1); Platelet Count Result 314 k/mm3 (150-375); Red Blood Count 3.85 M/mm3 (4.6-6.20); Red Cell Distribution Width 12.1 % (11.5-14.5); White Blood Count 13.4 K/mm3 (4.5-10.0)
[2024-05-04 03:21] LABS: Anion Gap 11 mmol/L (4-12); Blood Urea Nitrogen 22 mg/dL (9-20); Calcium 9.1 mg/dL (8.4-10.2); Carbon Dioxide 32 mmol/L (22-30); Chloride 94 mmol/L (98-107); Estimated CRCL calculation 127 ml/min; Estimated Glomerular Filt Rate > 60; Glucose 161 mg/dL (65-110); Potassium 3.9 mmol/L (3.4-5.0); Sodium 137 mmol/L (137-145)
--- NOTE | 2024-05-04 04:58 | PC.NURSE ---
This Rn spoke with Jeremy Ludin, patient son to provide update on patient and patient status.
--- NOTE | 2024-05-04 08:17 | PM.IMHP ---
H&P: HPI History of Present Illness Date/Time: 05/04/24 08:17 Chief Complaint: PEG tube malfunction Narrative: 78-year-old male with history of left anterior rib fractures and pneumothorax and resultant chronic intermittent left chest pain, benign prostatic hyperplasia, hyperlipidemia, gastroesophageal reflux disease, ulcerative colitis, and Crohn's disease who presented to the emergency department via EMS for evaluation after PEG tube was removed accidentally. Patient PEG tube was placed on 0 05/01 and was discharged to custodial. Patient was initially evaluated by Gastroenterology, underwent EGD but unfortunately is safe site for PEG tube placement in the upper abdomen could not be determined. Gastroenterologists discussed with the surgeon who agreed to perform surgical gastrostomy to avoid peritoneal leak from gastric wall orifice. Eventually patient underwent Exploratory laparotomy with placement of gastrostomy tube. Of note patient has Minimally displaced mildly comminuted fracture at the anterior ring of C1 which was identified on his previous admission and neurology was consulted who recommended C-collar. Review of Systems Review of Systems: All systems reviewed & are unremarkable except as noted in HPI and below ROS unobtainable: Yes unobtainable due to medical condition and unobtainable due to mental status [facility] Past Medical History Medical History Aspiration into airway Pure hypercholesterolemia Depression Peripheral neuropathy Ataxia Benign prostatic hyperplasia Left rib fracture Pneumothorax Crohn's disease Ulcerative colitis Hyperlipidemia Gastro-esophageal reflux disease without esophagitis Surgical History Surgical History History of spinal surgery History of arthroplasty of right knee History of chest tube placement Family History Family History Father No problems noted. Mother No problems noted. Sibling No problems noted. Other Family history non-contributory Social History Social History Social History: Surrogate medical decision maker: eleno Chambers. Code status: Full code. Smoking packs per day: 2 Smoking cigarettes per day: 40.0 Years smoked: 15 Smoking pack-years: 30.00 Smoking status: Former smoker Second hand tobacco smoke exposure: No Additional smoking assessment comments: quit in 1980 Alcohol intake: current Drinks per week: 14 Alcohol use details: 3 per day Substance use: never Substance use type: does not use Do You Feel Safe in your Home?: Yes Lack of Transportation: YES Lack of Food: Never True Current Housing: I Have Housing Concerned About Future Housing: No Difficulty Paying Gas/Electric Bills: No Difficulty Paying for Meds: No Currently Unemployed: No Education: High School Diploma/GED Difficulty w/ Childcare or Family Care: No Living arrangements: with family Occupation/Education: retired 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 Spiritual care concerns: No Meds Home Medications and Allergies Home Medications ?Medication ?Instructions ?Recorded ?Confirmed ?Type albuterol sulfate 90 mcg/actuation See Rx Instructions .Route 12/14/23 04/19/24 Rx aerosol inhaler .COMPLEX #8.5 grams tiotropium 2.5 mcg-olodaterol 2.5 2 puff inhalation DAILY #4 grams 03/14/24 04/19/24 Rx mcg/actuation mist for inhalation cholecalciferol (vitamin D3) 25 50 mcg (2 x 25 mcg (1,000 unit)) 05/03/24 Rx mcg (1,000 unit) tablet (Vitamin feeding tube DAILY #1 tablet D3) famotidine 20 mg tablet 20 mg feeding tube Q12HR #2 tabs 05/03/24 Rx finasteride 5 mg tablet (Proscar) 5 mg feeding tube DAILY #1 tablet 05/03/24 Rx folic acid 1 mg tablet 1 mg feeding tube DAILY #1 tablet 05/03/24 Rx guaifenesin 100 mg/5 mL oral liquid 200 mg (10 mL) feeding tube Q4H 05/03/24 Rx PRN Cough #1 mL hydrocodone 5 mg-acetaminophen 325 1 tablet feeding tube Q6H PRN Pain 05/03/24 Rx mg tablet Rated 4-6 #20 tabs sulfasalazine 500 mg tablet 1,500 mg (3 x 500 mg) feeding tube 05/03/24 Rx BIDPC #1 tablet venlafaxine 37.5 mg tablet 37.5 mg PO Q8HR #1 tablet 05/03/24 Rx Allergies Allergy/AdvReac Type Severity Reaction Status Date / Time lidocaine Allergy Severe shuts Verified 05/04/24 09:29 lungs down Vital Signs Vital Signs - 24 hr 05/04/24 02:29 05/04/24 07:12 Temperature 97.9 F Pulse Rate 95 94 Respiratory Rate 20 14 Blood Pressure 105/74 101/68 Pulse Oximetry 94 95 Oxygen Delivery Room Air Exam Narrative: EXAMINATION OF ORGAN SYSTEMS/BODY AREAS: Constitutional: Vital signs per nursing GENERAL:[No acute distress, non-toxic appearing.] HEAD: Normal with no signs of head trauma. Temporal wasting EYES: EOMI, conjunctiva normal ENT: Hearing grossly intact LUNGS: Nonlabored breathing. HEART: [Regular rate and rhythm] ABD: [Soft], [nontender to palpation], incision site where G-tube was appears clean, dry, intact EXT: Normal range of motion SKIN: [No rashes or lesions.] NEURO: [Alert. No gross focal sensory or strength deficits.] PSYCH: Normal affect Const: General: average body habitus Nutritional Appearance: average body habitus Limitations: altered mental status HENMT: Head: normal to inspection, normocephalic and atraumatic Ears: external ears normal Face/Nose/Sinus: Normal external nose present and Normal nares present Mouth: Yes Normal oral and palatal mucosa present Eyes: Periorbital: periorbital findings normal Eyelids: eyelids normal Conjunctivae: conjunctivae normal Sclera: sclerae normal Neck: Neck: normal visual inspection, no lymphadenopathy, trachea midline, supple and no JVD Resp: Effort & Inspection: symmetric chest movement Auscultation: clear to auscultation bilaterally Percussion: percussion normal Cardio: Rate: regular rate Rhythm: regular rhythm Heart sounds: S1 normal heart sound present and S2 normal heart sound present Peripheral pulses: Peripheral pulses 2+ throughout GI: Inspection: other (PEG tube site on left upper quadrant abdominal with small subq hematoma) Neuro: General: Unable to assess gait Gait exam (Neuro): Unable to assess gait Extrem: General: no pedal edema Right upper extremity: normal to inspection Left upper extremity: normal to inspection H&P: Results Labs Labs: Short CBC 05/04/24 Range/Units 03:00 WBC 13.4 H (4.5-10.0) K/mm3 Hgb 13.2 L (14.0-18.0) g/dL Hct 39.8 L (42.0-52.0) % Plt Count 314 (150-375) k/mm3 BMP 05/04/24 03:00 Sodium 137 Potassium 3.9 Chloride 94 L Carbon Dioxide 32 H BUN 22 H Creatinine 0.35 L Glucose 161 H Calcium 9.1 Assessment and Plan Assessment and plan (1) Dislodged gastrostomy tube: Code(s): T85.528A - Displacement of other gastrointestinal prosthetic devices, implants and grafts, initial encounter Status: Acute Assessment and Plan: -initial PEG tube was placed on 05/01 -return to ED on returned to ED on 05/04 for displacement -Underwent EGD but unfortunately is safe site for PEG tube placement in the upper abdomen could not be determined. -Gastroenterologists discussed with the surgeon who agreed to perform surgical gastrostomy to avoid peritoneal leak from gastric wall orifice. -underwent Exploratory laparotomy with placement of gastrostomy tube by surgery (2) C1 cervical fracture: Qualifiers: Encounter type: initial encounter Fracture alignment: displaced Fracture morphology: unspecified fracture morphology Fracture type: closed Qualified Code(s): S12.000A - Unspecified displaced fracture of first cervical vertebra, initial encounter for closed fracture Code(s): S12.000A - Unspecified displaced fracture of first cervical vertebra, initial encounter for closed fracture Status: Acute Assessment and Plan: Dr. Hightower, neurosurgery, saw the patient and recommends that the patient wear a hard collar in follow-up with him in 1 month. I do not see C- collar on him and ordered this admission (3) Severe protein-calorie malnutrition: Code(s): E43 - Unspecified severe protein-calorie malnutrition Status: Acute Assessment and Plan: Consult nutrition Hospitalist MIPS Advance Care Plan I have confirmed that the patient's Advanced Care Plan is present, code status is documented, or surrogate decision maker is listed in patient medical record.: Yes Medication Reconciliation I have utilized all available resources to obtain, update and review the patients current medications (includes all prescriptions, OTC, herbals, cannabis, and nutritional supplements).: Yes
[2024-05-04] MEDS: LACTATED RINGERS 1,000 ML 150 ML IV CONT (09:33)
--- NOTE | 2024-05-04 09:33 | WPDANESEPPF ---
Anes - Initial Pre Proc Eval Procedure: Operation Date: 05/04/24 08:45 Proposed Procedures p Percutaneous Endoscopic Gastrostomy - Sukumar Nixon MD Date/Time: 05/04/24 09:33 Surgeon: Juana Moreno DO Pre Op Diagnosis: Pulled out G Tube Patient Data Age: 78 Gender: M Height: 1.8 m Weight: 64.6 kg Last Vital Signs Temp 37.1 C 05/04/24 09:25 Pulse 101 H 05/04/24 09:25 Resp 20 05/04/24 09:25 BP 98/78 L 05/04/24 09:25 Pulse Ox 98 05/04/24 09:25 O2 Del Method Room Air 05/04/24 09:25 Allergies Allergy/AdvReac Type Severity Reaction Status Date / Time lidocaine Allergy Severe shuts Verified 05/04/24 09:29 lungs down Home Medications ?Medication ?Instructions ?Recorded ?Confirmed ?Type albuterol sulfate 90 mcg/actuation See Rx Instructions .Route 12/14/23 04/19/24 Rx aerosol inhaler .COMPLEX #8.5 grams tiotropium 2.5 mcg-olodaterol 2.5 2 puff inhalation DAILY #4 grams 03/14/24 04/19/24 Rx mcg/actuation mist for inhalation cholecalciferol (vitamin D3) 25 50 mcg (2 x 25 mcg (1,000 unit)) 05/03/24 Rx mcg (1,000 unit) tablet (Vitamin feeding tube DAILY #1 tablet D3) famotidine 20 mg tablet 20 mg feeding tube Q12HR #2 tabs 05/03/24 Rx finasteride 5 mg tablet (Proscar) 5 mg feeding tube DAILY #1 tablet 05/03/24 Rx folic acid 1 mg tablet 1 mg feeding tube DAILY #1 tablet 05/03/24 Rx guaifenesin 100 mg/5 mL oral liquid 200 mg (10 mL) feeding tube Q4H 05/03/24 Rx PRN Cough #1 mL hydrocodone 5 mg-acetaminophen 325 1 tablet feeding tube Q6H PRN Pain 05/03/24 Rx mg tablet Rated 4-6 #20 tabs sulfasalazine 500 mg tablet 1,500 mg (3 x 500 mg) feeding tube 05/03/24 Rx BIDPC #1 tablet venlafaxine 37.5 mg tablet 37.5 mg PO Q8HR #1 tablet 05/03/24 Rx Laboratory Tests 05/04/24 03:00 WBC 13.4 H K/mm3 (4.5-10.0) RBC 3.85 L M/mm3 (4.6-6.20) Hgb 13.2 L g/dL (14.0-18.0) Hct 39.8 L % (42.0-52.0) MCV 103.4 H fl (80-100) MCH 34.3 H pg (26-34) MCHC 33.2 g/dl (32-36) RDW 12.1 % (11.5-14.5) Plt Count 314 k/mm3 (150-375) MPV 9.7 fl (7.4-10.4) Immature Gran % (Auto) 0.5 % (0-0.5) Neut % (Auto) 88.6 H % (45.5-73.1) Lymph % (Auto) 5.3 L % (18.3-44.2) [place] % (Auto) 5.4 % (2.6-8.5) Eos % (Auto) 0.1 % (0-4.4) Baso % (Auto) 0.1 L % (0.2-1.2) Lymph # (Auto) 0.71 L K/mm3 (0.9-3.2) [place] # (Auto) 0.7 H K/mm3 (0.1-0.6) Eos # (Auto) 0.0 K/mm3 (0-0.3) Baso # (Auto) 0.0 K/mm3 (0.0-0.1) Abs Immat Gran (auto) 0.07 H K/mm3 (0.00-0.031) Absolute Neuts (auto) 11.9 H K/mm3 (1.3-6.7) Absolute Nucleated RBC 0.000 K/mm3 (0.0-0.012) Nucleated RBC % 0.0 % (0.0-0.2) Sodium 137 mmol/L (137-145) Potassium 3.9 mmol/L (3.4-5.0) Chloride 94 L mmol/L (98-107) Carbon Dioxide 32 H mmol/L (22-30) Anion Gap 11 mmol/L (4-12) BUN 22 H mg/dL (9-20) Creatinine 0.35 L mg/dL (0.7-1.3) Estim Creat Clear Calc 127 ml/min Estimated GFR > 60 (59 - ) Glucose 161 H mg/dL (65-110) Calcium 9.1 mg/dL (8.4-10.2) Patient hx anesthesia problems: none Family hx anesthesia problems: none Results Review: All pre-operative results and documents have been reviewed as part of the pre-operative evaluation. [facility] Past Medical History Medical History Aspiration into airway Pure hypercholesterolemia Depression Peripheral neuropathy Ataxia Benign prostatic hyperplasia Left rib fracture Pneumothorax Crohn's disease Ulcerative colitis Hyperlipidemia Gastro-esophageal reflux disease without esophagitis Surgical History Surgical History History of spinal surgery History of arthroplasty of right knee History of chest tube placement Family History Family History Father No problems noted. Mother No problems noted. Sibling No problems noted. Other Family history non-contributory Social History Social History Social History: Surrogate medical decision maker: eleno Chambers. Code status: Full code. Smoking packs per day: 2 Smoking cigarettes per day: 40.0 Years smoked: 15 Smoking pack-years: 30.00 Smoking status: Former smoker Second hand tobacco smoke exposure: No Additional smoking assessment comments: quit in 1980 Alcohol intake: current Drinks per week: 14 Alcohol use details: 3 per day Substance use: never Substance use type: does not use Do You Feel Safe in your Home?: Yes Lack of Transportation: YES Lack of Food: Never True Current Housing: I Have Housing Concerned About Future Housing: No Difficulty Paying Gas/Electric Bills: No Difficulty Paying for Meds: No Currently Unemployed: No Education: High School Diploma/GED Difficulty w/ Childcare or Family Care: No Living arrangements: with family Occupation/Education: retired 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 Spiritual care concerns: No Anes - Eval Final PreProcedure Day of Procedure 05/04/24 09:33 Patient weight: thin Heart: regular rate and rhythm Lungs: clear to auscultation Airway: Mallampati scale class II and special considerations poor extension Neurological: alert and oriented Last oral intake: >/= 8 hours ASA classification: IV Emergent: yes Anesthetic plan: proceed Anesthesia type and monitoring: general GIVS and standard monitoring Results Review: All pre-operative results and documents have been reviewed as part of the pre-operative evaluation. Informed Consent: The patient's anesthetic plan and its attendant risks and benefits were discussed with the patient/family/POA. Questions were solicited and answers provided to the satisfaction of the patient/family/POA.
--- NOTE | 2024-05-04 09:36 | SUR.PREOP ---
Patient is only alert to person and place at this time. Unable to sign consent with patient. Attempted to reach Beny (son) via phone for consent. Beny did not answer and I was unable to leave a message due to mailbox being full. Per Dr. Oreilly, deem procedure emergent. Signed consent for PEG tube with Dr. Oreilly at bedside.
--- NOTE | 2024-05-04 10:08 | P.CONGI_ITS ---
Assessment and Plan Assessment and plan (1) PEG tube malfunction: Code(s): K94.23 - Gastrostomy malfunction Status: Acute Assessment and Plan: Will attempt placing a new PEG tube this morning. GI Consult Note Consult date/time: 05/04/24 10:08 HPI: Og Noland is a 78 year old male who had a PEG placement 48 hours ago. The PEG tube was removed accidentally and he was brought to the ER this morning. Review of Systems 2 Review of Systems: All systems reviewed & are unremarkable except as noted in HPI and below PMFSH Past Medical History Medical History Aspiration into airway Pure hypercholesterolemia Depression Peripheral neuropathy Ataxia Benign prostatic hyperplasia Left rib fracture Pneumothorax Crohn's disease Ulcerative colitis Hyperlipidemia Gastro-esophageal reflux disease without esophagitis Surgical History Surgical History History of spinal surgery History of arthroplasty of right knee History of chest tube placement Family History Family History Father No problems noted. Mother No problems noted. Sibling No problems noted. Other Family history non-contributory Social History Social History Social History: Surrogate medical decision maker: eleno Chambers. Code status: Full code. Smoking packs per day: 2 Smoking cigarettes per day: 40.0 Years smoked: 15 Smoking pack-years: 30.00 Smoking status: Former smoker Second hand tobacco smoke exposure: No Additional smoking assessment comments: quit in 1980 Alcohol intake: current Drinks per week: 14 Alcohol use details: 3 per day Substance use: never Substance use type: does not use Do You Feel Safe in your Home?: Yes Lack of Transportation: YES Lack of Food: Never True Current Housing: I Have Housing Concerned About Future Housing: No Difficulty Paying Gas/Electric Bills: No Difficulty Paying for Meds: No Currently Unemployed: No Education: High School Diploma/GED Difficulty w/ Childcare or Family Care: No Living arrangements: with family Occupation/Education: retired 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: No Meds Home Medications and Allergies Home Medications ?Medication ?Instructions ?Recorded ?Confirmed ?Type albuterol sulfate 90 mcg/actuation See Rx Instructions .Route 12/14/23 04/19/24 Rx aerosol inhaler .COMPLEX #8.5 grams tiotropium 2.5 mcg-olodaterol 2.5 2 puff inhalation DAILY #4 grams 03/14/24 04/19/24 Rx mcg/actuation mist for inhalation cholecalciferol (vitamin D3) 25 50 mcg (2 x 25 mcg (1,000 unit)) 05/03/24 Rx mcg (1,000 unit) tablet (Vitamin feeding tube DAILY #1 tablet D3) famotidine 20 mg tablet 20 mg feeding tube Q12HR #2 tabs 05/03/24 Rx finasteride 5 mg tablet (Proscar) 5 mg feeding tube DAILY #1 tablet 05/03/24 Rx folic acid 1 mg tablet 1 mg feeding tube DAILY #1 tablet 05/03/24 Rx guaifenesin 100 mg/5 mL oral liquid 200 mg (10 mL) feeding tube Q4H 05/03/24 Rx PRN Cough #1 mL hydrocodone 5 mg-acetaminophen 325 1 tablet feeding tube Q6H PRN Pain 05/03/24 Rx mg tablet Rated 4-6 #20 tabs sulfasalazine 500 mg tablet 1,500 mg (3 x 500 mg) feeding tube 05/03/24 Rx BIDPC #1 tablet venlafaxine 37.5 mg tablet 37.5 mg PO Q8HR #1 tablet 05/03/24 Rx Allergies Allergy/AdvReac Type Severity Reaction Status Date / Time lidocaine Allergy Severe shuts Verified 05/04/24 09:29 lungs down Vital Signs Vital Signs - 24 hr 05/04/24 02:29 05/04/24 07:12 05/04/24 09:23 Temperature 97.9 F 98.2 F Pulse Rate 95 94 93 Respiratory Rate 20 14 14 Blood Pressure 105/74 101/68 115/70 Pulse Oximetry 94 95 94 Oxygen Delivery Room Air Oxygen Flow Rate 05/04/24 09:25 05/04/24 10:04 Temperature 98.8 F Pulse Rate 101 H 98 Respiratory Rate 20 14 Blood Pressure 98/78 L 112/74 Pulse Oximetry 98 99 Oxygen Delivery Room Air Nasal Cannula Oxygen Flow Rate 6 Exam 2 Narrative: EXAMINATION OF ORGAN SYSTEMS/BODY AREAS: Constitutional: Vital signs per nursing GENERAL:[No acute distress, non-toxic appearing.] HEAD: Normal with no signs of head trauma. Temporal wasting EYES: EOMI, conjunctiva normal ENT: Hearing grossly intact LUNGS: Nonlabored breathing. HEART: [Regular rate and rhythm] ABD: [Soft], [nontender to palpation], incision site where G-tube was appears clean, dry, intact EXT: Normal range of motion SKIN: [No rashes or lesions.] NEURO: [Alert. No gross focal sensory or strength deficits.] PSYCH: Normal affect Results Labs 05/04/24 03:00 05/04/24 03:00 Labs: Short CBC 05/04/24 Range/Units 03:00 WBC 13.4 H (4.5-10.0) K/mm3 Hgb 13.2 L (14.0-18.0) g/dL Hct 39.8 L (42.0-52.0) % Plt Count 314 (150-375) k/mm3 [facility] 05/04/24 03:00 Sodium 137 Potassium 3.9 Chloride 94 L Carbon Dioxide 32 H BUN 22 H Creatinine 0.35 L Glucose 161 H Calcium 9.1
--- NOTE | 2024-05-04 10:10 | P.PNGI_ITS ---
Progress Note: A&P Assessment and Plan (1) PEG tube malfunction: Code(s): K94.23 - Gastrostomy malfunction Status: Acute Assessment and Plan: Discussed with Dr Rogelio Hathaway, will take patient to the OR for surgical gastrostomy placement. Will sign off for now, please let as know if we can be of further assistance with other problems related to our specialty. Time Spent With Patient Time with patient: less than 15 minutes Subjective Date/time seen: 05/04/24 10:10 Interval history: See EGD report. Unfortunately, placement of a new PEG tube by the conventional method was not possible due to a lack of a satisfactory window in the upper abdominal area. Objective Data Vital Signs Vital Signs: Vital Signs - 24 hr 05/04/24 02:29 05/04/24 07:12 05/04/24 09:23 Temperature 97.9 F 98.2 F Pulse Rate 95 94 93 Respiratory Rate 20 14 14 Blood Pressure 105/74 101/68 115/70 Pulse Oximetry 94 95 94 Oxygen Delivery Room Air Oxygen Flow Rate 05/04/24 09:25 05/04/24 10:04 Temperature 98.8 F Pulse Rate 101 H 98 Respiratory Rate 20 14 Blood Pressure 98/78 L 112/74 Pulse Oximetry 98 99 Oxygen Delivery Room Air Nasal Cannula Oxygen Flow Rate 6 Intake/Output Intake/Output: Intake & Output 05/01/24 05/02/24 05/03/24 05/04/24 23:59 23:59 23:59 23:59 Intake Total 0 Balance 0 Meds/Results Medications: Active Medications Generic Name Dose Route Start Last Admin Trade Name Freq PRN Reason Stop Dose Admin Lactated Ringer's 1,000 mls @ 150 mls/hr 05/04/24 09:30 05/04/24 10:03 Lr - Lactated Ringers Iv IV CONT 150 mls/hr .[id number] [facility] Labs: Laboratory Results - last 24 hr 05/04/24 03:00 WBC 13.4 H RBC 3.85 L Hgb 13.2 L Hct 39.8 L MCV 103.4 H MCH 34.3 H MCHC 33.2 RDW 12.1 Plt Count 314 MPV 9.7 Immature Gran % (Auto) 0.5 Neut % (Auto) 88.6 H Lymph % (Auto) 5.3 L [place] % (Auto) 5.4 Eos % (Auto) 0.1 Baso % (Auto) 0.1 L Lymph # (Auto) 0.71 L [place] # (Auto) 0.7 H Eos # (Auto) 0.0 Baso # (Auto) 0.0 Abs Immat Gran (auto) 0.07 H Absolute Neuts (auto) 11.9 H Absolute Nucleated RBC 0.000 Nucleated RBC % 0.0 Sodium 137 Potassium 3.9 Chloride 94 L Carbon Dioxide 32 H Anion Gap 11 BUN 22 H Creatinine 0.35 L Estim Creat Clear Calc 127 Estimated GFR > 60 Glucose 161 H Calcium 9.1
--- NOTE | 2024-05-04 10:16 | SUR.PHASEII ---
was unable to place PEG tube, pt will be transfered to OR PACU. Report given to jennifer
--- NOTE | 2024-05-04 10:44 | WPDHPUPDATE1 ---
History and Physical Update Update Date/Time: 05/04/24 10:44 History and Physical has been reviewed, including an updated exam of the patient. There are NO changes in the patient's condition. Risks, benefits, and alternatives have been discussed and questions answered. Patient agrees to proceed with procedure.
--- NOTE | 2024-05-04 10:45 | PM.IMHP ---
H&P: HPI History of Present Illness Date/Time: 05/04/24 10:45 Chief Complaint: Dislodged gastrostomy feeding tube Narrative: This is a 78-year-old man who presented to the emergency department overnight with a dislodged feeding tube. He was just recently hospitalized and had a PEG tube placed on 05/01/2024. He had been discharged to [facility] and reportedly was found on the ground and PEG tube was removed. Gastroenterology attempted repeat endoscopy this morning to replace PEG to but could not identify the safe tract to place it through. He is currently hemodynamically stable but a little sedated from his endoscopy. History is unable to be obtained from patient but the the history was obtained from the chart and from discussing with his son Woodrow. His other family members were unable to be reached by telephone and nobody else is present to discuss with. Review of Systems Review of Systems: ROS unobtainable: Yes unobtainable due to medical condition and unobtainable due to mental status PMFSH Past Medical History Medical History Aspiration into airway Pure hypercholesterolemia Depression Peripheral neuropathy Ataxia Benign prostatic hyperplasia Left rib fracture Pneumothorax Crohn's disease Ulcerative colitis Hyperlipidemia Gastro-esophageal reflux disease without esophagitis Surgical History Surgical History History of spinal surgery History of arthroplasty of right knee History of chest tube placement Family History Family History Father No problems noted. Mother No problems noted. Sibling No problems noted. Other Family history non-contributory Social History Social History Social History: Surrogate medical decision maker: eleno Chambers. Code status: Full code. Smoking packs per day: 2 Smoking cigarettes per day: 40.0 Years smoked: 15 Smoking pack-years: 30.00 Smoking status: Former smoker Second hand tobacco smoke exposure: No Additional smoking assessment comments: quit in 1980 Alcohol intake: current Drinks per week: 14 Alcohol use details: 3 per day Substance use: never Substance use type: does not use Do You Feel Safe in your Home?: Yes Lack of Transportation: YES Lack of Food: Never True Current Housing: I Have Housing Concerned About Future Housing: No Difficulty Paying Gas/Electric Bills: No Difficulty Paying for Meds: No Currently Unemployed: No Education: High School Diploma/GED Difficulty w/ Childcare or Family Care: No Living arrangements: with family Occupation/Education: retired 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 Spiritual care concerns: No Meds Home Medications and Allergies Home Medications ?Medication ?Instructions ?Recorded ?Confirmed ?Type albuterol sulfate 90 mcg/actuation See Rx Instructions .Route 12/14/23 04/19/24 Rx aerosol inhaler .COMPLEX #8.5 grams tiotropium 2.5 mcg-olodaterol 2.5 2 puff inhalation DAILY #4 grams 03/14/24 04/19/24 Rx mcg/actuation mist for inhalation cholecalciferol (vitamin D3) 25 50 mcg (2 x 25 mcg (1,000 unit)) 05/03/24 Rx mcg (1,000 unit) tablet (Vitamin feeding tube DAILY #1 tablet D3) famotidine 20 mg tablet 20 mg feeding tube Q12HR #2 tabs 05/03/24 Rx finasteride 5 mg tablet (Proscar) 5 mg feeding tube DAILY #1 tablet 05/03/24 Rx folic acid 1 mg tablet 1 mg feeding tube DAILY #1 tablet 05/03/24 Rx guaifenesin 100 mg/5 mL oral liquid 200 mg (10 mL) feeding tube Q4H 05/03/24 Rx PRN Cough #1 mL hydrocodone 5 mg-acetaminophen 325 1 tablet feeding tube Q6H PRN Pain 05/03/24 Rx mg tablet Rated 4-6 #20 tabs sulfasalazine 500 mg tablet 1,500 mg (3 x 500 mg) feeding tube 05/03/24 Rx BIDPC #1 tablet venlafaxine 37.5 mg tablet 37.5 mg PO Q8HR #1 tablet 05/03/24 Rx Allergies Allergy/AdvReac Type Severity Reaction Status Date / Time lidocaine Allergy Severe shuts Verified 05/04/24 09:29 lungs down Vital Signs Vital Signs - 24 hr 05/04/24 02:29 05/04/24 07:12 05/04/24 09:23 Temperature 97.9 F 98.2 F Pulse Rate 95 94 93 Respiratory Rate 20 14 14 Blood Pressure 105/74 101/68 115/70 Pulse Oximetry 94 95 94 Oxygen Delivery Room Air Oxygen Flow Rate 05/04/24 09:25 05/04/24 10:02 05/04/24 10:12 Temperature 98.8 F Pulse Rate 101 H 98 101 H Respiratory Rate 20 14 14 Blood Pressure 98/78 L 112/74 106/73 Pulse Oximetry 98 99 100 Oxygen Delivery Room Air Nasal Cannula Nasal Cannula Oxygen Flow Rate 6 6 05/04/24 10:22 Temperature Pulse Rate 101 H Respiratory Rate 20 Blood Pressure 114/71 Pulse Oximetry 100 Oxygen Delivery Nasal Cannula Oxygen Flow Rate 6 Exam Const: General: average body habitus Nutritional Appearance: average body habitus Limitations: altered mental status HENMT: Head: normal to inspection, normocephalic and atraumatic Ears: external ears normal Face/Nose/Sinus: Normal external nose present and Normal nares present Mouth: Yes Normal oral and palatal mucosa present Eyes: Periorbital: periorbital findings normal Eyelids: eyelids normal Conjunctivae: conjunctivae normal Sclera: sclerae normal Neck: Neck: normal visual inspection, no lymphadenopathy, trachea midline, supple and no JVD Resp: Effort & Inspection: symmetric chest movement Auscultation: clear to auscultation bilaterally Percussion: percussion normal Cardio: Rate: regular rate Rhythm: regular rhythm Heart sounds: S1 normal heart sound present and S2 normal heart sound present Peripheral pulses: Peripheral pulses 2+ throughout GI: Inspection: other (PEG tube site on left upper quadrant abdominal with small subq hematoma) GI Palp: Yes Firmness to palpation present (GI), No Guarding due to palpation present (GI) and No Rebound tenderness present Percussion: Yes tympanic to percussion Neuro: General: Unable to assess gait Gait exam (Neuro): Unable to assess gait Extrem: General: no pedal edema Right upper extremity: normal to inspection Left upper extremity: normal to inspection H&P: Results Labs Labs: Short CBC 05/04/24 Range/Units 03:00 WBC 13.4 H (4.5-10.0) K/mm3 Hgb 13.2 L (14.0-18.0) g/dL Hct 39.8 L (42.0-52.0) % Plt Count 314 (150-375) k/mm3 [facility] 05/04/24 03:00 Sodium 137 Potassium 3.9 Chloride 94 L Carbon Dioxide 32 H BUN 22 H Creatinine 0.35 L Glucose 161 H Calcium 9.1 Assessment and Plan Assessment and plan (1) Dislodged gastrostomy tube: Code(s): T85.528A - Displacement of other gastrointestinal prosthetic devices, implants and grafts, initial encounter Status: Acute Assessment and Plan: I have reviewed the records and discussed findings with Dr. Nixon. The patient has a dislodged PEG tube that was just placed 3 days ago. Repeat EGD was unsuccessful at replacing PEG tube. He has a risk of spilling gastric contents into his abdominal cavity due to the feeding tube tract not having long enough to scar in and mature. I have recommended exploratory laparotomy with replacement of gastrostomy tube. Will plan to proceed emergently to avoid any further risks of peritonitis. The patient's point of contact listed in the chart was able to be reached, but I did reach his son Woodrow and discuss these findings and plans with him. He was in agreement with proceeding. Patient has been sedated from the EGD therefore consent cannot be safely obtained from patient himself. (2) C1 cervical fracture: Qualifiers: Encounter type: initial encounter Fracture type: closed Fracture morphology: unspecified fracture morphology Fracture alignment: displaced Qualified Code(s): S12.000A - Unspecified displaced fracture of first cervical vertebra, initial encounter for closed fracture Code(s): S12.000A - Unspecified displaced fracture of first cervical vertebra, initial encounter for closed fracture Status: Acute (3) Severe protein-calorie malnutrition: Code(s): E43 - Unspecified severe protein-calorie malnutrition Status: Acute
--- NOTE | 2024-05-04 10:59 | P.PNAN_ITS ---
Anes - Initial Pre Proc Eval Procedure: Operation Date: 05/04/24 08:45 Proposed Procedures p Percutaneous Endoscopic Gastrostomy - Sukumar Nixon MD Operation Date: 05/04/24 11:00 Proposed Procedures p Exploratory Laparotomy, Pos Bowel Resec - Rogelio Hathaway DO s Exploratory Laparotomy with Gastrostomy Tube - Rogelio Hathaway DO Date/Time: 05/04/24 10:59 Surgeon: Juana Moreno DO Pre Op Diagnosis: Pulled out G Tube Patient Data Age: 78 Gender: M Height: 1.8 m Weight: 64.6 kg Last Vital Signs Temp 37.1 C 05/04/24 09:25 Pulse 101 H 05/04/24 10:22 Resp 20 05/04/24 10:22 BP 114/71 05/04/24 10:22 Pulse Ox 100 05/04/24 10:22 O2 Del Method Nasal Cannula 05/04/24 10:22 O2 Flow Rate 6 05/04/24 10:22 Allergies Allergy/AdvReac Type Severity Reaction Status Date / Time lidocaine Allergy Severe shuts Verified 05/04/24 09:29 lungs down Home Medications ?Medication ?Instructions ?Recorded ?Confirmed ?Type albuterol sulfate 90 mcg/actuation See Rx Instructions .Route 12/14/23 04/19/24 Rx aerosol inhaler .COMPLEX #8.5 grams tiotropium 2.5 mcg-olodaterol 2.5 2 puff inhalation DAILY #4 grams 03/14/24 04/19/24 Rx mcg/actuation mist for inhalation cholecalciferol (vitamin D3) 25 50 mcg (2 x 25 mcg (1,000 unit)) 05/03/24 Rx mcg (1,000 unit) tablet (Vitamin feeding tube DAILY #1 tablet D3) famotidine 20 mg tablet 20 mg feeding tube Q12HR #2 tabs 05/03/24 Rx finasteride 5 mg tablet (Proscar) 5 mg feeding tube DAILY #1 tablet 05/03/24 Rx folic acid 1 mg tablet 1 mg feeding tube DAILY #1 tablet 05/03/24 Rx guaifenesin 100 mg/5 mL oral liquid 200 mg (10 mL) feeding tube Q4H 05/03/24 Rx PRN Cough #1 mL hydrocodone 5 mg-acetaminophen 325 1 tablet feeding tube Q6H PRN Pain 05/03/24 Rx mg tablet Rated 4-6 #20 tabs sulfasalazine 500 mg tablet 1,500 mg (3 x 500 mg) feeding tube 05/03/24 Rx BIDPC #1 tablet venlafaxine 37.5 mg tablet 37.5 mg PO Q8HR #1 tablet 05/03/24 Rx Laboratory Tests 05/04/24 03:00 WBC 13.4 H K/mm3 (4.5-10.0) RBC 3.85 L M/mm3 (4.6-6.20) Hgb 13.2 L g/dL (14.0-18.0) Hct 39.8 L % (42.0-52.0) MCV 103.4 H fl (80-100) MCH 34.3 H pg (26-34) MCHC 33.2 g/dl (32-36) RDW 12.1 % (11.5-14.5) Plt Count 314 k/mm3 (150-375) MPV 9.7 fl (7.4-10.4) Immature Gran % (Auto) 0.5 % (0-0.5) Neut % (Auto) 88.6 H % (45.5-73.1) Lymph % (Auto) 5.3 L % (18.3-44.2) [place] % (Auto) 5.4 % (2.6-8.5) Eos % (Auto) 0.1 % (0-4.4) Baso % (Auto) 0.1 L % (0.2-1.2) Lymph # (Auto) 0.71 L K/mm3 (0.9-3.2) [place] # (Auto) 0.7 H K/mm3 (0.1-0.6) Eos # (Auto) 0.0 K/mm3 (0-0.3) Baso # (Auto) 0.0 K/mm3 (0.0-0.1) Abs Immat Gran (auto) 0.07 H K/mm3 (0.00-0.031) Absolute Neuts (auto) 11.9 H K/mm3 (1.3-6.7) Absolute Nucleated RBC 0.000 K/mm3 (0.0-0.012) Nucleated RBC % 0.0 % (0.0-0.2) Sodium 137 mmol/L (137-145) Potassium 3.9 mmol/L (3.4-5.0) Chloride 94 L mmol/L (98-107) Carbon Dioxide 32 H mmol/L (22-30) Anion Gap 11 mmol/L (4-12) BUN 22 H mg/dL (9-20) Creatinine 0.35 L mg/dL (0.7-1.3) Estim Creat Clear Calc 127 ml/min Estimated GFR > 60 (59 - ) Glucose 161 H mg/dL (65-110) Calcium 9.1 mg/dL (8.4-10.2) Patient hx anesthesia problems: none Family hx anesthesia problems: none Results Review: All pre-operative results and documents have been reviewed as part of the pre- operative evaluation. [facility] Past Medical History Medical History Aspiration into airway Pure hypercholesterolemia Depression Peripheral neuropathy Ataxia Benign prostatic hyperplasia Left rib fracture Pneumothorax Crohn's disease Ulcerative colitis Hyperlipidemia Gastro-esophageal reflux disease without esophagitis Surgical History Surgical History History of spinal surgery History of arthroplasty of right knee History of chest tube placement Family History Family History Father No problems noted. Mother No problems noted. Sibling No problems noted. Other Family history non-contributory Social History Social History Social History: Surrogate medical decision maker: eleno Chambers. Code status: Full code. Smoking packs per day: 2 Smoking cigarettes per day: 40.0 Years smoked: 15 Smoking pack-years: 30.00 Smoking status: Former smoker Second hand tobacco smoke exposure: No Additional smoking assessment comments: quit in 1980 Alcohol intake: current Drinks per week: 14 Alcohol use details: 3 per day Substance use: never Substance use type: does not use Do You Feel Safe in your Home?: Yes Lack of Transportation: YES Lack of Food: Never True Current Housing: I Have Housing Concerned About Future Housing: No Difficulty Paying Gas/Electric Bills: No Difficulty Paying for Meds: No Currently Unemployed: No Education: High School Diploma/GED Difficulty w/ Childcare or Family Care: No Living arrangements: with family Occupation/Education: retired 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 Spiritual care concerns: No Anes - Eval Final PreProcedure Day of Procedure 05/04/24 10:59 Patient weight: normal Heart: regular rate and rhythm Lungs: clear to auscultation and normal air movement Airway: Mallampati scale and special considerations (anterior c1 fracture, poor mobility ) poor extension Neurological: alert and oriented Last oral intake: >/= 8 hours ASA classification: IV Emergent: yes Anesthetic plan: proceed Anesthesia type and monitoring: general and standard monitoring Results Review: All pre-operative results and documents have been reviewed as part of the pre- operative evaluation. Informed Consent: The patient's anesthetic plan and its attendant risks and benefits were discussed with the patient/family/POA. Questions were solicited and answers provided to the satisfaction of the patient/family/POA.
--- NOTE | 2024-05-04 11:49 | P.OP_ITS ---
Procedure Note - Detailed Date of Procedure 05/04/24 Pre-op Diagnosis Dislodged PEG tube Post-op Diagnosis Same Procedure Performed Exploratory laparotomy with placement of gastrostomy tube Surgeon Rogelio Hathaway, DO Anesthesia General Indications This is a 78-year-old man who presented [facility] emergency department [facility] with findings of a dislodged gastrostomy tube. Patient just had a PEG tube placed 3 days ago and was recently discharged to the [facility] facility. Reports from the [facility] or EMS or not available to me but the patient's son reported that he was found on the floor. He was admitted and underwent EGD this morning but the previous tract was then able to be cannulated. He now is in need of exploratory laparotomy and placement of a new gastrostomy tube. Findings Exploratory laparotomy was performed. Patient was found to have a small gastrotomy on the anterior surface of the greater curvature of the stomach. There was scant exudate right at the gastrotomy but no significant spillage in the abdominal cavity. A new gastrostomy tube was placed. No other significant intra-abdominal abnormalities were noted. Description of Procedure Procedure as well as risks, benefits, and alternatives were discussed with the patient and his son. Telephone consent was obtained placed chart prior to procedure. Patient was brought back to surgical suite. He was placed supine on operating table. Time-out was done to confirm patient and procedure. He was then intubated by the anesthesia department. His abdomen was prepped and draped in sterile fashion using chlorhexidine prep. A 10 cm vertical midline incision was made in the upper abdomen using a 10 blade scalpel. Electrocautery was used for hemostasis and for dissection through the subcutaneous tissue. The linea alba was then incised using electrocautery. Fascia was lifted anteriorly and the peritoneum was entered using electrocautery. I then carefully inspected the abdominal cavity. No signs of intra-abdominal infection were noted. The stomach was identified and the previous gastrotomy was noted on the anterior surface along the greater curvature of the stomach. A curved hemostat was used to gently dilate this tract to ensure that it was still patent. Two 2-0 silk pursestring sutures were then placed around the gastrotomy. I then was able to identify the previous abdominal wall tract for the PEG tube. A curved clamp was advanced through this tract and the new gastrostomy tube was pulled through this tract. The gastrostomy tube was then advanced through the gastrotomy into the body of the stomach. The balloon was inflated and adequate placement was confirmed. The pursestring sutures were then tied down around the G-tube and then the sutures were also passed through the abdominal wall along the tract. The sutures were then tied down while pulling gentle traction on the gastrostomy tube. Gastrostomy tube appeared in proper position and was secured to the abdominal wall. One final inspection was made around the abdominal cavity and no other abnormalities were noted. The fascia of the midline incision was then approximated using 0 PDS running absorbable suture. The skin was approximated using 4-0 Monocryl running subcuticular suture. Exofin glue was then applied on top. Bacitracin ointment was then applied at the exit site on the skin for the G-tube followed by a 4 x 4 gauze and bolster. The patient was then awakened from anesthesia, extubated, and transferred to recovery. Estimated Blood Loss 5 Complications No immediate complications Condition [facility] Forward: Surgery Jacqueline
--- NOTE | 2024-05-04 15:13 | PC.NURSE ---
RN called CT scan to see where patient was on list to get scan completed. RN spoke with Soniya in CT scan and they had 4 inpatients to do, but he would be transferred down as soon as they could get to him.
--- NOTE | 2024-05-04 16:21 | PC.NURSE ---
This patient, Og Noland, was admitted to Medical Room 343-01. Patient/family oriented to hospital policies and general routines including ID bracelet, bed and alarms, visiting hours, pain management, procedures, bathroom and other care routines, personal items, smoking policy, room service/diet, and visiting hours. Information on how to activate the Rapid Response Team has been discussed. Patient/Family are encouraged to report perceived risks to care and to ask questions if they do not understand what they are told or what they should do.
--- NOTE | 2024-05-04 16:45 | PC.NURSE ---
RN completed admission and home medication reconciliation based off of previous admission and [facility] paperwork sent to hospitalist with patient.
--- NOTE | 2024-05-04 17:25 | PC.NURSE ---
RN spoke with pharmacist Woodrow about patients fluids as they are not stocked in our [facility]. Pharmacist Woodrow stated he would call hospitalist PJ about fluid order. RN unable to hang current fluids as they are not on unit at this time.
[2024-05-04] MEDS: POTASSIUM CHLORIDE INJ 10 MEQ in DEXTROSE 5%/0.45% SOD CHL 1,000 ML 100 MEQ IV CONT (18:21)
[2024-05-04] MEDS: MORPHINE SULFATE (*CRX) 2 MG/ML INJ IV PUSH (23:45)
[2024-05-05 00:40] VITALS: BP 119/77; PULSE 88; RESP 18; TEMP 36.2; O2SAT 97
[2024-05-05] MEDS: MORPHINE SULFATE (*CRX) 2 MG/ML INJ IV PUSH (05:01)
[2024-05-05 05:59] LABS: Hematocrit 35.3 % (42.0-52.0); Hemoglobin 11.6 g/dL (14.0-18.0); Mean Corpuscular HGB Conc 32.9 g/dl (32-36); Mean Corpuscular Hemoglobin 34.1 pg (26-34); Mean Corpuscular Volume 103.8 fl (80-100); Platelet Count Result 295 k/mm3 (150-375); Red Cell Distribution Width 12.1 % (11.5-14.5); White Blood Count 10.5 K/mm3 (4.5-10.0)
[2024-05-05 06:15] LABS: Alanine Aminotransferase 27 U/L (6-50); Albumin Level 3.3 g/dL (3.5-5.1); Alkaline Phosphatase 79 U/L (38-126); Anion Gap 9 mmol/L (4-12); Aspartate Amino Transferase 23 U/L (17-59); Bilirubin,Total 0.9 mg/dL (0.2-1.3); Blood Urea Nitrogen 26 mg/dL (9-20); Carbon Dioxide 32 mmol/L (22-30); Chloride 94 mmol/L (98-107); Estimated CRCL calculation 115 ml/min; Estimated Glomerular Filt Rate > 60; Glucose 122 mg/dL (65-110); Potassium 3.9 mmol/L (3.4-5.0); Sodium 135 mmol/L (137-145)
[2024-05-05 06:22] VITALS: BP 137/87; PULSE 89; RESP 18; TEMP 36.6; O2SAT 91
[2024-05-05 08:00] VITALS: O2SAT 96
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
[2024-05-05] MEDS: POTASSIUM CHLORIDE INJ 10 MEQ in DEXTROSE 5%/0.45% SOD CHL 1,000 ML 100 MEQ IV CONT ×2 (09:55→20:55)
[2024-05-05] MEDS: ENOXAPARIN 40 MG/0.4 ML SYRINGE SUB-Q (09:56)
[2024-05-05 10:32] VITALS: BP 130/84; PULSE 86; RESP 17; TEMP 36.6; O2SAT 100
--- NOTE | 2024-05-05 11:53 | PC.NURSE ---
Per surgery, new G-tube to be clamped until 1300 on 05/05/2024 (24 hours after placement). AM medications not administered, hospitalist is aware and in agreement.
[2024-05-05 14:32] VITALS: BP 151/86; PULSE 73; RESP 17; TEMP 36.3; O2SAT 96
[2024-05-05] MEDS: MORPHINE SULFATE (*CRX) 4 MG/ML INJ IV PUSH (15:19)
[2024-05-05] MEDS: VENLAFAXINE HCL 37.5 MG TABLET PO ×2 (15:20→20:55)
--- NOTE | 2024-05-05 15:48 | P.PNGS_ITS ---
Progress Note: A&P Assessment and Plan (1) Dislodged gastrostomy tube: Code(s): T85.528A - Displacement of other gastrointestinal prosthetic devices, implants and grafts, initial encounter Status: Acute Assessment and Plan: * OK to resume tube feedings as tolerated (2) Dysphagia: Qualifiers: Dysphagia type: pharyngeal phase Qualified Code(s): R13.13 - Dysphagia, pharyngeal phase Code(s): R13.10 - Dysphagia, unspecified Status: Acute (3) C1 cervical fracture: Qualifiers: Encounter type: initial encounter Fracture type: closed Fracture morphology: unspecified fracture morphology Fracture alignment: displaced Qualified Code(s): S12.000A - Unspecified displaced fracture of first cervical vertebra, initial encounter for closed fracture Code(s): S12.000A - Unspecified displaced fracture of first cervical vertebra, initial encounter for closed fracture Status: Acute Subjective Subjective Date/Time Seen: 05/05/24 15:48 Interval history: Doing well today. Plans to resume tube feeding today. Pain controlled. Exam GI: Inspection: incision (intact with glue) and other (G-tube in place) GI Palp: Yes Soft to palpation, Yes Tenderness to palpation present (GI) (incisional), No Guarding due to palpation present (GI) and No Rebound tenderness present Auscultation: normal bowel sounds Objective Data Vital Signs Vital Signs: Vital Signs - 24 hr 05/04/24 16:02 05/04/24 18:29 05/04/24 20:25 Temperature 97.1 F L 97.6 F 98.1 F Pulse Rate 90 91 84 Respiratory Rate 16 16 16 Blood Pressure 110/71 121/70 131/81 Pulse Oximetry 95 94 95 05/05/24 00:40 05/05/24 06:22 05/05/24 10:32 Temperature 97.1 F L 98 F 97.8 F Pulse Rate 88 89 86 Respiratory Rate 18 18 17 Blood Pressure 119/77 137/87 130/84 Pulse Oximetry 97 91 100 05/05/24 14:32 Temperature 97.4 F L Pulse Rate 73 Respiratory Rate 17 Blood Pressure 151/86 H Pulse Oximetry 96 Intake/Output Intake/Output: Intake & Output 05/02/24 05/03/24 05/04/24 05/05/24 23:59 23:59 23:59 23:59 Intake Total 100 1005 Output Total 50 550 Balance 50 455 Meds/Results Medications: Active Medications Generic Name Dose Route Start Last Admin Trade Name Freq PRN Reason Stop Dose Admin Hydrocodone Bitart/Acetaminophen 1 tab 05/05/24 08:09 Hydrocodone/Acetaminophen (*Crx) 5-325 Mg Tablet FEED TUBE Q6H PRN Pain Rated 4-6 Albuterol 2 puff 05/05/24 08:10 Albuterol Sulfate (*Sp) Aerosol 1 Puff INHALATION Q4HRT PRN shortness of breath/wheezing Enoxaparin Sodium 40 mg 05/05/24 09:00 05/05/24 09:56 Enoxaparin 40 Mg/0.4 Ml Syringe SUB-Q 40 mg DAILY [facility] Administration Famotidine 20 mg 05/05/24 09:00 05/05/24 10:25 Famotidine 20 Mg Tablet FEED TUBE Not Given Q12HR [facility] Fentanyl Citrate 25 mcg 05/04/24 11:41 Fentanyl Citrate Inj (*Crx) 100 Mcg/2 Ml Vial IV PUSH Q2M PRN Pain Finasteride 5 mg 05/05/24 09:00 05/05/24 10:25 Finasteride 5 Mg Tablet FEED TUBE Not Given DAILY [facility] Folic Acid 1 mg 05/05/24 09:00 05/05/24 10:25 Folic Acid 1 Mg Tablet FEED TUBE Not Given DAILY [facility] Guaifenesin 200 mg 05/05/24 08:09 Guaifenesin 200 Mg/10 Ml Udc FEED TUBE Q6H PRN Cough Ibuprofen 800 mg in 200 mls @ 400 mls/hr 05/04/24 12:47 Caldolor 800 Mg/200 Ml IVPB Q6H PRN Breakthrough Pain Rated 1-3 or NPO Potassium Chloride 10 meq/ 1,005 mls @ 100 mls/hr 05/04/24 12:47 05/05/24 10:24 Dextrose/Sodium Chloride IV CONT Not Given .Q10H3M [facility] Morphine Sulfate 2 mg 05/04/24 12:47 05/05/24 05:01 Morphine Sulfate (*Crx) 2 Mg/Ml Inj IV PUSH 2 mg Q2H PRN Administration Breakthrough Pain Rated 4-6 or NPO Morphine Sulfate 4 mg 05/04/24 12:47 05/05/24 15:19 Morphine Sulfate (*Crx) 4 Mg/Ml Inj IV PUSH 4 mg Q2H PRN Administration Breakthrough Pain Rated 7-10 or NPO Naloxone HCl 0.1 mg 05/04/24 12:47 Naloxone Hcl 0.4 Mg/Ml Vial IV PUSH Q2M PRN Opiate Reversal Ondansetron HCl 4 mg 05/04/24 11:41 Ondansetron Inj 4 Mg/2 Ml Vial IV PUSH ONCE PRN Nausea Ondansetron HCl 4 mg 05/04/24 12:47 Ondansetron Inj 4 Mg/2 Ml Vial IV PUSH Q4H PRN Nausea And Vomiting Sulfasalazine 1,500 mg 05/05/24 09:00 05/05/24 10:25 Sulfasalazine 500 Mg Tablet FEED TUBE Not Given BIDPC [facility] Venlafaxine HCl 37.5 mg 05/05/24 14:00 05/05/24 15:20 Venlafaxine Hcl 37.5 Mg Tablet PO 37.5 mg Q8HR [facility] Administration Vitamin D 2,000 units 05/05/24 09:00 05/05/24 10:24 Cholecalciferol 1,000 Units Tablet FEED TUBE Not Given DAILY [facility] Radiology Results: ITS Impressions Cervical Spine CT 05/05/24 00:02 Impression: Stable CT examination of the cervical spine, unchanged from study performed more than 2 weeks earlier with redemonstration of the mildly comminuted minimally displaced fracture of the anterior ring of C1, now well corticated and with trace callus formation. Extensive fixation of the remainder of the cervical spine is also redemonstrated. Labs Labs: Laboratory Results - last 24 hr 05/05/24 05:35 WBC 10.5 H RBC 3.40 L Hgb 11.6 L Hct 35.3 L MCV 103.8 H MCH 34.1 H MCHC 32.9 RDW 12.1 Plt Count 295 MPV 10.0 Sodium 135 L Potassium 3.9 Chloride 94 L Carbon Dioxide 32 H Anion Gap 9 BUN 26 H Creatinine 0.39 L Estim Creat Clear Calc 115 Estimated GFR > 60 Glucose 122 H Calcium 9.0 Total Bilirubin 0.9 AST 23 ALT 27 Alkaline Phosphatase 79 Total Protein 7.0 Albumin 3.3 L
[2024-05-05] MEDS: sulfaSALAzine 500 MG TABLET 1500 MG FEED TUBE (18:17)
[2024-05-05] MEDS: FAMOTIDINE 20 MG TABLET FEED TUBE (20:56)
[2024-05-06 01:32] VITALS: BP 138/87; PULSE 84; RESP 20; TEMP 36.3; O2SAT 98
[2024-05-06] MEDS: POTASSIUM CHLORIDE INJ 10 MEQ in DEXTROSE 5%/0.45% SOD CHL 1,000 ML 100 MEQ IV CONT (05:43)
[2024-05-06] MEDS: VENLAFAXINE HCL 37.5 MG TABLET PO ×3 (06:01→20:55)
[2024-05-06 06:10] VITALS: BP 124/86; PULSE 88; RESP 20; TEMP 36.2; O2SAT 99
[2024-05-06 06:16] LABS: Hematocrit 37.2 % (42.0-52.0); Mean Corpuscular HGB Conc 32.3 g/dl (32-36); Mean Corpuscular Hemoglobin 33.6 pg (26-34); Mean Corpuscular Volume 104.2 fl (80-100); Mean Platelet Volume 10.3 fl (7.4-10.4); Platelet Count Result 297 k/mm3 (150-375); Red Blood Count 3.57 M/mm3 (4.6-6.20); White Blood Count 7.2 K/mm3 (4.5-10.0)
[2024-05-06 06:25] LABS: Alanine Aminotransferase 44 U/L (6-50); Albumin Level 3.5 g/dL (3.5-5.1); Alkaline Phosphatase 73 U/L (38-126); Anion Gap 6 mmol/L (4-12); Aspartate Amino Transferase 48 U/L (17-59); Bilirubin,Total 0.6 mg/dL (0.2-1.3); Blood Urea Nitrogen 18 mg/dL (9-20); Carbon Dioxide 34 mmol/L (22-30); Chloride 94 mmol/L (98-107); Estimated CRCL calculation 118 ml/min; Estimated Glomerular Filt Rate > 60; Glucose 142 mg/dL (65-110); Potassium 4.4 mmol/L (3.4-5.0); Sodium 134 mmol/L (137-145)
[2024-05-06] MEDS: FAMOTIDINE 20 MG TABLET FEED TUBE ×2 (09:11→20:56)
[2024-05-06] MEDS: FOLIC ACID 1 MG TABLET FEED TUBE (09:11)
[2024-05-06] MEDS: ENOXAPARIN 40 MG/0.4 ML SYRINGE SUB-Q (09:11)
[2024-05-06] MEDS: CHOLECALCIFEROL 1,000 UNITS TABLET 2000 UNITS FEED TUBE (09:11)
[2024-05-06] MEDS: sulfaSALAzine 500 MG TABLET 1500 MG FEED TUBE ×2 (09:12→17:06)
[2024-05-06] MEDS: FINASTERIDE 5 MG TABLET FEED TUBE (09:12)
[2024-05-06 10:55] VITALS: BMI 19.8
[2024-05-06 11:55] VITALS: BMI 19.2
--- NOTE | 2024-05-06 12:59 | P.PNIM_ITS ---
Progress Note: A&P Assessment and Plan (1) Dislodged gastrostomy tube: Code(s): T85.528A - Displacement of other gastrointestinal prosthetic devices, implants and grafts, initial encounter Status: Acute Assessment and Plan: -initial PEG tube was placed on 05/01 -return to ED on returned to ED on 05/04 for displacement -Underwent EGD but unfortunately is safe site for PEG tube placement in the upper abdomen could not be determined. -Gastroenterologists discussed with the surgeon who agreed to perform surgical gastrostomy to avoid peritoneal leak from gastric wall orifice. -underwent Exploratory laparotomy with placement of gastrostomy tube by surgery (2) C1 cervical fracture: Qualifiers: Encounter type: initial encounter Fracture alignment: displaced Fracture morphology: unspecified fracture morphology Fracture type: closed Qualified Code(s): S12.000A - Unspecified displaced fracture of first cervical vertebra, initial encounter for closed fracture Code(s): S12.000A - Unspecified displaced fracture of first cervical vertebra, initial encounter for closed fracture Status: Acute Assessment and Plan: Dr. Hightower, neurosurgery, saw the patient and recommends that the patient wear a hard collar in follow-up with him in 1 month. I do not see C- collar on him and ordered this admission (3) Severe protein-calorie malnutrition: Code(s): E43 - Unspecified severe protein-calorie malnutrition Status: Acute Assessment and Plan: Consult nutrition Subjective Date/time seen: 05/06/24 12:59 Interval history: Started tube feeding. Patient family wants him to be discharged to a different group home. Care coordination is aware Review of Systems Review of Systems: All systems reviewed & are unremarkable except as noted in HPI and below ROS unobtainable: Yes unobtainable due to medical condition and unobtainable due to mental status Exam Narrative: EXAMINATION OF ORGAN SYSTEMS/BODY AREAS: Constitutional: Vital signs per nursing GENERAL:[No acute distress, non-toxic appearing.] HEAD: Normal with no signs of head trauma. Temporal wasting EYES: EOMI, conjunctiva normal ENT: Hearing grossly intact LUNGS: Nonlabored breathing. HEART: [Regular rate and rhythm] ABD: [Soft], [nontender to palpation], incision site where G-tube was appears clean, dry, intact EXT: Normal range of motion SKIN: [No rashes or lesions.] NEURO: [Alert. No gross focal sensory or strength deficits.] PSYCH: Normal affect Const: General: average body habitus Nutritional Appearance: average body habitus Limitations: altered mental status HENMT: Head: normal to inspection, normocephalic and atraumatic Ears: external ears normal Face/Nose/Sinus: Normal external nose present and Normal nares present Mouth: Yes Normal oral and palatal mucosa present Eyes: Periorbital: periorbital findings normal Eyelids: eyelids normal Conjunctivae: conjunctivae normal Sclera: sclerae normal Neck: Neck: normal visual inspection, no lymphadenopathy, trachea midline, supple and no JVD Resp: Effort & Inspection: symmetric chest movement Auscultation: clear to auscultation bilaterally Percussion: percussion normal Cardio: Rate: regular rate Rhythm: regular rhythm Heart sounds: S1 normal heart sound present and S2 normal heart sound present Peripheral pulses: Peripheral pulses 2+ throughout GI: Inspection: other (PEG tube site on left upper quadrant abdominal with small subq hematoma) Neuro: General: Unable to assess gait Gait exam (Neuro): Unable to assess gait Extrem: General: no pedal edema Right upper extremity: normal to inspection Left upper extremity: normal to inspection Objective Data Vital Signs Vital Signs: Vital Signs - 24 hr 05/05/24 14:32 05/05/24 20:00 05/06/24 01:32 Temperature 97.4 F L 97.4 F L Pulse Rate 73 84 Respiratory Rate 17 20 Blood Pressure 151/86 H 138/87 Pulse Oximetry 96 98 Oxygen Delivery Room Air 05/06/24 06:10 05/06/24 09:17 Temperature 97.1 F L Pulse Rate 88 Respiratory Rate 20 Blood Pressure 124/86 Pulse Oximetry 99 Oxygen Delivery Room Air Intake/Output Intake/Output: Intake & Output 05/03/24 05/04/24 05/05/24 05/06/24 23:59 23:59 23:59 23:59 Intake Total 100 2160 880 Output Total 50 1025 400 Balance 50 1135 480 Meds/Results Medications: Active Medications Generic Name Dose Route Start Last Admin Trade Name Freq PRN Reason Stop Dose Admin Hydrocodone Bitart/Acetaminophen 1 tab 05/05/24 08:09 Hydrocodone/Acetaminophen (*Crx) 5-325 Mg Tablet FEED TUBE Q6H PRN Pain Rated 4-6 Albuterol 2 puff 05/05/24 08:10 Albuterol Sulfate (*Sp) Aerosol 1 Puff INHALATION Q4HRT PRN shortness of breath/wheezing Enoxaparin Sodium 40 mg 05/05/24 09:00 05/06/24 09:11 Enoxaparin 40 Mg/0.4 Ml Syringe SUB-Q 40 mg DAILY [facility] Administration Famotidine 20 mg 05/05/24 09:00 05/06/24 09:11 Famotidine 20 Mg Tablet FEED TUBE 20 mg Q12HR [facility] Administration Fentanyl Citrate 25 mcg 05/04/24 11:41 Fentanyl Citrate Inj (*Crx) 100 Mcg/2 Ml Vial IV PUSH Q2M PRN Pain Finasteride 5 mg 05/05/24 09:00 05/06/24 09:12 Finasteride 5 Mg Tablet FEED TUBE 5 mg DAILY [facility] Administration Folic Acid 1 mg 05/05/24 09:00 05/06/24 09:11 Folic Acid 1 Mg Tablet FEED TUBE 1 mg DAILY [facility] Administration Guaifenesin 200 mg 05/05/24 08:09 Guaifenesin 200 Mg/10 Ml Udc FEED TUBE Q6H PRN Cough Ibuprofen 800 mg in 200 mls @ 400 mls/hr 05/04/24 12:47 Caldolor 800 Mg/200 Ml IVPB Q6H PRN Breakthrough Pain Rated 1-3 or NPO Morphine Sulfate 2 mg 05/04/24 12:47 05/05/24 05:01 Morphine Sulfate (*Crx) 2 Mg/Ml Inj IV PUSH 2 mg Q2H PRN Administration Breakthrough Pain Rated 4-6 or NPO Morphine Sulfate 4 mg 05/04/24 12:47 05/05/24 15:19 Morphine Sulfate (*Crx) 4 Mg/Ml Inj IV PUSH 4 mg Q2H PRN Administration Breakthrough Pain Rated 7-10 or NPO Naloxone HCl 0.1 mg 05/04/24 12:47 Naloxone Hcl 0.4 Mg/Ml Vial IV PUSH Q2M PRN Opiate Reversal Ondansetron HCl 4 mg 05/04/24 11:41 Ondansetron Inj 4 Mg/2 Ml Vial IV PUSH ONCE PRN Nausea Ondansetron HCl 4 mg 05/04/24 12:47 Ondansetron Inj 4 Mg/2 Ml Vial IV PUSH Q4H PRN Nausea And Vomiting Sulfasalazine 1,500 mg 05/05/24 09:00 05/06/24 09:12 Sulfasalazine 500 Mg Tablet FEED TUBE 1,500 mg BIDPC [facility] Administration Venlafaxine HCl 37.5 mg 05/05/24 14:00 05/06/24 06:01 Venlafaxine Hcl 37.5 Mg Tablet PO 37.5 mg Q8HR [facility] Administration Vitamin D 2,000 units 05/05/24 09:00 05/06/24 09:11 Cholecalciferol 1,000 Units Tablet FEED TUBE 2,000 units DAILY [facility] Administration Radiology Results: ITS Impressions Cervical Spine CT 05/05/24 00:02 Impression: Stable CT examination of the cervical spine, unchanged from study performed more than 2 weeks earlier with redemonstration of the mildly comminuted minimally displaced fracture of the anterior ring of C1, now well corticated and with trace callus formation. Extensive fixation of the remainder of the cervical spine is also redemonstrated. Labs Labs: Laboratory Results - last 24 hr 05/06/24 05:42 WBC 7.2 RBC 3.57 L Hgb 12.0 L Hct 37.2 L MCV 104.2 H MCH 33.6 MCHC 32.3 RDW 12.0 Plt Count 297 MPV 10.3 Sodium 134 L Potassium 4.4 Chloride 94 L Carbon Dioxide 34 H Anion Gap 6 BUN 18 Creatinine 0.38 L Estim Creat Clear Calc 118 Estimated GFR > 60 Glucose 142 H Calcium 9.0 Total Bilirubin 0.6 AST 48 ALT 44 Alkaline Phosphatase 73 Total Protein 7.0 Albumin 3.5 Hospitalist MIPS Advance Care Plan I have confirmed that the patient's Advanced Care Plan is present, code status is documented, or surrogate decision maker is listed in patient medical record.: Yes Medication Reconciliation I have utilized all available resources to obtain, update and review the patients current medications (includes all prescriptions, OTC, herbals, cannabis, and nutritional supplements).: Yes
--- NOTE | 2024-05-06 13:11 | P.PNGS_ITS ---
Progress Note: A&P Assessment and Plan (1) Dislodged gastrostomy tube: Code(s): T85.528A - Displacement of other gastrointestinal prosthetic devices, implants and grafts, initial encounter Status: Acute Assessment and Plan: * Continue to advance tube feedings as tolerated to goal. Patient okay to be discharged from a surgical standpoint. We will sign off at this time. Follow-up only as needed. (2) Dysphagia: Qualifiers: Dysphagia type: pharyngeal phase Qualified Code(s): R13.13 - Dysphagia, pharyngeal phase Code(s): R13.10 - Dysphagia, unspecified Status: Acute (3) C1 cervical fracture: Qualifiers: Encounter type: initial encounter Fracture type: closed Fracture morphology: unspecified fracture morphology Fracture alignment: displaced Qualified Code(s): S12.000A - Unspecified displaced fracture of first cervical vertebra, initial encounter for closed fracture Code(s): S12.000A - Unspecified displaced fracture of first cervical vertebra, initial encounter for closed fracture Status: Acute Plan I have discussed the patient's case and plan of care with Dr. Hathaway. Subjective Subjective Date/Time Seen: 05/06/24 13:11 Post Op day: 2 (Exploratory laparotomy with placement of gastrostomy tube) Patient reports: no new complaints Interval history: Not having any pain. Tolerating tube feedings. Nursing is advancing as tolerated to his goal. Exam GI: Inspection: non-distended and incision (Dry and glue intact, no erythema) GI Palp: Yes Soft to palpation, No Tenderness to palpation present (GI) and No Guarding due to palpation present (GI) Auscultation: normal bowel sounds Other: Gastrostomy tube in place with gauze dressing dry and intact Objective Data Vital Signs Vital Signs: Vital Signs - 24 hr 05/05/24 14:32 05/05/24 20:00 05/06/24 01:32 Temperature 97.4 F L 97.4 F L Pulse Rate 73 84 Respiratory Rate 17 20 Blood Pressure 151/86 H 138/87 Pulse Oximetry 96 98 Oxygen Delivery Room Air 05/06/24 06:10 05/06/24 09:17 Temperature 97.1 F L Pulse Rate 88 Respiratory Rate 20 Blood Pressure 124/86 Pulse Oximetry 99 Oxygen Delivery Room Air Intake/Output Intake/Output: Intake & Output 05/03/24 05/04/24 05/05/2405/06/25 23:59 23:59 23:59 23:59 Intake Total 100 2160 880 Output Total 50 1025 400 Balance 50 1135 480 Meds/Results Medications: Active Medications Generic Name Dose Route Start Last Admin Trade Name Freq PRN Reason Stop Dose Admin Hydrocodone Bitart/Acetaminophen 1 tab 05/05/24 08:09 Hydrocodone/Acetaminophen (*Crx) 5-325 Mg Tablet FEED TUBE Q6H PRN Pain Rated 4-6 Albuterol 2 puff 05/05/24 08:10 Albuterol Sulfate (*Sp) Aerosol 1 Puff INHALATION Q4HRT PRN shortness of breath/wheezing Enoxaparin Sodium 40 mg 05/05/24 09:00 05/06/24 09:11 Enoxaparin 40 Mg/0.4 Ml Syringe SUB-Q 40 mg DAILY LUCA Administration Famotidine 20 mg 05/05/24 09:00 05/06/24 09:11 Famotidine 20 Mg Tablet FEED TUBE 20 mg Q12HR LUCA Administration Fentanyl Citrate 25 mcg 05/04/24 11:41 Fentanyl Citrate Inj (*Crx) 100 Mcg/2 Ml Vial IV PUSH Q2M PRN Pain Finasteride 5 mg 05/05/24 09:00 05/06/24 09:12 Finasteride 5 Mg Tablet FEED TUBE 5 mg DAILY LUCA Administration Folic Acid 1 mg 05/05/24 09:00 05/06/24 09:11 Folic Acid 1 Mg Tablet FEED TUBE 1 mg DAILY LUCA Administration Guaifenesin 200 mg 05/05/24 08:09 Guaifenesin 200 Mg/10 Ml Udc FEED TUBE Q6H PRN Cough Ibuprofen 800 mg in 200 mls @ 400 mls/hr 05/04/24 12:47 Caldolor 800 Mg/200 Ml IVPB Q6H PRN Breakthrough Pain Rated 1-3 or NPO Morphine Sulfate 2 mg 05/04/24 12:47 05/05/24 05:01 Morphine Sulfate (*Crx) 2 Mg/Ml Inj IV PUSH 2 mg Q2H PRN Administration Breakthrough Pain Rated 4-6 or NPO Morphine Sulfate 4 mg 05/04/24 12:47 05/05/24 15:19 Morphine Sulfate (*Crx) 4 Mg/Ml Inj IV PUSH 4 mg Q2H PRN Administration Breakthrough Pain Rated 7-10 or NPO Naloxone HCl 0.1 mg 05/04/24 12:47 Naloxone Hcl 0.4 Mg/Ml Vial IV PUSH Q2M PRN Opiate Reversal Ondansetron HCl 4 mg 05/04/24 11:41 Ondansetron Inj 4 Mg/2 Ml Vial IV PUSH ONCE PRN Nausea Ondansetron HCl 4 mg 05/04/24 12:47 Ondansetron Inj 4 Mg/2 Ml Vial IV PUSH Q4H PRN Nausea And Vomiting Sulfasalazine 1,500 mg 05/05/24 09:00 05/06/24 09:12 Sulfasalazine 500 Mg Tablet FEED TUBE 1,500 mg BIDPC LUCA Administration Venlafaxine HCl 37.5 mg 05/05/24 14:00 05/06/24 06:01 Venlafaxine Hcl 37.5 Mg Tablet PO 37.5 mg Q8HR LUCA Administration Vitamin D 2,000 units 05/05/24 09:00 05/06/24 09:11 Cholecalciferol 1,000 Units Tablet FEED TUBE 2,000 units DAILY LUCA Administration Radiology Results: ITS Impressions Cervical Spine CT 05/05/24 00:02 Impression: Stable CT examination of the cervical spine, unchanged from study performed more than 2 weeks earlier with redemonstration of the mildly comminuted minimally displaced fracture of the anterior ring of C1, now well corticated and with trace callus formation. Extensive fixation of the remainder of the cervical spine is also redemonstrated. Labs Labs: Laboratory Results - last 24 hr 05/06/24 05:42 WBC 7.2 RBC 3.57 L Hgb 12.0 L Hct 37.2 L MCV 104.2 H MCH 33.6 MCHC 32.3 RDW 12.0 Plt Count 297 MPV 10.3 Sodium 134 L Potassium 4.4 Chloride 94 L Carbon Dioxide 34 H Anion Gap 6 BUN 18 Creatinine 0.38 L Estim Creat Clear Calc 118 Estimated GFR > 60 Glucose 142 H Calcium 9.0 Total Bilirubin 0.6 AST 48 ALT 44 Alkaline Phosphatase 73 Total Protein 7.0 Albumin 3.5
--- NOTE | 2024-05-06 14:46 | PCOTNOTE ---
Attempted to see pt. for occupational therapy evaluation. Pt declined at this time. Nursing updated
[2024-05-06] MEDS: POTASSIUM CHLORIDE 20 MEQ PACKET (FOR LIQUID) 40 MEQ PO (15:05)
[2024-05-06 20:00] VITALS: BP 127/84; PULSE 98; RESP 18; TEMP 36.6; O2SAT 96
[2024-05-06] MEDS: MORPHINE SULFATE (*CRX) 2 MG/ML INJ IV PUSH (20:54)
[2024-05-07 02:00] VITALS: BP 125/90; PULSE 105; RESP 16; TEMP 36.3; O2SAT 95
[2024-05-07 05:51] LABS: Hematocrit 35.8 % (42.0-52.0); Hemoglobin 11.7 g/dL (14.0-18.0); Mean Corpuscular HGB Conc 32.7 g/dl (32-36); Mean Corpuscular Hemoglobin 33.6 pg (26-34); Mean Corpuscular Volume 102.9 fl (80-100); Mean Platelet Volume 10.2 fl (7.4-10.4); Platelet Count Result 318 k/mm3 (150-375); Red Blood Count 3.48 M/mm3 (4.6-6.20); Red Cell Distribution Width 11.9 % (11.5-14.5); White Blood Count 7.1 K/mm3 (4.5-10.0)
[2024-05-07] MEDS: VENLAFAXINE HCL 37.5 MG TABLET PO ×3 (05:58→19:59)
[2024-05-07 06:00] VITALS: BP 105/68; PULSE 91; RESP 20; TEMP 36.2; O2SAT 98
[2024-05-07 06:07] LABS: Alanine Aminotransferase 123 U/L (6-50); Albumin Level 3.4 g/dL (3.5-5.1); Alkaline Phosphatase 75 U/L (38-126); Anion Gap 10 mmol/L (4-12); Aspartate Amino Transferase 114 U/L (17-59); Bilirubin,Total 0.5 mg/dL (0.2-1.3); Blood Urea Nitrogen 17 mg/dL (9-20); Calcium 8.6 mg/dL (8.4-10.2); Carbon Dioxide 30 mmol/L (22-30); Chloride 94 mmol/L (98-107); Estimated CRCL calculation 129 ml/min; Estimated Glomerular Filt Rate > 60; Glucose 126 mg/dL (65-110); Potassium 3.8 mmol/L (3.4-5.0); Sodium 134 mmol/L (137-145)
[2024-05-07] MEDS: sulfaSALAzine 500 MG TABLET 1500 MG FEED TUBE ×2 (08:47→18:00)
[2024-05-07] MEDS: FAMOTIDINE 20 MG TABLET FEED TUBE ×2 (08:47→19:59)
[2024-05-07] MEDS: CHOLECALCIFEROL 1,000 UNITS TABLET 2000 UNITS FEED TUBE (08:47)
[2024-05-07] MEDS: FOLIC ACID 1 MG TABLET FEED TUBE (08:47)
[2024-05-07] MEDS: FINASTERIDE 5 MG TABLET FEED TUBE (08:47)
[2024-05-07] MEDS: ENOXAPARIN 40 MG/0.4 ML SYRINGE SUB-Q (08:48)
[2024-05-07] MEDS: IBUPROFEN IV 800 MG/200 ML 800 MG/200 ML BAG 400 MG IVPB (09:04)
--- NOTE | 2024-05-07 10:22 | PCSTNOTE ---
CERTIFIED DIETARY MANAGER spoke w/ Dr. SCHAFFER yesterday (05/06) to clarify speech communication eval - reported that the order was meant for dietary, not speech therapy, as pt had feeding tube placed 36 hours before. CERTIFIED DIETARY MANAGER stopped order for communication eval on this date for listed reason.
--- NOTE | 2024-05-07 10:58 | PCNFU ---
Nutrition Follow-Up Complete: Suboptimal energy intake as related to NPO as evidenced by G tube replacement. Goal: Meet estimated nutritional needs. Patient is meeting goal. no new goal. Pt current nutrition is Jevity 1.5. Last recorded weight is 62.6 kg, up from 64.6 kg on admit. Bowel Motility: No BM reported. Labs Reviewed:Cr 0.33, Glu 126, Na 134 Meds Noted:Vit D, Folic Acid, Lovenox. Skin: WNL Additional Notes: Patient current with PEG tube. Tolerating tube feedings of Jevity 1.5 at 60 ml/hr. Total Nutrition: 1980 kcal/84 gm protein/1003 ml water. Flush 100 ml q 4 hours. Agree with diet orders. We will monitor, weight , labs, skin, diet orders, meds, tube feeding tolerance every Monday and Monday.
[2024-05-07 11:00] VITALS: BMI 18.6
[2024-05-07 14:47] VITALS: BP 122/81; PULSE 80; RESP 18; TEMP 36; O2SAT 96
[2024-05-07] MEDS: HYDROcodone/acetaminophen (*CRX) 5-325 MG TABLET 1 TAB FEED TUBE (14:47)
--- NOTE | 2024-05-07 16:02 | P.PNIM_ITS ---
Progress Note: A&P Assessment and Plan (1) Dislodged gastrostomy tube: Code(s): T85.528A - Displacement of other gastrointestinal prosthetic devices, implants and grafts, initial encounter Status: Acute Assessment and Plan: -initial PEG tube was placed on 05/01 -return to ED on returned to ED on 05/04 for displacement -Underwent EGD but unfortunately is safe site for PEG tube placement in the upper abdomen could not be determined. -Gastroenterologists discussed with the surgeon who agreed to perform surgical gastrostomy to avoid peritoneal leak from gastric wall orifice. -underwent Exploratory laparotomy with placement of gastrostomy tube by surgery (2) C1 cervical fracture: Qualifiers: Encounter type: initial encounter Fracture type: closed Fracture morphology: unspecified fracture morphology Fracture alignment: displaced Qualified Code(s): S12.000A - Unspecified displaced fracture of first cervical vertebra, initial encounter for closed fracture Code(s): S12.000A - Unspecified displaced fracture of first cervical vertebra, initial encounter for closed fracture Status: Acute Assessment and Plan: Dr. Hightower, neurosurgery, saw the patient and recommends that the patient wear a hard collar in follow-up with him in 1 month. I do not see C- collar on him and ordered this admission (3) Severe protein-calorie malnutrition: Code(s): E43 - Unspecified severe protein-calorie malnutrition Status: Acute Assessment and Plan: Consult nutrition Plan DVT prophylaxis subQ Lovenox. Awaiting placement Subjective Date/time seen: 05/07/24 16:02 Interval history: The patient comfortable at bedside on tube feeding Awaiting placement to a different prison. Review of Systems Review of Systems: All systems reviewed & are unremarkable except as noted in HPI and below ROS unobtainable: Yes unobtainable due to medical condition and unobtainable due to mental status Exam Narrative: EXAMINATION OF ORGAN SYSTEMS/BODY AREAS: Constitutional: Vital signs per nursing GENERAL:[No acute distress, non-toxic appearing.] HEAD: Normal with no signs of head trauma. Temporal wasting EYES: EOMI, conjunctiva normal ENT: Hearing grossly intact LUNGS: Nonlabored breathing. HEART: [Regular rate and rhythm] ABD: [Soft], [nontender to palpation], incision site where G-tube was appears clean, dry, intact EXT: Normal range of motion SKIN: [No rashes or lesions.] NEURO: [Alert. No gross focal sensory or strength deficits.] PSYCH: Normal affect Const: General: average body habitus Nutritional Appearance: average body habitus Limitations: altered mental status HENMT: Head: normal to inspection, normocephalic and atraumatic Ears: external ears normal Face/Nose/Sinus: Normal external nose present and Normal nares present Mouth: Yes Normal oral and palatal mucosa present Eyes: Periorbital: periorbital findings normal Eyelids: eyelids normal Conjunctivae: conjunctivae normal Sclera: sclerae normal Neck: Neck: normal visual inspection, no lymphadenopathy, trachea midline, supple and no JVD Resp: Effort & Inspection: symmetric chest movement Auscultation: clear to auscultation bilaterally Percussion: percussion normal Cardio: Rate: regular rate Rhythm: regular rhythm Heart sounds: S1 normal heart sound present and S2 normal heart sound present Peripheral pulses: Peripheral pulses 2+ throughout GI: Inspection: other (PEG tube site on left upper quadrant abdominal with small subq hematoma) Neuro: General: Unable to assess gait Gait exam (Neuro): Unable to assess gait Extrem: General: no pedal edema Right upper extremity: normal to inspection Left upper extremity: normal to inspection Objective Data Vital Signs Vital Signs: Vital Signs - 24 hr 05/06/24 20:00 05/06/24 20:00 05/07/24 02:00 Temperature 97.9 F 97.3 F L Pulse Rate 98 105 H Respiratory Rate 18 16 Blood Pressure 127/84 125/90 Pulse Oximetry 96 95 Oxygen Delivery Room Air 05/07/24 06:00 05/07/24 08:00 05/07/24 14:47 Temperature 97.1 F L 96.8 F L Pulse Rate 91 80 Respiratory Rate 20 18 Blood Pressure 105/68 122/81 Pulse Oximetry 98 96 Oxygen Delivery Room Air Intake/Output Intake/Output: Intake & Output 05/04/24 05/05/24 05/06/24 05/07/24 23:59 23:59 23:59 23:59 Intake Total 100 2160 880 1655 Output Total 50 8347 653 3127 Balance 50 1135 80 55 Meds/Results Medications: Active Medications Generic Name Dose Route Start Last Admin Trade Name Freq PRN Reason Stop Dose Admin Hydrocodone Bitart/Acetaminophen 1 tab 05/05/24 08:09 05/07/24 14:47 Hydrocodone/Acetaminophen (*Crx) 5-325 Mg Tablet FEED TUBE 1 tab Q6H PRN Administration Pain Rated 4-6 Albuterol 2 puff 05/05/24 08:10 Albuterol Sulfate (*Sp) Aerosol 1 Puff INHALATION Q4HRT PRN shortness of breath/wheezing Enoxaparin Sodium 40 mg 05/05/24 09:00 05/07/24 08:48 Enoxaparin 40 Mg/0.4 Ml Syringe SUB-Q 40 mg DAILY LUCA Administration Famotidine 20 mg 05/05/24 09:00 05/07/24 08:47 Famotidine 20 Mg Tablet FEED TUBE 20 mg Q12HR LUCA Administration Fentanyl Citrate 25 mcg 05/04/24 11:41 Fentanyl Citrate Inj (*Crx) 100 Mcg/2 Ml Vial IV PUSH Q2M PRN Pain Finasteride 5 mg 05/05/24 09:00 05/07/24 08:47 Finasteride 5 Mg Tablet FEED TUBE 5 mg DAILY LUCA Administration Folic Acid 1 mg 05/05/24 09:00 05/07/24 08:47 Folic Acid 1 Mg Tablet FEED TUBE 1 mg DAILY LUCA Administration Guaifenesin 200 mg 05/05/24 08:09 Guaifenesin 200 Mg/10 Ml Udc FEED TUBE Q6H PRN Cough Ibuprofen 800 mg in 200 mls @ 400 mls/hr 05/04/24 12:47 05/07/24 09:34 Caldolor 800 Mg/200 Ml IVPB Infused Q6H PRN Infusion Breakthrough Pain Rated 1-3 or NPO Morphine Sulfate 2 mg 05/04/24 12:47 05/06/24 20:54 Morphine Sulfate (*Crx) 2 Mg/Ml Inj IV PUSH 2 mg Q2H PRN Administration Breakthrough Pain Rated 4-6 or NPO Morphine Sulfate 4 mg 05/04/24 12:47 05/05/24 15:19 Morphine Sulfate (*Crx) 4 Mg/Ml Inj IV PUSH 4 mg Q2H PRN Administration Breakthrough Pain Rated 7-10 or NPO Naloxone HCl 0.1 mg 05/04/24 12:47 Naloxone Hcl 0.4 Mg/Ml Vial IV PUSH Q2M PRN Opiate Reversal Ondansetron HCl 4 mg 05/04/24 11:41 Ondansetron Inj 4 Mg/2 Ml Vial IV PUSH ONCE PRN Nausea Ondansetron HCl 4 mg 05/04/24 12:47 Ondansetron Inj 4 Mg/2 Ml Vial IV PUSH Q4H PRN Nausea And Vomiting Sulfasalazine 1,500 mg 05/05/24 09:00 05/07/24 08:47 Sulfasalazine 500 Mg Tablet FEED TUBE 1,500 mg BIDPC LUCA Administration Venlafaxine HCl 37.5 mg 05/05/24 14:00 05/07/24 13:02 Venlafaxine Hcl 37.5 Mg Tablet PO 37.5 mg Q8HR LUCA Administration Vitamin D 2,000 units 05/05/24 09:00 05/07/24 08:47 Cholecalciferol 1,000 Units Tablet FEED TUBE 2,000 units DAILY LUCA Administration Radiology Results: ITS Impressions Cervical Spine CT 05/05/24 00:02 Impression: Stable CT examination of the cervical spine, unchanged from study performed more than 2 weeks earlier with redemonstration of the mildly comminuted minimally displaced fracture of the anterior ring of C1, now well corticated and with trace callus formation. Extensive fixation of the remainder of the cervical spine is also redemonstrated. Labs Labs: Laboratory Results - last 24 hr 05/07/24 05:21 WBC 7.1 RBC 3.48 L Hgb 11.7 L Hct 35.8 L MCV 102.9 H MCH 33.6 MCHC 32.7 RDW 11.9 Plt Count 318 MPV 10.2 Sodium 134 L Potassium 3.8 Chloride 94 L Carbon Dioxide 30 Anion Gap 10 BUN 17 Creatinine 0.33 L Estim Creat Clear Calc 129 Estimated GFR > 60 Glucose 126 H Calcium 8.6 Total Bilirubin 0.5 AST 114 H ALT 123 H Alkaline Phosphatase 75 Total Protein 7.0 Albumin 3.4 L
[2024-05-07] MEDS: MORPHINE SULFATE (*CRX) 2 MG/ML INJ IV PUSH (20:30)
[2024-05-07 22:17] VITALS: BP 128/83; PULSE 85; RESP 18; TEMP 36.3; O2SAT 96
[2024-05-08 02:16] VITALS: BP 119/80; PULSE 90; RESP 18; TEMP 36.1; O2SAT 97
[2024-05-08] MEDS: VENLAFAXINE HCL 37.5 MG TABLET PO (05:56)
[2024-05-08 06:00] VITALS: BP 117/73; PULSE 64; RESP 20; TEMP 36.1; O2SAT 98
[2024-05-08] MEDS: ENOXAPARIN 40 MG/0.4 ML SYRINGE SUB-Q (08:51)
[2024-05-08] MEDS: sulfaSALAzine 500 MG TABLET 1500 MG FEED TUBE (08:52)
[2024-05-08] MEDS: CHOLECALCIFEROL 1,000 UNITS TABLET 2000 UNITS FEED TUBE (08:52)
[2024-05-08] MEDS: FAMOTIDINE 20 MG TABLET FEED TUBE (08:52)
[2024-05-08] MEDS: FOLIC ACID 1 MG TABLET FEED TUBE (08:52)
[2024-05-08] MEDS: FINASTERIDE 5 MG TABLET FEED TUBE (08:52)
--- NOTE | 2024-05-08 13:14 | P.DS_ITS ---
DS: Admitting Diagnosis Discharge Date 05/08/24 Admitting Diagnosis PEG tube malfunction DS: Discharge Diagnosis Discharge Diagnosis (1) PEG tube malfunction: Code(s): K94.23 - Gastrostomy malfunction Status: Acute (2) C1 cervical fracture: Qualifiers: Encounter type: initial encounter Fracture type: closed Fracture morphology: unspecified fracture morphology Fracture alignment: displaced Qualified Code(s): S12.000A - Unspecified displaced fracture of first cervical vertebra, initial encounter for closed fracture Code(s): S12.000A - Unspecified displaced fracture of first cervical vertebra, initial encounter for closed fracture Status: Acute DS: Summary Hospital Course Hospital Course: 78-year-old male with history of left anterior rib fractures and pneumothorax and resultant chronic intermittent left chest pain, benign prostatic hyperplasia, hyperlipidemia, gastroesophageal reflux disease, ulcerative colitis, and Crohn's disease who presented to the emergency department via EMS for evaluation after PEG tube was removed accidentally. Patient PEG tube was placed on 0 05/01 and was discharged to group home. Patient was initially evaluated by Gastroenterology, underwent EGD but unfortunately is safe site for PEG tube placement in the upper abdomen could not be determined. Gastroenterologists discussed with the surgeon who agreed to perform surgical gastrostomy to avoid peritoneal leak from gastric wall orifice. Eventually patient underwent Exploratory laparotomy with placement of gastrostomy tube. Of note patient has Minimally displaced mildly comminuted fracture at the anterior ring of C1 which was identified on his previous admission and neurology was consulted who recommended C-collar. PEG tube placed by Gen Surgery and tube feeding re-established. Patient will follow up Neurosurgery as scheduled Patient discharged to SNF today F/u with PCP in 3-5 days Time Spent with Patient Time attestation: Total time spent providing and/or coordinating discharge services: Discharge Plan Discharge Attending physician on discharge: Suzie Whitley Consulting providers: Rogelio Hathaway Discharging Clinician: Suzie Whitley Anticipated Discharge Date/Time: 05/08/24 13:11 Patient Disposition: SNF Activity: as tolerated Diet: tube feeding Discharge Instructions: F/u with Neurosurgery, Dr Hightower, as instructed Patient Language: Citizen Of [place] Stand Alone Forms: General Discharge Information Follow-up/Referrals: Jay Hightower MD [Physician] - (F/u with neurosurgery as instructed ) Krystian Taveras APRN [Primary Care Provider] - (F/u with PCP in 3-5 days ) Discharge Medications: Continued sulfasalazine 500 mg Tablet 1,500 mg feeding tube BIDPC Qty: 1 0RF hydrocodone-acetaminophen 5-325 mg Tablet 1 tablet feeding tube Q6H PRN (Reason: Pain Rated 4-6) Qty: 20 0RF famotidine 20 mg Tablet 20 mg feeding tube Q12HR Qty: 2 0RF venlafaxine 37.5 mg Tablet 37.5 mg PO Q8HR Qty: 1 0RF folic acid 1 mg Tablet 1 mg feeding tube DAILY Qty: 1 0RF finasteride [Proscar] 5 mg Tablet 5 mg feeding tube DAILY Qty: 1 0RF cholecalciferol (vitamin D3) [Vitamin D3] 25 mcg (1,000 unit) Tablet 50 mcg feeding tube DAILY Qty: 1 0RF guaifenesin 100 mg/5 mL Liquid 200 mg feeding tube Q6H PRN (Reason: Cough) albuterol sulfate 90 mcg/actuation HFA aerosol inhaler See Rx Instructions .ROUTE .COMPLEX Qty: 8.5 3RF Dose Instruction: INHALE 2 PUFFS BY MOUTH EVERY 4 HOURS NEEDED FOR SHORTNESS OF BREATH OR WHEEZING Rx Instructions: INHALE 2 PUFFS BY MOUTH EVERY 4 HOURS NEEDED FOR SHORTNESS OF BREATH OR WHEEZING Date of admission: 05/04/24 04:56 Primary Care Provider: Krystian Taveras Admitting Provider: Juana Moreno Attending physician on admission: Juana Moreno Condition: Stable
--- NOTE | 2024-05-08 14:33 | PCPTNOTE ---
Per RN, ambulance in route and patient is discharging. No treatment completed this date.
== END 2024-05-08 15:54 ==
LOC: ANHED 05:42 → ANH3MED 05-05 09:37 → ANH3MEDSUR 05-09 07:01
PROVIDERS: General Practice; Internal Medicine Gastroenterology; Surgery; Admitting Provider Internal Medicine; Emergency Provider Emergency Medicine; PCP Nurse Practitioner; Visit Provider Internal Medicine
PROC: 0DJ08ZZ Inspection of Upper Intestinal Tract, Via Natural or Artificial Opening Endoscopic (ICD-10-PCS; CPT 43235; principal; 2024-05-04 08:45)
PROC: (CPT 49000; principal; 2024-05-04 11:00)
DX: T85.528A Displacement of other gastrointestinal prosthetic devices, implants and grafts, initial encounter (principal); Y73.8 Miscellaneous gastroenterology and urology devices associated with adverse incidents, not elsewhere classified; R13.13 Dysphagia, pharyngeal phase; S12.000A Unspecified displaced fracture of first cervical vertebra, initial encounter for closed fracture; E43 Unspecified severe protein-calorie malnutrition; Z68.1 Body mass index [BMI] 19.9 or less, adult; R33.9 Retention of urine, unspecified; R07.89 Other chest pain; G89.29 Other chronic pain; K21.9 Gastro-esophageal reflux disease without esophagitis; K50.90 Crohn's disease, unspecified, without complications; E78.00 Pure hypercholesterolemia, unspecified; N40.0 Benign prostatic hyperplasia without lower urinary tract symptoms; G62.9 Polyneuropathy, unspecified; F32.A Depression, unspecified; Z79.51 Long term (current) use of inhaled steroids; Z79.899 Other long term (current) drug therapy; Z87.891 Personal history of nicotine dependence; Z87.81 Personal history of (healed) traumatic fracture
CPT/HCPCS: 43235; 43999; 36415; 43246; 72125; 80048; 80053; 85025; 85027; 96361; 96365; 96366; 96367; 96372; 96375; 96376; 97110; 97161; 97166; 99285; A9270; G0378; J0690; J1100; J1650; J1741; J2003; J2270; J2405; J2704; J3010; J3480; J7120; L0140

== ENCOUNTER 2024-05-29 14:54 | Outpatient (CLI) | payer MEDICARE, SELFPAY ==
--- NOTE | ~2024-05-29 | XR_ITS ---
[id number] Ordering provider: Marisela Mercedes APRN History: . S12.000A - Unspecified displaced fracture of first cervic... . Comparison: None. FINDINGS: VERTEBRAL BODIES: Postoperative changes in the cervical spine. Normal height and alignment. No visibl e fracture or subluxation. The dens is intact. DISK SPACES: Narrowing of all disc spaces. Multilevel facet joint disease. PARASPINOUS SOFT TISSUES: No prevertebral soft tissue swelling. IMPRESSION: No acute osseous abnormality cervical spine. Postoperative changes in all cervical vertebra. Reviewed, dictated and finalized at location A.
--- OUTSIDE RECORDS SUMMARY | 2024-05-29 17:08 | XMS_ITS | Referral Summary ---
Author Organization [facility] Address [address] [place] [address] Care Team Providers Care Bottle Cleaner Name Role Phone Slade Bush MD Primary Care Provider [phone] Encounters Date Type Department Care Team Description 03/11/2024 Orders Only [facility] Cardiology [address] [place] [address] Nova Yoo NP from Last [...] thiamine, folate - CIWA Ulcerative (chronic) enterocolitis 10/08/2023 Assessment & Plan (10/08/2023 5:09 PM CDT): [...] Smoking Tobacco: Former Cigarettes Smokeless Tobacco: Never [employer] Answer Date Recorded In the past 12 months has [employer], gas, oil, or water [employer] threatened to shut off services in your [...] declined 10/07/2023 How often do you attend worship or sabianism serv ices? Patient declined 10/07/2023 Do you belong to any clubs o r organizations such as worship groups, unions, fraternal or athletic groups, or [...] and heating? Not hard at all 10/07/2023 [facility] - Occupational Stress [...] money to buy more. Never true 10/07/19 Within the past 12 months, t he [...] any time in the past 12 m [facility], were you homeless or living in a usp (including now)? No 10/07/2023 Personal Safety Answer Date Recorded Have you ever been in or are you currently in a harmful physical or emotional relationship or is someone making you feel afraid or unsafe? Denies 10/13/2023 Sex and Gender Information Value Date Recorded Sex Assigned at Not on file Legal Sex Male 2:53 AM STORE GROUP MANAGER Gender Identity Not on file Sexual Orientation [...] CDT Plan of Treatment Not on file Insurance MEDICARE SOLUTIONS MEDICARE SOLUTIONS Advance Directives For more information, please contact: [phone] * Full Code (Latest Code Status on File) Date Activated Date Inactivated Comments 10/07/2023 9:43 AM 10/18/2023 8:35 PM Care Teams Bottle Cleaner Relationship Specialty Start Date End Date Slade Bush MD [address] [facility] [address] [place], [place] [id number] PCP - General 07/27/12
--- OUTSIDE RECORDS SUMMARY | 2024-05-29 17:08 | XMS_ITS | Clinical Summary ---
Author Organization [facility] Address [address] [place] [address] Care Team Providers Care Spreader Operator Automatic Name Role Phone Slade Bush DO Primary Care Provider [phone] Source Comments [facility],non-owned Affiliates and Associated Physician Practices is amultiple site organization consisting of ambulatory clinics and hospital sitesin [place], [place], [place] and [place]. This disclosure is being madepursuant to the Care Everywhere program and may not contain all information available regarding this patient. Last updated 17.[facility] [address] Allergies Active Allergy Reactions Criticality Noted Date [...] Comments Blood Pressure 128/73 03/23/2015 9:30 AM EXPLORATION MANAGER Pulse 74 03/23/2015 9:10 AM EXPLORATION MANAGER Temperature 36.7 C (98 F) 03/23/2015 9:30 AM EXPLORATION MANAGER Respiratory Rate 18 03/23/2015 9:30 AM EXPLORATION MANAGER Oxygen Saturation 97% 03/23/2015 9:30 AM EXPLORATION MANAGER Inhaled Oxygen Concentration - - Weight 88.5 kg (195 lb) 03/23/2015 6:38 AM EXPLORATION MANAGER Height 188 cm (6' 2 ) 03/23/2015 6:38 AM EXPLORATION MANAGER Body Mass Index 25.04 03/23/2015 6:38 AM EXPLORATION MANAGER Plan of Treatment Health Maintenance Due Date [...] to complete this topic MENINGOCOCCAL (Group B) VACC INE SHARED DECISION-MAKING Aged Out No longer eligibl e based on patient's age to complete this topic MENINGOCOCCAL GROUPS A/C/Y/W VACCINE Aged Out No longer eligible b ased on patient's age to complete this topic Medical Devices Implanted Type Area Production Supervisor Trainee Device Identifier Shelf Expiration Date Model / Serial / Lot Raudel Gonsalez [facility] Jar 2.0cc - [id number] Implanted:Qty: 1 on 12/25/2014 by Anthony Recinos MD at [facility] [employer] 01/07/2017 [id number] / [id number] / Space Peek 8 X 16 X 14mm - [id number] Implanted:Qty: 1 on 12/25/2014 by Anthony Recinos MD at [facility] [employer] 01/20/2022 [id number] / [id number] / Space Peek 7 X 16 X 14mm - [id number] Implanted:Qty: 1 on 12/25/2014 by Anthony Recinos MD at [facility] [employer] 07/17/2022 [id number] / [id number] / Space Peek 7 X 16 X 14mm - [id number] Implanted:Qty: 1 on 12/25/2014 by Anthony Recinos MD at [facility] [employer] 07/17/2022 [id number] / [id number] / Plate Ant Cerv Assem 70mm Implanted:Qty: 1 on 12/25/2014 by Anthony Recinos MD at [facility] [employer] [id number] / / Scrw Self Drill Jeronimo 4.0 X 15 Implanted:Qty: 8 on 12/25/2014 by Anthony Recinos MD at [facility] [employer] [id number] / / Advance Directives * Full Code (Latest Code Status on File) Date Activated Date Inactivated Comments 12/25/2014 5:23 PM 12/25/2014 7:56 PM Care Teams Spreader Operator Automatic Relationship Specialty Start Date End Date Slade Bush DO [address] [facility] [address] [place] [address] PCP - General Internal Medicine 07/08/14
--- OUTSIDE RECORDS SUMMARY | 2024-05-29 17:08 | XMS_ITS | Patient Health Summary ---
Author Organization [facility] Address [address] [place] [address] Care Team Providers Care Financial Reporting Consultant Name Role Phone EleazarSlade DO Primary Care Provider +1 [phone] Note from [facility],non-owned Affiliates and Associated Physician Practices is amultiple site organization consisting of ambulatory clinics and hospital sitesin [place], [place], [place] and [place]. This disclosure is being madepursuant to the Care Everywhere program and may not contain all information available regarding this patient. Last updated 17.[facility] Allergies * Lidocaine(Anaphylaxis,Shortness of Breath) [...] Comments Blood Pressure 128/73 03/23/2015 9:30 AM PROFESSOR OF THEATRE Pulse 74 03/23/2015 9:10 AM PROFESSOR OF THEATRE Temperature 36.7 C (98 F) 03/23/2015 9:30 AM PROFESSOR OF THEATRE Respiratory Rate 18 03/23/2015 9:30 AM PROFESSOR OF THEATRE Oxygen Saturation 97% 03/23/2015 9:30 AM PROFESSOR OF THEATRE Inhaled Oxygen Concentration - - Weight 88.5 kg (195 lb) 03/23/2015 6:38 AM PROFESSOR OF THEATRE Height 188 cm (6' 2 ) 03/23/2015 6:38 AM PROFESSOR OF THEATRE Body Mass Index 25.04 03/23/2015 6:38 AM PROFESSOR OF THEATRE Medical Devices Implanted Type Area General Assignment Reporter Device Identifier Shelf Expiration Date Model / Serial / Lot Putty Bone Gutierrezfton Dbm Jar 2.0cc - [id number] Implanted:Qty: 1 on 12/25/2014 by [facility] [employer] 01/07/2017 [id number] / [id number] / Space Peek 8 X 16 X 14mm - [id number] Implanted:Qty: 1 on 12/25/2014 by [facility] [employer] 01/20/2022 [id number] / [id number] / Space Peek 7 X 16 X 14mm - [id number] Implanted:Qty: 1 on 12/25/2014 by [facility] [employer] 07/17/2022 [id number] / [id number] / Space Peek 7 X 16 X 14mm - [id number] Implanted:Qty: 1 on 12/25/2014 by [facility] Rec[facility] [employer] 07/17/2022 [id number] / [id number] / Plate Ant Cerv Assem 70mm Implanted:Qty: 1 on 12/25/2014 by Anhtony Recinos [facility] at [facility] [employer] [id number] / / Scrw Self Drill Jeronimo 4.0 X 15 Implanted:Qty: 8 on 12/25/2014 by [facility] [employer] [id number] / / Procedures * CORNEAL TOPOGRAPHY UNI/BI(Performed [...] * CORNEAL TOPOGRAPHY UNI/BI (04/12/2023 11:20 AM PROFESSOR OF THEATRE) Anatomical Region Laterality Modality Head External-Camera Photography Narrative 04/12/2023 11:55 AM PROFESSOR OF THEATRE Images from the original result were not [...] esophagram. 2. Instrumented cervical spinal fusion. Aaliyah Nzaario GRAVEL WEIGHER-MANAGER HOUSE FLUOROSCOPY ORDER [place] * CARDIAC RHYTHM STRIP ORDER (12/26/2014 9:20 PM CDT) Narrative 12/26/2014 9:20 PM CDT Ordered by an unspecified provider. Scanned Document CARDIAC SERVICES ORD ERABLES * XR SPINE 1 VIEW (12/25/2014 2:46 PM CDT) Narrative [facility] - 12/26/2014 11:07 AM CDT No Dictation. Anthony Recinos MD DIAGNOSTIC IMAGING O RDERABLES [facility] [address] [place] [address] * LAB RESULTS ORDER (04/11/2014) Anthony Recinos [...] specimen consists of a punch biopsy measuring [id number]. The specimen is submitted in whole for direct immunofluorescence testing. MICROSCOPIC DESCRIPTION: Controls were run in parallel. There is IgM in the papillary dermis consistent with colloid bodies. Staining is negative with C3, IgG and IgA. Colloid bodies represent dyskeratotic keratinocytes usually seen in lichenoid / interface dermatitis. See fixed tissue results. Electronically signed out by Zari Piper M.D. 12/03/2013 8:44:11AM [facility] Comment: Performed at: Dermatopathology Laboratory [facility] - Department of Dermatology [address] [place] [address], 5th [place] [address] Phone number: [phone] FAX: [phone] 11/28/2013 11/29/2013 Karan Pascal MD LAB - PATHOLOGY/CYTO LOGY ORDERABLES [facility] [address] [facility]. 5th [place] [address], [facility] [phone] Care Teams Financial Reporting Consultant Relationship Specialty Start Date End Date Slade Bush DO [address] [facility] [address] [place] [address] PCP - General Internal Medicine 07/08/14
--- OUTSIDE RECORDS SUMMARY | 2024-05-29 17:08 | XMS_ITS | Referral Summary ---
Author Organization [facility] Address [address] [place] [address] Care Team Providers Care Gravity Meter Observer Name Role Phone Slade Bush DO Primary Care Provider +1 [phone] Source Comments [facility],non-owned Affiliates and Associated Physician Practices is amultiple site organization consisting of ambulatory clinics and hospital sitesin [place], [place], [place] and [place]. This disclosure is being madepursuant to the Care Everywhere program and may not contain all information available regarding this patient. Last updated 17.[facility] Allergies Active Allergy Reactions Criticality Noted Date [...] Comments Blood Pressure 128/73 03/23/2015 9:30 AM HARDWARE MANAGER Pulse 74 03/23/2015 9:10 AM HARDWARE MANAGER Temperature 36.7 C (98 F) 03/23/2015 9:30 AM HARDWARE MANAGER Respiratory Rate 18 03/23/2015 9:30 AM HARDWARE MANAGER Oxygen Saturation 97% 03/23/2015 9:30 AM HARDWARE MANAGER Inhaled Oxygen Concentration - - Weight 88.5 kg (195 lb) 03/23/2015 6:38 AM HARDWARE MANAGER Height 188 cm (6' 2 ) 03/23/2015 6:38 AM HARDWARE MANAGER Body Mass Index 25.04 03/23/2015 6:38 AM HARDWARE MANAGER Functional Status Functional Status Response Date of [...] on file Medical Devices Implanted Type Area Information Technology Manager Device Identifier Shelf Expiration Date Model / Serial / Lot Putty Bone Sunshine [facility] Jar 2.0cc - [id number] Implanted:Qty: 1 on 12/25/2014 by Anhtony Recinos MD at [facility] [employer] 01/07/2017 [id number] / [id number] / Space Peek 8 X 16 X 14mm - [id number] Implanted:Qty: 1 on 12/25/2014 by Anthony Recinos MD at [facility] [employer] 01/20/2022 [id number] / [id number] / Space Peek 7 X 16 X 14mm - [id number] Implanted:Qty: 1 on 12/25/2014 by Anthony Recinos MD at [facility] [employer] 07/17/2022 [id number] / [id number] / Space Peek 7 X 16 X 14mm - [id number] Implanted:Qty: 1 on 12/25/2014 by Anthony Recinos MD at [facility] [employer] 07/17/2022 [id number] / [id number] / Plate Ant Cerv Assem 70mm Implanted:Qty: 1 on 12/25/2014 by Anthony Recinos MD at [facility] [employer] [id number] / / Scrw Self Drill Jeronimo 4.0 X 15 Implanted:Qty: 8 on 12/25/2014 by Anthony Recinos MD at [facility] [employer] [id number] / / Advance Directives * Full Code (Latest Code Status on File) Date Activated Date Inactivated Comments 12/25/2014 5:23 PM 12/25/2014 7:56 PM Care Teams Gravity Meter Observer Relationship Specialty Start Date End Date Slade Bush DO [address] [facility] [address] [facility] [address] [place], [place] [id number] PCP - General Internal Medicine 07/08/14
--- OUTSIDE RECORDS SUMMARY | 2024-05-29 17:08 | XMS_ITS | Clinical Summary ---
Author Organization [facility] Address [address] [place] [address] Care Team Providers Care Smooth Plater Name Role Phone Slade Bush MD Primary Care Provider +1- [phone] Allergies Active Allergy Reactions Criticality Noted Date [...] Department Care Team Description 03/11/2024 Orders Only [facility] Medical [facility] Cardiology [address] [place] [address] Nova Yoo NP from Last 3 Months Social History Tobacco Use Types Packs/Day Years Used Date Smoking Tobacco: Former Cigarettes Smokeless Tobacco: Never [facility] Utilities Answer Date Recorded In the past 12 months has e electric, gas, oil, or water [employer] threatened to shut off services in your [...] declined 10/07/2023 How often do you attend samaritan or voodoo serv ices? Patient declined 10/07/2023 Do you belong to any clubs o r organizations such as samaritan groups, unions, fraternal or athletic groups, or [...] and heating? Not hard at all 10/07/2023 [facility] - [...] any time in the past 12 m [facility], were you homeless or living in a nursing home (including now)? No 10/07/2023 Personal Safety Answer Date Recorded Have you ever been in or are you currently in a harmful physical or emotional relationship or is someone making you feel afraid or unsafe? Denies 10/13/2023 Sex and Gender Information Value Date Recorded Sex Assigned at Not on file Legal Sex Male 2:53 AM ABRASIVE GRADER HELPER Gender Identity Not on file Sexual Orientation [...] Depression Screening 1945 Hepatitis C Screening 1945 DTaP/Tdap/Td Vaccine (1 - Tdap) 1956 Hepatitis B Screening 12/02/1963 Pneumococcal vaccine 65+ (1 of 2 - PCV) 1964 Zoster Vaccine (1 of 2) 1964 Well Visit 65+ 2010 Influenza Vaccine (#1) 2023 Fall Risk Assessment 10/17/2024 10/18/2023 Insurance MEDICARE SOLUTIONS MEDICARE SOLUTIONS Advance Directives For more information, please contact: [phone] * Full Code (Latest Code Status on File) Date Activated Date Inactivated Comments 10/07/2023 9:43 AM 10/18/2023 8:35 PM Care Teams Smooth Plater Relationship Specialty Start Date End Date Slade Bush MD [address] [facility] [address] [place] [address] PCP - General 07/27/12
--- OUTSIDE RECORDS SUMMARY | 2024-05-29 17:08 | XMS_ITS | Clinical Summary ---
Author Organization [facility] Address [address] [place] [address] Care Team Providers Care Bulker Name Role Phone Unavailable Primary Care Provider [...]
== END 2024-05-29 14:55 | disposition home or self-care (01) ==
PROVIDERS: PCP Nurse Practitioner; Visit Provider Nurse Practitioner Adult Health
DX: S12.000A Unspecified displaced fracture of first cervical vertebra, initial encounter for closed fracture (principal); X58.XXXA Exposure to other specified factors, initial encounter; Z98.890 Other specified postprocedural states
CPT/HCPCS: 72040

== ENCOUNTER 2024-06-04 05:12 | Inpatient (IN) | payer MEDICARE, SELFPAY ==
[2024-06-04] VITALS (9 sets, daily range): BP systolic 103–118; BP diastolic 63–89; PULSE 74–106; RESP 18–20; TEMP 36–37.2; O2SAT 92–100; BMI 15.6
--- NOTE | ~2024-06-04 | CT_ITS ---
Clinical Indication: Shortness of breath, hypoxia CT Scan of the Chest, Abdomen, and Pelvis with Contrast: Technique: Contiguous sections were acquired throughout the chest, abdomen, and pelvis after intraven ous administration of 100 cc of Omnipaque 350. Dose reduction technique was used on this scan by jesusita diazing automated exposure control and iterative reconstruction technique. The dose-length product (DL P) was 640.56 mGy-cm. Comparison: 10/07/2023 Findings: No central pulmonary embolus. No aortic aneurysm or dissection. Possible enlarged right hilar lymph n ode measuring 1.3 cm in short axis. No other lymphadenopathy evident. There is no evidence of pleural or pericardial effusion. There is extensive chronic interstitial disease with basilar and peripheral distribution overall, wit h underlying mild emphysema. There is honeycomb formation at the lung bases. No suspicious pulmonary nodule identified. The liver, spleen, pancreas, gallbladder, adrenals and kidneys are within normal limits. There are at herosclerotic calcifications of the aorta. No lymphadenopathy. No bowel obstruction or bowel wall thickening. There is marked distention of the rectum with stool.. Probable diffuse urinary bladder wall thickening with small of air in urinary bladder. Miller catheter present, however the balloon was deployed within the prostatic urethra. Prostate gland is enlarged. No ascites. Impression: Fecal impaction. Miller catheter balloon is deployed within the prostatic urethra. Deflation and repositioning within t he urinary bladder advised. Enlarged prostate gland. No pulmonary embolus. Extensive chronic interstitial pulmonary disease with underlying emphysematous change. 1.3 cm right hilar lymph node, of uncertain clinical significance. Reviewed, dictated and finalized at location . Impression: Fecal impaction. Miller catheter balloon is deployed within the prostatic urethra. Deflation and repositioning within the urinary bladder advised. Enlarged prostate gland. No pulmonary embolus. Extensive chronic interstitial pulmonary disease with underlying emphysematous change. 1.3 cm right hilar lymph node, of uncertain clinical significance.
--- NOTE | ~2024-06-04 | CT_ITS ---
CT head without contrast Indication: Altered mental status COMPARISON: 04/19/2024 Technique: Serial scans were obtained through the brain without the administration of contrast. Dose reduction technique was used on this scan by utilizing automated exposure control and iterative recon struction technique. The dose-length product (DLP) was 605.33 mGy-cm. Findings: There is no evidence of intracranial hemorrhage, mass lesion, or acute infarct. The ventri cles and subarachnoid spaces are dilated, consistent with moderate atrophy. Low attenuation regions are seen within the periventricular white matter bilaterally, likely representing changes from chroni c microvascular ischemic disease. There is no evidence of edema, mass effect or midline shift. The visualized paranasal sinuses and mastoid air cells are clear. Impression: No intracranial hemorrhage, mass, or acute infarct. Atrophy and chronic white matter changes, as above. Reviewed, dictated and finalized at location . Impression: No intracranial hemorrhage, mass, or acute infarct. Atrophy and chronic white matter changes, as above.
--- NOTE | ~2024-06-04 | XR_ITS ---
MODIFIED ESOPHAGRAM HISTORY: Dysphagia. TECHNIQUE: Modified barium esophagram was performed on 06/05/2024. I administered fluoroscopy and perf ormed the exam with speech pathologist. Patient was seated for lateral fluoroscopic imaging for harinder stion of thin liquids, pudding, solids and quantified amounts, followed by thin liquids in uncontroll ed amounts. This was recorded on tape. A single fluoroscopic spot image was also recorded. The DAP fo r this procedure was 0.784 Gycm2. The amount of fluoroscopy time used during this procedure was 1.6 m inutes. FINDINGS: Instrumented anterior spinal fusion extending from at least C2-C6 and partially visualized jose and la teral mass screw for instrumented posterior spinal fusion at least at C5-C6. Oral stage: Adequate function. Pharyngeal stage: Reduced laryngeal elevation and adduction. Reduced tongue base retraction. Vallecul ar residue is present. There is laryngeal penetration with aspiration. Cervical/esophageal stage: Garima quate function. IMPRESSION: Pharyngeal dysphagia with laryngeal penetration and aspiration. Please correlate with sp eech pathologist findings and specific feeding recommendations. Reviewed, dictated and finalized at location A. IMPRESSION: Pharyngeal dysphagia with laryngeal penetration and aspiration. Pl ease correlate with speech pathologist findings and specific feeding recommenda tions.
--- NOTE | ~2024-06-04 | XR_ITS ---
XR chest 1V Ordering provider: Kelin Dutta MD History: 78 years Male with . hypoxia at [facility] . Comparison: April 19, 2024 FINDINGS: MEDIASTINUM: The cardiac silhouette is not enlarged. LUNGS: No effusions or pneumothorax. Infiltrate seen in the right midzone and right lower lobe which is unchanged from previous examinatio n. Bilateral interstitial changes. Elevation of the left hemidiaphragm. OTHER: No free air under the diaphragm. IMPRESSION: No significant change from previous examination. Opacification in the right lung base may represent a telectasis versus pneumonia but most likely due to poor inspiration. Reviewed, dictated and finalized at location A. IMPRESSION: No significant change from previous examination. Opacification in the right elbert g base may represent atelectasis versus pneumonia but most likely due to poor i nspiration.
--- NOTE | ~2024-06-04 | CT_ITS ---
Noncontrast CT scan of the cervical spine Technique: Multiple contiguous axial [address] images of the cervical spine were obtained and rec onstructed in 2D sagittal and coronal planes on the acquisition scanner. Dose reduction technique was used on this scan by utilizing automated exposure control, adjustment of the mA and/or kV according to patient size. The dose-length product (DLP) was 311.44 mGy-cm. Clinical History: Pain COMPARISON: 05/04/2024 Findings: There is anterior and interbody fusion from C2 through C7. There is also posterior fusion f rom C5 to C7. There are laminectomy defects at C5, C6, and C7. Stable age-indeterminate fracture the anterior arch of C1, possibly chronic, with stable alignment from prior exam. Stable facet joint dege nerative changes in the cervical spine. There is mild left neural foraminal narrowing at C3-C4. There is left neural foraminal narrowing C4-C5. There is bilateral neural foraminal narrowing at C5-C6 and C6-C7. No prevertebral soft tissue swelling. There is emphysema at the lung apices. Impression: Stable anterior C1 arch fracture, with stable alignment. No new fracture or subluxation. Stable since a postoperative change in the cervical spine. Stable degenerative spondylosis. Reviewed, dictated and finalized at [facility]. Impression: Stable anterior C1 arch fracture, with stable alignment. No new fracture or subluxation. Stable since a postoperative change in the cervical spine. Stable degenerative spondylosis.
--- NOTE | 2024-06-04 05:17 | ECG_ITS ---
Test Date: 2024-06-04 05:41:42 Measurements Intervals [place] Rate: 96 P: 20 UT: 192 QRS: 260 QRSD: 145 T: 61 QT: 369 QTc: 467 Interpretive Statements SINUS RHYTHM MARKED RIGHT AXIS DEVIATION [QRS AXIS > 100] RIGHT BUNDLE BRANCH BLOCK [120+ ms QRS DURATION, UPRIGHT V1, 40+ ms S IN I/aVL/V4/V5/V6] INFERIOR MYOCARDIAL INFARCTION , PROBABLY OLD [40+ ms Q WAVE AND/OR ST/T ABNORMALITY IN II/aVF] Compared to ECG 04/19/2024 10:54:38 NO SIGNIFICANT CHANGES Electronically Signed On 06-04-2024 16:52:37 CDT by Emir Apple M.D.
[2024-06-04 06:08] LABS: Basophils Percent Auto 0.1 % (0.2-1.2); Eosinophils Percent Auto 0.1 % (0-4.4); Hematocrit 37.5 % (42.0-52.0); Hemoglobin 12.6 g/dL (14.0-18.0); Immature Granulocyte Absolute 0.04 K/mm3 (0.00-0.031); Immature Granulocyte Percent A 0.4 % (0-0.5); Lymphocytes Absolute Auto 0.93 K/mm3 (0.9-3.2); Lymphocytes Percent Auto 9.7 % (18.3-44.2); Mean Corpuscular HGB Conc 33.6 g/dl (32-36); Mean Corpuscular Hemoglobin 33.2 pg (26-34); Mean Corpuscular Volume 98.7 fl (80-100); Mean Platelet Volume 10.3 fl (7.4-10.4); Monocytes Absolute Auto 1.1 K/mm3 (0.1-0.6); Monocytes Percent Auto 11.1 % (2.6-8.5); Neutrophils Absolute Auto 7.6 K/mm3 (1.3-6.7); Neutrophils Percent Auto 78.6 % (45.5-73.1); Platelet Count Result 302 k/mm3 (150-375); Red Cell Distribution Width 12.4 % (11.5-14.5); White Blood Count 9.6 K/mm3 (4.5-10.0)
[2024-06-04 06:21] LABS: INR 1.1; Prothrombin Time 14.5 Seconds (11.1-14.7)
[2024-06-04 06:22] LABS: Partial Thromboplastin Time 39.2 Seconds (22.3-36.8)
[2024-06-04 06:26] LABS: Add Urine Microscopic? YES; Alanine Aminotransferase 31 U/L (6-50); Albumin Level 3.8 g/dL (3.5-5.1); Alkaline Phosphatase 80 U/L (38-126); Anion Gap 10 mmol/L (4-12); Appearance Urine Turbid (Clear); Aspartate Amino Transferase 23 U/L (17-59); Bacteria Urine 3+ /hpf; Bilirubin Urine Negative (Negative); Bilirubin,Total 1.1 mg/dL (0.2-1.3); Blood Urea Nitrogen 15 mg/dL (9-20); Blood Urine 3+ (Negative); Calcium 8.7 mg/dL (8.4-10.2); Calcium Oxalate Crystals Urine Present /hpf; Carbon Dioxide 31 mmol/L (22-30); Chloride 87 mmol/L (98-107); Color Urine Dark Yellow (Yellow); Estimated CRCL calculation 113 ml/min; Estimated Glomerular Filt Rate > 60; Glucose 117 mg/dL (65-110); Glucose Urine UA Negative (Negative); Ketones Urine Trace mg/dL (Negative); Leukocyte Esterase Ur 3+ LEU/UL (Negative); Nitrate Urine Negative (Negative); Potassium 3.9 mmol/L (3.4-5.0); Protein Urine 1+ mg/dL (Negative); RBC Urine >100 /hpf (0-2); Sodium 128 mmol/L (137-145); Specific Grav Ur 1.022 (1.001-1.035); Squamous Epithelial Cell Urine None Seen /hpf (Few); WBC Urine >100 /hpf (0-3); pH Urine 6.5 (5.0-9.0)
--- OUTSIDE RECORDS SUMMARY | 2024-06-04 07:31 | XMS_ITS | Referral Summary ---
Author Organization [facility] Address [address] [place] [address] Care Team Providers Care Flue Dust Laborer Name Role Phone Slade Bush DO Primary Care Provider +1 [phone] Source Comments [facility],non-owned Affiliates and Associated Physician Practices is amultiple site organization consisting of ambulatory clinics and hospital sitesin [place], [place], [place] and [place]. This disclosure is being madepursuant to the Care Everywhere program and may not contain all information available regarding this patient. Last updated 17.[facility] Allergies Active Allergy Reactions Criticality Noted [...] Comments Blood Pressure 128/73 03/23/2015 9:30 AM PERCUSSION INSTRUMENT REPAIRER Pulse 74 03/23/2015 9:10 AM PERCUSSION INSTRUMENT REPAIRER Temperature 36.7 C (98 F) 03/23/2015 9:30 AM PERCUSSION INSTRUMENT REPAIRER Respiratory Rate 18 03/23/2015 9:30 AM PERCUSSION INSTRUMENT REPAIRER Oxygen Saturation 97% 03/23/2015 9:30 AM PERCUSSION INSTRUMENT REPAIRER Inhaled Oxygen Concentration - - Weight 88.5 kg (195 lb) 03/23/2015 6:38 AM PERCUSSION INSTRUMENT REPAIRER Height 188 cm (6' 2 ) 03/23/2015 6:38 AM PERCUSSION INSTRUMENT REPAIRER Body Mass Index 25.04 03/23/2015 6:38 AM PERCUSSION INSTRUMENT REPAIRER Functional Status Functional Status Response Date of [...] on file Medical Devices Implanted Type Area Animal Shelter Supervisor Device Identifier Shelf Expiration Date Model / Serial / Lot Putty Bone Sunshine [facility] Jar 2.0cc - [id number] Implanted:Qty: 1 on 12/25/2014 by Anthony Recinos MD at [facility] [employer] 01/07/2017 [id number] / [id number] / Space Peek 8 X 16 X 14mm - [id number] Implanted:Qty: 1 on 12/25/2014 by Anthony Recinos MD at [facility] [employer] 01/20/2022 [id number] / [id number] / Space Peek 7 X 16 X 14mm - [id number] Implanted:Qty: 1 on 12/25/2014 by Anthony Recinos MD at [facility] [employer] 07/17/2022 [id number] / [id number] / Space Peek 7 X 16 X 14mm - [id number] Implanted:Qty: 1 on 12/25/2014 by Anthony Recinos MD at [facility] [employer] 07/17/2022 [id number] / [id number] / Plate Ant Cerv Assem 70mm Implanted:Qty: 1 on 12/25/2014 by Anthony Recinos MD at [facility] [employer] [id number] / / Scrw Self Drill Jeronimo 4.0 X 15 Implanted:Qty: 8 on 12/25/2014 by Anthony Recinos MD at [facility] [employer] [id number] / / Advance Directives * Full Code (Latest Code Status on File) Date Activated Date Inactivated Comments 12/25/2014 5:23 PM 12/25/2014 7:56 PM Care Teams Flue Dust Laborer Relationship Specialty Start Date End Date Slade Bush DO [address] [facility] [address] [facility] [address] [place], [place] [id number] PCP - General Internal Medicine 07/08/14
--- OUTSIDE RECORDS SUMMARY | 2024-06-04 07:31 | XMS_ITS | Patient Health Summary ---
Author Organization [facility] Address [address] [facility] [place] [address] Care Team Providers Care Farmworker Grain Name Role Phone EleazarSlade DO Primary Care Provider +1 [phone] Note from [facility],non-owned Affiliates and Associated Physician Practices is amultiple site organization consisting of ambulatory clinics and hospital sitesin [place], [place], [place] and [place]. This disclosure is being madepursuant to the Care Everywhere program and may not contain all information available regarding this patient. Last updated 17.[facility] Allergies * Lidocaine(Anaphylaxis,Shortness of Breath) -High Criticality [...] Comments Blood Pressure 128/73 03/23/2015 9:30 AM MARKETING WRITER Pulse 74 03/23/2015 9:10 AM MARKETING WRITER Temperature 36.7 C (98 F) 03/23/2015 9:30 AM MARKETING WRITER Respiratory Rate 18 03/23/2015 9:30 AM MARKETING WRITER Oxygen Saturation 97% 03/23/2015 9:30 AM MARKETING WRITER Inhaled Oxygen Concentration - - Weight 88.5 kg (195 lb) 03/23/2015 6:38 AM MARKETING WRITER Height 188 cm (6' 2 ) 03/23/2015 6:38 AM MARKETING WRITER Body Mass Index 25.04 03/23/2015 6:38 AM MARKETING WRITER Medical Devices Implanted Type Area Mattress Finisher Device Identifier Shelf Expiration Date Model / Serial / Lot Putty Bone Gutierrezfton Dbm Jar 2.0cc - [id number] Implanted:Qty: 1 on 12/25/2014 by Anthony Recinos MD at [facility] [employer] 01/07/2017 [id number] / [id number] / Space Peek 8 X 16 X 14mm - [id number] Implanted:Qty: 1 on 12/25/2014 by Anthony Recinos MD at [facility] [employer] 01/20/2022 [id number] / [id number] / Space Peek 7 X 16 X 14mm - [id number] Implanted:Qty: 1 on 12/25/2014 by Anthony Recinos MD at [facility] [employer] 07/17/2022 [id number] / [id number] / Space Peek 7 X 16 X 14mm - [id number] Implanted:Qty: 1 on 12/25/2014 by Anthony Recinos MD at [facility] [employer] 07/17/2022 [id number] / [id number] / Plate Ant Cerv Assem 70mm Implanted:Qty: 1 on 12/25/2014 by Anthony Recinos MD at [facility] [employer] [id number] / / Scrw Self Drill Jeronimo 4.0 X 15 Implanted:Qty: 8 on 12/25/2014 by Anthony Recinos MD at [facility] [employer] [id number] / / Procedures * CORNEAL TOPOGRAPHY UNI/BI(Performed [...] * CORNEAL TOPOGRAPHY UNI/BI (04/12/2023 11:20 AM MARKETING WRITER) Anatomical Region Laterality Modality Head External-Camera Photography Narrative 04/12/2023 11:55 AM MARKETING WRITER Images from the original result were not [...] 2. Instrumented cervical spinal fusion. Aaliyah Nazario HIGH SCHOOL TEACHER-GENERAL MACHINIST FLUOROSCOPY ORDER [place] * CARDIAC RHYTHM STRIP ORDER (12/26/2014 9:20 PM CDT) Narrative 12/26/2014 9:20 PM CDT Ordered by an unspecified provider. Scanned Document CARDIAC SERVICES ORD ERABLES * XR SPINE 1 VIEW (12/25/2014 2:46 PM CDT) Narrative [facility] - 12/26/2014 11:07 AM CDT No Dictation. Anthony Recinos MD DIAGNOSTIC IMAGING O RDERABLES [facility] [address] [place] [address] * LAB RESULTS ORDER (04/11/2014) Anthony Recinos [...] specimen consists of a punch biopsy measuring [id number]. The specimen is submitted in whole for direct immunofluorescence testing. MICROSCOPIC DESCRIPTION: Controls were run in parallel. There is IgM in the papillary dermis consistent with colloid bodies. Staining is negative with C3, IgG and IgA. Colloid bodies represent dyskeratotic keratinocytes usually seen in lichenoid / interface dermatitis. See fixed tissue results. Electronically signed out by Zari Piper M.D. 12/03/2013 8:44:11AM [facility] Comment: Performed at: Dermatopathology Laboratory [facility] - Department of Dermatology [address] [place] [address], 5th [place] [address] Phone number: [phone] FAX: [phone] 11/28/2013 11/29/2013 Karan Pascal MD LAB - PATHOLOGY/CYTO LOGY ORDERABLES [facility] [address] [facility]. 5th [place] [address], [facility] [phone] Care Teams Farmworker Grain Relationship Specialty Start Date End Date Slade Bush DO [address] [facility] [address] [place] [address] PCP - General Internal Medicine 07/08/14
--- OUTSIDE RECORDS SUMMARY | 2024-06-04 07:31 | XMS_ITS | Clinical Summary ---
Author Organization [facility] Address [address] [place] [address] Care Team Providers Care Tool Shaper Setup Operator Name Role Phone Slade Bush MD Primary Care Provider +1- [phone] Allergies Active Allergy Reactions Criticality Noted Date [...] Department Care Team Description 03/11/2024 Orders Only [facility] Cardiology [address] [place] [address] Nova Yoo NP from Last 3 Months Social History Tobacco Use Types Packs/Day Years Used Date Smoking Tobacco: Former Cigarettes Smokeless Tobacco: Never [facility] Utilities Answer Date Recorded In the past 12 months has e electric, gas, oil, or water [employer] threatened to shut off services in your [...] declined 10/07/2023 How often do you attend orthodoxy or synagogue serv ices? Patient declined 10/07/2023 Do you belong to any clubs o r organizations such as orthodoxy groups, unions, fraternal or athletic groups, or [...] and heating? Not hard at all 10/07/2023 [facility] - Occupational Stress [...] time in the past 12 m [facility], were you homeless or living in a senior care (including now)? No 10/07/2023 Personal Safety Answer Date Recorded Have you ever been in or are you currently in a harmful physical or emotional relationship or is someone making you feel afraid or unsafe? Denies 10/13/2023 Sex and Gender Information Value Date Recorded Sex Assigned at Not on file Legal Sex Male 2:53 AM EXPLOSIVE OPERATOR BOMB Gender Identity Not on file Sexual Orientation [...] Advance Directives For more information, please contact: [phone] * Full Code (Latest Code Status on File) Date Activated Date Inactivated Comments 10/07/2023 9:43 AM 10/18/2023 8:35 PM Care Teams Tool Shaper Setup Operator Relationship Specialty Start Date End Date Slade Bush MD [address] [facility] [address] [place] [address] PCP - General 07/27/12
--- OUTSIDE RECORDS SUMMARY | 2024-06-04 07:31 | XMS_ITS | Referral Summary ---
Author Organization [facility] Address [address] [place] [address] Care Team Providers Care Carpenter'S Assistant Name Role Phone Slade Bush MD Primary Care Provider +1- [phone] Encounters Date Type Department Care Team Description 03/11/2024 Orders Only [facility] Medical [facility] Cardiology [address] [place] [address] Nova Yoo NP from Last [...] Smoking Tobacco: Former Cigarettes Smokeless Tobacco: Never [employer] Answer Date Recorded In the past 12 months has [employer], gas, oil, or water [employer] threatened to shut off services in your [...] declined 10/07/2023 How often do you attend quaker or sikhism serv ices? Patient declined 10/07/2023 Do you belong to any clubs o r organizations such as quaker groups, unions, fraternal or athletic groups, or [...] and heating? Not hard at all 10/07/2023 [facility] Occupat ional Health - Occupational [...] any time in the past 12 m [facility], were you homeless or living in a care home (including now)? No 10/07/2023 Personal Safety Answer Date Recorded Have you ever been in or are you currently in a harmful physical or emotional relationship or is someone making you feel afraid or unsafe? Denies 10/13/2023 Sex and Gender Information Value Date Recorded Sex Assigned at Not on file Legal Sex Male 2:53 AM WATER RESOURCES PROGRAM DIRECTOR Gender Identity Not on file Sexual Orientation [...] Advance Directives For more information, please contact: [phone] * Full Code (Latest Code Status on File) Date Activated Date Inactivated Comments 10/07/2023 9:43 AM 10/18/2023 8:35 PM Care Teams Carpenter'S Assistant Relationship Specialty Start Date End Date Slade Bush MD [address] [facility] [address] [place], [place] [id number] PCP - General 07/27/12
--- OUTSIDE RECORDS SUMMARY | 2024-06-04 07:31 | XMS_ITS | Clinical Summary ---
Author Organization [facility] Address [address] [address] Care Team Providers Care Document Manager Name Role Phone Slade Bush DO Primary Care Provider [phone] Source Comments [facility],non-owned Affiliates and Associated Physician Practices is amultiple site organization consisting of ambulatory clinics and hospital sitesin [place], [place], [place] and [place]. This disclosure is being madepursuant to the Care Everywhere program and may not contain all information available regarding this patient. Last updated 17.[facility] [employer] Allergies Active Allergy Reactions Criticality Noted Date [...] Comments Blood Pressure 128/73 03/23/2015 9:30 AM [employer] Pulse 74 03/23/2015 9:10 AM [employer] TE[employer] Temperature 36.7 C (98 F) 03/23/2015 9:30 AM BATTER[employer] TE[employer] FIELD Respiratory Rate 18 03/23/2015 9:30 AM BATTER[employer] TE[employer]ELD Oxygen Saturation 97% 03/23/2015 9:30 AM BATTER[employer] TE[employer] Inhaled Oxygen Concentration - - Weight 88.5 kg (195 lb) 03/23/2015 6:38 AM BATTER[employer] TE[employer] Height 188 cm (6' 2 ) 03/23/2015 6:38 AM BATTER[employer] TE[employer] Body Mass Index 25.04 03/23/2015 6:38 AM BATTERY TE[employer] FI[employer] Plan of Treatment Health Maintenance Due Date [...] this topic Medical Devices Implanted Type Area Data Quality Consultant Device Identifier Shelf Expiration Date Model / Serial / Lot Raudel Gonsalez [facility] Jar 2.0cc - [id number] Implanted:Qty: 1 on 12/25/2014 by Anthony Recinos MD at [facility] [place] [employer] 01/07/2017 [id number] / [id number] / Space Peek 8 X 16 X 14mm - [id number] Implanted:Qty: 1 on 12/25/2014 by Anthony Recinos MD at [facility] [place] [employer] 01/20/2022 [id number] / [id number] / Space Peek 7 X 16 X 14mm - [id number] Implanted:Qty: 1 on 12/25/2014 by Anthony Recinos MD at [facility] [place] [employer] 07/17/2022 [id number] / [id number] / Space Peek 7 X 16 X 14mm - [id number] Implanted:Qty: 1 on 12/25/2014 by Anthony Recinos MD at [facility] [place] [employer] 07/17/2022 [id number] / [id number] / Plate Ant Cerv Assem 70mm Implanted:Qty: 1 on 12/25/2014 by Anthony Recinos MD at [facility] [place] [employer] [id number] / / Scrw Self Drill Jeronimo 4.0 X 15 Implanted:Qty: 8 on 12/25/2014 by Anthony Recinos MD at [facility] [place] [employer] [id number] / / Advance Directives * Full Code (Latest Code Status on File) Date Activated Date Inactivated Comments 12/25/2014 5:23 PM 12/25/2014 7:56 PM Care Teams Document Manager Relationship Specialty Start Date End Date Slade Bush DO [address] [place] [address] PCP - General Internal Medicine 07/08/14
--- OUTSIDE RECORDS SUMMARY | 2024-06-04 07:31 | XMS_ITS | Clinical Summary ---
Author Organization [facility] Address [address] [place] [id number] Care Team Providers Care Social Insurance Administrator Name Role Phone Unavailable Primary Care Provider [...]
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
[2024-06-04 08:55] LABS: Creatine Kinase 34 U/L (55-170)
[2024-06-04 09:05] LABS: Acetaminophen < 10 ug/mL (10-30); Ethanol < 10 mg/dL (<10); Salicylate < 1.0 mg/dL (2-20)
[2024-06-04 09:08] LABS: Troponin I < 0.012 ng/mL (0.000-0.034)
[2024-06-04 09:22] LABS: Ammonia < 9 umol/L (9-30)
[2024-06-04] MEDS: ACETAMINOPHEN ELIXIR 325 MG/10.15 ML UDC 650 MG FEED TUBE (09:24)
[2024-06-04 09:25] LABS: Influenza A QL RT-PCR Negative (Negative); Influenza B QL RT-PCR Negative (Negative); RSV RNA, RT-PCR Negative (Negative); SARS-CoV-2 RNA PCR Negative (Negative)
[2024-06-04 09:27] LABS: Thyroid Stimulating Hormone 0.523 uIU/mL (0.465-4.680)
[2024-06-04 10:02] LABS: Amphetamine Screen Urine Negative (Negative); Barbiturate Screen Urine Negative (Negative); Benzodiazepines Screen Urine Negative (Negative); Cannabinoid Screen Urine Negative (Negative); Cocaine Screen Urine Negative (Negative); Methadone Screen Urine Negative (Negative); Opiate Screen Urine Positive (Negative); Phencyclidine Screen Urine Negative (Negative)
--- NOTE | 2024-06-04 10:37 | PC.NURSE ---
attempted to call report to pt facility, [facility] at with no answer
--- NOTE | 2024-06-04 10:43 | ADMGEN ---
This patient, Og Noland, was admitted to [facility] Surg Room 323-02. Patient/family oriented to hospital policies and general routines including ID bracelet, bed and alarms, visiting hours, pain management, procedures, bathroom and other care routines, personal items, smoking policy, room service/diet, and visiting hours. Information on how to activate the Rapid Response Team has been discussed. Patient/Family are encouraged to report perceived risks to care and to ask questions if they do not understand what they are told or what they should do.
--- NOTE | 2024-06-04 13:20 | PC.NURSE ---
call to [facility] as I did not receive med list
--- NOTE | 2024-06-04 13:36 | PC.NURSE ---
unable to get through to [facility] nursing staff, message was left with plant breeder who is going to get the RN to call back with meds
--- NOTE | 2024-06-04 14:19 | P.HP_ITS ---
H&P: HPI History of Present Illness Date/Time: 06/04/24 14:19 Chief Complaint: AMS Narrative: This is a 78-year-old male with a significant past medical history of bronchiectasis, severe protein calorie malnutrition and has PEG tube, depression, peripheral neuropathy, BPH, Crohn's disease, ulcerative colitis, hyperlipidemia, GERD, former smoker who presented to the hospital with altered mental status. Patient is only alert and oriented x1 and unable to provide history of presenting illness Workup in the hospital included a head CT which was negative for any acute intracranial findings, showed atrophy and chronic white matter changes. Cervical spine CT showed stable anterior C1 arch fracture with stable alignment, no new fracture subluxation. Chest x-ray showed opacification in the right lung base that represents atelectasis versus pneumonia. Chest/abdomen/ pelvis CTA showed fecal impaction, Aguilar catheter balloon is temp blood within the prostatic urethra, enlarged prostate gland, no pulmonary embolism, extensive chronic interstitial pulmonary disease with emphysematous changes, 1.3 cm right hilar lymph node noted. initial white blood cell count was normal at 9.6, hemoglobin 12.6, INR 1.1, sodium 128, chloride 87, bicarb 31, lactic acid was normal at 1.0, ammonia level was less than 9, troponin was negative, TSH 0.5-3. UA was obtained which showed turbid urine appearance, 1+ urine protein, trace ketone, 3+ urine blood, 3+ leukocytes, greater than 100 urine RBC, greater than 100 urine WBC, 3+ bacteria. Urine drug screen was positive for opioids. Respiratory panel was negative for influenza a and B, RSV, COVID. Blood and urine cultures were obtained and pending. EKG showed sinus rhythm with right axis deviation and right bundle branch block with a rate of 96, QTC 467. Patient was given a dose of Rocephin and Tylenol while in the ED. Aguilar catheter was exchanged in the ER. Review of Systems Review of Systems: All systems reviewed & are unremarkable except as noted in HPI and below PMFSH Past Medical History Medical History (Updated 06/04/24 @ 15:54 by Funmilayo Hutchinson, WEB CONTENT WRITER) Severe protein-calorie malnutrition Bronchiectasis Unspecified displaced fracture of first cervical vertebra, subsequent encounter for fracture with routine healing Aspiration into airway Pure hypercholesterolemia Depression Peripheral neuropathy Ataxia Benign prostatic hyperplasia Left rib fracture Pneumothorax Crohn's disease Ulcerative colitis Hyperlipidemia Gastro-esophageal reflux disease without esophagitis Surgical History Surgical History History of spinal surgery History of arthroplasty of right knee History of chest tube placement Family History Family History Father No problems noted. Mother No problems noted. Sibling No problems noted. Other Family history non-contributory Social History Social History Social History: Surrogate medical decision maker: eleno Chambers. Code status: Full code per facility documentation Smoking packs per day: 2 Smoking cigarettes per day: 40.0 Years smoked: 15 Smoking pack-years: 30.00 Smoking status: Former smoker Tobacco type: cigarettes Second hand tobacco smoke exposure: No Additional smoking assessment comments: quit in 1980 Alcohol intake: former Drinks per week: 14 Alcohol use details: 3 per day Substance use: never Substance use type: does not use Do You Feel Safe in your Home?: Yes Lack of Transportation: No Lack of Food: Never True Current Housing: I Have Housing Concerned About Future Housing: No Difficulty Paying Gas/Electric Bills: No Difficulty Paying for Meds: No Currently Unemployed: No Education: High School Diploma/GED Difficulty w/ Childcare or Family Care: No Living arrangements: alf Additional living arrangements comments: [facility] Occupation/Education: retired 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 Spiritual care concerns: No Meds Home Medications and Allergies Home Medications ?Medication ?Instructions ?Recorded ?Confirmed ?Type albuterol sulfate 90 mcg/actuation See Rx Instructions .Route 12/14/23 05/30/24 Rx aerosol inhaler .COMPLEX #8.5 grams cholecalciferol (vitamin D3) 25 50 mcg (2 x 25 mcg (1,000 unit)) 05/03/24 05/30/24 Rx mcg (1,000 unit) tablet (Vitamin feeding tube DAILY #1 tablet D3) famotidine 20 mg tablet 20 mg feeding tube Q12HR #2 tabs 05/03/24 05/30/24 Rx finasteride 5 mg tablet (Proscar) 5 mg feeding tube DAILY #1 tablet 05/03/24 05/30/24 Rx folic acid 1 mg tablet 1 mg feeding tube DAILY #1 tablet 05/03/24 05/30/24 Rx hydrocodone 5 mg-acetaminophen 325 1 tablet feeding tube Q6H PRN Pain 05/03/24 05/30/24 Rx mg tablet Rated 4-6 #20 tabs sulfasalazine 500 mg tablet 1,500 mg (3 x 500 mg) feeding tube 05/03/24 05/30/24 Rx BIDPC #1 tablet venlafaxine 37.5 mg tablet 37.5 mg PO Q8HR #1 tablet 05/03/24 05/30/24 Rx guaifenesin 100 mg/5 mL oral liquid 200 mg feeding tube Q6H PRN Cough 05/04/24 05/30/24 History tamsulosin 0.4 mg capsule 0.4 mg PO HS 30 days #30 caps 05/08/24 05/30/24 Rx Allergies Allergy/AdvReac Type Severity Reaction Status Date / Time lidocaine Allergy Severe shuts Verified 06/04/24 05:35 lungs down Vital Signs Vital Signs - 24 hr 06/04/24 05:18 06/04/24 05:28 06/04/24 06:00 Temperature 98.9 F Pulse Rate 100 100 Respiratory Rate 20 18 Blood Pressure 103/71 108/78 Pulse Oximetry 96 97 95 Oxygen Delivery Room Air Room Air 06/04/24 07:00 06/04/24 10:20 06/04/24 10:56 Temperature 98.8 F 97.6 F Pulse Rate 100 94 91 Respiratory Rate 20 20 20 Blood Pressure 108/65 109/75 113/78 Pulse Oximetry 98 97 Oxygen Delivery Exam Narrative: General: In no acute distress, severe malnutrition, emaciated Head: atraumatic, no encephalopathy Eyes: PERRLA, sclera clear ENT: tacky mucous membranes, nasal passages clear Neck: supple, no JVD, no adenopathy, trachea midline Cardiac: Normal S1 and S2. No murmur, gallops or friction rubs, peripheral pulses intact. Respiratory: Lungs clear to auscultation, no adventitious lung sounds, currently on room air Gastrointestinal: soft,flat, non-tender, normoactive bowel sounds. PEG tube clamped : aguilar catheter draining cloudy dark alfred urine Extremities: moves all extremities well, no edema Skin: clean, dry, intact. No wounds or lesions. Neuro: Alert and oriented x4, cranial nerves intact, no neuro deficits. Psych: normal mood, normal affect, interactive H&P: Results Labs Labs: Short CBC 06/04/24 Range/Units 05:54 WBC 9.6 (4.5-10.0) K/mm3 Hgb 12.6 L (14.0-18.0) g/dL Hct 37.5 L (42.0-52.0) % Plt Count 302 (150-375) k/mm3 BMP 06/04/24 05:54 Sodium 128 L Potassium 3.9 Chloride 87 L Carbon Dioxide 31 H BUN 15 Creatinine 0.36 L Glucose 117 H Calcium 8.7 Cardiac Enzymes 06/04/24 Range/Units 08:32 Total Creatine Kinase 34 L (55-170) U/L Troponin I < 0.012 (0.000-0.034) ng/mL Liver Function 06/04/24 Range/Units 05:54 Total Bilirubin 1.1 (0.2-1.3) mg/dL AST 23 (17-59) U/L ALT 31 (6-50) U/L Alkaline Phosphatase 80 (38-126) U/L Albumin 3.8 (3.5-5.1) g/dL Urine 06/04/24 Range/Units 05:54 Urine Color Dark yellow (Yellow) Urine Appearance Turbid H (Clear) Urine pH 6.5 (5.0-9.0) Ur Specific [place] 1.022 (1.001-1.035) Urine Protein 1+ H (Negative) mg/dL Urine Glucose (UA) Negative (Negative) mg/dL Imaging CT scan - head: Radiologist's impression: CT head without contrast Indication: Altered mental status COMPARISON: 04/19/2024 Technique: Serial scans were obtained through the brain without the administration of contrast. Dose reduction technique was used on this scan by utilizing automated exposure control and iterative reconstruction technique. The dose-length product (DLP) was 605.33 mGy-cm. Findings: There is no evidence of intracranial hemorrhage, mass lesion, or acute infarct. The ventricles and subarachnoid spaces are dilated, consistent with moderate atrophy. Low attenuation regions are seen within the periventricular white matter bilaterally, likely representing changes from chronic microvascular ischemic disease. There is no evidence of edema, mass effect or midline shift. The visualized paranasal sinuses and mastoid air cells are clear. Impression: No intracranial hemorrhage, mass, or acute infarct. Atrophy and chronic white matter changes, as above. Reviewed, dictated and finalized at location M. cervical spine CT: Radiologist's impression: Noncontrast CT scan of the cervical spine Technique: Multiple contiguous axial [address] images of the cervical spine were obtained and reconstructed in 2D sagittal and coronal planes on the acquisition scanner. Dose reduction technique was used on this scan by utilizing automated exposure control, adjustment of the mA and/or kV according to patient size. The dose-length product (DLP) was 311.44 mGy-cm. Clinical History: Pain COMPARISON: 05/04/2024 Findings: There is anterior and interbody fusion from C2 through C7. There is also posterior fusion from C5 to C7. There are laminectomy defects at C5, C6, and C7. Stable age-indeterminate fracture the anterior arch of C1, possibly chronic, with stable alignment from prior exam. Stable facet joint degenerative changes in the cervical spine. There is mild left neural foraminal narrowing at C3-C4. There is left neural foraminal narrowing C4-C5. There is bilateral neural foraminal narrowing at C5-C6 and C6-C7. No prevertebral soft tissue swelling. There is emphysema at the lung apices. Impression: Stable anterior C1 arch fracture, with stable alignment. No new fracture or subluxation. Stable since a postoperative change in the cervical spine. Stable degenerative spondylosis. Reviewed, dictated and finalized at location M. Chest x-ray: Radiologist's impression: XR chest 1V Ordering provider: Kelin Dutta MD History: 78 years Male with . hypoxia at [facility] . Comparison: April 19, 2024 FINDINGS: MEDIASTINUM: The cardiac silhouette is not enlarged. LUNGS: No effusions or pneumothorax. Infiltrate seen in the right midzone and right lower lobe which is unchanged from previous examination. Bilateral interstitial changes. Elevation of the left hemidiaphragm. OTHER: No free air under the diaphragm. IMPRESSION: No significant change from previous examination. Opacification in the right lung base may represent atelectasis versus pneumonia but most likely due to poor inspiration. Reviewed, dictated and finalized at location A. chest/abdomen/ pelvis CTA: Radiologist's impression: CT Scan of the Chest, Abdomen, and Pelvis with Contrast: Technique: Contiguous sections were acquired throughout the chest, abdomen, and pelvis after intravenous administration of 100 cc of Omnipaque 350. Dose reduction technique was used on this scan by utilizing automated exposure control and iterative reconstruction technique. The dose-length product (DLP) was 640.56 mGy-cm. Comparison: 10/07/2023 Findings: No central pulmonary embolus. No aortic aneurysm or dissection. Possible enlarged right hilar lymph node measuring 1.3 cm in short axis. No other lymphadenopathy evident. There is no evidence of pleural or pericardial effusion. There is extensive chronic interstitial disease with basilar and peripheral distribution overall, with underlying mild emphysema. There is honeycomb formation at the lung bases. No suspicious pulmonary nodule identified. The liver, spleen, pancreas, gallbladder, adrenals and kidneys are within normal limits. There are atherosclerotic calcifications of the aorta. No lymphadenopathy. No bowel obstruction or bowel wall thickening. There is marked distention of the rectum with stool.. Probable diffuse urinary bladder wall thickening with small of air in urinary bladder. Aguilar catheter present, however the balloon was deployed within the prostatic urethra. Prostate gland is enlarged. No ascites. Impression: Fecal impaction. Aguilar catheter balloon is deployed within the prostatic urethra. Deflation and repositioning within the urinary bladder advised. Enlarged prostate gland. No pulmonary embolus. Extensive chronic interstitial pulmonary disease with underlying emphysematous change. 1.3 cm right hilar lymph node, of uncertain clinical significance. Reviewed, dictated and finalized at location M. Assessment and Plan Assessment and plan (1) UTI (urinary tract infection) due to urinary indwelling Aguilar catheter: Code(s): T83.511A - Infection and inflammatory reaction due to indwelling urethral catheter, initial encounter; N39.0 - Urinary tract infection, site not specified Status: Acute Assessment and Plan: * UA showed turbid urine appearance, 1+ urine protein, trace ketone, 3+ urine blood, 3+ leukocytes, greater than 100 urine RBC, greater than 100 urine WBC, 3+ bacteria * blood and urine cultures were obtained and pending * continue Rocephin * aguilar catheter exchanged in the ER (2) Benign prostatic hyperplasia: Code(s): N40.0 - Benign prostatic hyperplasia without lower urinary tract symptoms Status: Acute Assessment and Plan: * chest/abdomen/ pelvis CTA showed enlarged prostate gland with Aguilar catheter balloon deployed within the prostatic urethra * patient has chronic indwelling catheter * continue tamsulosin and finish stride (3) Altered mental status: Code(s): R41.82 - Altered mental status, unspecified Status: Acute Assessment and Plan: likely secondary to UTI * continue neuro checks (4) Constipation: Qualifiers: Constipation type: chronic idiopathic constipation Qualified Code(s): K59.04 - Chronic idiopathic constipation Code(s): K59.00 - Constipation, unspecified Status: Acute Assessment and Plan: * chest/abdomen/ pelvis CTA shown fecal impaction * Started Lactulose 20 mg per tube * Dulcolax suppository ordered (5) Depression: Code(s): F32.A - Depression, unspecified Status: Acute Assessment and Plan: * continue Venlafaxine (6) Gastro-esophageal reflux disease without esophagitis: Code(s): K21.9 - Gastro-esophageal reflux disease without esophagitis Status: Acute Assessment and Plan: * continue famotidine (7) Severe protein-calorie malnutrition: Code(s): E43 - Unspecified severe protein-calorie malnutrition Status: Acute Assessment and Plan: * dietitian consulted for tube feeding * modified barium swallow ordered for tomorrow * encourage intake Quality VTE Prophylaxis VTE prophylaxis: pharmacologic ordered Hospitalist MIPS Advance Care Plan I have confirmed that the patient's Advanced Care Plan is present, code status is documented, or surrogate decision maker is listed in patient medical record.: Yes Medication Reconciliation I have utilized all available resources to obtain, update and review the patients current medications (includes all prescriptions, OTC, herbals, cannab is, and nutritional supplements).: Yes
--- NOTE | 2024-06-04 14:20 | PCDIET ---
Tube feeding recommendations: Jevity 1.5 @ a goal rate of 60ml/hr. Start at 20ml/hr, advance by 10ml q 4 hrs as tolerated to goal rate.
--- NOTE | 2024-06-04 15:54 | PC.NURSE ---
additional call to [facility] to get med list sent over for pt, my name and fax number left with staff
--- NOTE | 2024-06-04 16:30 | PCPTNOTE ---
Pt declined getting up to a chair this date. He stated that he would do it tomorrow . Will continue to attempt.
[2024-06-05 05:44] VITALS: BP 120/75; PULSE 100; RESP 18; TEMP 37.2; O2SAT 100
[2024-06-05 06:50] LABS: Basophils Percent Auto 0.2 % (0.2-1.2); Eosinophils Percent Auto 0.1 % (0-4.4); Hemoglobin 12.1 g/dL (14.0-18.0); Immature Granulocyte Absolute 0.05 K/mm3 (0.00-0.031); Immature Granulocyte Percent A 0.5 % (0-0.5); Lymphocytes Absolute Auto 0.81 K/mm3 (0.9-3.2); Lymphocytes Percent Auto 8.2 % (18.3-44.2); Mean Corpuscular HGB Conc 33.6 g/dl (32-36); Mean Corpuscular Hemoglobin 32.7 pg (26-34); Mean Corpuscular Volume 97.3 fl (80-100); Mean Platelet Volume 9.6 fl (7.4-10.4); Monocytes Absolute Auto 1.2 K/mm3 (0.1-0.6); Monocytes Percent Auto 12.4 % (2.6-8.5); Neutrophils Absolute Auto 7.8 K/mm3 (1.3-6.7); Neutrophils Percent Auto 78.6 % (45.5-73.1); Platelet Count Result 387 k/mm3 (150-375); White Blood Count 9.9 K/mm3 (4.5-10.0)
[2024-06-05 07:01] LABS: Alanine Aminotransferase 33 U/L (6-50); Albumin Level 3.8 g/dL (3.5-5.1); Alkaline Phosphatase 94 U/L (38-126); Anion Gap 10 mmol/L (4-12); Aspartate Amino Transferase 29 U/L (17-59); Blood Urea Nitrogen 14 mg/dL (9-20); Carbon Dioxide 29 mmol/L (22-30); Chloride 91 mmol/L (98-107); Estimated CRCL calculation 101 ml/min; Estimated Glomerular Filt Rate > 60; Glucose 126 mg/dL (65-110); Magnesium 1.6 mg/dL (1.6-2.3); Potassium 3.8 mmol/L (3.4-5.0); Sodium 130 mmol/L (137-145)
[2024-06-05] MEDS: ENOXAPARIN 40 MG/0.4 ML SYRINGE SUB-Q (09:10)
--- NOTE | 2024-06-05 09:43 | PCDIET ---
Tube feedings to start today: Jevity 1.5 @ 20ml/hr, advance by 10ml/hr q 4 hrs to goal rate of 60ml/hr over 22hrs. 150ml flushes q 4 hrs. This provides 1980kcals, 84g protein, 1903 total per day. Will monitor and follow up per protocol.
[2024-06-05] MEDS: ACETAMINOPHEN 325 MG TABLET 650 MG PO (10:30)
--- NOTE | 2024-06-05 11:46 | PCSTNOTE ---
Please refer to the Modified Barium Swallow Evaluation in the EMR. The above-confused pt was seen for a modified barium swallow. Pt was diagnosed with severe dysphagia during recent/last admission which resulted in PEG insertion/feedings. Upon this readmission, pt is still NPO. Pt was seated for a lateral view and presented with 5ml thin liquid via a spoon, approximately 1/2 tsp pudding, and 3-4 ml of moderately thick liquids via a spoon. The oral stages were within functional limits. During the pharyngeal stage, the following was exhibited: reduced laryngeal elevation as evidenced by laryngeal penetration during the swallow; reduced tongue base retraction as evidenced by vallecular residue after the swallow, & reduced laryngeal adduction as pt was unable to prevent aspiration from the residual which spilled into the laryngeal vestibule after the swallow. Pt exhibited an intermittent and weak cough reflex in response to the aspiration but he was unable to clear aspirate. Impression: severe dysphagia Recommendation: continue NPO and PEG tube feeding; due to this being chronic, no inpatient speech therapy is recommended.
--- NOTE | 2024-06-05 12:19 | P.PNIM_ITS ---
Progress Note: A&P Assessment and Plan (1) UTI (urinary tract infection) due to urinary indwelling Aguilar catheter: Code(s): T83.511A - Infection and inflammatory reaction due to indwelling urethral catheter, initial encounter; N39.0 - Urinary tract infection, site not specified Status: Acute Assessment and Plan: * UA showed turbid urine appearance, 1+ urine protein, trace ketone, 3+ urine blood, 3+ leukocytes, greater than 100 urine RBC, greater than 100 urine WBC, 3+ bacteria * blood and urine cultures were obtained and pending * continue Rocephin * aguilar catheter exchanged in the ER 06/05 * Blood and urine cultures are still pending * continue Rocephin (2) Benign prostatic hyperplasia: Code(s): N40.0 - Benign prostatic hyperplasia without lower urinary tract symptoms Status: Acute Assessment and Plan: * chest/abdomen/ pelvis CTA showed enlarged prostate gland with Aguilar catheter balloon deployed within the prostatic urethra * patient has chronic indwelling catheter * continue tamsulosin and finasteride 06/05 * No change to current treatment plan (3) Altered mental status: Code(s): R41.82 - Altered mental status, unspecified Status: Acute Assessment and Plan: likely secondary to UTI * continue neuro checks 06/05 * No change to current treatment plan (4) Constipation: Qualifiers: Constipation type: chronic idiopathic constipation Qualified Code(s): K59.04 - Chronic idiopathic constipation Code(s): K59.00 - Constipation, unspecified Status: Acute Assessment and Plan: * chest/abdomen/ pelvis CTA shown fecal impaction * Started Lactulose 20 mg per tube * Dulcolax suppository ordered 06/05 * Patient had BM today * Continue Lactulose for now (5) Depression: Code(s): F32.A - Depression, unspecified Status: Acute Assessment and Plan: * continue Venlafaxine 06/05 * No change (6) Gastro-esophageal reflux disease without esophagitis: Code(s): K21.9 - Gastro-esophageal reflux disease without esophagitis Status: Acute Assessment and Plan: * continue famotidine 06/05 * no change (7) Severe protein-calorie malnutrition: Code(s): E43 - Unspecified severe protein-calorie malnutrition Status: Acute Assessment and Plan: * dietitian consulted for tube feeding * modified barium swallow ordered for tomorrow * encourage intake 06/05 * Patient failed swallow today * tube feeding started via G tube Time Spent With Patient Time with patient: 15 - 25 minutes Subjective Date/time seen: 06/05/24 12:19 Interval history: Interval history: This is a 78-year-old male with a significant past medical history of bronchiectasis, severe protein calorie malnutrition and has PEG tube, depression, peripheral neuropathy, BPH, Crohn's disease, ulcerative colitis, hyperlipidemia, GERD, former smoker who presented to the hospital with altered mental status. Patient is only alert and oriented x1 and unable to provide history of presenting illness Workup in the hospital included a head CT which was negative for any acute intracranial findings, showed atrophy and chronic white matter changes. Cervical spine CT showed stable anterior C1 arch fracture with stable alignment, no new fracture subluxation. Chest x-ray showed opacification in the right lung base that represents atelectasis versus pneumonia. Chest/abdomen/ pelvis CTA showed fecal impaction, Aguilar catheter balloon is temp blood within the prostatic urethra, enlarged prostate gland, no pulmonary embolism, extensive chronic interstitial pulmonary disease with emphysematous changes, 1.3 cm right hilar lymph node noted. initial white blood cell count was normal at 9.6, hemoglobin 12.6, INR 1.1, sodium 128, chloride 87, bicarb 31, lactic acid was normal at 1.0, ammonia level was less than 9, troponin was negative, TSH 0.5-3. UA was obtained which showed turbid urine appearance, 1+ urine protein, trace ketone, 3+ urine blood, 3+ leukocytes, greater than 100 urine RBC, greater than 100 urine WBC, 3+ bacteria. Urine drug screen was positive for opioids. Respiratory panel was negative for influenza a and B, RSV, COVID. Blood and urine cultures were obtained and pending. EKG showed sinus rhythm with right axis deviation and right bundle branch block with a rate of 96, QTC 467. Patient was given a dose of Rocephin and Tylenol while in the ED. Aguilar catheter was exchanged in the ER. Subjective: Patient failed modified barium swallow today. He was started on tube feeding via G tube. He is still only alert to himself and remains confused. Labs reviewed. Review of Systems Review of Systems: All systems reviewed & are unremarkable except as noted in HPI and below Exam Narrative: General: In no acute distress, severe malnutrition, emaciated Cardiac: Normal S1 and S2. No murmur, gallops or friction rubs, peripheral pulses intact. Respiratory: Lungs clear to auscultation, no adventitious lung sounds, currently on room air Gastrointestinal: soft,flat, non-tender, normoactive bowel sounds. PEG tube clamped : aguilar catheter draining cloudy dark alfred urine Neuro: Alert and oriented x1, confused Objective Data Vital Signs Vital Signs: Vital Signs - 24 hr 06/04/24 16:00 06/04/24 20:00 06/04/24 21:38 Temperature 96.8 F L 98.7 F Pulse Rate 74 74 106 H Respiratory Rate 20 20 18 Blood Pressure 118/89 114/63 Pulse Oximetry 100 100 92 Oxygen Delivery Room Air 06/05/24 05:44 Temperature 98.9 F Pulse Rate 100 Respiratory Rate 18 Blood Pressure 120/75 Pulse Oximetry 100 Oxygen Delivery Intake/Output Intake/Output: Intake & Output 06/02/24 06/03/24 06/04/24 06/05/24 23:59 23:59 23:59 23:59 Intake Total 50 Output Total 200 200 Balance -150 -200 Meds/Results Medications: Active Medications Generic Name Dose Route Start Last Admin Trade Name Freq PRN Reason Stop Dose Admin Acetaminophen 650 mg 06/04/24 09:23 Acetaminophen 650 Mg Suppository RECTAL Q6H PRN Mild Pain (1-3) or Fever Acetaminophen 650 mg 06/04/24 14:37 06/05/24 10:30 Acetaminophen 325 Mg Tablet PO 650 mg Q4H PRN Administration Mild Pain (1-3) or Fever Bisacodyl 10 mg 06/04/24 14:37 Bisacodyl 10 Mg Suppository RECTAL ONCE PRN Constipation Enoxaparin Sodium 40 mg 06/05/24 09:00 06/05/24 09:10 Enoxaparin 40 Mg/0.4 Ml Syringe SUB-Q 40 mg DAILY LUCA Administration Lactulose 20 gm 06/04/24 14:40 06/05/24 09:11 Lactulose 20 Gm/30 Ml Udc FEED TUBE Not Given QAM LUCA Ondansetron HCl 4 mg 06/04/24 09:23 Ondansetron Inj 4 Mg/2 Ml Vial IV PUSH Q4H PRN Nausea Radiology Results: ITS Impressions Head CT 06/04/24 08:00 Impression: No intracranial hemorrhage, mass, or acute infarct. Atrophy and chronic white matter changes, as above. Cervical Spine CT 06/04/24 08:14 Impression: Stable anterior C1 arch fracture, with stable alignment. No new fracture or subluxation. Stable since a postoperative change in the cervical spine. Stable degenerative spondylosis. Chest X-Ray 06/04/24 08:18 IMPRESSION: No significant change from previous examination. Opacification in the right lung base may represent atelectasis versus pneumonia but most likely due to poor inspiration. Chest/Abdomen/Pelvis CTA 06/04/24 08:18 Impression: Fecal impaction. Aguilar catheter balloon is deployed within the prostatic urethra. Deflation and repositioning within the urinary bladder advised. Enlarged prostate gland. No pulmonary embolus. Extensive chronic interstitial pulmonary disease with underlying emphysematous change. 1.3 cm right hilar lymph node, of uncertain clinical significance. Modified Barium Swallow 06/05/24 11:08 IMPRESSION: Pharyngeal dysphagia with laryngeal penetration and aspiration. Please correlate with speech pathologist findings and specific feeding recommendations. Labs Labs: Laboratory Results - last 24 hr 06/05/24 06:38 WBC 9.9 RBC 3.70 L Hgb 12.1 L Hct 36.0 L MCV 97.3 MCH 32.7 MCHC 33.6 RDW 12.0 Plt Count 387 H MPV 9.6 Immature Gran % (Auto) 0.5 Neut % (Auto) 78.6 H Lymph % (Auto) 8.2 L Conway % (Auto) 12.4 H Eos % (Auto) 0.1 Baso % (Auto) 0.2 Lymph # (Auto) 0.81 L [place] # (Auto) 1.2 H Eos # (Auto) 0.0 Baso # (Auto) 0.0 Abs Immat Gran (auto) 0.05 H Absolute Neuts (auto) 7.8 H Absolute Nucleated RBC 0.000 Nucleated RBC % 0.0 Sodium 130 L Potassium 3.8 Chloride 91 L Carbon Dioxide 29 Anion Gap 10 BUN 14 Creatinine 0.38 L Estim Creat Clear Calc 101 Estimated GFR > 60 Glucose 126 H Calcium 9.0 Magnesium 1.6 Total Bilirubin 1.0 AST 29 ALT 33 Alkaline Phosphatase 94 Total Protein 7.0 Albumin 3.8 Quality VTE Prophylaxis VTE prophylaxis: pharmacologic ordered
--- NOTE | 2024-06-05 12:50 | PCPTNOTE ---
Attempted therapy evaluation 0451, patient continues to decline stating give me one more day. will follow.
[2024-06-05 13:38] VITALS: BP 97/71; PULSE 107; RESP 18; TEMP 37.1; O2SAT 95
[2024-06-05 20:00] VITALS: PULSE 107; RESP 18; O2SAT 95
[2024-06-06 04:39] VITALS: BP 98/75; PULSE 106; RESP 18; TEMP 36.6; O2SAT 97
[2024-06-06 06:30] LABS: Basophils Percent Auto 0.2 % (0.2-1.2); Hematocrit 36.5 % (42.0-52.0); Hemoglobin 12.1 g/dL (14.0-18.0); Immature Granulocyte Absolute 0.04 K/mm3 (0.00-0.031); Immature Granulocyte Percent A 0.5 % (0-0.5); Lymphocytes Absolute Auto 0.85 K/mm3 (0.9-3.2); Lymphocytes Percent Auto 10.1 % (18.3-44.2); Mean Corpuscular HGB Conc 33.2 g/dl (32-36); Mean Corpuscular Hemoglobin 32.6 pg (26-34); Mean Corpuscular Volume 98.4 fl (80-100); Mean Platelet Volume 9.5 fl (7.4-10.4); Monocytes Absolute Auto 0.9 K/mm3 (0.1-0.6); Monocytes Percent Auto 10.9 % (2.6-8.5); Neutrophils Absolute Auto 6.6 K/mm3 (1.3-6.7); Neutrophils Percent Auto 78.3 % (45.5-73.1); Platelet Count Result 411 k/mm3 (150-375); Red Blood Count 3.71 M/mm3 (4.6-6.20); Red Cell Distribution Width 12.2 % (11.5-14.5); White Blood Count 8.4 K/mm3 (4.5-10.0)
[2024-06-06 07:46] LABS: Alanine Aminotransferase 32 U/L (6-50); Albumin Level 3.8 g/dL (3.5-5.1); Alkaline Phosphatase 84 U/L (38-126); Anion Gap 10 mmol/L (4-12); Aspartate Amino Transferase 32 U/L (17-59); Bilirubin,Total 0.5 mg/dL (0.2-1.3); Blood Urea Nitrogen 20 mg/dL (9-20); Calcium 9.4 mg/dL (8.4-10.2); Carbon Dioxide 33 mmol/L (22-30); Chloride 92 mmol/L (98-107); Estimated CRCL calculation 91 ml/min; Estimated Glomerular Filt Rate > 60; Glucose 177 mg/dL (65-110); Sodium 135 mmol/L (137-145)
[2024-06-06 09:00] VITALS: O2SAT 97
[2024-06-06] MEDS: AMPICILLIN 1 GM/NS 50 ML 1 GM/50 ML BAG IVPB (10:07)
[2024-06-06] MEDS: ENOXAPARIN 40 MG/0.4 ML SYRINGE SUB-Q (10:08)
--- NOTE | 2024-06-06 12:54 | PCOTNOTE ---
Attempted to see pt. for occupational therapy evaluation. Upon removal of bed sheets, it was revealed that pt.'s peg tub had dislodged, nursing aware. Pt. to be seen when appropriate and safe to participate
--- NOTE | 2024-06-06 13:18 | P.PNIM_ITS ---
Progress Note: A&P Assessment and Plan (1) UTI (urinary tract infection) due to urinary indwelling Aguilar catheter: Code(s): T83.511A - Infection and inflammatory reaction due to indwelling urethral catheter, initial encounter; N39.0 - Urinary tract infection, site not specified Status: Acute Assessment and Plan: * UA showed turbid urine appearance, 1+ urine protein, trace ketone, 3+ urine blood, 3+ leukocytes, greater than 100 urine RBC, greater than 100 urine WBC, 3+ bacteria * blood and urine cultures were obtained and pending * continue Rocephin * aguilar catheter exchanged in the ER 06/05 * Blood and urine cultures are still pending * continue Rocephin 06/06 * Patient started on Linezolid per infectious disease pharmacist recommendations * 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 (2) Benign prostatic hyperplasia: Code(s): N40.0 - Benign prostatic hyperplasia without lower urinary tract symptoms Status: Acute Assessment and Plan: * chest/abdomen/ pelvis CTA showed enlarged prostate gland with Aguilar catheter balloon deployed within the prostatic urethra * patient has chronic indwelling catheter * continue tamsulosin and finasteride 06/05 * No change to current treatment plan (3) Altered mental status: Code(s): R41.82 - Altered mental status, unspecified Status: Acute Assessment and Plan: likely secondary to UTI * continue neuro checks 06/05 * No change to current treatment plan (4) Constipation: Qualifiers: Constipation type: chronic idiopathic constipation Qualified Code(s): K59.04 - Chronic idiopathic constipation Code(s): K59.00 - Constipation, unspecified Status: Acute Assessment and Plan: * chest/abdomen/ pelvis CTA shown fecal impaction * Started Lactulose 20 mg per tube * Dulcolax suppository ordered 06/05 * Patient had BM today * Continue Lactulose for now (5) Depression: Code(s): F32.A - Depression, unspecified Status: Acute Assessment and Plan: * continue Venlafaxine 06/05 * No change (6) Gastro-esophageal reflux disease without esophagitis: Code(s): K21.9 - Gastro-esophageal reflux disease without esophagitis Status: Acute Assessment and Plan: * continue famotidine 06/05 * no change (7) Severe protein-calorie malnutrition: Code(s): E43 - Unspecified severe protein-calorie malnutrition Status: Acute Assessment and Plan: * dietitian consulted for tube feeding * modified barium swallow ordered for tomorrow * encourage intake 06/05 * Patient failed swallow today * tube feeding started via G tube 06/06 * Patient found with dislodged G tube today by nursing * Spoke with son at length about patient's condition and we would like to proceed with PEG tube placement. Son also has concerns regarding patient's history of villous atrophy and if there is anything we can do to optimize him so he can absorb nutrients. Patient has been on tube feeds since the last visit and has lost 20 pounds in the process. The son does not wish to have hospice as an option at this time. 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 Patient may require transfer to tertiary hospital where they have Rheumatologists on staff. * GI and general surgery consulted Subjective Date/time seen: 06/06/24 13:18 Interval history: Interval history: This is a 78-year-old male with a significant past medical history of bronchiectasis, severe protein calorie malnutrition and has PEG tube, depression, peripheral neuropathy, BPH, Crohn's disease, ulcerative colitis, hyperlipidemia, GERD, former smoker who presented to the hospital with altered mental status. Patient is only alert and oriented x1 and unable to provide history of presenting illness Workup in the hospital included a head CT which was negative for any acute intracranial findings, showed atrophy and chronic white matter changes. Cervical spine CT showed stable anterior C1 arch fracture with stable alignment, no new fracture subluxation. Chest x-ray showed opacification in the right lung base that represents atelectasis versus pneumonia. Chest/abdomen/ pelvis CTA showed fecal impaction, Aguilar catheter balloon is temp blood within the prostatic urethra, enlarged prostate gland, no pulmonary embolism, extensive chronic interstitial pulmonary disease with emphysematous changes, 1.3 cm right hilar lymph node noted. initial white blood cell count was normal at 9.6, hemoglobin 12.6, INR 1.1, sodium 128, chloride 87, bicarb 31, lactic acid was normal at 1.0, ammonia level was less than 9, troponin was negative, TSH 0.5-3. UA was obtained which showed turbid urine appearance, 1+ urine protein, trace ketone, 3+ urine blood, 3+ leukocytes, greater than 100 urine RBC, greater than 100 urine WBC, 3+ bacteria. Urine drug screen was positive for opioids. Respiratory panel was negative for influenza a and B, RSV, COVID. Blood and urine cultures were obtained and pending. EKG showed sinus rhythm with right axis deviation and right bundle branch block with a rate of 96, QTC 467. Patient was given a dose of Rocephin and Tylenol while in the ED. Aguilar catheter was exchanged in the ER. 06/05/24: Modified barium swallow study failed. Tube feeding via PEG Subjective: Patient was found this morning with PEG tube removed by bedside nursing. They were not able to save the tract. Patient is still confused. Labs reviewed. Review of Systems Review of Systems: All systems reviewed & are unremarkable except as noted in HPI and below Exam Narrative: General: In no acute distress, severe malnutrition, emaciated Cardiac: Normal S1 and S2. No murmur, gallops or friction rubs, peripheral pulses intact. Respiratory: Lungs clear to auscultation, no adventitious lung sounds, currently on room air Gastrointestinal: soft,flat, non-tender, normoactive bowel sounds. PEG tube was dislodged : aguilar catheter draining cloudy dark alfred urine Neuro: Alert and oriented x1, confused Objective Data Vital Signs Vital Signs: Vital Signs - 24 hr 06/05/24 13:38 06/05/24 20:00 06/06/24 04:39 Temperature 98.8 F 98 F Pulse Rate 107 H 107 H 106 H Respiratory Rate 18 18 18 Blood Pressure 97/71 L 98/75 L Pulse Oximetry 95 95 97 Oxygen Delivery Room Air Intake/Output Intake/Output: Intake & Output 06/03/24 06/04/24 06/05/24 06/06/24 23:59 23:59 23:59 23:59 Intake Total 50 256 Output Total 200 200 60 Balance -150 56 -60 Meds/Results Medications: Active Medications Generic Name Dose Route Start Last Admin Trade Name Freq PRN Reason Stop Dose Admin Acetaminophen 650 mg 06/04/24 09:23 Acetaminophen 650 Mg Suppository RECTAL Q6H PRN Mild Pain (1-3) or Fever Acetaminophen 650 mg 06/04/24 14:37 06/05/24 10:30 Acetaminophen 325 Mg Tablet PO 650 mg Q4H PRN Administration Mild Pain (1-3) or Fever Bisacodyl 10 mg 06/04/24 14:37 Bisacodyl 10 Mg Suppository RECTAL ONCE PRN Constipation Enoxaparin Sodium 40 mg 06/05/24 09:00 06/06/24 10:08 Enoxaparin 40 Mg/0.4 Ml Syringe SUB-Q 40 mg DAILY LUCA Administration Famotidine 40 mg 06/05/24 21:00 06/06/24 10:11 Famotidine 20 Mg Tablet FEED TUBE Not Given Q12HR [facility] Finasteride 5 mg 06/06/24 09:00 06/06/24 10:10 Finasteride 5 Mg Tablet FEED TUBE Not Given DAILY [facility] Folic Acid 1 mg 06/06/24 09:00 06/06/24 10:10 Folic Acid 1 Mg Tablet FEED TUBE Not Given DAILY [facility] Ampicillin Sodium 1 gm in 50 mls @ 100 mls/hr 06/06/24 09:00 06/06/24 10:07 Ampicillin 1 Gm/Ns 50 Ml IVPB 100 mls/hr Q6H LUCA Administration Lactulose 20 gm 06/04/24 14:40 06/06/24 10:10 Lactulose 20 Gm/30 Ml Udc FEED TUBE Not Given QAM [facility] Ondansetron HCl 4 mg 06/04/24 09:23 Ondansetron Inj 4 Mg/2 Ml Vial IV PUSH Q4H PRN Nausea Sulfasalazine 1,500 mg 06/06/24 09:00 06/06/24 10:09 Sulfasalazine 500 Mg Tablet FEED TUBE Not Given DAILY [facility] Tamsulosin HCl 0.4 mg 06/05/24 21:00 06/06/24 00:15 Tamsulosin Hcl 0.4 Mg Capsule PO Not Given HS [facility] Venlafaxine HCl 37.5 mg 06/05/24 22:00 06/06/24 13:13 Venlafaxine Hcl 37.5 Mg Tablet PO Not Given Q8HR [facility] Vitamin D 2,000 units 06/06/24 09:00 06/06/24 10:11 Cholecalciferol 1,000 Units Tablet FEED TUBE Not Given DAILY [facility] Radiology Results: ITS Impressions Head CT 06/04/24 08:00 Impression: No intracranial hemorrhage, mass, or acute infarct. Atrophy and chronic white matter changes, as above. Cervical Spine CT 06/04/24 08:14 Impression: Stable anterior C1 arch fracture, with stable alignment. No new fracture or subluxation. Stable since a postoperative change in the cervical spine. Stable degenerative spondylosis. Chest X-Ray 06/04/24 08:18 IMPRESSION: No significant change from previous examination. Opacification in the right lung base may represent atelectasis versus pneumonia but most likely due to poor in spiration. Chest/Abdomen/Pelvis CTA 06/04/24 08:18 Impression: Fecal impaction. Aguilar catheter balloon is deployed within the prostatic urethra. Deflation and repositioning within the urinary bladder advised. Enlarged prostate gland. No pulmonary embolus. Extensive chronic interstitial pulmonary disease with underlying emphysematous change. 1.3 cm right hilar lymph node, of uncertain clinical significance. Modified Barium Swallow 06/05/24 11:08 IMPRESSION: Pharyngeal dysphagia with laryngeal penetration and aspiration. Please correlate with speech pathologist findings and specific feeding recommendations. Labs Labs: Laboratory Results - last 24 hr 06/06/24 06:18 WBC 8.4 RBC 3.71 L Hgb 12.1 L Hct 36.5 L MCV 98.4 MCH 32.6 MCHC 33.2 RDW 12.2 Plt Count 411 H MPV 9.5 Immature Gran % (Auto) 0.5 Neut % (Auto) 78.3 H Lymph % (Auto) 10.1 L Moore % (Auto) 10.9 H Eos % (Auto) 0.0 Baso % (Auto) 0.2 Lymph # (Auto) 0.85 L [place] # (Auto) 0.9 H Eos # (Auto) 0.0 Baso # (Auto) 0.0 Abs Immat Gran (auto) 0.04 H Absolute Neuts (auto) 6.6 Absolute Nucleated RBC 0.000 Nucleated RBC % 0.0 Sodium 135 L Potassium 4.0 Chloride 92 L Carbon Dioxide 33 H Anion Gap 10 BUN 20 Creatinine 0.43 L Estim Creat Clear Calc 91 Estimated GFR > 60 Glucose 177 H Calcium 9.4 Total Bilirubin 0.5 AST 32 ALT 32 Alkaline Phosphatase 84 Total Protein 7.0 Albumin 3.8 Quality VTE Prophylaxis VTE prophylaxis: pharmacologic ordered
--- NOTE | 2024-06-06 13:28 | PC.NURSE ---
Patient found in bed at 0810 with G-Tube removed. Tube was laying next to patient in bed, jevity feeding had leaked by patients side. Patient does not recall when or how feeding tube became dislocated. Tube insertion site was closed and no longer draining at the time. Hospitalist and family notified.
[2024-06-06 14:00] VITALS: BP 79/55; PULSE 103; RESP 18; TEMP 37.3; O2SAT 96
[2024-06-06] MEDS: LINEZOLID 600 MG/300 ML 600 MG/300 ML SOLN 300 MG IVPB ×2 (14:09→21:28)
[2024-06-06 14:22] LABS: Alveolar/Arterial O2 Gradient 28.1 mmHg; Fractional Inspired Oxygen 21 %; Oxygen Content ABG 17.4 %vol (16.0-22.0); Oxygen Saturation ABG 95.5 % (95.0-100.0); Oxyhemoglobin 92.9 % THb (90.0-100.0); PCO2 ABG 41.5 mmHg (35.0-45.0); PO2 ABG 71.9 mmHg (80.0-100.0); PO2 FiO2 Ratio Arterial Blood 3.42 %; Total Hemoglobin 13.3 g/dL (12.0-18.0); pH ABG 7.491 (7.350-7.450)
[2024-06-06 14:23] LABS: Device ROOM AIR; Modified Allen's Test Pass; Site Drawn RIGHT RADIAL
--- NOTE | 2024-06-06 14:24 | PCRCNOTE ---
ABG'S done late do to therapist in ER
[2024-06-06 16:52] LABS: Glucose Point of Care 138 mg/dl (65-105)
[2024-06-06] MEDS: DEXTROSE 5%/0.9% SOD CHL 1,000 ML 100 ML IV CONT (16:58)
[2024-06-06 19:03] LABS: Vitamin D 25 Hydroxy 68.7 ng/mL
[2024-06-06 19:55] LABS: Folic Acid 13.4 ng/mL (2.76->20)
[2024-06-06 20:00] VITALS: PULSE 103; RESP 18; O2SAT 96
[2024-06-06 22:00] VITALS: BP 112/78; PULSE 75; RESP 16; O2SAT 97
--- NOTE | 2024-06-06 22:17 | P.CONGI_ITS ---
Assessment and Plan Assessment and plan (1) Dislodged gastrostomy tube: Code(s): T85.528A - Displacement of other gastrointestinal prosthetic devices, implants and grafts, initial encounter Status: Acute Assessment and Plan: will try to place a new one endoscopically he has malnutrition and risk of aspiration (2) Severe protein-calorie malnutrition: Code(s): E43 - Unspecified severe protein-calorie malnutrition Status: Acute Assessment and Plan: will repeat duodenal bx also serology for celiac, stool to assess for epi and malabsorption (noted albumin normal though) (3) Weight loss: Code(s): R63.4 - Abnormal weight loss Status: Acute (4) Encephalopathy: Code(s): G93.40 - Encephalopathy, unspecified Status: Acute (5) C1 cervical fracture: Qualifiers: Encounter type: initial encounter Fracture type: closed Fracture morphology: unspecified fracture morphology Fracture alignment: displaced Q ualified Code(s): S12.000A - Unspecified displaced fracture of first cervical vertebra, initial encounter for closed fracture Code(s): S12.000A - Unspecified displaced fracture of first cervical vertebra, initial encounter for closed fracture Status: Acute Assessment and Plan: c-collar in place GI Consult Note Consult date/time: 06/06/24 22:17 Reason for consult: dislodged G-tube HPI: Og Noland is a 78 year old male with past medical history of bronchiectasis, severe protein calorie malnutrition who had PEG tube, depression, peripheral neuropathy, C1 fracture, former smoker admitted to the hospital few days ago with altered mental status. History is obtained mostly from records, he is not best historian. He had again head CT which was negative for any acute intracranial findings, showed atrophy and chronic white matter changes. Cervical spine CT showed stable anterior C1 arch fracture with stable alignment, no new fracture subluxation. Chest/abdomen/ pelvis CTA showed fecal impaction, enlarged prostate gland, no pulmonary embolism, extensive chronic interstitial pulmonary disease with emphysematous changes, 1.3 cm right hilar lymph node noted. initial white blood cell count was normal at 9.6, hemoglobin 12.6, INR 1.1, sodium 128, chloride 87, bicarb 31, lactic acid was normal at 1.0, ammonia level was less than 9. The patient had a PEG placed endoscopically on May 01 but dislodged few days after and unable to replace subsequently had open G- tube by surgery. He still continues to lose weight and has severe malnutrition despite tube feeds. Previous work up showed mild atrophy duodenum but no celiac. director of staff development noted that G-tube is not in position anymore and site is almost closed. Called again to place new G-tube. Review of Systems 2 Review of Systems: ROS unobtainable: Yes unobtainable due to mental status PMFSH Past Medical History Medical History Severe protein-calorie malnutrition Bronchiectasis Unspecified displaced fracture of first cervical vertebra, subsequent encounter for fracture with routine healing Aspiration into airway Pure hypercholesterolemia Depression Peripheral neuropathy Ataxia Benign prostatic hyperplasia Left rib fracture Pneumothorax Crohn's disease Ulcerative colitis Hyperlipidemia Gastro-esophageal reflux disease without esophagitis Surgical History Surgical History History of spinal surgery History of arthroplasty of right knee History of chest tube placement Family History Family History Father No problems noted. Mother No problems noted. Sibling No problems noted. Other Family history non-contributory Social History Social History Social History: Surrogate medical decision maker: eleno Chambers. Code status: Full code per facility documentation Smoking packs per day: 2 Smoking cigarettes per day: 40.0 Years smoked: 15 Smoking pack-years: 30.00 Smoking status: Former smoker Tobacco type: cigarettes Second hand tobacco smoke exposure: No Additional smoking assessment comments: quit in 1980 Alcohol intake: former Drinks per week: 14 Alcohol use details: 3 per day Substance use: never Substance use type: does not use Do You Feel Safe in your Home?: Yes Lack of Transportation: No Lack of Food: Never True Current Housing: I Have Housing Concerned About Future Housing: No Difficulty Paying Gas/Electric Bills: No Difficulty Paying for Meds: No Currently Unemployed: No Education: High School Diploma/GED Difficulty w/ Childcare or Family Care: No Living arrangements: retirement Additional living arrangements comments: [place] Occupation/Education: retired 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 Spiritual care concerns: No Meds Home Medications and Allergies Home Medications ?Medication ?Instructions ?Recorded ?Confirmed ?Type cholecalciferol (vitamin D3) 25 50 mcg (2 x 25 mcg (1,000 unit)) 05/03/24 06/05/24 Rx mcg (1,000 unit) tablet (Vitamin feeding tube DAILY #1 tablet D3) finasteride 5 mg tablet (Proscar) 5 mg feeding tube DAILY #1 tablet 05/03/24 06/05/24 Rx folic acid 1 mg tablet 1 mg feeding tube DAILY #1 tablet 05/03/24 06/05/24 Rx hydrocodone 5 mg-acetaminophen 325 1 tablet feeding tube Q6H PRN Pain 05/03/24 06/05/24 Rx mg tablet Rated 4-6 #20 tabs venlafaxine 37.5 mg tablet 37.5 mg PO Q8HR #1 tablet 05/03/24 06/05/24 Rx guaifenesin 100 mg/5 mL oral liquid 200 mg feeding tube Q4H PRN Cough 05/04/24 06/05/24 History tamsulosin 0.4 mg capsule 0.4 mg PO HS 30 days #30 caps 05/08/24 06/05/24 Rx baclofen 5 mg oral granules in 5 mg PO TID 06/05/24 06/05/24 History packet famotidine 20 mg tablet 40 mg feeding tube Q12HR 06/05/24 06/05/24 History sennosides 8.6 mg-docusate sodium 2 tab-cap PO BID 06/05/24 06/05/24 History 50 mg tablet (Stimulant Laxative Plus) sulfasalazine 500 mg tablet 1,500 mg feeding tube DAILY 06/05/24 06/05/24 History Allergies Allergy/AdvReac Type Severity Reaction Status Date / Time lidocaine Allergy Severe shuts Verified 06/04/24 15:55 lungs down Vital Signs Vital Signs - 24 hr 06/06/24 04:39 06/06/24 09:00 06/06/24 14:00 Temperature 98 F 99.2 F Pulse Rate 106 H 103 H Respiratory Rate 18 18 Blood Pressure 98/75 L 79/55 L Pulse Oximetry 97 97 96 Oxygen Delivery Room Air 06/06/24 20:00 Temperature Pulse Rate 103 H Respiratory Rate 18 Blood Pressure Pulse Oximetry 96 Oxygen Delivery Room Air Exam 2 Const: General: cooperative, comfortable, no acute distress, ill appearing and malnourished HENMT: Head: normal to inspection, normocephalic and atraumatic Eyes: General: appearance normal, both eyes and all related structures Neck: Other: c-collar in place Resp: Auscultation: diminished lung sounds Cardio: Rate: regular rate Rhythm: regular rhythm GI: Inspection: normal to inspection and incision GI Palp: No abdominal tenderness, Yes Soft to palpation, No Guarding due to palpation present (GI) and No Rigid due to palpation Other: Previous G-tube site granulating, no signs or symptoms of infection Skin: General skin exam: normal color Neuro: Other: awake and alert but confused Extrem: General: normal to inspection Psych: Affect: Anxious affect present Results Labs 06/07/24 05:47 06/07/24 05:47 Labs: Short CBC 06/06/24 Range/Units 06:18 WBC 8.4 (4.5-10.0) K/mm3 Hgb 12.1 L (14.0-18.0) g/dL Hct 36.5 L (42.0-52.0) % Plt Count 411 H (150-375) k/mm3 BMP 06/06/24 06:18 Sodium 135 L Potassium 4.0 Chloride 92 L Carbon Dioxide 33 H BUN 20 Creatinine 0.43 L Glucose 177 H Calcium 9.4 Liver Function 06/06/24 Range/Units 06:18 Total Bilirubin 0.5 (0.2-1.3) mg/dL AST 32 (17-59) U/L ALT 32 (6-50) U/L Alkaline Phosphatase 84 (38-126) U/L Albumin 3.8 (3.5-5.1) g/dL
[2024-06-07] VITALS (9 sets, daily range): BP systolic 97–112; BP diastolic 63–78; PULSE 68–82; RESP 14–20; TEMP 36.4–36.8; O2SAT 92–100
[2024-06-07 00:40] LABS: Glucose Point of Care 138 mg/dl (65-105)
[2024-06-07] MEDS: DEXTROSE 5%/0.9% SOD CHL 1,000 ML 100 ML IV CONT ×3 (04:08→18:26)
[2024-06-07 06:10] LABS: Basophils Percent Auto 0.3 % (0.2-1.2); Eosinophils Absolute Auto 0.1 K/mm3 (0-0.3); Eosinophils Percent Auto 0.7 % (0-4.4); Hematocrit 35.1 % (42.0-52.0); Hemoglobin 11.3 g/dL (14.0-18.0); Immature Granulocyte Absolute 0.03 K/mm3 (0.00-0.031); Immature Granulocyte Percent A 0.4 % (0-0.5); Lymphocytes Absolute Auto 1.27 K/mm3 (0.9-3.2); Lymphocytes Percent Auto 17.8 % (18.3-44.2); Mean Corpuscular HGB Conc 32.2 g/dl (32-36); Mean Corpuscular Hemoglobin 32.8 pg (26-34); Mean Corpuscular Volume 101.7 fl (80-100); Mean Platelet Volume 9.9 fl (7.4-10.4); Monocytes Absolute Auto 0.9 K/mm3 (0.1-0.6); Neutrophils Absolute Auto 4.9 K/mm3 (1.3-6.7); Neutrophils Percent Auto 67.8 % (45.5-73.1); Platelet Count Result 377 k/mm3 (150-375); Red Blood Count 3.45 M/mm3 (4.6-6.20); Red Cell Distribution Width 12.4 % (11.5-14.5); White Blood Count 7.2 K/mm3 (4.5-10.0)
[2024-06-07 06:22] LABS: Alanine Aminotransferase 30 U/L (6-50); Albumin Level 3.5 g/dL (3.5-5.1); Alkaline Phosphatase 79 U/L (38-126); Anion Gap 8 mmol/L (4-12); Aspartate Amino Transferase 30 U/L (17-59); Bilirubin,Total 0.4 mg/dL (0.2-1.3); Blood Urea Nitrogen 16 mg/dL (9-20); Calcium 8.8 mg/dL (8.4-10.2); Carbon Dioxide 30 mmol/L (22-30); Chloride 97 mmol/L (98-107); Estimated CRCL calculation 101 ml/min; Estimated Glomerular Filt Rate > 60; Glucose 138 mg/dL (65-110); Potassium 3.3 mmol/L (3.4-5.0); Sodium 135 mmol/L (137-145)
[2024-06-07 06:59] LABS: Glucose Point of Care 135 mg/dl (65-105)
[2024-06-07] MEDS: LINEZOLID 600 MG/300 ML 600 MG/300 ML SOLN 300 MG IVPB ×2 (09:51→21:56)
[2024-06-07] MEDS: PANTOPRAZOLE SODIUM IV 40 MG VIAL IV PUSH (10:23)
[2024-06-07] MEDS: MORPHINE SULFATE (*CRX) 2 MG/ML INJ IV PUSH ×2 (10:23→15:47)
--- NOTE | 2024-06-07 10:25 | PCPTNOTE ---
Attempted therapy evaluation 1025, per RN wait until later in the day- patient is very fatigued from being up in the chair and was just given morphine.
--- NOTE | 2024-06-07 10:50 | PM.CNGS ---
Assessment and Plan Assessment and plan (1) Dislodged gastrostomy tube: Code(s): T85.528A - Displacement of other gastrointestinal prosthetic devices, implants and grafts, initial encounter Status: Acute Assessment and Plan: discussed with GI and plan to proceed with endoscopy and possible PEG placement today, if unable to be placed will need open G-tube History of Present Illness Consult details Consult date: 06/07/24 Reason for consult: other ( dislodged G-tube) Requesting physician: Funmilayo Hutchinson, SOFTWARE DEVELOPMENT LEADER Narrative: The patient is a 78-year-old male with multiple medical issues including severe malnutrition, dysphagia with aspiration presenting with a dislodged G-tube. The patient had a PEG placed on May 01. He re-presented on May 04 with dislodged PEG and subsequent open G-tube was placed at that time. According to the patient, he continues to lose weight and has severe malnutrition despite tube feeds. Patient also has a severe UTI at this time. During transport to the hospital, the patient reports that his G tube has become dislodged. Review of Systems Review of Systems: All systems reviewed & are unremarkable except as noted in HPI and below PMFSH Past Medical History Medical History Severe protein-calorie malnutrition Bronchiectasis Unspecified displaced fracture of first cervical vertebra, subsequent encounter for fracture with routine healing Aspiration into airway Pure hypercholesterolemia Depression Peripheral neuropathy Ataxia Benign prostatic hyperplasia Left rib fracture Pneumothorax Crohn's disease Ulcerative colitis Hyperlipidemia Gastro-esophageal reflux disease without esophagitis Surgical History Surgical History History of spinal surgery History of arthroplasty of right knee History of chest tube placement Family History Family History Father No problems noted. Mother No problems noted. Sibling No problems noted. Other Family history non-contributory Social History Social History Social History: Surrogate medical decision maker: eleno Chambers. Code status: Full code per facility documentation Smoking packs per day: 2 Smoking cigarettes per day: 40.0 Years smoked: 15 Smoking pack-years: 30.00 Smoking status: Former smoker Tobacco type: cigarettes Second hand tobacco smoke exposure: No Additional smoking assessment comments: quit in 1980 Alcohol intake: former Drinks per week: 14 Alcohol use details: 3 per day Substance use: never Substance use type: does not use Do You Feel Safe in your Home?: Yes Lack of Transportation: No Lack of Food: Never True Current Housing: I Have Housing Concerned About Future Housing: No Difficulty Paying Gas/Electric Bills: No Difficulty Paying for Meds: No Currently Unemployed: No Education: High School Diploma/GED Difficulty w/ Childcare or Family Care: No Living arrangements: [facility] Additional living arrangements comments: [place] Occupation/Education: retired 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 Spiritual care concerns: No Meds Home Medications and Allergies Home Medications ?Medication ?Instructions ?Recorded ?Confirmed ?Type cholecalciferol (vitamin D3) 25 50 mcg (2 x 25 mcg (1,000 unit)) 05/03/24 06/05/24 Rx mcg (1,000 unit) tablet (Vitamin feeding tube DAILY #1 tablet D3) finasteride 5 mg tablet (Proscar) 5 mg feeding tube DAILY #1 tablet 05/03/24 06/05/24 Rx folic acid 1 mg tablet 1 mg feeding tube DAILY #1 tablet 05/03/24 06/05/24 Rx hydrocodone 5 mg-acetaminophen 325 1 tablet feeding tube Q6H PRN Pain 05/03/24 06/05/24 Rx mg tablet Rated 4-6 #20 tabs venlafaxine 37.5 mg tablet 37.5 mg PO Q8HR #1 tablet 05/03/24 06/05/24 Rx guaifenesin 100 mg/5 mL oral liquid 200 mg feeding tube Q4H PRN Cough 05/04/24 06/05/24 History tamsulosin 0.4 mg capsule 0.4 mg PO HS 30 days #30 caps 05/08/24 06/05/24 Rx baclofen 5 mg oral granules in 5 mg PO TID 06/05/24 06/05/24 History packet famotidine 20 mg tablet 40 mg feeding tube Q12HR 06/05/24 06/05/24 History sennosides 8.6 mg-docusate sodium 2 tab-cap PO BID 06/05/24 06/05/24 History 50 mg tablet (Stimulant Laxative Plus) sulfasalazine 500 mg tablet 1,500 mg feeding tube DAILY 06/05/24 06/05/24 History Allergies Allergy/AdvReac Type Severity Reaction Status Date / Time lidocaine Allergy Severe shuts Verified 06/04/24 15:55 lungs down Vital Signs Vital Signs - 24 hr 06/06/24 14:00 06/06/24 20:00 06/06/24 22:00 Temperature 37.3 C Pulse Rate 103 H 103 H 75 Respiratory Rate 18 18 16 Blood Pressure 79/55 L 112/78 Pulse Oximetry 96 96 97 Oxygen Delivery Room Air 06/07/24 06:00 06/07/24 08:50 Temperature Pulse Rate 75 Respiratory Rate 16 Blood Pressure 112/78 Pulse Oximetry 97 Oxygen Delivery Room Air Exam Const: General: cooperative, comfortable, no acute distress, ill appearing and malnourished HENMT: Head: normal to inspection, normocephalic and atraumatic Eyes: General: appearance normal, both eyes and all related structures Neck: Neck: normal visual inspection, full ROM and no lymphadenopathy Resp: Auscultation: diminished lung sounds Cardio: Rate: regular rate Rhythm: regular rhythm GI: Inspection: normal to inspection and incision GI Palp: No abdominal tenderness, Yes Soft to palpation, No Guarding due to palpation present (GI) and No Rigid due to palpation Other: Previous G-tube site granulating, no signs or symptoms of infection Skin: General skin exam: normal color and no rashes or lesions noted Neuro: General: patient oriented x3 and CN's II-XI intact bilaterally Extrem: General: normal to inspection and full ROM Results Labs 06/07/24 05:47 06/07/24 05:47 Labs: Abnormal lab results 06/06/24 06/06/24 06/07/24 Range/Units 14:14 16:49 00:37 RBC (4.6-6.20) M/mm3 Hgb (14.0-18.0) g/dL Hct (42.0-52.0) % MCV (80-100) fl Plt Count (150-375) k/mm3 Lymph % (Auto) (18.3-44.2) % Price % (Auto) (2.6-8.5) % Price # (Auto) (0.1-0.6) K/mm3 ABG pH 7.491 H (7.350-7.450) ABG pO2 71.9 L (80.0-100.0) mmHg ABG HCO3 31.0 H (22.0-26.0) mEq/l Sodium (137-145) mmol/L Potassium (3.4-5.0) mmol/L Chloride (98-107) mmol/L Creatinine (0.7-1.3) mg/dL Glucose (65-110) mg/dL POC Capillary Glucose 138 H 138 H (65-105) mg/dl 06/07/24 06/07/24 Range/Units 05:47 06:56 RBC 3.45 L (4.6-6.20) M/mm3 Hgb 11.3 L (14.0-18.0) g/dL Hct 35.1 L (42.0-52.0) % MCV 101.7 H (80-100) fl Plt Count 377 H (150-375) k/mm3 Lymph % (Auto) 17.8 L (18.3-44.2) % Price % (Auto) 13.0 H (2.6-8.5) % Price # (Auto) 0.9 H (0.1-0.6) K/mm3 ABG pH (7.350-7.450) ABG pO2 (80.0-100.0) mmHg ABG HCO3 (22.0-26.0) mEq/l Sodium 135 L (137-145) mmol/L Potassium 3.3 L (3.4-5.0) mmol/L Chloride 97 L (98-107) mmol/L Creatinine 0.38 L (0.7-1.3) mg/dL Glucose 138 H (65-110) mg/dL POC Capillary Glucose 135 H (65-105) mg/dl Diabetes panel 06/07/24 Range/Units 05:47 Sodium 135 L (137-145) mmol/L Potassium 3.3 L (3.4-5.0) mmol/L Chloride 97 L (98-107) mmol/L Carbon Dioxide 30 (22-30) mmol/L BUN 16 (9-20) mg/dL Creatinine 0.38 L (0.7-1.3) mg/dL Glucose 138 H (65-110) mg/dL Calcium 8.8 (8.4-10.2) mg/dL AST 30 (17-59) U/L ALT 30 (6-50) U/L Alkaline Phosphatase 79 (38-126) U/L Total Protein 7.0 (6.3-8.2) g/dL Albumin 3.5 (3.5-5.1) g/dL Calcium panel 06/07/24 Range/Units 05:47 Calcium 8.8 (8.4-10.2) mg/dL Albumin 3.5 (3.5-5.1) g/dL Pituitary panel 06/07/24 Range/Units 05:47 Sodium 135 L (137-145) mmol/L Potassium 3.3 L (3.4-5.0) mmol/L Chloride 97 L (98-107) mmol/L Carbon Dioxide 30 (22-30) mmol/L BUN 16 (9-20) mg/dL Creatinine 0.38 L (0.7-1.3) mg/dL Glucose 138 H (65-110) mg/dL Calcium 8.8 (8.4-10.2) mg/dL Adrenal panel 06/07/24 Range/Units 05:47 Sodium 135 L (137-145) mmol/L Potassium 3.3 L (3.4-5.0) mmol/L Chloride 97 L (98-107) mmol/L Carbon Dioxide 30 (22-30) mmol/L BUN 16 (9-20) mg/dL Creatinine 0.38 L (0.7-1.3) mg/dL Glucose 138 H (65-110) mg/dL Calcium 8.8 (8.4-10.2) mg/dL Total Bilirubin 0.4 (0.2-1.3) mg/dL AST 30 (17-59) U/L ALT 30 (6-50) U/L Alkaline Phosphatase 79 (38-126) U/L Total Protein 7.0 (6.3-8.2) g/dL Albumin 3.5 (3.5-5.1) g/dL All other labs normal.
[2024-06-07 11:55] LABS: Glucose Point of Care 156 mg/dl (65-105)
--- NOTE | 2024-06-07 13:24 | PCNFU ---
Nutrition Follow-Up Complete: Severe protein calorie malnutrition related to inadequate energy intake as evidenced by a -12% wt loss x 1 month from last admission, and NFPE findings for severe subcutaneous fat loss and severe muscle wasting. Meet estimated needs Goal: Pt current nutrition is NPO awaiting PEG replacement Nutrition recommendation: Continue previous tube feeding order when PEG is cleared for use: Jevity 1.5 @ 20ml/hr, advance by 10ml/hr q 4 hrs to goal rate of 60ml/hr over 22hrs. 150ml flushes q 4 hrs. Note: Because of malabsoption, may consider using peptide based formula Vital 1.2 @ goal rate 60 ml/h to provide 1584 kcal, 99 g protein, 1070 ml free water. Last recorded weight is 55.3 kg. Bowel Motility: +1 BM 06/07/24 Labs Reviewed: Hgb 11/3, Hct 35.1, Na 135, K+ 3.3, Cre 0.38, Glu 138 Meds Noted: Lactulose Skin: No pressure injuries Additional Notes: NPO for replacement of G-tube. Previous orders: Jevity 1.5 @ 20ml/hr, advance by 10ml/hr q 4 hrs to goal rate of 60ml/hr over 22hrs. 150ml flushes q 4 hrs. This provides 1980kcals, 84g protein, 1903 total per day. Will monitor and follow up per protocol. Monitor for MBS results, tube feeding orders, tolerance, wt, labs. Follow up Monday/Monday
--- NOTE | 2024-06-07 13:41 | WPDANESEPPF ---
Anes - Initial Pre Proc Eval Procedure: Operation Date: 06/07/24 15:30 Proposed Procedures p Percutaneous Endoscopic Gastrostomy - Ignacio Thrasher MD Date/Time: 06/07/24 13:41 Surgeon: Antione Villegas MD Pre Op Diagnosis: UTI/ST and Dietary Eval/PT/OT Eval Patient Data Age: 78 Gender: M Height: 1.88 m Weight: 55.3 kg Last Vital Signs Temp 37.3 C 06/06/24 14:00 Pulse 75 06/07/24 06:00 Resp 16 06/07/24 06:00 BP 112/78 06/07/24 06:00 Pulse Ox 97 06/07/24 06:00 O2 Del Method Room Air 06/07/24 13:13 Allergies Allergy/AdvReac Type Severity Reaction Status Date / Time lidocaine Allergy Severe shuts Verified 06/04/24 15:55 lungs down Home Medications ?Medication ?Instructions ?Recorded ?Confirmed ?Type cholecalciferol (vitamin D3) 25 50 mcg (2 x 25 mcg (1,000 unit)) 05/03/24 06/05/24 Rx mcg (1,000 unit) tablet (Vitamin feeding tube DAILY #1 tablet D3) finasteride 5 mg tablet (Proscar) 5 mg feeding tube DAILY #1 tablet 05/03/24 06/05/24 Rx folic acid 1 mg tablet 1 mg feeding tube DAILY #1 tablet 05/03/24 06/05/24 Rx hydrocodone 5 mg-acetaminophen 325 1 tablet feeding tube Q6H PRN Pain 05/03/24 06/05/24 Rx mg tablet Rated 4-6 #20 tabs venlafaxine 37.5 mg tablet 37.5 mg PO Q8HR #1 tablet 05/03/24 06/05/24 Rx guaifenesin 100 mg/5 mL oral liquid 200 mg feeding tube Q4H PRN Cough 05/04/24 06/05/24 History tamsulosin 0.4 mg capsule 0.4 mg PO HS 30 days #30 caps 05/08/24 06/05/24 Rx baclofen 5 mg oral granules in 5 mg PO TID 06/05/24 06/05/24 History packet famotidine 20 mg tablet 40 mg feeding tube Q12HR 06/05/24 06/05/24 History sennosides 8.6 mg-docusate sodium 2 tab-cap PO BID 06/05/24 06/05/24 History 50 mg tablet (Stimulant Laxative Plus) sulfasalazine 500 mg tablet 1,500 mg feeding tube DAILY 06/05/24 06/05/24 History Laboratory Tests 06/06/24 06/06/24 06/06/24 06:15 06:18 14:14 WBC RBC Hgb Hct MCV MCH MCHC RDW Plt Count MPV Immature Gran % (Auto) Neut % (Auto) Lymph % (Auto) [place] % (Auto) Eos % (Auto) Baso % (Auto) Lymph # (Auto) [place] # (Auto) Eos # (Auto) Baso # (Auto) Abs Immat Gran (auto) Absolute Neuts (auto) Absolute Nucleated RBC Nucleated RBC % Puncture Site Right radial ABG pH 7.491 H (7.350-7.450) ABG pCO2 41.5 mmHg (35.0-45.0) ABG pO2 71.9 L mmHg (80.0-100.0) ABG PO2/FiO2 Ratio 3.42 % ABG HCO3 31.0 H mEq/l (22.0-26.0) ABG O2 Saturation 95.5 % (95.0-100.0) ABG O2 Content 17.4 %vol (16.0-22.0) ABG Base Excess 7.0 mEq/l (+/-2.0) A-a Gradient 28.1 mmHg Oxyhemoglobin 92.9 % THb (90.0-100.0) Total Hemoglobin 13.3 g/dL (12.0-18.0) O2 Delivery Device Room air O2 Liters/Min Not Reportable FiO2 21 % Sodium Potassium Chloride Carbon Dioxide Anion Gap BUN Creatinine Estim Creat Clear Calc Estimated GFR Glucose POC Capillary Glucose Calcium Total Bilirubin AST ALT Alkaline Phosphatase Total Protein Albumin Vitamin B12 890.0 pg/mL (239-931) Vitamin D 25-Hydroxy 68.7 ng/mL Folate 13.4 ng/mL (2.76->20) 06/06/24 06/07/24 06/07/24 16:49 00:37 05:47 WBC 7.2 K/mm3 (4.5-10.0) RBC 3.45 L M/mm3 (4.6-6.20) Hgb 11.3 L g/dL (14.0-18.0) Hct 35.1 L % (42.0-52.0) MCV 101.7 H fl (80-100) MCH 32.8 pg (26-34) MCHC 32.2 g/dl (32-36) RDW 12.4 % (11.5-14.5) Plt Count 377 H k/mm3 (150-375) MPV 9.9 fl (7.4-10.4) Immature Gran % (Auto) 0.4 % (0-0.5) Neut % (Auto) 67.8 % (45.5-73.1) Lymph % (Auto) 17.8 L % (18.3-44.2) [place] % (Auto) 13.0 H % (2.6-8.5) Eos % (Auto) 0.7 % (0-4.4) Baso % (Auto) 0.3 % (0.2-1.2) Lymph # (Auto) 1.27 K/mm3 (0.9-3.2) [place] # (Auto) 0.9 H K/mm3 (0.1-0.6) Eos # (Auto) 0.1 K/mm3 (0-0.3) Baso # (Auto) 0.0 K/mm3 (0.0-0.1) Abs Immat Gran (auto) 0.03 K/mm3 (0.00-0.031) Absolute Neuts (auto) 4.9 K/mm3 (1.3-6.7) Absolute Nucleated RBC 0.000 K/mm3 (0.0-0.012) Nucleated RBC % 0.0 % (0.0-0.2) Puncture Site ABG pH ABG pCO2 ABG pO2 ABG PO2/FiO2 Ratio ABG HCO3 ABG O2 Saturation ABG O2 Content ABG Base Excess A-a Gradient Oxyhemoglobin Total Hemoglobin O2 Delivery Device O2 Liters/Min FiO2 Sodium 135 L mmol/L (137-145) Potassium 3.3 L mmol/L (3.4-5.0) Chloride 97 L mmol/L (98-107) Carbon Dioxide 30 mmol/L (22-30) Anion Gap 8 mmol/L (4-12) BUN 16 mg/dL (9-20) Creatinine 0.38 L mg/dL (0.7-1.3) Estim Creat Clear Calc 101 ml/min Estimated GFR > 60 (59 - ) Glucose 138 H mg/dL (65-110) POC Capillary Glucose 138 H mg/dl 138 H mg/dl (65-105) (65-105) Calcium 8.8 mg/dL (8.4-10.2) Total Bilirubin 0.4 mg/dL (0.2-1.3) AST 30 U/L (17-59) ALT 30 U/L (6-50) Alkaline Phosphatase 79 U/L (38-126) Total Protein 7.0 g/dL (6.3-8.2) Albumin 3.5 g/dL (3.5-5.1) Vitamin B12 Vitamin D 25-Hydroxy Folate 06/07/24 06/07/24 06:56 11:48 WBC RBC Hgb Hct MCV MCH MCHC RDW Plt Count MPV Immature Gran % (Auto) Neut % (Auto) Lymph % (Auto) [place] % (Auto) Eos % (Auto) Baso % (Auto) Lymph # (Auto) [place] # (Auto) Eos # (Auto) Baso # (Auto) Abs Immat Gran (auto) Absolute Neuts (auto) Absolute Nucleated RBC Nucleated RBC % Puncture Site ABG pH ABG pCO2 ABG pO2 ABG PO2/FiO2 Ratio ABG HCO3 ABG O2 Saturation ABG O2 Content ABG Base Excess A-a Gradient Oxyhemoglobin Total Hemoglobin O2 Delivery Device O2 Liters/Min FiO2 Sodium Potassium Chloride Carbon Dioxide Anion Gap BUN Creatinine Estim Creat Clear Calc Estimated GFR Glucose POC Capillary Glucose 135 H mg/dl 156 H mg/dl (65-105) (65-105) Calcium Total Bilirubin AST ALT Alkaline Phosphatase Total Protein Albumin Vitamin B12 Vitamin D 25-Hydroxy Folate Patient hx anesthesia problems: none Family hx anesthesia problems: none Results Review: All pre-operative results and documents have been reviewed as part of the pre-operative evaluation. [facility] Past Medical History Medical History Severe protein-calorie malnutrition Bronchiectasis Unspecified displaced fracture of first cervical vertebra, subsequent encounter for fracture with routine healing Aspiration into airway Pure hypercholesterolemia Depression Peripheral neuropathy Ataxia Benign prostatic hyperplasia Left rib fracture Pneumothorax Crohn's disease Ulcerative colitis Hyperlipidemia Gastro-esophageal reflux disease without esophagitis Surgical History Surgical History History of spinal surgery History of arthroplasty of right knee History of chest tube placement Family History Family History Father No problems noted. Mother No problems noted. Sibling No problems noted. Other Family history non-contributory Social History Social History Social History: Surrogate medical decision maker: eleno Chambers. Code status: Full code per facility documentation Smoking packs per day: 2 Smoking cigarettes per day: 40.0 Years smoked: 15 Smoking pack-years: 30.00 Smoking status: Former smoker Tobacco type: cigarettes Second hand tobacco smoke exposure: No Additional smoking assessment comments: quit in 1980 Alcohol intake: former Drinks per week: 14 Alcohol use details: 3 per day Substance use: never Substance use type: does not use Do You Feel Safe in your Home?: Yes Lack of Transportation: No Lack of Food: Never True Current Housing: I Have Housing Concerned About Future Housing: No Difficulty Paying Gas/Electric Bills: No Difficulty Paying for Meds: No Currently Unemployed: No Education: High School Diploma/GED Difficulty w/ Childcare or Family Care: No Living arrangements: half-way Additional living arrangements comments: Mickie christopher [place] Occupation/Education: retired 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 Spiritual care concerns: No Anes - Eval Final PreProcedure Day of Procedure 06/07/24 13:41 Patient weight: cachectic Heart: regular rate and rhythm Lungs: decreased breath sounds Neurological: other (alert) Last oral intake: >/= 8 hours ASA classification: IV Emergent: no Anesthetic plan: proceed Anesthesia type and monitoring: general GIVS and standard monitoring Results Review: All pre-operative results and documents have been reviewed as part of the pre-operative evaluation. Informed Consent: The patient's anesthetic plan and its attendant risks and benefits were discussed with the patient/family/POA. Questions were solicited and answers provided to the satisfaction of the patient/family/POA.
[2024-06-07] MEDS: LACTATED RINGERS 1,000 ML 150 ML IV CONT (14:05)
[2024-06-07] MEDS: ceFAZolin 1 GM/NS 50 ML 1 GM/50 ML BAG IVPB (14:08)
[2024-06-07] MEDS: BENZOCAINE (*SP) 60 ML SPRAY CAN (HURRICAINE) 1 SPRAY MUCOUS MEM (14:15)
--- NOTE | 2024-06-07 14:45 | P.PNIM_ITS ---
Progress Note: A&P Assessment and Plan (1) UTI (urinary tract infection) due to urinary indwelling Aguilar catheter: Code(s): T83.511A - Infection and inflammatory reaction due to indwelling urethral catheter, initial encounter; N39.0 - Urinary tract infection, site not specified Status: Acute Assessment and Plan: * UA showed turbid urine appearance, 1+ urine protein, trace ketone, 3+ urine blood, 3+ leukocytes, greater than 100 urine RBC, greater than 100 urine WBC, 3+ bacteria * blood and urine cultures were obtained and pending * continue Rocephin * aguilar catheter exchanged in the ER 06/05 * Blood and urine cultures are still pending * continue Rocephin 06/06 * Patient started on Linezolid per infectious disease pharmacist recommendations * 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 06/07 * no change * Will start per tube medications once G tube is placed. (2) Benign prostatic hyperplasia: Code(s): N40.0 - Benign prostatic hyperplasia without lower urinary tract symptoms Status: Acute Assessment and Plan: * chest/abdomen/ pelvis CTA showed enlarged prostate gland with Aguilar catheter balloon deployed within the prostatic urethra * patient has chronic indwelling catheter * continue tamsulosin and finasteride 06/05 * No change to current treatment plan (3) Altered mental status: Code(s): R41.82 - Altered mental status, unspecified Status: Acute Assessment and Plan: likely secondary to UTI * continue neuro checks 06/05 * No change to current treatment plan (4) Constipation: Qualifiers: Constipation type: chronic idiopathic constipation Qualified Code(s): K59.04 - Chronic idiopathic constipation Code(s): K59.00 - Constipation, unspecified Status: Acute Assessment and Plan: * chest/abdomen/ pelvis CTA shown fecal impaction * Started Lactulose 20 mg per tube * Dulcolax suppository ordered 06/05 * Patient had BM today * Continue Lactulose for now 06/07 * No change to plan (5) Depression: Code(s): F32.A - Depression, unspecified Status: Acute Assessment and Plan: * continue Venlafaxine 06/05 * No change (6) Gastro-esophageal reflux disease without esophagitis: Code(s): K21.9 - Gastro-esophageal reflux disease without esophagitis Status: Acute Assessment and Plan: * continue famotidine 06/05 * no change (7) Severe protein-calorie malnutrition: Code(s): E43 - Unspecified severe protein-calorie malnutrition Status: Acute Assessment and Plan: * dietitian consulted for tube feeding * modified barium swallow ordered for tomorrow * encourage intake 06/05 * Patient failed swallow today * tube feeding started via G tube 06/06 * Patient found with dislodged G tube today by nursing * Spoke with son at length about patient's condition and we would like to proceed with PEG tube placement. Son also has concerns regarding patient's history of villous atrophy and if there is anything we can do to optimize him so he can absorb nutrients. Patient has been on tube feeds since the last visit and has lost 20 pounds in the process. The son does not wish to have hospice as an option at this time. Since this is an autoimmune disorder, we may have to get Household Refrigeration Mechanic involved. Patient may require transfer to tertiary hospital where they have Rheumatologists on staff. * GI and general surgery consulted 06/07 * Patient going to OR today for G tube placement with general surgery * GI following Time Spent With Patient Time with patient: 25 - 35 minutes Subjective Date/time seen: 06/07/24 14:45 Interval history: Interval history: This is a 78-year-old male with a significant past medical history of bronchiectasis, severe protein calorie malnutrition and has PEG tube, depression, peripheral neuropathy, BPH, Crohn's disease, ulcerative colitis, hyperlipidemia, GERD, former smoker who presented to the hospital with altered mental status. Patient is only alert and oriented x1 and unable to provide history of presenting illness Workup in the hospital included a head CT which was negative for any acute intracranial findings, showed atrophy and chronic white matter changes. Cervical spine CT showed stable anterior C1 arch fracture with stable alignment, no new fracture subluxation. Chest x-ray showed opacification in the right lung base that represents atelectasis versus pneumonia. Chest/abdomen/ pelvis CTA showed fecal impaction, Aguilar catheter balloon is temp blood within the prostatic urethra, enlarged prostate gland, no pulmonary embolism, extensive chronic interstitial pulmonary disease with emphysematous changes, 1.3 cm right hilar lymph node noted. initial white blood cell count was normal at 9.6, hemoglobin 12.6, INR 1.1, sodium 128, chloride 87, bicarb 31, lactic acid was normal at 1.0, ammonia level was less than 9, troponin was negative, TSH 0.5-3. UA was obtained which showed turbid urine appearance, 1+ urine protein, trace ketone, 3+ urine blood, 3+ leukocytes, greater than 100 urine RBC, greater than 100 urine WBC, 3+ bacteria. Urine drug screen was positive for opioids. Respiratory panel was negative for influenza a and B, RSV, COVID. Blood and urine cultures were obtained and pending. EKG showed sinus rhythm with right axis deviation and right bundle branch block with a rate of 96, QTC 467. Patient was given a dose of Rocephin and Tylenol while in the ED. Aguilar catheter was exchanged in the ER. 06/05/24: Modified barium swallow study failed. Tube feeding via PEG Subjective: Patient is alert and oriented x2 today. He denies any new complaints today. Labs reviewed. Review of Systems Review of Systems: All systems reviewed & are unremarkable except as noted in HPI and below Exam Narrative: General: In no acute distress, severe malnutrition, emaciated Cardiac: Normal S1 and S2. Murmur noted, no gallops or friction rubs, peripheral pulses intact. Respiratory: Lungs clear to auscultation, no adventitious lung sounds, currently on room air Gastrointestinal: soft,flat, non-tender, normoactive bowel sounds. PEG tube was dislodged : aguilar catheter draining cloudy dark alfred urine Neuro: Alert and oriented x2, remains confused Objective Data Vital Signs Vital Signs: Vital Signs - 24 hr 06/06/24 20:00 06/06/24 22:00 06/07/24 06:00 Temperature Pulse Rate 103 H 75 75 Respiratory Rate 18 16 16 Blood Pressure 112/78 112/78 Pulse Oximetry 96 97 97 Oxygen Delivery Room Air Oxygen Flow Rate 06/07/24 08:50 06/07/24 13:13 06/07/24 13:55 Temperature 97.8 F Pulse Rate 80 Respiratory Rate 17 Blood Pressure 110/76 Pulse Oximetry 100 Oxygen Delivery Room Air Room Air Room Air Oxygen Flow Rate 06/07/24 14:42 Temperature Pulse Rate 82 Respiratory Rate 15 Blood Pressure 106/69 Pulse Oximetry 100 Oxygen Delivery Simple Face Mask Oxygen Flow Rate 4 Intake/Output Intake/Output: Intake & Output 06/04/24 06/05/24 06/06/24 06/07/24 23:59 23:59 23:59 23:59 Intake Total 50 728 038 7677 Output Total 200 200 460 Balance -150 56 140 1845 Meds/Results Medications: Active Medications Generic Name Dose Route Start Last Admin Trade Name Freq PRN Reason Stop Dose Admin Acetaminophen 650 mg 06/04/24 09:23 Acetaminophen 650 Mg Suppository RECTAL Q6H PRN Mild Pain (1-3) or Fever Acetaminophen 650 mg 06/04/24 14:37 06/05/24 10:30 Acetaminophen 325 Mg Tablet PO 650 mg Q4H PRN Administration Mild Pain (1-3) or Fever Bisacodyl 10 mg 06/04/24 14:37 Bisacodyl 10 Mg Suppository RECTAL ONCE PRN Constipation Enoxaparin Sodium 40 mg 06/05/24 09:00 06/07/24 09:48 Enoxaparin 40 Mg/0.4 Ml Syringe SUB-Q Not Given DAILY [facility] Famotidine 40 mg 06/05/24 21:00 06/07/24 09:52 Famotidine 20 Mg Tablet FEED TUBE Not Given Q12HR [facility] Finasteride 5 mg 06/06/24 09:00 06/07/24 09:52 Finasteride 5 Mg Tablet FEED TUBE Not Given DAILY [facility] Folic Acid 1 mg 06/06/24 09:00 06/07/24 09:52 Folic Acid 1 Mg Tablet FEED TUBE Not Given DAILY [facility] Linezolid 600 mg in 300 mls @ 300 mls/hr 06/06/24 13:15 06/07/24 09:51 Zyvox IVPB 06/12/24 21:59 300 mls/hr Q12HR [facility] Administration Dextrose/Sodium Chloride 1,000 mls @ 100 mls/hr 06/06/24 15:20 06/07/24 12:35 Dextrose 5% Sodium Chloride 0.9% IV CONT 100 mls/hr .Q10H [facility] Administration Lactated Ringer's 1,000 mls @ 150 mls/hr 06/07/24 14:00 06/07/24 14:40 Lr - Lactated Ringers Iv IV CONT 150 mls/hr .Q6H40M [facility] Infusion Lactulose 20 gm 06/04/24 14:40 06/07/24 09:53 Lactulose 20 Gm/30 Ml Udc FEED TUBE Not Given QAM [facility] Morphine Sulfate 2 mg 06/07/24 11:34 Morphine Sulfate (*Crx) 2 Mg/Ml Inj IV PUSH Q4H PRN Pain Rated 7-10 Ondansetron HCl 4 mg 06/04/24 09:23 Ondansetron Inj 4 Mg/2 Ml Vial IV PUSH Q4H PRN Nausea Sulfasalazine 1,500 mg 06/06/24 09:00 06/07/24 09:53 Sulfasalazine 500 Mg Tablet FEED TUBE Not Given DAILY [facility] Tamsulosin HCl 0.4 mg 06/05/24 21:00 06/06/24 20:20 Tamsulosin Hcl 0.4 Mg Capsule PO Not Given HS [facility] Venlafaxine HCl 37.5 mg 06/05/24 22:00 06/07/24 04:10 Venlafaxine Hcl 37.5 Mg Tablet PO Not Given Q8HR [facility] Vitamin D 2,000 units 06/06/24 09:00 06/07/24 09:52 Cholecalciferol 1,000 Units Tablet FEED TUBE Not Given DAILY [facility] Radiology Results: ITS Impressions Head CT 06/04/24 08:00 Impression: No intracranial hemorrhage, mass, or acute infarct. Atrophy and chronic white matter changes, as above. Cervical Spine CT 06/04/24 08:14 Impression: Stable anterior C1 arch fracture, with stable alignment. No new fracture or subluxation. Stable since a postoperative change in the cervical spine. Stable degenerative spondylosis. Chest X-Ray 06/04/24 08:18 IMPRESSION: No significant change from previous examination. Opacification in the right lung base may represent atelectasis versus pneumonia but most likely due to poor inspiration. Chest/Abdomen/Pelvis CTA 06/04/24 08:18 Impression: Fecal impaction. Aguilar catheter balloon is deployed within the prostatic urethra. Deflation and repositioning within the urinary bladder advised. Enlarged prostate gland. No pulmonary embolus. Extensive chronic interstitial pulmonary disease with underlying emphysematous change. 1.3 cm right hilar lymph node, of uncertain clinical significance. Modified Barium Swallow 06/05/24 11:08 IMPRESSION: Pharyngeal dysphagia with laryngeal penetration and aspiration. Please correlate with speech pathologist findings and specific feeding recommendations. Labs Labs: Laboratory Results - last 24 hr 06/06/24 06/06/24 06/06/24 06:15 06:18 16:49 WBC RBC Hgb Hct MCV MCH MCHC RDW Plt Count MPV Immature Gran % (Auto) Neut % (Auto) Lymph % (Auto) [place] % (Auto) Eos % (Auto) Baso % (Auto) Lymph # (Auto) [place] # (Auto) Eos # (Auto) Baso # (Auto) Abs Immat Gran (auto) Absolute Neuts (auto) Absolute Nucleated RBC Nucleated RBC % Sodium Potassium Chloride Carbon Dioxide Anion Gap BUN Creatinine Estim Creat Clear Calc Estimated GFR Glucose POC Capillary Glucose 138 H Calcium Total Bilirubin AST ALT Alkaline Phosphatase Total Protein Albumin Vitamin B12 890.0 Vitamin D 25-Hydroxy 68.7 Folate 13.4 06/07/24 06/07/24 06/07/24 00:37 05:47 06:56 WBC 7.2 RBC 3.45 L Hgb 11.3 L Hct 35.1 L MCV 101.7 H MCH 32.8 MCHC 32.2 RDW 12.4 Plt Count 377 H MPV 9.9 Immature Gran % (Auto) 0.4 Neut % (Auto) 67.8 Lymph % (Auto) 17.8 L [place] % (Auto) 13.0 H Eos % (Auto) 0.7 Baso % (Auto) 0.3 Lymph # (Auto) 1.27 [place] # (Auto) 0.9 H Eos # (Auto) 0.1 Baso # (Auto) 0.0 Abs Immat Gran (auto) 0.03 Absolute Neuts (auto) 4.9 Absolute Nucleated RBC 0.000 Nucleated RBC % 0.0 Sodium 135 L Potassium 3.3 L Chloride 97 L Carbon Dioxide 30 Anion Gap 8 BUN 16 Creatinine 0.38 L Estim Creat Clear Calc 101 Estimated GFR > 60 Glucose 138 H POC Capillary Glucose 138 H 135 H Calcium 8.8 Total Bilirubin 0.4 AST 30 ALT 30 Alkaline Phosphatase 79 Total Protein 7.0 Albumin 3.5 Vitamin B12 Vitamin D 25-Hydroxy Folate 06/07/24 11:48 WBC RBC Hgb Hct MCV MCH MCHC RDW Plt Count MPV Immature Gran % (Auto) Neut % (Auto) Lymph % (Auto) [place] % (Auto) Eos % (Auto) Baso % (Auto) Lymph # (Auto) [place] # (Auto) Eos # (Auto) Baso # (Auto) Abs Immat Gran (auto) Absolute Neuts (auto) Absolute Nucleated RBC Nucleated RBC % Sodium Potassium Chloride Carbon Dioxide Anion Gap BUN Creatinine Estim Creat Clear Calc Estimated GFR Glucose POC Capillary Glucose 156 H Calcium Total Bilirubin AST ALT Alkaline Phosphatase Total Protein Albumin Vitamin B12 Vitamin D 25-Hydroxy Folate Quality VTE Prophylaxis VTE prophylaxis: pharmacologic ordered
[2024-06-07] MEDS: VENLAFAXINE HCL 37.5 MG TABLET FEED TUBE (21:34)
[2024-06-07] MEDS: FAMOTIDINE 20 MG TABLET 40 MG FEED TUBE (21:34)
[2024-06-08 00:23] LABS: Glucose Point of Care 150 mg/dl (65-105)
[2024-06-08] MEDS: VENLAFAXINE HCL 37.5 MG TABLET FEED TUBE ×3 (04:56→21:30)
[2024-06-08 06:00] VITALS: BP 112/77; PULSE 71; RESP 16; TEMP 36.4; O2SAT 100
[2024-06-08 06:36] LABS: Glucose Point of Care 120 mg/dl (65-105)
[2024-06-08 06:50] LABS: Basophils Percent Auto 0.4 % (0.2-1.2); Eosinophils Absolute Auto 0.1 K/mm3 (0-0.3); Hematocrit 30.3 % (42.0-52.0); Immature Granulocyte Absolute 0.02 K/mm3 (0.00-0.031); Immature Granulocyte Percent A 0.4 % (0-0.5); Lymphocytes Absolute Auto 0.87 K/mm3 (0.9-3.2); Lymphocytes Percent Auto 15.4 % (18.3-44.2); Mean Corpuscular Hemoglobin 32.9 pg (26-34); Mean Corpuscular Volume 99.7 fl (80-100); Mean Platelet Volume 9.1 fl (7.4-10.4); Monocytes Absolute Auto 0.6 K/mm3 (0.1-0.6); Monocytes Percent Auto 9.8 % (2.6-8.5); Neutrophils Absolute Auto 4.1 K/mm3 (1.3-6.7); Platelet Count Result 379 k/mm3 (150-375); Red Blood Count 3.04 M/mm3 (4.6-6.20); Red Cell Distribution Width 12.5 % (11.5-14.5); White Blood Count 5.6 K/mm3 (4.5-10.0)
[2024-06-08 06:59] LABS: Alanine Aminotransferase 21 U/L (6-50); Albumin Level 3.1 g/dL (3.5-5.1); Alkaline Phosphatase 72 U/L (38-126); Anion Gap 5 mmol/L (4-12); Aspartate Amino Transferase 21 U/L (17-59); Bilirubin,Total 0.4 mg/dL (0.2-1.3); Blood Urea Nitrogen 11 mg/dL (9-20); Calcium 8.4 mg/dL (8.4-10.2); Carbon Dioxide 30 mmol/L (22-30); Chloride 100 mmol/L (98-107); Estimated CRCL calculation 106 ml/min; Estimated Glomerular Filt Rate > 60; Glucose 123 mg/dL (65-110); Potassium 3.3 mmol/L (3.4-5.0); Sodium 135 mmol/L (137-145)
[2024-06-08 07:39] LABS: HIV 1/2 Ab P24 Ag Result Negative (Negative)
[2024-06-08] MEDS: FOLIC ACID 1 MG TABLET FEED TUBE (09:30)
[2024-06-08] MEDS: CHOLECALCIFEROL 1,000 UNITS TABLET 2000 UNITS FEED TUBE (09:30)
[2024-06-08] MEDS: FINASTERIDE 5 MG TABLET FEED TUBE (09:30)
[2024-06-08] MEDS: sulfaSALAzine 500 MG TABLET 1500 MG FEED TUBE (09:30)
[2024-06-08] MEDS: FAMOTIDINE 20 MG TABLET 40 MG FEED TUBE ×2 (09:31→21:35)
[2024-06-08] MEDS: ENOXAPARIN 40 MG/0.4 ML SYRINGE SUB-Q (09:31)
[2024-06-08] MEDS: LACTULOSE 20 GM/30 ML UDC FEED TUBE (09:31)
[2024-06-08] MEDS: DEXTROSE 5%/0.9% SOD CHL 1,000 ML 100 ML IV CONT (10:00)
--- NOTE | 2024-06-08 10:10 | PM.IMPN ---
Progress Note: A&P Assessment and Plan (1) UTI (urinary tract infection) due to urinary indwelling Aguilar catheter: Code(s): T83.511A - Infection and inflammatory reaction due to indwelling urethral catheter, initial encounter; N39.0 - Urinary tract infection, site not specified Status: Acute Assessment and Plan: UA showed turbid urine appearance, 1+ urine protein, trace ketone, 3+ urine blood, 3+ leukocytes, greater than 100 urine RBC, greater than 100 urine WBC, 3+ bacteria blood and urine cultures were obtained and pending continue Rocephin aguilar catheter exchanged in the ER 06/05 Blood and urine cultures are still pending continue Rocephin 06/06 Patient started on Linezolid per infectious disease pharmacist recommendations Urine culture showing VRE on final read Blood cultures showing no growth to date on preliminary read. 06/07 no change Will start per tube medications once G tube is placed. 06/08 Linezolid changed to per tube (2) Benign prostatic hyperplasia: Code(s): N40.0 - Benign prostatic hyperplasia without lower urinary tract symptoms Status: Acute Assessment and Plan: chest/abdomen/ pelvis CTA showed enlarged prostate gland with Aguilar catheter balloon deployed within the prostatic urethra patient has chronic indwelling catheter continue tamsulosin and finasteride 06/05 No change to current treatment plan 06/08 According to son patient does not have a chronic indwelling catheter, it was placed for urinary retention and has not been re-adressed. We will plan for voiding trial tomorrow now that we were able to restart his medications. (3) Altered mental status: Code(s): R41.82 - Altered mental status, unspecified Status: Acute Assessment and Plan: likely secondary to UTI continue neuro checks 06/05 No change to current treatment plan (4) Constipation: Qualifiers: Constipation type: chronic idiopathic constipation Qualified Code(s): K59.04 - Chronic idiopathic constipation Code(s): K59.00 - Constipation, unspecified Status: Acute Assessment and Plan: chest/abdomen/ pelvis CTA shown fecal impaction Started Lactulose 20 mg per tube Dulcolax suppository ordered 06/05 Patient had BM today Continue Lactulose for now 06/07 No change to plan (5) Depression: Code(s): F32.A - Depression, unspecified Status: Acute Assessment and Plan: continue Venlafaxine 06/05 No change (6) Gastro-esophageal reflux disease without esophagitis: Code(s): K21.9 - Gastro-esophageal reflux disease without esophagitis Status: Acute Assessment and Plan: continue famotidine 06/05 no change (7) Severe protein-calorie malnutrition: Code(s): E43 - Unspecified severe protein-calorie malnutrition Status: Acute Assessment and Plan: dietitian consulted for tube feeding modified barium swallow ordered for tomorrow encourage intake 06/05 Patient failed swallow today tube feeding started via G tube 06/06 Patient found with dislodged G tube today by nursing Spoke with son at length about patient's condition and we would like to proceed with PEG tube placement. Son also has concerns regarding patient's history of villous atrophy and if there is anything we can do to optimize him so he can absorb nutrients. Patient has been on tube feeds since the last visit and has lost 20 pounds in the process. The son does not wish to have hospice as an option at this time. 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 Patient may require transfer to tertiary hospital where they have Rheumatologists on staff. GI and general surgery consulted 06/07 Patient going to OR today for G tube placement GI following 06/08 Status post EGD with PEG tube placement with GI, multiple biopsies were taken of the duodenum GI following Tube feeds started Time Spent With Patient Time with patient: 15 - 25 minutes Subjective Date/time seen: 06/08/24 10:10 Interval history: Interval history: This is a 78-year-old male with a significant past medical history of bronchiectasis, severe protein calorie malnutrition and has PEG tube, depression, peripheral neuropathy, BPH, Crohn's disease, ulcerative colitis, hyperlipidemia, GERD, former smoker who presented to the hospital with altered mental status. Patient is only alert and oriented x1 and unable to provide history of presenting illness Workup in the hospital included a head CT which was negative for any acute intracranial findings, showed atrophy and chronic white matter changes. Cervical spine CT showed stable anterior C1 arch fracture with stable alignment, no new fracture subluxation. Chest x-ray showed opacification in the right lung base that represents atelectasis versus pneumonia. Chest/abdomen/ pelvis CTA showed fecal impaction, Aguilar catheter balloon is temp blood within the prostatic urethra, enlarged prostate gland, no pulmonary embolism, extensive chronic interstitial pulmonary disease with emphysematous changes, 1.3 cm right hilar lymph node noted. initial white blood cell count was normal at 9.6, hemoglobin 12.6, INR 1.1, sodium 128, chloride 87, bicarb 31, lactic acid was normal at 1.0, ammonia level was less than 9, troponin was negative, TSH 0.5-3. UA was obtained which showed turbid urine appearance, 1+ urine protein, trace ketone, 3+ urine blood, 3+ leukocytes, greater than 100 urine RBC, greater than 100 urine WBC, 3+ bacteria. Urine drug screen was positive for opioids. Respiratory panel was negative for influenza A and B, RSV, COVID. Blood and urine cultures were obtained and pending. EKG showed sinus rhythm with right axis deviation and right bundle branch block with a rate of 96, QTC 467. Patient was given a dose of Rocephin and Tylenol while in the ED. Aguilar catheter was exchanged in the ER. 06/05/24: Modified barium swallow study failed. Tube feeding via PEG Subjective: Patient is alert and oriented x2, denies any new complaints today. Labs reviewed. Review of Systems Review of Systems: All systems reviewed & are unremarkable except as noted in HPI and below Exam Narrative: General: In no acute distress, severe malnutrition, emaciated Cardiac: Normal S1 and S2. Murmur noted, no gallops or friction rubs, peripheral pulses intact. Respiratory: Lungs clear to auscultation, no adventitious lung sounds, currently on room air Gastrointestinal: soft,flat, non-tender, normoactive bowel sounds. PEG tube in place with abdominal binder : aguilar catheter draining cloudy dark alfred urine Neuro: Alert and oriented x2, remains confused Objective Data Vital Signs Vital Signs: Vital Signs - 24 hr 06/07/24 13:13 06/07/24 13:55 06/07/24 14:42 Temperature 97.8 F Pulse Rate 80 82 Respiratory Rate 17 15 Blood Pressure 110/76 106/69 Pulse Oximetry 100 100 Oxygen Delivery Room Air Room Air Simple Face Mask Oxygen Flow Rate 4 06/07/24 14:52 06/07/24 15:02 06/07/24 15:30 Temperature 98.2 F Pulse Rate 75 81 69 Respiratory Rate 16 16 16 Blood Pressure 101/67 103/67 101/73 Pulse Oximetry 100 100 96 Oxygen Delivery Room Air Room Air Oxygen Flow Rate 06/07/24 17:00 06/07/24 20:00 06/07/24 21:53 Temperature 97.6 F 97.7 F Pulse Rate 68 80 Respiratory Rate 20 14 Blood Pressure 97/63 L 108/75 Pulse Oximetry 92 97 Oxygen Delivery Room Air Oxygen Flow Rate 06/08/24 06:00 Temperature 97.6 F Pulse Rate 71 Respiratory Rate 16 Blood Pressure 112/77 Pulse Oximetry 100 Oxygen Delivery Oxygen Flow Rate Intake/Output Intake/Output: Intake & Output 06/05/24 06/06/24 06/07/24 06/08/24 23:59 23:59 23:59 23:59 Intake Total 623 602 0765 1010 Output Total 200 460 400 500 Balance 56 140 2580 510 Meds/Results Medications: Active Medications Generic Name Dose Route Start Last Admin Trade Name Freq PRN Reason Stop Dose Admin Acetaminophen 650 mg 06/04/24 09:23 Acetaminophen 650 Mg Suppository RECTAL Q6H PRN Mild Pain (1-3) or Fever Acetaminophen 650 mg 06/07/24 19:37 Acetaminophen 325 Mg Tablet FEED TUBE Q4H PRN Mild Pain (1-3) or Fever Bisacodyl 10 mg 06/04/24 14:37 Bisacodyl 10 Mg Suppository RECTAL ONCE PRN Constipation Enoxaparin Sodium 40 mg 06/05/24 09:00 06/08/24 09:31 Enoxaparin 40 Mg/0.4 Ml Syringe SUB-Q 40 mg DAILY [facility] Administration Famotidine 40 mg 06/05/24 21:00 06/08/24 09:31 Famotidine 20 Mg Tablet FEED TUBE 40 mg Q12HR [facility] Administration Finasteride 5 mg 06/06/24 09:00 06/08/24 09:30 Finasteride 5 Mg Tablet FEED TUBE 5 mg DAILY [facility] Administration Folic Acid 1 mg 06/06/24 09:00 06/08/24 09:30 Folic Acid 1 Mg Tablet FEED TUBE 1 mg DAILY [facility] Administration Lactulose 20 gm 06/04/24 14:40 06/08/24 09:31 Lactulose 20 Gm/30 Ml Udc FEED TUBE 20 gm QAM [facility] Administration Linezolid 600 mg 06/08/24 10:00 Linezolid 600 Mg Tablet FEED TUBE 06/12/24 21:01 Q12HR [facility] Miscellaneous Information 1 each 06/07/24 19:31 Pharmacist Communication Order XX 06/07/24 19:32 ONCE ONE Miscellaneous Information 1 each 06/08/24 00:01 Flomax Cannot Be Given Via Feed Tube; Change To A Different Drug? XX 07/08/24 00:00 CLARIFY [facility] Morphine Sulfate 2 mg 06/07/24 11:34 06/07/24 15:47 Morphine Sulfate (*Crx) 2 Mg/Ml Inj IV PUSH 2 mg Q4H PRN Administration Pain Rated 7-10 Ondansetron HCl 4 mg 06/04/24 09:23 Ondansetron Inj 4 Mg/2 Ml Vial IV PUSH Q4H PRN Nausea Sulfasalazine 1,500 mg 06/06/24 09:00 06/08/24 09:30 Sulfasalazine 500 Mg Tablet FEED TUBE 1,500 mg DAILY [facility] Administration Tamsulosin HCl 0.4 mg 06/07/24 21:00 Tamsulosin Hcl 0.4 Mg Capsule PO HS [facility] Terazosin HCl 5 mg 06/08/24 21:00 Terazosin Hcl 5 Mg Capsule FEED TUBE HS [facility] Venlafaxine HCl 37.5 mg 06/07/24 22:00 06/08/24 04:56 Venlafaxine Hcl 37.5 Mg Tablet FEED TUBE 37.5 mg Q8HR [facility] Administration Vitamin D 2,000 units 06/06/24 09:00 06/08/24 09:30 Cholecalciferol 1,000 Units Tablet FEED TUBE 2,000 units DAILY [facility] Administration Radiology Results: ITS Impressions Head CT 06/04/24 08:00 Impression: No intracranial hemorrhage, mass, or acute infarct. Atrophy and chronic white matter changes, as above. Cervical Spine CT 06/04/24 08:14 Impression: Stable anterior C1 arch fracture, with stable alignment. No new fracture or subluxation. Stable since a postoperative change in the cervical spine. Stable degenerative spondylosis. Chest X-Ray 06/04/24 08:18 IMPRESSION: No significant change from previous examination. Opacification in the right lung base may represent atelectasis versus pneumonia but most likely due to poor inspiration. Chest/Abdomen/Pelvis CTA 06/04/24 08:18 Impression: Fecal impaction. Aguilar catheter balloon is deployed within the prostatic urethra. Deflation and repositioning within the urinary bladder advised. Enlarged prostate gland. No pulmonary embolus. Extensive chronic interstitial pulmonary disease with underlying emphysematous change. 1.3 cm right hilar lymph node, of uncertain clinical significance. Modified Barium Swallow 06/05/24 11:08 IMPRESSION: Pharyngeal dysphagia with laryngeal penetration and aspiration. Please correlate with speech pathologist findings and specific feeding recommendations. Labs Labs: Laboratory Results - last 24 hr 06/07/24 06/08/24 06/08/24 11:48 00:20 06:33 WBC RBC Hgb Hct MCV MCH MCHC RDW Plt Count MPV Immature Gran % (Auto) Neut % (Auto) Lymph % (Auto) [place] % (Auto) Eos % (Auto) Baso % (Auto) Lymph # (Auto) [place] # (Auto) Eos # (Auto) Baso # (Auto) Abs Immat Gran (auto) Absolute Neuts (auto) Absolute Nucleated RBC Nucleated RBC % Sodium Potassium Chloride Carbon Dioxide Anion Gap BUN Creatinine Estim Creat Clear Calc Estimated GFR Glucose POC Capillary Glucose 156 H 150 H 120 H Calcium Total Bilirubin AST ALT Alkaline Phosphatase Total Protein Albumin HIV 1&2 Ab/P24 Ag 4thGn 06/08/24 06:44 WBC 5.6 RBC 3.04 L Hgb 10.0 L Hct 30.3 L MCV 99.7 MCH 32.9 MCHC 33.0 RDW 12.5 Plt Count 379 H MPV 9.1 Immature Gran % (Auto) 0.4 Neut % (Auto) 72.0 Lymph % (Auto) 15.4 L [place] % (Auto) 9.8 H Eos % (Auto) 2.0 Baso % (Auto) 0.4 Lymph # (Auto) 0.87 L [place] # (Auto) 0.6 Eos # (Auto) 0.1 Baso # (Auto) 0.0 Abs Immat Gran (auto) 0.02 Absolute Neuts (auto) 4.1 Absolute Nucleated RBC 0.000 Nucleated RBC % 0.0 Sodium 135 L Potassium 3.3 L Chloride 100 Carbon Dioxide 30 Anion Gap 5 BUN 11 D Creatinine 0.36 L Estim Creat Clear Calc 106 Estimated GFR > 60 Glucose 123 H POC Capillary Glucose Calcium 8.4 Total Bilirubin 0.4 AST 21 ALT 21 Alkaline Phosphatase 72 Total Protein 6.0 L Albumin 3.1 L HIV 1&2 Ab/P24 Ag 4thGn Negative Quality VTE Prophylaxis VTE prophylaxis: pharmacologic ordered
--- NOTE | 2024-06-08 10:47 | P.PNGS_ITS ---
Progress Note: A&P Assessment and Plan (1) Dislodged gastrostomy tube: Code(s): T85.528A - Displacement of other gastrointestinal prosthetic devices, implants and grafts, initial encounter Status: Acute Assessment and Plan: PEG replaced yesterday by GI, okay to start tube feeds, no acute surgical issues, will sign off, call with questions or issues Subjective Subjective Date/Time Seen: 06/08/24 10:47 Interval history: PEG tube placed yesterday by Gastroenterology, no acute issues Review of Systems Review of Systems: All systems reviewed & are unremarkable except as noted in HPI and below Exam Const: General: cooperative, comfortable, no acute distress and ill appearing Resp: Auscultation: diminished lung sounds Cardio: Rate: regular rate Rhythm: regular rhythm GI: Inspection: normal to inspection and incision GI Palp: No abdominal tenderness, Yes Soft to palpation, No Tenderness to palpation present (GI) and No Guarding due to palpation present (GI) Other: peg clean dry and intact Objective Data Vital Signs Vital Signs: Vital Signs - 24 hr 06/07/24 13:13 06/07/24 13:55 06/07/24 14:42 Temperature 36.6 C Pulse Rate 80 82 Respiratory Rate 17 15 Blood Pressure 110/76 106/69 Pulse Oximetry 100 100 Oxygen Delivery Room Air Room Air Simple Face Mask Oxygen Flow Rate 4 06/07/24 14:52 06/07/24 15:02 06/07/24 15:30 Temperature 36.8 C Pulse Rate 75 81 69 Respiratory Rate 16 16 16 Blood Pressure 101/67 103/67 101/73 Pulse Oximetry 100 100 96 Oxygen Delivery Room Air Room Air Oxygen Flow Rate 06/07/24 17:00 06/07/24 20:00 06/07/24 21:53 Temperature 36.4 C 36.5 C Pulse Rate 68 80 Respiratory Rate 20 14 Blood Pressure 97/63 L 108/75 Pulse Oximetry 92 97 Oxygen Delivery Room Air Oxygen Flow Rate 06/08/24 06:00 Temperature 36.4 C Pulse Rate 71 Respiratory Rate 16 Blood Pressure 112/77 Pulse Oximetry 100 Oxygen Delivery Oxygen Flow Rate Intake/Output Intake/Output: Intake & Output 06/05/24 06/06/24 06/07/24 06/08/24 23:59 23:59 23:59 23:59 Intake Total 317 738 8706 1010 Output Total 200 460 400 500 Balance 56 140 2580 510 Meds/Results Medications: Active Medications Generic Name Dose Route Start Last Admin Trade Name Freq PRN Reason Stop Dose Admin Acetaminophen 650 mg 06/04/24 09:23 Acetaminophen 650 Mg Suppository RECTAL Q6H PRN Mild Pain (1-3) or Fever Acetaminophen 650 mg 06/07/24 19:37 Acetaminophen 325 Mg Tablet FEED TUBE Q4H PRN Mild Pain (1-3) or Fever Bisacodyl 10 mg 06/04/24 14:37 Bisacodyl 10 Mg Suppository RECTAL ONCE PRN Constipation Enoxaparin Sodium 40 mg 06/05/24 09:00 06/08/24 09:31 Enoxaparin 40 Mg/0.4 Ml Syringe SUB-Q 40 mg DAILY [facility] Administration Famotidine 40 mg 06/05/24 21:00 06/08/24 09:31 Famotidine 20 Mg Tablet FEED TUBE 40 mg Q12HR [facility] Administration Finasteride 5 mg 06/06/24 09:00 06/08/24 09:30 Finasteride 5 Mg Tablet FEED TUBE 5 mg DAILY [facility] Administration Folic Acid 1 mg 06/06/24 09:00 06/08/24 09:30 Folic Acid 1 Mg Tablet FEED TUBE 1 mg DAILY [facility] Administration Lactulose 20 gm 06/04/24 14:40 06/08/24 09:31 Lactulose 20 Gm/30 Ml Udc FEED TUBE 20 gm QAM [facility] Administration Linezolid 600 mg 06/08/24 10:00 Linezolid 600 Mg Tablet FEED TUBE 06/12/24 21:01 Q12HR [facility] Miscellaneous Information 1 each 06/07/24 19:31 Pharmacist Communication Order XX 06/07/24 19:32 ONCE ONE Miscellaneous Information 1 each 06/08/24 00:01 Flomax Cannot Be Given Via Feed Tube; Change To A Different Drug? XX 07/08/24 00:00 CLARIFY [facility] Morphine Sulfate 2 mg 06/07/24 11:34 06/07/24 15:47 Morphine Sulfate (*Crx) 2 Mg/Ml Inj IV PUSH 2 mg Q4H PRN Administration Pain Rated 7-10 Ondansetron HCl 4 mg 06/04/24 09:23 Ondansetron Inj 4 Mg/2 Ml Vial IV PUSH Q4H PRN Nausea Sulfasalazine 1,500 mg 06/06/24 09:00 06/08/24 09:30 Sulfasalazine 500 Mg Tablet FEED TUBE 1,500 mg DAILY [facility] Administration Tamsulosin HCl 0.4 mg 06/07/24 21:00 Tamsulosin Hcl 0.4 Mg Capsule PO HS [facility] Terazosin HCl 5 mg 06/08/24 21:00 Terazosin Hcl 5 Mg Capsule FEED TUBE HS [facility] Venlafaxine HCl 37.5 mg 06/07/24 22:00 06/08/24 04:56 Venlafaxine Hcl 37.5 Mg Tablet FEED TUBE 37.5 mg Q8HR [facility] Administration Vitamin D 2,000 units 06/06/24 09:00 06/08/24 09:30 Cholecalciferol 1,000 Units Tablet FEED TUBE 2,000 units DAILY [facility] Administration Radiology Results: ITS Impressions Head CT 06/04/24 08:00 Impression: No intracranial hemorrhage, mass, or acute infarct. Atrophy and chronic white matter changes, as above. Cervical Spine CT 06/04/24 08:14 Impression: Stable anterior C1 arch fracture, with stable alignment. No new fracture or subluxation. Stable since a postoperative change in the cervical spine. Stable degenerative spondylosis. Chest X-Ray 06/04/24 08:18 IMPRESSION: No significant change from previous examination. Opacification in the right lung base may represent atelectasis versus pneumonia but most likely due to poor inspiration. Chest/Abdomen/Pelvis CTA 06/04/24 08:18 Impression: Fecal impaction. Miller catheter balloon is deployed within the prostatic urethra. Deflation and repositioning within the urinary bladder advised. Enlarged prostate gland. No pulmonary embolus. Extensive chronic interstitial pulmonary disease with underlying emphysematous change. 1.3 cm right hilar lymph node, of uncertain clinical significance. Modified Barium Swallow 06/05/24 11:08 IMPRESSION: Pharyngeal dysphagia with laryngeal penetration and aspiration. Please correlate with speech pathologist findings and specific feeding recommendations. Labs Labs: Laboratory Results - last 24 hr 06/07/24 06/08/24 06/08/24 11:48 00:20 06:33 WBC RBC Hgb Hct MCV MCH MCHC RDW Plt Count MPV Immature Gran % (Auto) Neut % (Auto) Lymph % (Auto) [facility] % (Auto) Eos % (Auto) Baso % (Auto) Lymph # (Auto) [facility] # (Auto) Eos # (Auto) Baso # (Auto) Abs Immat Gran (auto) Absolute Neuts (auto) Absolute Nucleated RBC Nucleated RBC % Sodium Potassium Chloride Carbon Dioxide Anion Gap BUN Creatinine Estim Creat Clear Calc Estimated GFR Glucose POC Capillary Glucose 156 H 150 H 120 H Calcium Total Bilirubin AST ALT Alkaline Phosphatase Total Protein Albumin HIV 1&2 Ab/P24 Ag 4thGn 06/08/24 06:44 WBC 5.6 RBC 3.04 L Hgb 10.0 L Hct 30.3 L MCV 99.7 MCH 32.9 MCHC 33.0 RDW 12.5 Plt Count 379 H MPV 9.1 Immature Gran % (Auto) 0.4 Neut % (Auto) 72.0 Lymph % (Auto) 15.[address] [facility] [facility] % (Auto) 9.8 H Eos % (Auto) 2.0 Baso % (Auto) 0.4 Lymph # (Auto) 0.[address] [facility] [facility] # (Auto) 0.6 Eos # (Auto) 0.1 Baso # (Auto) 0.0 Abs Immat Gran (auto) 0.02 Absolute Neuts (auto) 4.1 Absolute Nucleated RBC 0.000 Nucleated RBC % 0.0 Sodium 135 L Potassium 3.3 L Chloride 100 Carbon Dioxide 30 Anion Gap 5 BUN 11 D Creatinine 0.36 L Estim Creat Clear Calc 106 Estimated GFR > 60 Glucose 123 H POC Capillary Glucose Calcium 8.4 Total Bilirubin 0.4 AST 21 ALT 21 Alkaline Phosphatase 72 Total Protein 6.0 L Albumin 3.1 L HIV 1&2 Ab/P24 Ag 4thGn Negative
[2024-06-08 11:51] LABS: Glucose Point of Care 119 mg/dl (65-105)
[2024-06-08] MEDS: LINEZOLID 600 MG TABLET FEED TUBE ×2 (12:33→21:30)
[2024-06-08] MEDS: ACETAMINOPHEN 325 MG TABLET 650 MG FEED TUBE (13:50)
[2024-06-08 14:00] VITALS: BP 102/60; PULSE 70; RESP 18; TEMP 36.6; O2SAT 99
--- NOTE | 2024-06-08 14:20 | PC.NURSE ---
On 06/08/24, the BIOMETRY TEACHER, Maria Elena Gorman, provided care and completed [employer] documentation on this patient. I have reviewed the BIOMETRY TEACHER's documentation and agree with the findings.
[2024-06-08 14:50] VITALS: TEMP 36.6
[2024-06-08] MEDS: POTASSIUM CHLORIDE 20 MEQ PACKET (FOR LIQUID) 40 MEQ PO (17:47)
[2024-06-08 18:14] LABS: Glucose Point of Care 123 mg/dl (65-105)
[2024-06-08 21:30] VITALS: BP 107/61; PULSE 73; RESP 18; TEMP 37; O2SAT 94
[2024-06-08] MEDS: TERAZOSIN HCL 5 MG CAPSULE FEED TUBE (21:35)
[2024-06-08] MEDS: MORPHINE SULFATE (*CRX) 2 MG/ML INJ IV PUSH (21:36)
[2024-06-09 00:14] LABS: Glucose Point of Care 105 mg/dl (65-105)
[2024-06-09 05:02] VITALS: BP 87/60; PULSE 77; RESP 18; TEMP 37.1; O2SAT 94
[2024-06-09] MEDS: VENLAFAXINE HCL 37.5 MG TABLET FEED TUBE ×3 (05:11→22:26)
[2024-06-09 05:58] VITALS: BP 90/60; PULSE 81; RESP 16; O2SAT 92
[2024-06-09 05:58] LABS: Glucose Point of Care 125 mg/dl (65-105)
[2024-06-09 06:32] LABS: Basophils Percent Auto 0.4 % (0.2-1.2); Eosinophils Absolute Auto 0.1 K/mm3 (0-0.3); Eosinophils Percent Auto 1.4 % (0-4.4); Hematocrit 30.7 % (42.0-52.0); Hemoglobin 9.5 g/dL (14.0-18.0); Immature Granulocyte Absolute 0.03 K/mm3 (0.00-0.031); Immature Granulocyte Percent A 0.6 % (0-0.5); Lymphocytes Percent Auto 16.5 % (18.3-44.2); Mean Corpuscular HGB Conc 30.9 g/dl (32-36); Mean Corpuscular Hemoglobin 32.3 pg (26-34); Mean Corpuscular Volume 104.4 fl (80-100); Mean Platelet Volume 9.7 fl (7.4-10.4); Monocytes Absolute Auto 0.6 K/mm3 (0.1-0.6); Monocytes Percent Auto 11.5 % (2.6-8.5); Neutrophils Absolute Auto 3.4 K/mm3 (1.3-6.7); Neutrophils Percent Auto 69.6 % (45.5-73.1); Platelet Count Result 323 k/mm3 (150-375); Red Blood Count 2.94 M/mm3 (4.6-6.20); Red Cell Distribution Width 12.3 % (11.5-14.5); White Blood Count 4.9 K/mm3 (4.5-10.0)
[2024-06-09 06:46] LABS: Alanine Aminotransferase 43 U/L (6-50); Albumin Level 3.1 g/dL (3.5-5.1); Alkaline Phosphatase 67 U/L (38-126); Anion Gap 6 mmol/L (4-12); Aspartate Amino Transferase 36 U/L (17-59); Bilirubin,Total 0.3 mg/dL (0.2-1.3); Blood Urea Nitrogen 14 mg/dL (9-20); Calcium 8.3 mg/dL (8.4-10.2); Carbon Dioxide 31 mmol/L (22-30); Chloride 101 mmol/L (98-107); Estimated CRCL calculation 108 ml/min; Estimated Glomerular Filt Rate > 60; Glucose 110 mg/dL (65-110); Potassium 3.7 mmol/L (3.4-5.0); Sodium 138 mmol/L (137-145)
[2024-06-09 06:57] VITALS: BP 100/60
--- NOTE | 2024-06-09 08:02 | P.PNIM_ITS ---
Progress Note: A&P Assessment and Plan (1) UTI (urinary tract infection) due to urinary indwelling Aguilar catheter: Code(s): T83.511A - Infection and inflammatory reaction due to indwelling urethral catheter, initial encounter; N39.0 - Urinary tract infection, site not specified Status: Acute Assessment and Plan: * UA showed turbid urine appearance, 1+ urine protein, trace ketone, 3+ urine blood, 3+ leukocytes, greater than 100 urine RBC, greater than 100 urine WBC, 3+ bacteria * blood and urine cultures were obtained and pending * continue Rocephin * aguilar catheter exchanged in the ER 06/05 * Blood and urine cultures are still pending * continue Rocephin 06/06 * Patient started on Linezolid per infectious disease pharmacist recommendations * 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 06/07 * no change * Will start per tube medications once G tube is placed. 06/08 * Linezolid changed to per tube 06/09 * No changes (2) Benign prostatic hyperplasia: Code(s): N40.0 - Benign prostatic hyperplasia without lower urinary tract symptoms Status: Acute Assessment and Plan: * chest/abdomen/ pelvis CTA showed enlarged prostate gland with Aguilar catheter balloon deployed within the prostatic urethra * patient has chronic indwelling catheter * continue tamsulosin and finasteride 06/05 * No change to current treatment plan 06/08 * According to son patient does not have a chronic indwelling catheter, it was placed for urinary retention and has not been re-addressed. We will plan for voiding trial tomorrow now that we were able to restart his medications. 06/09 * Aguilar catheter discontinued, giving voiding trial * Bladder scan after first void. (3) Altered mental status: Code(s): R41.82 - Altered mental status, unspecified Status: Acute Assessment and Plan: likely secondary to UTI * continue neuro checks 06/05 * No change to current treatment plan (4) Constipation: Qualifiers: Constipation type: chronic idiopathic constipation Qualified Code(s): K59.04 - Chronic idiopathic constipation Code(s): K59.00 - Constipation, unspecified Status: Acute Assessment and Plan: * chest/abdomen/ pelvis CTA shown fecal impaction * Started Lactulose 20 mg per tube * Dulcolax suppository ordered 06/05 * Patient had BM today * Continue Lactulose for now 06/07 * No change to plan (5) Depression: Code(s): F32.A - Depression, unspecified Status: Acute Assessment and Plan: * continue Venlafaxine 06/05 * No change (6) Gastro-esophageal reflux disease without esophagitis: Code(s): K21.9 - Gastro-esophageal reflux disease without esophagitis Status: Acute Assessment and Plan: * continue famotidine 06/05 * no change (7) Severe protein-calorie malnutrition: Code(s): E43 - Unspecified severe protein-calorie malnutrition Status: Acute Assessment and Plan: * dietitian consulted for tube feeding * modified barium swallow ordered for tomorrow * encourage intake 06/05 * Patient failed swallow today * tube feeding started via G tube 06/06 * Patient found with dislodged G tube today by nursing * Spoke with son at length about patient's condition and we would like to proceed with PEG tube placement. Son also has concerns regarding patient's history of villous atrophy and if there is anything we can do to optimize him so he can absorb nutrients. Patient has been on tube feeds since the last visit and has lost 20 pounds in the process. The son does not wish to have hospice as an option at this time. 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 Patient may require transfer to tertiary hospital where they have Rheumatologists on staff. * GI and general surgery consulted 06/07 * Patient going to OR today for G tube placement * GI following 06/08 * Status post EGD with PEG tube placement with GI, multiple biopsies were taken of the duodenum * GI following * Tube feeds started 06/09 * No change Time Spent With Patient Time with patient: 25 - 35 minutes Subjective Date/time seen: 06/09/24 08:02 Interval history: Interval history: This is a 78-year-old male with a significant past medical history of bronchiectasis, severe protein calorie malnutrition and has PEG tube, depression, peripheral neuropathy, BPH, Crohn's disease, ulcerative colitis, hyperlipidemia, GERD, former smoker who presented to the hospital with altered mental status. Patient is only alert and oriented x1 and unable to provide history of presenting illness Workup in the hospital included a head CT which was negative for any acute intracranial findings, showed atrophy and chronic white matter changes. Cervical spine CT showed stable anterior C1 arch fracture with stable alignment, no new fracture subluxation. Chest x-ray showed opacification in the right lung base that represents atelectasis versus pneumonia. Chest/abdomen/ pelvis CTA showed fecal impaction, Aguilar catheter balloon is temp blood within the prostatic urethra, enlarged prostate gland, no pulmonary embolism, extensive chronic interstitial pulmonary disease with emphysematous changes, 1.3 cm right hilar lymph node noted. initial white blood cell count was normal at 9.6, hemoglobin 12.6, INR 1.1, sodium 128, chloride 87, bicarb 31, lactic acid was normal at 1.0, ammonia level was less than 9, troponin was negative, TSH 0.5-3. UA was obtained which showed turbid urine appearance, 1+ urine protein, trace ketone, 3+ urine blood, 3+ leukocytes, greater than 100 urine RBC, greater than 100 urine WBC, 3+ bacteria. Urine drug screen was positive for opioids. Respiratory panel was negative for influenza A and B, RSV, COVID. Blood and urine cultures were obtained and pending. EKG showed sinus rhythm with right axis deviation and right bundle branch block with a rate of 96, QTC 467. Patient was given a dose of Rocephin and Tylenol while in the ED. Aguilar catheter was exchanged in the ER. 06/05/24: Modified barium swallow study failed. Tube feeding via PEG Subjective: Patient is alert and oriented x2, denies any new complaints today. Labs revi ewed. Review of Systems Review of Systems: All systems reviewed & are unremarkable except as noted in HPI and below Exam Narrative: General: In no acute distress, severe malnutrition, emaciated Cardiac: Normal S1 and S2. Murmur noted, no gallops or friction rubs, peripheral pulses intact. Respiratory: Lungs clear to auscultation, no adventitious lung sounds, currently on room air Gastrointestinal: soft,flat, non-tender, normoactive bowel sounds. PEG tube in place with abdominal binder : aguilar catheter draining cloudy dark alfred urine Neuro: Alert and oriented x2, remains confused Objective Data Vital Signs Vital Signs: Vital Signs - 24 hr 06/08/24 09:30 06/08/24 14:00 06/08/24 14:50 Temperature 97.8 F 97.8 F Pulse Rate 70 Respiratory Rate 18 Blood Pressure 102/60 Pulse Oximetry 99 Oxygen Delivery Room Air 06/08/24 20:00 06/08/24 21:30 06/09/24 05:02 Temperature 98.6 F 98.7 F Pulse Rate 73 77 Respiratory Rate 18 18 Blood Pressure 107/61 87/60 L Pulse Oximetry 94 94 Oxygen Delivery Room Air 06/09/24 05:58 06/09/24 06:57 Temperature Pulse Rate 81 Respiratory Rate 16 Blood Pressure 90/60 L 100/60 Pulse Oximetry 92 Oxygen Delivery Intake/Output Intake/Output: Intake & Output 06/06/24 06/07/24 06/08/24 06/09/24 23:59 23:59 23:59 23:59 Intake Total 600 2980 1010 Output Total 460 400 750 350 Balance 140 2580 260 -350 Meds/Results Medications: Active Medications Generic Name Dose Route Start Last Admin Trade Name Freq PRN Reason Stop Dose Admin Acetaminophen 650 mg 06/04/24 09:23 Acetaminophen 650 Mg Suppository RECTAL Q6H PRN Mild Pain (1-3) or Fever Acetaminophen 650 mg 06/07/24 19:37 06/08/24 13:50 Acetaminophen 325 Mg Tablet FEED TUBE 650 mg Q4H PRN Administration Mild Pain (1-3) or Fever Bisacodyl 10 mg 06/04/24 14:37 Bisacodyl 10 Mg Suppository RECTAL ONCE PRN Constipation Enoxaparin Sodium 40 mg 06/05/24 09:00 06/08/24 09:31 Enoxaparin 40 Mg/0.4 Ml Syringe SUB-Q 40 mg DAILY LUCA Administration Famotidine 40 mg 06/05/24 21:00 06/08/24 21:35 Famotidine 20 Mg Tablet FEED TUBE 40 mg Q12HR LUCA Administration Finasteride 5 mg 06/06/24 09:00 06/08/24 09:30 Finasteride 5 Mg Tablet FEED TUBE 5 mg DAILY LUCA Administration Folic Acid 1 mg 06/06/24 09:00 06/08/24 09:30 Folic Acid 1 Mg Tablet FEED TUBE 1 mg DAILY LUCA Administration Lactulose 20 gm 06/04/24 14:40 06/08/24 09:31 Lactulose 20 Gm/30 Ml Udc FEED TUBE 20 gm QAM LUCA Administration Linezolid 600 mg 06/08/24 10:00 06/08/24 21:30 Linezolid 600 Mg Tablet FEED TUBE 06/12/24 21:01 600 mg Q12HR LUCA Administration Miscellaneous Information 1 each 06/08/24 00:01 Flomax Cannot Go In Feeding Tube. Change To A Different Drug? I Called Sylvia Tiwari And She XX 07/08/24 00:00 CLARIFY LUCA Morphine Sulfate 2 mg 06/07/24 11:34 06/08/24 21:36 Morphine Sulfate (*Crx) 2 Mg/Ml Inj IV PUSH 2 mg Q4H PRN Administration Pain Rated 7-10 Ondansetron HCl 4 mg 06/04/24 09:23 Ondansetron Inj 4 Mg/2 Ml Vial IV PUSH Q4H PRN Nausea Sulfasalazine 1,500 mg 06/06/24 09:00 06/08/24 09:30 Sulfasalazine 500 Mg Tablet FEED TUBE 1,500 mg DAILY LUCA Administration Tamsulosin HCl 0.4 mg 06/07/24 21:00 Tamsulosin Hcl 0.4 Mg Capsule PO HS LUCA Terazosin HCl 5 mg 06/08/24 21:00 06/08/24 21:35 Terazosin Hcl 5 Mg Capsule FEED TUBE 5 mg HS LUCA Administration Venlafaxine HCl 37.5 mg 06/07/24 22:00 06/09/24 05:11 Venlafaxine Hcl 37.5 Mg Tablet FEED TUBE 37.5 mg Q8HR LUCA Administration Vitamin D 2,000 units 06/06/24 09:00 06/08/24 09:30 Cholecalciferol 1,000 Units Tablet FEED TUBE 2,000 units DAILY LUCA Administration Radiology Results: ITS Impressions Head CT 06/04/24 08:00 Impression: No intracranial hemorrhage, mass, or acute infarct. Atrophy and chronic white matter changes, as above. Cervical Spine CT 06/04/24 08:14 Impression: Stable anterior C1 arch fracture, with stable alignment. No new fracture or subluxation. Stable since a postoperative change in the cervical spine. Stable degenerative spondylosis. Chest X-Ray 06/04/24 08:18 IMPRESSION: No significant change from previous examination. Opacification in the right lung base may represent atelectasis versus pneumonia but most likely due to poor inspiration. Chest/Abdomen/Pelvis CTA 06/04/24 08:18 Impression: Fecal impaction. Aguilar catheter balloon is deployed within the prostatic urethra. Deflation and repositioning within the urinary bladder advised. Enlarged prostate gland. No pulmonary embolus. Extensive chronic interstitial pulmonary disease with underlying emphysematous change. 1.3 cm right hilar lymph node, of uncertain clinical significance. Modified Barium Swallow 06/05/24 11:08 IMPRESSION: Pharyngeal dysphagia with laryngeal penetration and aspiration. Please correlate with speech pathologist findings and specific feeding recommendations. Labs Labs: Laboratory Results - last 24 hr 06/08/24 06/08/24 06/09/24 11:49 18:09 00:00 WBC RBC Hgb Hct MCV MCH MCHC RDW Plt Count MPV Immature Gran % (Auto) Neut % (Auto) Lymph % (Auto) [place] % (Auto) Eos % (Auto) Baso % (Auto) Lymph # (Auto) [place] # (Auto) Eos # (Auto) Baso # (Auto) Abs Immat Gran (auto) Absolute Neuts (auto) Absolute Nucleated RBC Nucleated RBC % Sodium Potassium Chloride Carbon Dioxide Anion Gap BUN Creatinine Estim Creat Clear Calc Estimated GFR Glucose POC Capillary Glucose 119 H 123 H 105 Calcium Total Bilirubin AST ALT Alkaline Phosphatase Total Protein Albumin 06/09/24 06/09/24 05:51 06:20 WBC 4.9 RBC 2.94 L Hgb 9.5 L Hct 30.7 L MCV 104.4 H MCH 32.3 MCHC 30.9 L RDW 12.3 Plt Count 323 MPV 9.7 Immature Gran % (Auto) 0.6 H Neut % (Auto) 69.6 Lymph % (Auto) 16.5 L [place] % (Auto) 11.5 H Eos % (Auto) 1.4 Baso % (Auto) 0.4 Lymph # (Auto) 0.80 L [place] # (Auto) 0.6 Eos # (Auto) 0.1 Baso # (Auto) 0.0 Abs Immat Gran (auto) 0.03 Absolute Neuts (auto) 3.4 Absolute Nucleated RBC 0.000 Nucleated RBC % 0.0 Sodium 138 Potassium 3.7 Chloride 101 Carbon Dioxide 31 H Anion Gap 6 BUN 14 Creatinine 0.35 L Estim Creat Clear Calc 108 Estimated GFR > 60 Glucose 110 POC Capillary Glucose 125 H Calcium 8.3 L Total Bilirubin 0.3 AST 36 ALT 43 Alkaline Phosphatase 67 Total Protein 6.0 L Albumin 3.1 L Quality VTE Prophylaxis VTE prophylaxis: pharmacologic ordered
[2024-06-09] MEDS: FINASTERIDE 5 MG TABLET FEED TUBE (09:24)
[2024-06-09] MEDS: FOLIC ACID 1 MG TABLET FEED TUBE (09:24)
[2024-06-09] MEDS: ENOXAPARIN 40 MG/0.4 ML SYRINGE SUB-Q (09:24)
[2024-06-09] MEDS: sulfaSALAzine 500 MG TABLET 1500 MG FEED TUBE (09:24)
[2024-06-09] MEDS: CHOLECALCIFEROL 1,000 UNITS TABLET 2000 UNITS FEED TUBE (09:24)
[2024-06-09] MEDS: FAMOTIDINE 20 MG TABLET 40 MG FEED TUBE ×2 (09:24→22:26)
[2024-06-09] MEDS: LINEZOLID 600 MG TABLET FEED TUBE ×2 (09:25→22:26)
[2024-06-09] MEDS: LACTULOSE 20 GM/30 ML UDC FEED TUBE (09:25)
[2024-06-09] MEDS: MORPHINE SULFATE (*CRX) 2 MG/ML INJ IV PUSH (09:30)
--- NOTE | 2024-06-09 10:26 | PCOTNOTE ---
Attempted to see pt for OT treatment this AM. Pt refused to participate in any therapeutic tasks and/or self care tasks due to increase pain in posterior neck and BUE shoulders.Pt states I don't need therapy...I need to gain weight. Per pt, RN is aware of pt's pain. Pt is educated on this importance of participation in therapy for independence with all daily tasks. Will attempt tomorrow per poc duration/frequency.
[2024-06-09 11:46] LABS: Glucose Point of Care 122 mg/dl (65-105)
[2024-06-09 14:00] VITALS: BP 104/62; PULSE 73; RESP 22; TEMP 36.2; O2SAT 98
[2024-06-09 18:15] LABS: Glucose Point of Care 130 mg/dl (65-105)
[2024-06-09 22:00] VITALS: BP 108/69; PULSE 85; RESP 18; TEMP 36.6; O2SAT 96
[2024-06-09] MEDS: TERAZOSIN HCL 5 MG CAPSULE FEED TUBE (22:26)
[2024-06-10 01:42] LABS: Glucose Point of Care 133 mg/dl (65-105)
[2024-06-10] MEDS: VENLAFAXINE HCL 37.5 MG TABLET FEED TUBE ×3 (04:51→21:05)
[2024-06-10 05:46] VITALS: BP 110/66; PULSE 82; RESP 18; TEMP 36.8; O2SAT 97
[2024-06-10 06:37] LABS: Basophils Percent Auto 0.2 % (0.2-1.2); Eosinophils Absolute Auto 0.1 K/mm3 (0-0.3); Eosinophils Percent Auto 1.9 % (0-4.4); Hematocrit 31.1 % (42.0-52.0); Hemoglobin 9.9 g/dL (14.0-18.0); Immature Granulocyte Absolute 0.02 K/mm3 (0.00-0.031); Immature Granulocyte Percent A 0.3 % (0-0.5); Lymphocytes Absolute Auto 0.88 K/mm3 (0.9-3.2); Lymphocytes Percent Auto 13.8 % (18.3-44.2); Mean Corpuscular HGB Conc 31.8 g/dl (32-36); Mean Corpuscular Hemoglobin 32.4 pg (26-34); Mean Corpuscular Volume 101.6 fl (80-100); Mean Platelet Volume 9.6 fl (7.4-10.4); Monocytes Absolute Auto 0.5 K/mm3 (0.1-0.6); Monocytes Percent Auto 8.1 % (2.6-8.5); Neutrophils Absolute Auto 4.8 K/mm3 (1.3-6.7); Neutrophils Percent Auto 75.7 % (45.5-73.1); Platelet Count Result 346 k/mm3 (150-375); Red Blood Count 3.06 M/mm3 (4.6-6.20); Red Cell Distribution Width 12.4 % (11.5-14.5); White Blood Count 6.4 K/mm3 (4.5-10.0)
[2024-06-10 06:55] LABS: Alanine Aminotransferase 34 U/L (6-50); Albumin Level 3.1 g/dL (3.5-5.1); Alkaline Phosphatase 69 U/L (38-126); Anion Gap 6 mmol/L (4-12); Aspartate Amino Transferase 25 U/L (17-59); Bilirubin,Total 0.2 mg/dL (0.2-1.3); Blood Urea Nitrogen 13 mg/dL (9-20); Calcium 8.2 mg/dL (8.4-10.2); Carbon Dioxide 33 mmol/L (22-30); Chloride 97 mmol/L (98-107); Estimated CRCL calculation 111 ml/min; Estimated Glomerular Filt Rate > 60; Glucose 127 mg/dL (65-110); Potassium 3.7 mmol/L (3.4-5.0); Sodium 136 mmol/L (137-145)
[2024-06-10] MEDS: ENOXAPARIN 40 MG/0.4 ML SYRINGE SUB-Q (08:33)
[2024-06-10] MEDS: LINEZOLID 600 MG TABLET FEED TUBE ×2 (08:34→21:05)
[2024-06-10] MEDS: FINASTERIDE 5 MG TABLET FEED TUBE (08:34)
[2024-06-10] MEDS: sulfaSALAzine 500 MG TABLET 1500 MG FEED TUBE (08:34)
[2024-06-10] MEDS: FOLIC ACID 1 MG TABLET FEED TUBE (08:34)
[2024-06-10] MEDS: CHOLECALCIFEROL 1,000 UNITS TABLET 2000 UNITS FEED TUBE (08:34)
[2024-06-10] MEDS: FAMOTIDINE 20 MG TABLET 40 MG FEED TUBE ×2 (08:34→21:04)
[2024-06-10 13:48] LABS: Tissue Transglutaminase IgA Ab <1.0 U/mL
[2024-06-10 14:00] VITALS: BP 105/72; PULSE 87; RESP 20; TEMP 36.5; O2SAT 97
[2024-06-10] MEDS: ACETAMINOPHEN 325 MG TABLET 650 MG FEED TUBE (15:03)
--- NOTE | 2024-06-10 15:08 | P.PNIM_ITS ---
Progress Note: A&P Assessment and Plan (1) UTI (urinary tract infection) due to urinary indwelling Aguilar catheter: Code(s): T83.511A - Infection and inflammatory reaction due to indwelling urethral catheter, initial encounter; N39.0 - Urinary tract infection, site not specified Status: Acute Assessment and Plan: * UA showed turbid urine appearance, 1+ urine protein, trace ketone, 3+ urine blood, 3+ leukocytes, greater than 100 urine RBC, greater than 100 urine WBC, 3+ bacteria * blood and urine cultures were obtained and pending * continue Rocephin * aguilar catheter exchanged in the ER 06/05 * Blood and urine cultures are still pending * continue Rocephin 06/06 * Patient started on Linezolid per infectious disease pharmacist recommendations * 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 06/07 * no change * Will start per tube medications once G tube is placed. 06/08 * Linezolid changed to per tube 06/09 * No changes (2) Benign prostatic hyperplasia: Code(s): N40.0 - Benign prostatic hyperplasia without lower urinary tract symptoms Status: Acute Assessment and Plan: * chest/abdomen/ pelvis CTA showed enlarged prostate gland with Aguilar catheter balloon deployed within the prostatic urethra * patient has chronic indwelling catheter * continue tamsulosin and finasteride 06/05 * No change to current treatment plan 06/08 * According to son patient does not have a chronic indwelling catheter, it was placed for urinary retention and has not been re-addressed. We will plan for voiding trial tomorrow now that we were able to restart his medications. 06/09 * Aguilar catheter discontinued, giving voiding trial * Bladder scan after first void. 06/10 * Bladder scan shown less than 200ml in bladder without any complaints of bladder distention * Will continue to monitor (3) Altered mental status: Code(s): R41.82 - Altered mental status, unspecified Status: Acute Assessment and Plan: likely secondary to UTI * continue neuro checks 06/05 * No change to current treatment plan 06/10 * Remains confused, alert and oriented x2 at best, see above exam for details (4) Constipation: Qualifiers: Constipation type: chronic idiopathic constipation Qualified Code(s): K59.04 - Chronic idiopathic constipation Code(s): K59.00 - Constipation, unspecified Status: Acute Assessment and Plan: * chest/abdomen/ pelvis CTA shown fecal impaction * Started Lactulose 20 mg per tube * Dulcolax suppository ordered 06/05 * Patient had BM today * Continue Lactulose for now 06/07 * No change to plan (5) Depression: Code(s): F32.A - Depression, unspecified Status: Acute Assessment and Plan: * continue Venlafaxine 06/05 * No change (6) Gastro-esophageal reflux disease without esophagitis: Code(s): K21.9 - Gastro-esophageal reflux disease without esophagitis Status: Acute Assessment and Plan: * continue famotidine 06/05 * no change (7) Severe protein-calorie malnutrition: Code(s): E43 - Unspecified severe protein-calorie malnutrition Status: Acute Assessment and Plan: * dietitian consulted for tube feeding * modified barium swallow ordered for tomorrow * encourage intake 06/05 * Patient failed swallow today * tube feeding started via G tube 06/06 * Patient found with dislodged G tube today by nursing * Spoke with son at length about patient's condition and we would like to proceed with PEG tube placement. Son also has concerns regarding patient's history of villous atrophy and if there is anything we can do to optimize him so he can absorb nutrients. Patient has been on tube feeds since the last visit and has lost 20 pounds in the process. The son does not wish to have hospice as an option at this time. Since this is an autoimmune disorder, we may have to get Manager Client Service involved. Patient may require transfer to tertiary hospital where they have Rheumatologists on staff. * GI and general surgery consulted 06/07 * Patient going to OR today for G tube placement * GI following 06/08 * Status post EGD with PEG tube placement with GI, multiple biopsies were taken of the duodenum * GI following * Tube feeds started 06/09 * No change 06/10 * Daily weights ordered * Pathology still pending * Dr. Gorman to follow up with son (Woodrow) via phone call tomorrow Time Spent With Patient Time with patient: 25 - 35 minutes Subjective Date/time seen: 06/10/24 15:08 Interval history: Interval history: This is a 78-year-old male with a significant past medical history of bronc hiectasis, severe protein calorie malnutrition and has PEG tube, depression, peripheral neuropathy, BPH, Crohn's disease, ulcerative colitis, hyperlipidemia, GERD, former smoker who presented to the hospital with altered mental status. Patient is only alert and oriented x1 and unable to provide history of presenting illness Workup in the hospital included a head CT which was negative for any acute intracranial findings, showed atrophy and chronic white matter changes. Cervical spine CT showed stable anterior C1 arch fracture with stable alignment, no new fracture subluxation. Chest x-ray showed opacification in the right lung base that represents atelectasis versus pneumonia. Chest/abdomen/ pelvis CTA showed fecal impaction, Aguilar catheter balloon is temp blood within the prostatic urethra, enlarged prostate gland, no pulmonary embolism, extensive chronic interstitial pulmonary disease with emphysematous changes, 1.3 cm right hilar lymph node noted. initial white blood cell count was normal at 9.6, hemoglobin 12.6, INR 1.1, sodium 128, chloride 87, bicarb 31, lactic acid was normal at 1.0, ammonia level was less than 9, troponin was negative, TSH 0.5-3. UA was obtained which showed turbid urine appearance, 1+ urine protein, trace ketone, 3+ urine blood, 3+ leukocytes, greater than 100 urine RBC, greater than 100 urine WBC, 3+ bacteria. Urine drug screen was positive for opioids. Respiratory panel was negative for influenza A and B, RSV, COVID. Blood and urine cultures were obtained and pending. EKG showed sinus rhythm with right axis deviation and right bundle branch block with a rate of 96, QTC 467. Patient was given a dose of Rocephin and Tylenol while in the ED. Aguilar catheter was exchanged in the ER. 06/05/24: Modified barium swallow study failed. Tube feeding via PEG 06/10/23: Aguilar catheter removed, voiding trial Subjective: Patient is alert and oriented x2, denies any new complaints today. Labs reviewed. Review of Systems Review of Systems: All systems reviewed & are unremarkable except as noted in HPI and below Exam Narrative: General: In no acute distress, severe malnutrition, emaciated Cardiac: Normal S1 and S2. Murmur noted, no gallops or friction rubs, peripheral pulses intact. Respiratory: Lungs clear to auscultation, no adventitious lung sounds, currently on room air Gastrointestinal: soft,flat, non-tender, normoactive bowel sounds. PEG tube in place with abdominal binder tolerating tube feedings at goal. :voiding without difficulty Neuro: Alert and oriented x2 at best. He was able to state his name and tell me he is at a hospital but not able to tell me what hospital. He was not able to tell me the correct year or month, remains confused Objective Data Vital Signs Vital Signs: Vital Signs - 24 hr 06/09/24 20:00 06/09/24 22:00 06/10/24 05:46 Temperature 98 F 98.2 F Pulse Rate 85 82 Respiratory Rate 18 18 Blood Pressure 108/69 110/66 Pulse Oximetry 96 97 Oxygen Delivery Room Air Intake/Output Intake/Output: Intake & Output 06/07/24 06/08/24 06/09/24 06/10/24 23:59 23:59 23:59 23:59 Intake Total 2980 1010 0 Output Total 400 750 650 350 Balance 2580 260 -650 -350 Meds/Results Medications: Active Medications Generic Name Dose Route Start Last Admin Trade Name Freq PRN Reason Stop Dose Admin Acetaminophen 650 mg 06/04/24 09:23 Acetaminophen 650 Mg Suppository RECTAL Q6H PRN Mild Pain (1-3) or Fever Acetaminophen 650 mg 06/07/24 19:37 06/10/24 15:03 Acetaminophen 325 Mg Tablet FEED TUBE 650 mg Q4H PRN Administration Mild Pain (1-3) or Fever Bisacodyl 10 mg 06/04/24 14:37 Bisacodyl 10 Mg Suppository RECTAL ONCE PRN Constipation Enoxaparin Sodium 40 mg 06/05/24 09:00 06/10/24 08:33 Enoxaparin 40 Mg/0.4 Ml Syringe SUB-Q 40 mg DAILY LUCA Administration Famotidine 40 mg 06/05/24 21:00 06/10/24 08:34 Famotidine 20 Mg Tablet FEED TUBE 40 mg Q12HR LUCA Administration Finasteride 5 mg 06/06/24 09:00 06/10/24 08:34 Finasteride 5 Mg Tablet FEED TUBE 5 mg DAILY LUCA Administration Folic Acid 1 mg 06/06/24 09:00 06/10/24 08:34 Folic Acid 1 Mg Tablet FEED TUBE 1 mg DAILY LUCA Administration Lactulose 20 gm 06/04/24 14:40 06/10/24 08:34 Lactulose 20 Gm/30 Ml Udc FEED TUBE Not Given QAM LUCA Linezolid 600 mg 06/08/24 10:00 06/10/24 08:34 Linezolid 600 Mg Tablet FEED TUBE 06/12/24 21:01 600 mg Q12HR LUCA Administration Morphine Sulfate 2 mg 06/07/24 11:34 06/09/24 09:30 Morphine Sulfate (*Crx) 2 Mg/Ml Inj IV PUSH 2 mg Q4H PRN Administration Pain Rated 7-10 Ondansetron HCl 4 mg 06/04/24 09:23 Ondansetron Inj 4 Mg/2 Ml Vial IV PUSH Q4H PRN Nausea Sulfasalazine 1,500 mg 06/06/24 09:00 06/10/24 08:34 Sulfasalazine 500 Mg Tablet FEED TUBE 1,500 mg DAILY LUCA Administration Terazosin HCl 5 mg 06/08/24 21:00 06/09/24 22:26 Terazosin Hcl 5 Mg Capsule FEED TUBE 5 mg HS LUCA Administration Venlafaxine HCl 37.5 mg 06/07/24 22:00 06/10/24 14:58 Venlafaxine Hcl 37.5 Mg Tablet FEED TUBE 37.5 mg Q8HR LUCA Administration Vitamin D 2,000 units 06/06/24 09:00 06/10/24 08:34 Cholecalciferol 1,000 Units Tablet FEED TUBE 2,000 units DAILY LUCA Administration Radiology Results: ITS Impressions Head CT 06/04/24 08:00 Impression: No intracranial hemorrhage, mass, or acute infarct. Atrophy and chronic white matter changes, as above. Cervical Spine CT 06/04/24 08:14 Impression: Stable anterior C1 arch fracture, with stable alignment. No new fracture or subluxation. Stable since a postoperative change in the cervical spine. Stable degenerative spondylosis. Chest X-Ray 06/04/24 08:18 IMPRESSION: No significant change from previous examination. Opacification in the right lung base may represent atelectasis versus pneumonia but most likely due to poor inspiration. Chest/Abdomen/Pelvis CTA 06/04/24 08:18 Impression: Fecal impaction. Aguilar catheter balloon is deployed within the prostatic urethra. Deflation and repositioning within the urinary bladder advised. Enlarged prostate gland. No pulmonary embolus. Extensive chronic interstitial pulmonary disease with underlying emphysematous change. 1.3 cm right hilar lymph node, of uncertain clinical significance. Modified Barium Swallow 06/05/24 11:08 IMPRESSION: Pharyngeal dysphagia with laryngeal penetration and aspiration. Please correlate with speech pathologist findings and specific feeding recommendations. Labs Labs: Laboratory Results - last 24 hr 06/08/24 06/09/24 06/10/24 06:44 18:13 01:38 WBC RBC Hgb Hct MCV MCH MCHC RDW Plt Count MPV Immature Gran % (Auto) Neut % (Auto) Lymph % (Auto) Bollinger % (Auto) Eos % (Auto) Baso % (Auto) Lymph # (Auto) Bollinger # (Auto) Eos # (Auto) Baso # (Auto) Abs Immat Gran (auto) Absolute Neuts (auto) Absolute Nucleated RBC Nucleated RBC % Sodium Potassium Chloride Carbon Dioxide Anion Gap BUN Creatinine Estim Creat Clear Calc Estimated GFR Glucose POC Capillary Glucose 130 H 133 H Calcium Total Bilirubin AST ALT Alkaline Phosphatase Total Protein Albumin Tiss Transglutamin IgG 1.0 Tiss Transglutamin IgA <1.0 06/10/24 05:59 WBC 6.4 RBC 3.06 L Hgb 9.9 L Hct 31.1 L MCV 101.6 H MCH 32.4 MCHC 31.8 L RDW 12.4 Plt Count 346 MPV 9.6 Immature Gran % (Auto) 0.3 Neut % (Auto) 75.7 H Lymph % (Auto) 13.8 L Bollinger % (Auto) 8.1 Eos % (Auto) 1.9 Baso % (Auto) 0.2 Lymph # (Auto) 0.88 L Bollinger # (Auto) 0.5 Eos # (Auto) 0.1 Baso # (Auto) 0.0 Abs Immat Gran (auto) 0.02 Absolute Neuts (auto) 4.8 Absolute Nucleated RBC 0.000 Nucleated RBC % 0.0 Sodium 136 L Potassium 3.7 Chloride 97 L Carbon Dioxide 33 H Anion Gap 6 BUN 13 Creatinine 0.34 L Estim Creat Clear Calc 111 Estimated GFR > 60 Glucose 127 H POC Capillary Glucose Calcium 8.2 L Total Bilirubin 0.2 AST 25 ALT 34 Alkaline Phosphatase 69 Total Protein 6.0 L Albumin 3.1 L Tiss Transglutamin IgG Tiss Transglutamin IgA Quality VTE Prophylaxis VTE prophylaxis: pharmacologic ordered
--- NOTE | 2024-06-10 15:15 | PCOTNOTE ---
Attempted to see Patient at this time. Patient refused to participate. Patient worn out just finished with PT, I'm done for the day.
[2024-06-10] MEDS: TERAZOSIN HCL 5 MG CAPSULE FEED TUBE (21:05)
[2024-06-10] MEDS: MORPHINE SULFATE (*CRX) 2 MG/ML INJ IV PUSH (21:10)
[2024-06-10 21:16] VITALS: BP 123/70; PULSE 75; RESP 14; TEMP 36.2; O2SAT 98
[2024-06-10 23:49] LABS: Glucose Point of Care 137 mg/dl (65-105)
[2024-06-11 05:13] LABS: Glucose Point of Care 139 mg/dl (65-105)
[2024-06-11] MEDS: VENLAFAXINE HCL 37.5 MG TABLET FEED TUBE ×3 (05:24→21:40)
[2024-06-11 06:00] VITALS: BP 97/62; PULSE 72; RESP 14; TEMP 36.1; O2SAT 96
[2024-06-11 06:20] LABS: Basophils Percent Auto 0.2 % (0.2-1.2); Eosinophils Absolute Auto 0.1 K/mm3 (0-0.3); Eosinophils Percent Auto 1.9 % (0-4.4); Hematocrit 33.1 % (42.0-52.0); Hemoglobin 10.7 g/dL (14.0-18.0); Immature Granulocyte Absolute 0.04 K/mm3 (0.00-0.031); Immature Granulocyte Percent A 0.7 % (0-0.5); Lymphocytes Absolute Auto 0.54 K/mm3 (0.9-3.2); Lymphocytes Percent Auto 9.2 % (18.3-44.2); Mean Corpuscular HGB Conc 32.3 g/dl (32-36); Mean Corpuscular Hemoglobin 32.6 pg (26-34); Mean Corpuscular Volume 100.9 fl (80-100); Mean Platelet Volume 9.2 fl (7.4-10.4); Monocytes Absolute Auto 0.5 K/mm3 (0.1-0.6); Monocytes Percent Auto 7.7 % (2.6-8.5); Neutrophils Absolute Auto 4.7 K/mm3 (1.3-6.7); Neutrophils Percent Auto 80.3 % (45.5-73.1); Platelet Count Result 371 k/mm3 (150-375); Red Blood Count 3.28 M/mm3 (4.6-6.20); Red Cell Distribution Width 12.5 % (11.5-14.5); White Blood Count 5.9 K/mm3 (4.5-10.0)
[2024-06-11 06:27] LABS: Potassium 4.2 mmol/L (3.4-5.0)
[2024-06-11 06:30] LABS: Alanine Aminotransferase 32 U/L (6-50); Albumin Level 3.4 g/dL (3.5-5.1); Alkaline Phosphatase 75 U/L (38-126); Anion Gap 6 mmol/L (4-12); Aspartate Amino Transferase 25 U/L (17-59); Bilirubin,Total 0.2 mg/dL (0.2-1.3); Blood Urea Nitrogen 13 mg/dL (9-20); Calcium 8.4 mg/dL (8.4-10.2); Carbon Dioxide 32 mmol/L (22-30); Chloride 95 mmol/L (98-107); Estimated CRCL calculation 118 ml/min; Estimated Glomerular Filt Rate > 60; Glucose 128 mg/dL (65-110); Sodium 133 mmol/L (137-145)
[2024-06-11] MEDS: ENOXAPARIN 40 MG/0.4 ML SYRINGE SUB-Q (07:58)
[2024-06-11] MEDS: sulfaSALAzine 500 MG TABLET 1500 MG FEED TUBE (07:58)
[2024-06-11] MEDS: LINEZOLID 600 MG TABLET FEED TUBE ×2 (07:58→21:40)
[2024-06-11] MEDS: FINASTERIDE 5 MG TABLET FEED TUBE (07:58)
[2024-06-11] MEDS: FAMOTIDINE 20 MG TABLET 40 MG FEED TUBE ×2 (07:58→21:40)
[2024-06-11] MEDS: FOLIC ACID 1 MG TABLET FEED TUBE (07:59)
[2024-06-11] MEDS: CHOLECALCIFEROL 1,000 UNITS TABLET 2000 UNITS FEED TUBE (07:59)
--- NOTE | 2024-06-11 10:24 | PCNFU ---
Nutrition Follow-Up Complete: Severe protein calorie malnutrition related to inadequate energy intake as evidenced by a -12% wt loss x 1 month from last admission, and NFPE findings for severe subcutaneous fat loss and severe muscle wasting. Meet estimated needs- Goal is being met with current tube feeding orders Goal: Pt current nutrition is Jevity 1.5 @ goal rate 60 ml/h with flushes 150 ml q 4 hours. Nutrition recommendation: No new nutrition recommendations. Continue current tube feeding orders. Agree with orders Last recorded weight is 61.5 kg. Bowel Motility: +5 BMs 06/10/24 Labs Reviewed: Hgb 10.3, Hct 33.1, Alb 3.4, Na 133, Cre 0.36, Glu 128 Meds Noted: Lactulose, pepcid, folic acid Skin: No skin issues Additional Notes: PEG tube replaced and patient tolerating curretn tube feeding orders at goal rate. Jevity 1.5 @ goal rate 60 ml/h provides 1980 kcal, 84 g protein, 1003 ml free water. Flushes 150 ml q 4 hours for total water 1903 ml/day. Meets needs at 32 kcal/kg, 1.4 g protein/kg. Adequate for needs. Agree with orders. Monitor for MBS results, tube feeding orders, tolerance, wt, labs. Follow up in 1 day.
[2024-06-11 11:19] LABS: Glucose Point of Care 128 mg/dl (65-105)
[2024-06-11 14:00] VITALS: BP 110/69; PULSE 79; RESP 20; TEMP 37; O2SAT 96
--- NOTE | 2024-06-11 14:42 | P.PNIM_ITS ---
Progress Note: A&P Assessment and Plan (1) UTI (urinary tract infection) due to urinary indwelling Aguilar catheter: Code(s): T83.511A - Infection and inflammatory reaction due to indwelling urethral catheter, initial encounter; N39.0 - Urinary tract infection, site not specified Status: Acute Assessment and Plan: * UA showed turbid urine appearance, 1+ urine protein, trace ketone, 3+ urine blood, 3+ leukocytes, greater than 100 urine RBC, greater than 100 urine WBC, 3+ bacteria * blood and urine cultures were obtained and pending * continue Rocephin * aguilar catheter exchanged in the ER 06/05 * Blood and urine cultures are still pending * continue Rocephin 06/06 * Patient started on Linezolid per infectious disease pharmacist recommendations * 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 06/07 * no change * Will start per tube medications once G tube is placed. 06/08 * Linezolid changed to per tube 06/09 * No changes (2) Benign prostatic hyperplasia: Code(s): N40.0 - Benign prostatic hyperplasia without lower urinary tract symptoms Status: Acute Assessment and Plan: * chest/abdomen/ pelvis CTA showed enlarged prostate gland with Aguilar catheter balloon deployed within the prostatic urethra * patient has chronic indwelling catheter * continue tamsulosin and finasteride 06/05 * No change to current treatment plan 06/08 * According to son patient does not have a chronic indwelling catheter, it was placed for urinary retention and has not been re-addressed. We will plan for voiding trial tomorrow now that we were able to restart his medications. 06/09 * Aguilar catheter discontinued, giving voiding trial * Bladder scan after first void. 06/10 * Bladder scan shown less than 200ml in bladder without any complaints of bladder distention * Will continue to monitor 06/11 * residual greater than 600ml in bladder * Aguilar replaced due to urinary retention, likely will be chronic--follow up with Urology on outpatient basis * Continue tamsulosin and finasteride (3) Altered mental status: Code(s): R41.82 - Altered mental status, unspecified Status: Acute Assessment and Plan: likely secondary to UTI * continue neuro checks 06/05 * No change to current treatment plan 06/10 * Remains confused, alert and oriented x2 at best, see above exam for details (4) Constipation: Qualifiers: Constipation type: chronic idiopathic constipation Qualified Code(s): K59.04 - Chronic idiopathic constipation Code(s): K59.00 - Constipation, unspecified Status: Acute Assessment and Plan: * chest/abdomen/ pelvis CTA shown fecal impaction * Started Lactulose 20 mg per tube * Dulcolax suppository ordered 06/05 * Patient had BM today * Continue Lactulose for now 06/07 * No change to plan (5) Depression: Code(s): F32.A - Depression, unspecified Status: Acute Assessment and Plan: * continue Venlafaxine 06/05 * No change (6) Gastro-esophageal reflux disease without esophagitis: Code(s): K21.9 - Gastro-esophageal reflux disease without esophagitis Status: Acute Assessment and Plan: * continue famotidine 06/05 * no change (7) Severe protein-calorie malnutrition: Code(s): E43 - Unspecified severe protein-calorie malnutrition Status: Acute Assessment and Plan: * dietitian consulted for tube feeding * modified barium swallow ordered for tomorrow * encourage intake 06/05 * Patient failed swallow today * tube feeding started via G tube 06/06 * Patient found with dislodged G tube today by nursing * Spoke with son at length about patient's condition and we would like to proceed with PEG tube placement. Son also has concerns regarding patient's history of villous atrophy and if there is anything we can do to optimize him so he can absorb nutrients. Patient has been on tube feeds since the last visit and has lost 20 pounds in the process. The son does not wish to have hospice as an option at this time. 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 Patient may require transfer to tertiary hospital where they have Rheumatologists on staff. * GI and general surgery consulted 06/07 * Patient going to OR today for G tube placement * GI following 06/08 * Status post EGD with PEG tube placement with GI, multiple biopsies were taken of the duodenum * GI following * Tube feeds started 06/09 * No change 06/10 * Daily weights ordered * Pathology still pending * Dr. Gorman to follow up with son (Woodrow) via phone call tomorrow 06/11 * Patient weight is 135 today which is up from 131 previously * Tube feeding at goal and he is tolerating well. * awaiting placement Time Spent With Patient Time with patient: Greater than 35 minutes Subjective Date/time seen: 06/11/24 14:42 Interval history: Interval history: This is a 78-year-old male with a significant past medical history of bronchiectasis, severe protein calorie malnutrition and has PEG tube, depression, peripheral neuropathy, BPH, Crohn's disease, ulcerative colitis, hyperlipidemia, GERD, former smoker who presented to the hospital with altered mental status. Patient is only alert and oriented x1 and unable to provide history of presenting illness Workup in the hospital included a head CT which was negative for any acute intracranial findings, showed atrophy and chronic white matter changes. Cervical spine CT showed stable anterior C1 arch fracture with stable alignment, no new fracture subluxation. Chest x-ray showed opacification in the right lung base that represents atelectasis versus pneumonia. Chest/abdomen/ pelvis CTA showed fecal impaction, Aguilar catheter balloon is temp blood within the prostatic urethra, enlarged prostate gland, no pulmonary embolism, extensive chronic interstitial pulmonary disease with emphysematous changes, 1.3 cm right hilar lymph node noted. initial white blood cell count was normal at 9.6, hemoglobin 12.6, INR 1.1, sodium 128, chloride 87, bicarb 31, lactic acid was normal at 1.0, ammonia level was less than 9, troponin was negative, TSH 0.5-3. UA was obtained which showed turbid urine appearance, 1+ urine protein, trace ketone, 3+ urine blood, 3+ leukocytes, greater than 100 urine RBC, greater than 100 urine WBC, 3+ bacteria. Urine drug screen was positive for opioids. Respiratory panel was negative for influenza A and B, RSV, COVID. Blood and urine cultures were obtained and pending. EKG showed sinus rhythm with right axis deviation and right bundle branch block with a rate of 96, QTC 467. Patient was given a dose of Rocephin and Tylenol while in the ED. Aguilar catheter was exchanged in the ER. 06/05/24: Modified barium swallow study failed. Tube feeding via PEG 06/10/23: Aguilar catheter removed, voiding trial Subjective: Patient is alert and oriented x2, denies any new complaints today. Labs reviewed. Review of Systems Review of Systems: All systems reviewed & are unremarkable except as noted in HPI and below Exam Narrative: General: In no acute distress, severe malnutrition, emaciated Cardiac: Normal S1 and S2. Murmur noted, no gallops or friction rubs, peripheral pulses intact. Respiratory: Lungs clear to auscultation, no adventitious lung sounds, currently on room air Gastrointestinal: soft,flat, non-tender, normoactive bowel sounds. PEG tube in place with abdominal binder tolerating tube feedings at goal. :aguilar replaced due to high residual on bladder scan Neuro: Alert and oriented x2 at best. Remains confused Objective Data Vital Signs Vital Signs: Vital Signs - 24 hr 06/10/24 20:00 06/10/24 21:16 06/11/24 06:00 Temperature 97.1 F L 96.9 F L Pulse Rate 75 72 Respiratory Rate 14 14 Blood Pressure 123/70 97/62 L Pulse Oximetry 98 96 Oxygen Delivery Room Air 06/11/24 08:00 Temperature Pulse Rate Respiratory Rate Blood Pressure Pulse Oximetry Oxygen Delivery Room Air Intake/Output Intake/Output: Intake & Output 06/08/24 06/09/24 06/10/24 06/11/24 23:59 23:59 23:59 23:59 Intake Total 1010 150 900 Output Total 750 650 750 100 Balance 260 -650 -600 800 Meds/Results Medications: Active Medications Generic Name Dose Route Start Last Admin Trade Name Freq PRN Reason Stop Dose Admin Acetaminophen 650 mg 06/04/24 09:23 Acetaminophen 650 Mg Suppository RECTAL Q6H PRN Mild Pain (1-3) or Fever Acetaminophen 650 mg 06/07/24 19:37 06/10/24 15:03 Acetaminophen 325 Mg Tablet FEED TUBE 650 mg Q4H PRN Administration Mild Pain (1-3) or Fever Bisacodyl 10 mg 06/04/24 14:37 Bisacodyl 10 Mg Suppository RECTAL ONCE PRN Constipation Enoxaparin Sodium 40 mg 06/05/24 09:00 06/11/24 07:58 Enoxaparin 40 Mg/0.4 Ml Syringe SUB-Q 40 mg DAILY LUCA Administration Famotidine 40 mg 06/05/24 21:00 06/11/24 07:58 Famotidine 20 Mg Tablet FEED TUBE 40 mg Q12HR LUCA Administration Finasteride 5 mg 06/06/24 09:00 06/11/24 07:58 Finasteride 5 Mg Tablet FEED TUBE 5 mg DAILY LUCA Administration Folic Acid 1 mg 06/06/24 09:00 06/11/24 07:59 Folic Acid 1 Mg Tablet FEED TUBE 1 mg DAILY LUCA Administration Lactulose 20 gm 06/04/24 14:40 06/11/24 08:12 Lactulose 20 Gm/30 Ml Udc FEED TUBE Not Given QAM LUCA Linezolid 600 mg 06/08/24 10:00 06/11/24 07:58 Linezolid 600 Mg Tablet FEED TUBE 06/12/24 21:01 600 mg Q12HR LUCA Administration Morphine Sulfate 2 mg 06/07/24 11:34 06/10/24 21:10 Morphine Sulfate (*Crx) 2 Mg/Ml Inj IV PUSH 2 mg Q4H PRN Administration Pain Rated 7-10 Ondansetron HCl 4 mg 06/04/24 09:23 Ondansetron Inj 4 Mg/2 Ml Vial IV PUSH Q4H PRN Nausea Sulfasalazine 1,500 mg 06/06/24 09:00 06/11/24 07:58 Sulfasalazine 500 Mg Tablet FEED TUBE 1,500 mg DAILY LUCA Administration Terazosin HCl 5 mg 06/08/24 21:00 06/10/24 21:05 Terazosin Hcl 5 Mg Capsule FEED TUBE 5 mg HS LUCA Administration Venlafaxine HCl 37.5 mg 06/07/24 22:00 06/11/24 13:37 Venlafaxine Hcl 37.5 Mg Tablet FEED TUBE 37.5 mg Q8HR LUCA Administration Vitamin D 2,000 units 06/06/24 09:00 06/11/24 07:59 Cholecalciferol 1,000 Units Tablet FEED TUBE 2,000 units DAILY LUCA Administration Radiology Results: ITS Impressions Head CT 06/04/24 08:00 Impression: No intracranial hemorrhage, mass, or acute infarct. Atrophy and chronic white matter changes, as above. Cervical Spine CT 06/04/24 08:14 Impression: Stable anterior C1 arch fracture, with stable alignment. No new fracture or subluxation. Stable since a postoperative change in the cervical spine. Stable degenerative spondylosis. Chest X-Ray 06/04/24 08:18 IMPRESSION: No significant change from previous examination. Opacification in the right lung base may represent atelectasis versus pneumonia but most likely due to poor inspiration. Chest/Abdomen/Pelvis CTA 06/04/24 08:18 Impression: Fecal impaction. Aguilar catheter balloon is deployed within the prostatic urethra. Deflation and repositioning within the urinary bladder advised. Enlarged prostate gland. No pulmonary embolus. Extensive chronic interstitial pulmonary disease with underlying emphysematous change. 1.3 cm right hilar lymph node, of uncertain clinical significance. Modified Barium Swallow 06/05/24 11:08 IMPRESSION: Pharyngeal dysphagia with laryngeal penetration and aspiration. Please correlate with speech pathologist findings and specific feeding recommendations. Labs Labs: Laboratory Results - last 24 hr 06/10/24 06/11/24 06/11/24 23:37 05:09 06:00 WBC 5.9 RBC 3.28 L Hgb 10.7 L Hct 33.1 L MCV 100.9 H MCH 32.6 MCHC 32.3 RDW 12.5 Plt Count 371 MPV 9.2 Immature Gran % (Auto) 0.7 H Neut % (Auto) 80.3 H Lymph % (Auto) 9.2 L Island % (Auto) 7.7 Eos % (Auto) 1.9 Baso % (Auto) 0.2 Lymph # (Auto) 0.54 L Island # (Auto) 0.5 Eos # (Auto) 0.1 Baso # (Auto) 0.0 Abs Immat Gran (auto) 0.04 H Absolute Neuts (auto) 4.7 Absolute Nucleated RBC 0.000 Nucleated RBC % 0.0 Sodium 133 L Potassium 4.2 Chloride 95 L Carbon Dioxide 32 H Anion Gap 6 BUN 13 Creatinine 0.36 L Estim Creat Clear Calc 118 Estimated GFR > 60 Glucose 128 H POC Capillary Glucose 137 H 139 H Calcium 8.4 Total Bilirubin 0.2 AST 25 ALT 32 Alkaline Phosphatase 75 Total Protein 7.0 Albumin 3.4 L 06/11/24 11:16 WBC RBC Hgb Hct MCV MCH MCHC RDW Plt Count MPV Immature Gran % (Auto) Neut % (Auto) Lymph % (Auto) Island % (Auto) Eos % (Auto) Baso % (Auto) Lymph # (Auto) Island # (Auto) Eos # (Auto) Baso # (Auto) Abs Immat Gran (auto) Absolute Neuts (auto) Absolute Nucleated RBC Nucleated RBC % Sodium Potassium Chloride Carbon Dioxide Anion Gap BUN Creatinine Estim Creat Clear Calc Estimated GFR Glucose POC Capillary Glucose 128 H Calcium Total Bilirubin AST ALT Alkaline Phosphatase Total Protein Albumin Quality VTE Prophylaxis VTE prophylaxis: pharmacologic ordered
[2024-06-11] MEDS: TERAZOSIN HCL 5 MG CAPSULE FEED TUBE (21:40)
[2024-06-11 21:45] VITALS: BP 115/66; PULSE 68; RESP 18; TEMP 36.6; O2SAT 96
[2024-06-12] MEDS: VENLAFAXINE HCL 37.5 MG TABLET FEED TUBE ×2 (05:30→14:17)
[2024-06-12 05:59] LABS: Basophils Percent Auto 0.7 % (0.2-1.2); Eosinophils Absolute Auto 0.1 K/mm3 (0-0.3); Eosinophils Percent Auto 2.2 % (0-4.4); Hematocrit 30.3 % (42.0-52.0); Hemoglobin 9.9 g/dL (14.0-18.0); Immature Granulocyte Absolute 0.03 K/mm3 (0.00-0.031); Immature Granulocyte Percent A 0.7 % (0-0.5); Lymphocytes Absolute Auto 0.62 K/mm3 (0.9-3.2); Lymphocytes Percent Auto 13.9 % (18.3-44.2); Mean Corpuscular HGB Conc 32.7 g/dl (32-36); Mean Corpuscular Hemoglobin 33.4 pg (26-34); Mean Corpuscular Volume 102.4 fl (80-100); Mean Platelet Volume 9.5 fl (7.4-10.4); Monocytes Absolute Auto 0.4 K/mm3 (0.1-0.6); Neutrophils Absolute Auto 3.3 K/mm3 (1.3-6.7); Neutrophils Percent Auto 73.5 % (45.5-73.1); Platelet Count Result 319 k/mm3 (150-375); Red Blood Count 2.96 M/mm3 (4.6-6.20); Red Cell Distribution Width 12.7 % (11.5-14.5); White Blood Count 4.5 K/mm3 (4.5-10.0)
[2024-06-12 06:00] VITALS: BP 124/72; PULSE 83; RESP 16; TEMP 37; O2SAT 98
[2024-06-12 06:00] LABS: Alanine Aminotransferase 31 U/L (6-50); Albumin Level 3.2 g/dL (3.5-5.1); Alkaline Phosphatase 72 U/L (38-126); Anion Gap 4 mmol/L (4-12); Aspartate Amino Transferase 28 U/L (17-59); Bilirubin,Total 0.1 mg/dL (0.2-1.3); Blood Urea Nitrogen 12 mg/dL (9-20); Calcium 8.1 mg/dL (8.4-10.2); Carbon Dioxide 33 mmol/L (22-30); Chloride 92 mmol/L (98-107); Estimated CRCL calculation 118 ml/min; Estimated Glomerular Filt Rate > 60; Glucose 121 mg/dL (65-110); Potassium 4.1 mmol/L (3.4-5.0); Sodium 129 mmol/L (137-145)
[2024-06-12 06:12] LABS: Glucose Point of Care 117 mg/dl (65-105)
--- NOTE | 2024-06-12 07:40 | P.PNIM_ITS ---
Progress Note: A&P Assessment and Plan (1) UTI (urinary tract infection) due to urinary indwelling Aguilar catheter: Code(s): T83.511A - Infection and inflammatory reaction due to indwelling urethral catheter, initial encounter; N39.0 - Urinary tract infection, site not specified Status: Acute Assessment and Plan: * UA showed turbid urine appearance, 1+ urine protein, trace ketone, 3+ urine blood, 3+ leukocytes, greater than 100 urine RBC, greater than 100 urine WBC, 3+ bacteria * blood and urine cultures were obtained and pending * continue Rocephin * aguilar catheter exchanged in the ER 06/05 * Blood and urine cultures are still pending * continue Rocephin 06/06 * Patient started on Linezolid per infectious disease pharmacist recommendations * 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 06/07 * no change * Will start per tube medications once G tube is placed. 06/08 * Linezolid changed to per tube 06/09 * No changes (2) Benign prostatic hyperplasia: Code(s): N40.0 - Benign prostatic hyperplasia without lower urinary tract symptoms Status: Acute Assessment and Plan: * chest/abdomen/ pelvis CTA showed enlarged prostate gland with Aguilar catheter balloon deployed within the prostatic urethra * patient has chronic indwelling catheter * continue tamsulosin and finasteride 06/05 * No change to current treatment plan 06/08 * According to son patient does not have a chronic indwelling catheter, it was placed for urinary retention and has not been re-addressed. We will plan for voiding trial tomorrow now that we were able to restart his medications. 06/09 * Aguilar catheter discontinued, giving voiding trial * Bladder scan after first void. 06/10 * Bladder scan shown less than 200ml in bladder without any complaints of bladder distention * Will continue to monitor 06/11 * residual greater than 600ml in bladder * Aguilar replaced due to urinary retention, likely will be chronic--follow up with Urology on outpatient basis * Continue tamsulosin and finasteride (3) Altered mental status: Code(s): R41.82 - Altered mental status, unspecified Status: Acute Assessment and Plan: likely secondary to UTI * continue neuro checks 06/05 * No change to current treatment plan 06/10 * Remains confused, alert and oriented x2 at best, see above exam for details (4) Constipation: Qualifiers: Constipation type: chronic idiopathic constipation Qualified Code(s): K59.04 - Chronic idiopathic constipation Code(s): K59.00 - Constipation, unspecified Status: Acute Assessment and Plan: * chest/abdomen/ pelvis CTA shown fecal impaction * Started Lactulose 20 mg per tube * Dulcolax suppository ordered 06/05 * Patient had BM today * Continue Lactulose for now 06/07 * No change to plan (5) Depression: Code(s): F32.A - Depression, unspecified Status: Acute Assessment and Plan: * continue Venlafaxine 06/05 * No change (6) Gastro-esophageal reflux disease without esophagitis: Code(s): K21.9 - Gastro-esophageal reflux disease without esophagitis Status: Acute Assessment and Plan: * continue famotidine 06/05 * no change (7) Severe protein-calorie malnutrition: Code(s): E43 - Unspecified severe protein-calorie malnutrition Status: Acute Assessment and Plan: * dietitian consulted for tube feeding * modified barium swallow ordered for tomorrow * encourage intake 06/05 * Patient failed swallow today * tube feeding started via G tube 06/06 * Patient found with dislodged G tube today by nursing * Spoke with son at length about patient's condition and we would like to proceed with PEG tube placement. Son also has concerns regarding patient's history of villous atrophy and if there is anything we can do to optimize him so he can absorb nutrients. Patient has been on tube feeds since the last visit and has lost 20 pounds in the process. The son does not wish to have hospice as an option at this time. Since this is an autoimmune disorder, we may have to get [employer] involved. Patient may require transfer to tertiary hospital where they have Rheumatologists on staff. * GI and general surgery consulted 06/07 * Patient going to OR today for G tube placement * GI following 06/08 * Status post EGD with PEG tube placement with GI, multiple biopsies were taken of the duodenum * GI following * Tube feeds started 06/09 * No change 06/10 * Daily weights ordered * Pathology still pending * Dr. Gorman to follow up with son (Woodrow) via phone call tomorrow 06/11 * Patient weight is 135 today which is up from 131 previously * Tube feeding at goal and he is tolerating well. * awaiting placement Subjective Date/time seen: 06/12/24 07:40 Interval history: Interval history: This is a 78-year-old male with a significant past medical history of bronchiectasis, severe protein calorie malnutrition and has PEG tube, depression, peripheral neuropathy, BPH, Crohn's disease, ulcerative colitis, hyperlipidemia, GERD, former smoker who presented to the hospital with altered mental status. Patient is only alert and oriented x1 and unable to provide history of presenting illness Workup in the hospital included a head CT which was negative for any acute intracranial findings, showed atrophy and chronic white matter changes. Cervical spine CT showed stable anterior C1 arch fracture with stable alignment, no new fracture subluxation. Chest x-ray showed opacification in the right lung base that represents atelectasis versus pneumonia. Chest/abdomen/ pelvis CTA showed fecal impaction, Aguilar catheter balloon is temp blood within the prostatic urethra, enlarged prostate gland, no pulmonary embolism, extensive chronic interstitial pulmonary disease with emphysematous changes, 1.3 cm right hilar lymph node noted. initial white blood cell count was normal at 9.6, hemoglobin 12.6, INR 1.1, sodium 128, chloride 87, bicarb 31, lactic acid was normal at 1.0, ammonia level was less than 9, troponin was negative, TSH 0.5-3. UA was obtained which showed turbid urine appearance, 1+ urine protein, trace ketone, 3+ urine blood, 3+ leukocytes, greater than 100 urine RBC, greater than 100 urine WBC, 3+ bacteria. Urine drug screen was positive for opioids. Respiratory panel was negative for influenza A and B, RSV, COVID. Blood and urine cultures were obtained and pending. EKG showed sinus rhythm with right axis deviation and right bundle branch block with a rate of 96, QTC 467. Patient was given a dose of Rocephin and Tylenol while in the ED. Aguilar catheter was exchanged in the ER. 06/05/24: Modified barium swallow study failed. Tube feeding via PEG 06/10/23: Aguilar catheter removed, voiding trial 06/12/2024: Patient is alert and oriented x2, denies any new complaints today. Labs reviewed. Waiting on placement Review of Systems Review of Systems: All systems reviewed & are unremarkable except as noted in HPI and below Exam Narrative: General: In no acute distress, severe malnutrition, emaciated Cardiac: Normal S1 and S2. Murmur noted, no gallops or friction rubs, peripheral pulses intact. Respiratory: Lungs clear to auscultation, no adventitious lung sounds, currently on room air Gastrointestinal: soft,flat, non-tender, normoactive bowel sounds. PEG tube in place with abdominal binder tolerating tube feedings at goal. :aguilar replaced due to high residual on bladder scan Neuro: Alert and oriented x2 at best. Remains confused Objective Data Vital Signs Vital Signs: Vital Signs - 24 hr 06/11/24 08:00 06/11/24 14:00 06/11/24 20:00 Temperature 98.6 F Pulse Rate 79 Respiratory Rate 20 Blood Pressure 110/69 Pulse Oximetry 96 Oxygen Delivery Room Air Room Air 06/11/24 21:45 06/12/24 06:00 Temperature 98 F 98.6 F Pulse Rate 68 83 Respiratory Rate 18 16 Blood Pressure 115/66 124/72 Pulse Oximetry 96 98 Oxygen Delivery Intake/Output Intake/Output: Intake & Output 06/09/24 06/10/24 06/11/24 06/12/24 23:59 23:59 23:59 23:59 Intake Total 150 2295 863 Output Total 077 773 6687 475 Balance -650 -600 1195 388 Meds/Results Medications: Active Medications Generic Name Dose Route Start Last Admin Trade Name Freq PRN Reason Stop Dose Admin Acetaminophen 650 mg 06/04/24 09:23 Acetaminophen 650 Mg Suppository RECTAL Q6H PRN Mild Pain (1-3) or Fever Acetaminophen 650 mg 06/07/24 19:37 06/10/24 15:03 Acetaminophen 325 Mg Tablet FEED TUBE 650 mg Q4H PRN Administration Mild Pain (1-3) or Fever Bisacodyl 10 mg 06/04/24 14:37 Bisacodyl 10 Mg Suppository RECTAL ONCE PRN Constipation Enoxaparin Sodium 40 mg 06/05/24 09:00 06/11/24 07:58 Enoxaparin 40 Mg/0.4 Ml Syringe SUB-Q 40 mg DAILY LUCA Administration Famotidine 40 mg 06/05/24 21:00 06/11/24 21:40 Famotidine 20 Mg Tablet FEED TUBE 40 mg Q12HR LUCA Administration Finasteride 5 mg 06/06/24 09:00 06/11/24 07:58 Finasteride 5 Mg Tablet FEED TUBE 5 mg DAILY LUCA Administration Folic Acid 1 mg 06/06/24 09:00 06/11/24 07:59 Folic Acid 1 Mg Tablet FEED TUBE 1 mg DAILY LUCA Administration Lactulose 20 gm 06/04/24 14:40 06/11/24 08:12 Lactulose 20 Gm/30 Ml Udc FEED TUBE Not Given QAM LUCA Linezolid 600 mg 06/08/24 10:00 06/11/24 21:40 Linezolid 600 Mg Tablet FEED TUBE 06/12/24 21:01 600 mg Q12HR LUCA Administration Morphine Sulfate 2 mg 06/07/24 11:34 06/10/24 21:10 Morphine Sulfate (*Crx) 2 Mg/Ml Inj IV PUSH 2 mg Q4H PRN Administration Pain Rated 7-10 Ondansetron HCl 4 mg 06/04/24 09:23 Ondansetron Inj 4 Mg/2 Ml Vial IV PUSH Q4H PRN Nausea Sulfasalazine 1,500 mg 06/06/24 09:00 06/11/24 07:58 Sulfasalazine 500 Mg Tablet FEED TUBE 1,500 mg DAILY LUCA Administration Terazosin HCl 5 mg 06/08/24 21:00 06/11/24 21:40 Terazosin Hcl 5 Mg Capsule FEED TUBE 5 mg HS LUCA Administration Venlafaxine HCl 37.5 mg 06/07/24 22:00 06/12/24 05:30 Venlafaxine Hcl 37.5 Mg Tablet FEED TUBE 37.5 mg Q8HR LUCA Administration Vitamin D 2,000 units 06/06/24 09:00 06/11/24 07:59 Cholecalciferol 1,000 Units Tablet FEED TUBE 2,000 units DAILY LUCA Administration Radiology Results: ITS Impressions Head CT 06/04/24 08:00 Impression: No intracranial hemorrhage, mass, or acute infarct. Atrophy and chronic white matter changes, as above. Cervical Spine CT 06/04/24 08:14 Impression: Stable anterior C1 arch fracture, with stable alignment. No new fracture or subluxation. Stable since a postoperative change in the cervical spine. Stable degenerative spondylosis. Chest X-Ray 06/04/24 08:18 IMPRESSION: No significant change from previous examination. Opacification in the right lung base may represent atelectasis versus pneumonia but most likely due to poor inspiration. Chest/Abdomen/Pelvis CTA 06/04/24 08:18 Impression: Fecal impaction. Aguilar catheter balloon is deployed within the prostatic urethra. Deflation and repositioning within the urinary bladder advised. Enlarged prostate gland. No pulmonary embolus. Extensive chronic interstitial pulmonary disease with underlying emphysematous change. 1.3 cm right hilar lymph node, of uncertain clinical significance. Modified Barium Swallow 06/05/24 11:08 IMPRESSION: Pharyngeal dysphagia with laryngeal penetration and aspiration. Please correlate with speech pathologist findings and specific feeding recommendations. Labs Labs: Laboratory Results - last 24 hr 06/11/24 06/12/24 06/12/24 11:16 05:33 06:06 WBC 4.5 RBC 2.96 L Hgb 9.9 L Hct 30.3 L MCV 102.4 H MCH 33.4 MCHC 32.7 RDW 12.7 Plt Count 319 MPV 9.5 Immature Gran % (Auto) 0.7 H Neut % (Auto) 73.5 H Lymph % (Auto) 13.9 L Russell % (Auto) 9.0 H Eos % (Auto) 2.2 Baso % (Auto) 0.7 Lymph # (Auto) 0.62 L Russell # (Auto) 0.4 Eos # (Auto) 0.1 Baso # (Auto) 0.0 Abs Immat Gran (auto) 0.03 Absolute Neuts (auto) 3.3 Absolute Nucleated RBC 0.000 Nucleated RBC % 0.0 Sodium 129 L Potassium 4.1 Chloride 92 L Carbon Dioxide 33 H Anion Gap 4 BUN 12 Creatinine 0.36 L Estim Creat Clear Calc 118 Estimated GFR > 60 Glucose 121 H POC Capillary Glucose 128 H 117 H Calcium 8.1 L Total Bilirubin 0.1 L AST 28 ALT 31 Alkaline Phosphatase 72 Total Protein 6.0 L Albumin 3.2 L Quality VTE Prophylaxis VTE prophylaxis: pharmacologic ordered
[2024-06-12 08:00] VITALS: O2SAT 97
[2024-06-12] MEDS: FAMOTIDINE 20 MG TABLET 40 MG FEED TUBE (08:22)
[2024-06-12] MEDS: CHOLECALCIFEROL 1,000 UNITS TABLET 2000 UNITS FEED TUBE (08:23)
[2024-06-12] MEDS: FINASTERIDE 5 MG TABLET FEED TUBE (08:23)
[2024-06-12] MEDS: FOLIC ACID 1 MG TABLET FEED TUBE (08:23)
[2024-06-12] MEDS: LINEZOLID 600 MG TABLET FEED TUBE (08:23)
[2024-06-12] MEDS: sulfaSALAzine 500 MG TABLET 1500 MG FEED TUBE (08:23)
[2024-06-12] MEDS: ENOXAPARIN 40 MG/0.4 ML SYRINGE SUB-Q (08:24)
[2024-06-12] MEDS: LACTULOSE 20 GM/30 ML UDC FEED TUBE (08:24)
[2024-06-12] MEDS: MULTIVITAMINS-12 INJ VIAL 1 5 ML, MULTIVITAMINS-12 INJ VIAL 2 5 ML in SODIUM CHLORIDE 0... 200 ML IV CONT (10:15)
--- NOTE | 2024-06-12 10:15 | PCDIET ---
Nutrition note: Bolus tube feeding recommendations: Jevity 1.5 bolus 330 ml QID for total 1980 kcal, 84 g protein, 1003 ml free water. Flush 225 ml free water QID for total water 1900 ml/day. Meeting estimated nutrition needs @ 32 kcal/kg, 1.4 g protein/kg. Adequate for estimated nutrition needs. Pamela Spears RD LDN
--- NOTE | 2024-06-12 10:21 | PM.DS ---
DS: Admitting Diagnosis Discharge Date 06/12/2024 Admitting Diagnosis Altered Mental Status DS: Discharge Diagnosis Discharge Diagnosis (1) UTI (urinary tract infection) due to urinary indwelling Aguilar catheter: Code(s): T83.511A - Infection and inflammatory reaction due to indwelling urethral catheter, initial encounter; N39.0 - Urinary tract infection, site not specified Status: Acute (2) Benign prostatic hyperplasia: Code(s): N40.0 - Benign prostatic hyperplasia without lower urinary tract symptoms Status: Acute (3) Altered mental status: Code(s): R41.82 - Altered mental status, unspecified Status: Acute (4) Constipation: Qualifiers: Constipation type: chronic idiopathic constipation Qualified Code(s): K59.04 - Chronic idiopathic constipation Code(s): K59.00 - Constipation, unspecified Status: Acute (5) Depression: Code(s): F32.A - Depression, unspecified Status: Acute (6) Gastro-esophageal reflux disease without esophagitis: Code(s): K21.9 - Gastro-esophageal reflux disease without esophagitis Status: Acute (7) Severe protein-calorie malnutrition: Code(s): E43 - Unspecified severe protein-calorie malnutrition Status: Acute DS: Summary Hospital Course Reason for hospitalization: Altered Mental Status UTI Hospital Course: This is a 78-year-old male with a significant past medical history of bronchiectasis, severe protein calorie malnutrition and has PEG tube, depression, peripheral neuropathy, BPH, Crohn's disease, ulcerative colitis, hyperlipidemia, GERD, former smoker who presented to the hospital with altered mental status. Patient is only alert and oriented x1 and unable to provide history of presenting illness Workup in the hospital included a head CT which was negative for any acute intracranial findings, showed atrophy and chronic white matter changes. Cervical spine CT showed stable anterior C1 arch fracture with stable alignment, no new fracture subluxation. Chest x-ray showed opacification in the right lung base that represents atelectasis versus pneumonia. Chest/abdomen/ pelvis CTA showed fecal impaction, Aguilar catheter balloon is temp blood within the prostatic urethra, enlarged prostate gland, no pulmonary embolism, extensive chronic interstitial pulmonary disease with emphysematous changes, 1.3 cm right hilar lymph node noted. initial white blood cell count was normal at 9.6, hemoglobin 12.6, INR 1.1, sodium 128, chloride 87, bicarb 31, lactic acid was normal at 1.0, ammonia level was less than 9, troponin was negative, TSH 0.5-3. UA was obtained which showed turbid urine appearance, 1+ urine protein, trace ketone, 3+ urine blood, 3+ leukocytes, greater than 100 urine RBC, greater than 100 urine WBC, 3+ bacteria. Urine drug screen was positive for opioids. Respiratory panel was negative for influenza a and B, RSV, COVID. Blood and urine cultures were obtained and pending. EKG showed sinus rhythm with right axis deviation and right bundle branch block with a rate of 96, QTC 467. Patient was given a dose of Rocephin and Tylenol while in the ED. Aguilar catheter was exchanged in the ER. On 06/05/24: Modified barium swallow study failed. Tube feeding via PEG after placement on 06/07. On 06/10/23: Aguilar catheter removed, voiding trial. He is on tube feeding and is currently at goal and tolerating well. He is gaining weight however son has concerns for malnutrition. I called Dr. Gorman and he is supposed to be touching base with the son Woodrow today regarding his potential malnutrition. He did have an EGD with another PEG tube placement as he pulled it out whenever he was more confused. During the EGD we did biopsy to check for celiac however this was negative back in August of last year. This is his 3rd G-tube. he has currently got an abdominal binder on so he does not pull out the tube. He also has urinary retention and I did do a voiding trial on him however he technically failed as he had 600 mL in his bladder today and another Aguilar catheter was reinserted. Will likely need this mcfp as he has been on the tamsulosin and the finasteride. He will need Urology follow-up on an outpatient basis for this. Dr. Gorman of was requested to speak with the patient's son, Woodrow, regarding any questions he may have about the PEG tube. Patient has been accepted at [facility] and will get continuous tube feeding. Patient is otherwise stable for discharge. Plan to D/C to [facility]. Time Spent with Patient Time attestation: Total time spent providing and/or coordinating discharge services: 45 Exam Narrative: General: In no acute distress, severe malnutrition, emaciated Cardiac: Normal S1 and S2. Murmur noted, no gallops or friction rubs, peripheral pulses intact. Respiratory: Lungs clear to auscultation, no adventitious lung sounds, currently on room air Gastrointestinal: soft,flat, non-tender, normoactive bowel sounds. PEG tube in place with abdominal binder tolerating tube feedings at goal. :aguilar replaced due to high residual on bladder scan Neuro: Alert and oriented x2 at best. Remains confused DS: Data Data Completed and Pending Completed studies during hospitalization: Pending at discharge 06/07/24 14:20 Surgical [PTH] Routine Labs on day of discharge: Labs from last 24 hours 06/12/24 06/12/24 06/11/24 06:06 05:33 11:16 WBC 4.5 RBC 2.96 L Hgb 9.9 L Hct 30.3 L MCV 102.4 H MCH 33.4 MCHC 32.7 RDW 12.7 Plt Count 319 MPV 9.5 Immature Gran % (Auto) 0.7 H Neut % (Auto) 73.5 H Lymph % (Auto) 13.9 L Graham % (Auto) 9.0 H Eos % (Auto) 2.2 Baso % (Auto) 0.7 Lymph # (Auto) 0.62 L Graham # (Auto) 0.4 Eos # (Auto) 0.1 Baso # (Auto) 0.0 Abs Immat Gran (auto) 0.03 Absolute Neuts (auto) 3.3 Absolute Nucleated RBC 0.000 Nucleated RBC % 0.0 Sodium 129 L Potassium 4.1 Chloride 92 L Carbon Dioxide 33 H Anion Gap 4 BUN 12 Creatinine 0.36 L Estim Creat Clear Calc 118 Estimated GFR > 60 Glucose 121 H POC Capillary Glucose 117 H 128 H Calcium 8.1 L Total Bilirubin 0.1 L AST 28 ALT 31 Alkaline Phosphatase 72 Total Protein 6.0 L Albumin 3.2 L Discharge Plan Discharge Attending physician on discharge: John Walden Consulting providers: Heidi Doan Discharging Clinician: John Walden Anticipated Discharge Date/Time: 06/12/24 10:14 Patient Disposition: SNF Activity: as tolerated Diet: as tolerated Discharge Instructions: Take medications as prescribed Monitor blood pressures Take caution while standing, rising, or moving Change positions slowly taking a break between each position change If you standing feel dizzy sit back down and take a break Encouraged to continue with yearly vaccinations Return to the emergency department if he developed sudden shortness of breath, chest pain, nausea, vomiting, upset stomach or intractable diarrhea Return to the emergency department if you develop fever greater than 101.5 Follow-up with the primary care physician within 1-2 weeks Thank you for [facility] for your healthcare needs Patient Instructions: Antibiotic Form, Pain Management in Older Adults (DC) Patient Language: Citizen Of [place] Stand Alone Forms: General Discharge Information Follow-up/Referrals: Krystian Taveras, NEWS TECHNICAL DIRECTOR [Primary Care Provider] - Discharge Medications: Continued hydrocodone-acetaminophen 5-325 mg Tablet 1 tablet feeding tube Q6H PRN (Reason: Pain Rated 4-6) Qty: 20 0RF venlafaxine 37.5 mg Tablet 37.5 mg PO Q8HR Qty: 1 0RF folic acid 1 mg Tablet 1 mg feeding tube DAILY Qty: 1 0RF finasteride [Proscar] 5 mg Tablet 5 mg feeding tube DAILY Qty: 1 0RF cholecalciferol (vitamin D3) [Vitamin D3] 25 mcg (1,000 unit) Tablet 50 mcg feeding tube DAILY Qty: 1 0RF guaifenesin 100 mg/5 mL Liquid 200 mg feeding tube Q4H PRN (Reason: Cough) tamsulosin 0.4 mg capsule 0.4 mg PO HS 30 Days Qty: 30 0RF sulfasalazine 500 mg Tablet 1,500 mg feeding tube DAILY famotidine 20 mg Tablet 40 mg feeding tube Q12HR baclofen 5 mg granules in packet 5 mg PO TID sennosides-docusate sodium [Stimulant Laxative Plus] 8.6-50 mg tablet 2 tab-cap PO BID Date of admission: 06/05/24 10:27 Primary Care Provider: Krystian Taveras Admitting Provider: Antione Villegas Attending physician on admission: John Walden Condition: Stable Quality VTE Prophylaxis VTE prophylaxis: pharmacologic ordered Hospitalist MIPS Heart Failure (Exclusion) Patient has history of Heart Transplant or Left Ventricular Assistive Device?: No IF YES, STOP HERE Heart Failure (Qualifier) Patient has current or prior documentation of LVEF less than or equal to 40%, or mod/servere depressed LVSF?: No IF NO, STOP HERE
--- NOTE | 2024-06-12 10:41 | PCPTNOTE ---
10:40 Attempted to see pt however RN stated he is planning to leave today. He has a few procedures prior to and needs to reserve his energy. AKS
[2024-06-12 11:23] LABS: Glucose Point of Care 113 mg/dl (65-105)
[2024-06-12 14:00] VITALS: BP 116/73; PULSE 75; RESP 16; TEMP 36.3; O2SAT 98
--- NOTE | 2024-06-12 15:04 | PC.NURSE ---
Report called to Malina, nursing support worker at [facility] in [facility]. All questions answered at length. Discharge packet faxed to facility at [phone]. Instructed to call with any questions or follow up concerns. Pt son plans to arrive to [facility] between 430-5:00pm to transport patient to facility.
[2024-06-12 16:00] VITALS: BP 116/73; PULSE 75; RESP 20; TEMP 36.6; O2SAT 98
[2024-06-12] MEDS: ACETAMINOPHEN 325 MG TABLET 650 MG FEED TUBE (16:55)
== END 2024-06-12 17:24 | DRG 981 ==
LOC: ANHED 07:29 → ANH3MEDSUR 09:48
PROVIDERS: Emergency Medicine; Internal Medicine Gastroenterology; Nurse Practitioner Acute Care; Admitting Provider Hospitalist; Emergency Provider Student in an Organized Health Care Education/Training Program; PCP Nurse Practitioner; Visit Provider Physician Assistant
PROC: 0DH63UZ Insertion of Feeding Device into Stomach, Percutaneous Approach (ICD-10-PCS; CPT 43246; principal; 2024-06-07 15:30)
DX: T83.511A Infection and inflammatory reaction due to indwelling urethral catheter, initial encounter (principal); E43 Unspecified severe protein-calorie malnutrition; E87.1 Hypo-osmolality and hyponatremia; K51.90 Ulcerative colitis, unspecified, without complications; Z68.1 Body mass index [BMI] 19.9 or less, adult; T85.528A Displacement of other gastrointestinal prosthetic devices, implants and grafts, initial encounter; G93.40 Encephalopathy, unspecified; Z16.21 Resistance to vancomycin; B95.2 Enterococcus as the cause of diseases classified elsewhere; J47.9 Bronchiectasis, uncomplicated; E78.00 Pure hypercholesterolemia, unspecified; K21.9 Gastro-esophageal reflux disease without esophagitis; K59.00 Constipation, unspecified; N40.0 Benign prostatic hyperplasia without lower urinary tract symptoms; R27.0 Ataxia, unspecified; G62.9 Polyneuropathy, unspecified; F32.A Depression, unspecified; Z20.822 Contact with and (suspected) exposure to COVID-19; S12.090D Other displaced fracture of first cervical vertebra, subsequent encounter for fracture with routine healing; Z87.891 Personal history of nicotine dependence; Z93.1 Gastrostomy status
CPT/HCPCS: 36415; 36600; 43246; 70450; 71045; 71275; 72125; 74177; 80053; 80143; 80179; 80307; 81001; 82077; 82140; 82306; 82550; 82607; 82746; 82805; 82948; 83516; 83605; 83735; 84443; 84484; 85018; 85025; 85610; 85730; 86703; 87040; 87086; 87181; 87637; 88305; 92611; 93005; 96365; 96375; 97110; 97161; 97166; 97530; 97535; 99285; A9270; G0378; G0432; J0290; J0690; J0696; J1650; J2020; J2270; J2470; J2704; J7030; J7042; J7120; Q9967